=== PATIENT | female | born 1965 | race African-American/Black ===

== ENCOUNTER 2016-12-09 09:44 | Inpatient (IN) | payer MEDICAID ==
[~2016-12-09] VITALS: Ht 167.6 cm; Wt 104.0 kg
[~2016-12-09 09:44] MED LIST: AMIT25TA9 PO; AMLO10TA80 PO; ASPI-1159 PO; ATOR10TA69 PO; BRIM5DRO EACHEYE; BUSP15TA3 PO; CETI10TA6 PO; CYCL10TA7 PO; FAMO20TA8 PO; FLONAS NS; FLUT1DIS3 IH; FURO40TA5 PO; HYDR-523 PO; IMIT50 PO; KETOTIFEN BOTHEYE; LISI-604 PO; LORA0.5T2 PO; LORA10TA7 PO; LOSA100T14 PO; METF500T4 PO; METH4TAB17 PO; MONT10TA24 PO; POTA20TA75 PO; PRED5TAB48 PO; PROP50TA3 PO
[2016-12-09] MEDS ORDERED: METHYLPREDNISOLONE SOD SUCC 125 MG/2 ML VIAL IV STA (09:59)
[2016-12-09] MEDS ORDERED: MAGNESIUM 2 G PREMIX 50 ML IV ONE (10:00)
[2016-12-09] MEDS ORDERED: IPRATROPIUM/ALBUTEROL 0.5-3(2.5)MG/3ML NEB HHN ONE (10:00)
[2016-12-09 10:27] LABS: HEMATOCRIT. 38.6 % (36.0-48.0); HEMOGLOBIN. 13.7 g/dL (12.0-16.0); LYMPHOCYTES % 37.7 % (20.0-50.0); MEAN CORPUSCULAR HEMOGLOBIN 32.8 pg (28.0-32.0); MEAN CORPUSCULAR VOLUME 92.5 fL (81.0-99.0); MEAN PLATELET VOLUME 6.9 fl (7.4-10.4); MONOCYTES % 7.7 % (2.0-8.0); NEUTROPHILS % 49.6 % (40.0-76.0); PLATELET 252 x1000/uL (130-400); RED BLOOD CELL COUNT 4.17 mill/uL (4.2-5.4); RED CELL DISTRIBUTION WIDTH 13.2 % (11.6-14.6)
[2016-12-09 10:36] LABS: PARTIAL THROMBOPLASTIN TIME 28.1 sec (24.0-34.0); PROTHROMBIN TIME 10.4 sec
[2016-12-09 10:54] LABS: CARBON DIOXIDE 28 mEq/L (21-32); CHLORIDE 106 mEq/L (98-107); TROPONIN I < 0.02 ng/mL (0.00-0.04)
[2016-12-09] MEDS ORDERED: SODIUM CHLORIDE 0.9% 10ML VIAL ONE (11:18)
[2016-12-09] MEDS ORDERED: IOHEXOL-350 100 ML BOTTLE ONE (11:18)
[2016-12-09] MEDS ORDERED: ALBUTEROL (0.083%) 2.5MG/3ML NEB HHN SCH (12:00)
[2016-12-09 12:18] LABS: BG BASE EXCESS 0.3 mmol/L (-2.0-2.0); BG CARBOXYHEMOGLOBIN 0.4 % (0.5-1.5); BG DEOXYHEMOGLOBIN 4.1 % (0.0-5.0); BG HCO3 ACT 22.8 mmol/L (22.0-26.0); BG METHEMOGLOBIN 0.1 % (0.0-1.5); BG OXYGEN SATURATION 95.9 % (92.0-98.5); BG OXYHEMOGLOBIN 95.4 % (94.0-97.0); BG PCO2 30.9 mmHg (35.0-45.0); BG PH 7.485 (7.350-7.450); BG PO2 78.2 mmHg (75.0-100.0); BG SAMPLE SITE RIGHT RADIAL; BG TOTAL HEMOGLOBIN 14.4 g/dL (12.0-18.0); BG VENT MODE ROOM AIR
[2016-12-09] MEDS ORDERED: SUMATRIPTAN SUCCINATE 25MG TABLET PO ONE (12:30)
[2016-12-09 13:47] LABS: HCG SCREEN NEGATIVE
[2016-12-09 14:01] LABS: CLARITY URINE CLEAR (CLEAR); COLOR URINE YELLOW (YELLOW); GLUCOSE URINE 2+ (NEGATIVE); KETONES URINE NEGATIVE (NEGATIVE); LEUKOCYTE ESTERASE URINE 1+ (NEGATIVE); NITRITE URINE NEGATIVE (NEGATIVE); OCCULT BLOOD URINE 1+ (NEGATIVE); PROTEIN URINE NEGATIVE (NEGATIVE); SPECIFIC GRAVITY URINE 1.016 (1.005-1.030)
[2016-12-09] MEDS ORDERED: CLONIDINE 0.1MG TABLET PO PRN (14:15)
[2016-12-09] MEDS ORDERED: METHYLPREDNISOLONE SOD SUCC 125 MG/2 ML VIAL IV SCH (14:15)
[2016-12-09] MEDS ORDERED: DIPHENHYDRAMINE 50MG/ML VIAL IV PRN ×2 (14:15→23:00)
[2016-12-09] MEDS ORDERED: IPRATROPIUM/ALBUTEROL 0.5-3(2.5)MG/3ML NEB INH PRN (14:15)
[2016-12-09] MEDS ORDERED: POTASSIUM CHLORIDE 20MEQ TABLET SR PO ONE (14:15)
[2016-12-09] MEDS ORDERED: ONDANSETRON HCL 4MG/2ML VIAL IV PRN (14:15)
[2016-12-09] MEDS ORDERED: IPRATROPIUM/ALBUTEROL 0.5-3(2.5)MG/3ML NEB INH SCH (14:15)
[2016-12-09 14:25] LABS: *AMPHETAMINES SCREEN URINE NEGATIVE (NEGATIVE); *BARBITURATES SCREEN URINE NEGATIVE (NEGATIVE); *BENZODIAZEPINES SCREEN URINE NEGATIVE (NEGATIVE); *COCAINE SCREEN URINE NEGATIVE (NEGATIVE); CANNABINOID URINE SCREEN NEGATIVE (NEGATIVE); METHADONE URINE SCREEN NEGATIVE (NEGATIVE); PHENCYCLIDINE URINE SCREEN NEGATIVE (NEGATIVE)
[2016-12-09 14:30] LABS: OPIATES URINE SCREEN NEGATIVE (NEGATIVE)
[2016-12-09] MEDS ORDERED: LEVOFLOXACIN 500MG PREMIX 100 ML IV SCH (14:30)
[2016-12-09] MEDS ORDERED: TRAMADOL 50MG TABLET PO PRN (15:06)
[2016-12-09 16:00] VITALS: BP 128/62
[2016-12-09 16:18] VITALS: BP 126/82
[2016-12-09] MEDS ORDERED: HYDR-519 PO (16:26)
[2016-12-09] MEDS ORDERED: DEXTROSE 50% WATER 50ML SYRINGE IV PRN (16:45)
[2016-12-09] MEDS: BLOOD SUGAR DIAGNOSTIC STRIP TEST SCH ×2 (17:42→21:00)
[2016-12-09] MEDS: INSULIN LISPRO 100 UNITS/ML SUBCUT SCH ×2 (17:59→21:16)
[2016-12-09 18:00] VITALS: BP 116/79
[2016-12-09] MEDS: METHYLPREDNISOLONE SOD SUCC 40 MG/ML VIAL IV SCH (18:28)
[2016-12-09 20:00] VITALS: BP 118/76
[2016-12-09] MEDS: IPRATROPIUM/ALBUTEROL 0.5-3(2.5)MG/3ML NEB INH SCH (20:40)
[2016-12-09] MEDS: FLUTICASONE PROPIONATE NASAL SPRAY XX SCH (21:07)
[2016-12-09 22:00] VITALS: BP 138/77
[2016-12-09] MEDS ORDERED: ZOLPIDEM TARTRATE 5MG TABLET PO PRN (23:00)
[2016-12-10] VITALS (13 sets, daily range): BP systolic 119–142; BP diastolic 69–97
[2016-12-10] MEDS: IPRATROPIUM/ALBUTEROL 0.5-3(2.5)MG/3ML NEB INH SCH ×5 (00:42→16:57)
[2016-12-10] MEDS: METHYLPREDNISOLONE SOD SUCC 40 MG/ML VIAL IV SCH ×3 (02:08→18:07)
[2016-12-10] MEDS: BLOOD SUGAR DIAGNOSTIC STRIP TEST SCH ×4 (07:30→21:04)
[2016-12-10] MEDS: INSULIN LISPRO 100 UNITS/ML SUBCUT SCH ×4 (08:00→21:25)
[2016-12-10] MEDS: FLUTICASONE PROPIONATE NASAL SPRAY XX SCH ×2 (09:18→18:10)
[2016-12-10] MEDS ORDERED: HYDROCODONE/ACETAMINOPHEN 10/325MG TABLET PO PRN (15:00)
[2016-12-10] MEDS ORDERED: LEVOFLOXACIN 500MG PREMIX 100 ML IV SCH (16:00)
[2016-12-10] MEDS ORDERED: LORAZEPAM 0.5MG TABLET PO PRN (17:26)
[2016-12-10] MEDS: CYCLOBENZAPRINE 10MG TABLET PO SCH (18:08)
[2016-12-10] MEDS: POTASSIUM CHLORIDE 20MEQ TABLET SR PO SCH (18:08)
[2016-12-10] MEDS ORDERED: FLUTICASONE PROPIONATE 50MCG/SPRAY BOTTLE BOTHNSTRLS PRN (20:00)
[2016-12-10] MEDS ORDERED: ATORVASTATIN CALCIUM 10MG TABLET PO SCH (21:00)
[2016-12-10] MEDS ORDERED: PROPYLTHIOURACIL 50MG TABLET PO SCH (21:00)
[2016-12-10] MEDS ORDERED: MONTELUKAST SODIUM 10MG TABLET PO SCH (21:00)
[2016-12-10] MEDS ORDERED: AMITRIPTYLINE 25MG TABLET PO SCH (21:00)
[2016-12-10] MEDS: LISINOPRIL 20MG TABLET PO SCH (21:03)
[2016-12-11] VITALS (9 sets, daily range): BP systolic 117–140; BP diastolic 61–88
[2016-12-11] MEDS: IPRATROPIUM/ALBUTEROL 0.5-3(2.5)MG/3ML NEB INH SCH ×6 (00:19→15:33)
[2016-12-11] MEDS: METHYLPREDNISOLONE SOD SUCC 40 MG/ML VIAL IV SCH ×2 (02:09→09:28)
[2016-12-11] MEDS: BLOOD SUGAR DIAGNOSTIC STRIP TEST SCH ×2 (07:39→12:10)
[2016-12-11] MEDS: INSULIN LISPRO 100 UNITS/ML SUBCUT SCH ×2 (07:39→12:40)
[2016-12-11] MEDS ORDERED: METFORMIN HCL 500MG TABLET PO SCH (08:00)
[2016-12-11] MEDS ORDERED: FUROSEMIDE 40MG TABLET PO SCH (09:00)
[2016-12-11] MEDS ORDERED: CETIRIZINE 10MG TABLET PO SCH (09:00)
[2016-12-11] MEDS ORDERED: FAMOTIDINE 20MG TABLET PO SCH (09:00)
[2016-12-11] MEDS ORDERED: AMLODIPINE 10MG TABLET PO SCH (09:00)
[2016-12-11] MEDS ORDERED: ASPIRIN 81MG EC TABLET PO SCH (09:00)
[2016-12-11] MEDS ORDERED: LOSARTAN POTASSIUM 100 MG TABLET PO SCH (09:00)
[2016-12-11] MEDS: POTASSIUM CHLORIDE 20MEQ TABLET SR PO SCH (09:19)
[2016-12-11] MEDS: CYCLOBENZAPRINE 10MG TABLET PO SCH (09:20)
[2016-12-11] MEDS: LISINOPRIL 20MG TABLET PO SCH (09:21)
[2016-12-11] MEDS: FLUTICASONE PROPIONATE NASAL SPRAY XX SCH (09:22)
== END 2016-12-11 16:10 | disposition home or self-care (01) | DRG 140 ==
LOC: ER 09:45 → EDBEDREQ 11:50 → 5EST 13:13 → EDBEDREQ 13:15 → EDBEDREQSVC 13:15 → ENRESERV 13:48 → ER 14:41
PROVIDERS: ADMIT Internal Medicine; ATTEND Internal Medicine
DX: J44.1 Chronic obstructive pulmonary disease with (acute) exacerbation (principal); J45.901 Unspecified asthma with (acute) exacerbation; I10 Essential (primary) hypertension; F32.9 Major depressive disorder, single episode, unspecified; E05.90 Thyrotoxicosis, unspecified without thyrotoxic crisis or storm; E11.9 Type 2 diabetes mellitus without complications; E78.5 Hyperlipidemia, unspecified; F41.9 Anxiety disorder, unspecified; G47.33 Obstructive sleep apnea (adult) (pediatric); K21.9 Gastro-esophageal reflux disease without esophagitis; G43.909 Migraine, unspecified, not intractable, without status migrainosus; J30.9 Allergic rhinitis, unspecified; R00.0 Tachycardia, unspecified; Z79.52 Long term (current) use of systemic steroids; Z79.84 Long term (current) use of oral hypoglycemic drugs; Z79.899 Other long term (current) drug therapy; Z88.0 Allergy status to penicillin; Z88.2 Allergy status to sulfonamides; Z88.6 Allergy status to analgesic agent; Z88.5 Allergy status to narcotic agent; Z88.8 Allergy status to other drugs, medicaments and biological substances
CPT/HCPCS: 36415; 36600; 71010; 71275; 80053; 80305; 81001; 82375; 82805; 82962; 83605; 83880; 84484; 84703; 85025; 85379; 85610; 85730; 87040; 87086; 93005; 94640; 96365; 96366; 96367; 96375; 99291; A4216; C1893; J1200; J1815; J1956; J2920; J2930; J3475; J7030; J7611; J7620; Q9967

== ENCOUNTER 2016-12-29 23:07 | Emergency (ER) | payer MEDICAID, OTHER ==
[~2016-12-29] VITALS: Ht 177.8 cm; Wt 82.0 kg
[~2016-12-29 23:07] MED LIST changes: -BUSP15TA3 PO; +HYDR-519 PO; -HYDR-523 PO; -LORA10TA7 PO; -PRED5TAB48 PO
[2016-12-29] MEDS ORDERED: METHYLPREDNISOLONE SOD SUCC 125 MG/2 ML VIAL IV STA (23:29)
[2016-12-29] MEDS ORDERED: IPRATROPIUM BROMIDE (0.02%) 0.5MG/2.5ML NEB HHN STA (23:29)
[2016-12-29] MEDS ORDERED: ALBUTEROL (0.083%) 2.5MG/3ML NEB HHN STA (23:29)
[2016-12-29] MEDS ORDERED: MAGNESIUM 2 G PREMIX 50 ML IV ONE (23:30)
[2016-12-30 00:06] LABS: BASOPHILS % 0.7 % (0.0-2.0); EOSINOPHILS % 1.4 % (0.0-5.0); HEMATOCRIT. 37.6 % (36.0-48.0); HEMOGLOBIN. 12.8 g/dL (12.0-16.0); LYMPHOCYTES % 13.6 % (20.0-50.0); MEAN CORPUSCULAR HEMOGLOBIN 31.5 pg (28.0-32.0); MEAN CORPUSCULAR VOLUME 92.2 fL (81.0-99.0); NEUTROPHILS % 78.3 % (40.0-76.0); PLATELET 223 x1000/uL (130-400); RED BLOOD CELL COUNT 4.07 mill/uL (4.2-5.4); RED CELL DISTRIBUTION WIDTH 13.4 % (11.6-14.6)
[2016-12-30 00:08] LABS: CHLORIDE 105 mEq/L (98-107)
[2016-12-30 00:15] LABS: CARBON DIOXIDE 27 mEq/L (21-32)
[2016-12-30] MEDS ORDERED: ALBUTEROL (0.5%) 2.5MG/0.5ML NEB HHN ONE (02:11)
[2016-12-30 04:10] VITALS: BP 135/79
== END 2016-12-30 04:12 | disposition home or self-care (01) ==
LOC: ER 23:07
DX: J45.901 Unspecified asthma with (acute) exacerbation (principal); J44.9 Chronic obstructive pulmonary disease, unspecified; E05.90 Thyrotoxicosis, unspecified without thyrotoxic crisis or storm; I10 Essential (primary) hypertension; E78.00 Pure hypercholesterolemia, unspecified; E11.9 Type 2 diabetes mellitus without complications; Z79.82 Long term (current) use of aspirin; Z88.0 Allergy status to penicillin; Z88.2 Allergy status to sulfonamides; Z88.6 Allergy status to analgesic agent
CPT/HCPCS: 36415; 71010; 80048; 85025; 94640; 94644; 96365; 96375; 99285; J2930; J3475; J7611; 96374

== ENCOUNTER 2017-02-02 11:08 | Inpatient (IN) | payer MEDICAID ==
[~2017-02-02] VITALS: Ht 172.7 cm; Wt 104.4 kg
[~2017-02-02 11:08] MED LIST changes: +POTA20TA12 PO; -POTA20TA75 PO
[2017-02-02] MEDS ORDERED: IPRATROPIUM BROMIDE (0.02%) 0.5MG/2.5ML NEB HHN STA (11:17)
[2017-02-02] MEDS ORDERED: ALBUTEROL (0.083%) 2.5MG/3ML NEB HHN STA (11:17)
[2017-02-02] MEDS ORDERED: METHYLPREDNISOLONE SOD SUCC 125 MG/2 ML VIAL IV STA (11:17)
[2017-02-02] MEDS ORDERED: SODIUM CHLORIDE 0.9% 1,000 ML IV ONE (11:17)
[2017-02-02] MEDS ORDERED: MAGNESIUM 2 G PREMIX 50 ML IV ONE (11:30)
[2017-02-02 11:48] LABS: BASOPHILS % 0.7 % (0.0-2.0); EOSINOPHILS % 2.6 % (0.0-5.0); HEMOGLOBIN. 13.6 g/dL (12.0-16.0); LYMPHOCYTES % 33.9 % (20.0-50.0); MEAN CORPUSCULAR HEMOGLOBIN 31.5 pg (28.0-32.0); MEAN CORPUSCULAR VOLUME 92.6 fL (81.0-99.0); MONOCYTES % 8.4 % (2.0-8.0); NEUTROPHILS % 54.4 % (40.0-76.0); PLATELET 266 x1000/uL (130-400); RED BLOOD CELL COUNT 4.32 mill/uL (4.2-5.4); RED CELL DISTRIBUTION WIDTH 13.4 % (11.6-14.6)
[2017-02-02 11:51] LABS: PROTHROMBIN TIME 10.3 sec (9.4-11.6)
[2017-02-02 11:53] LABS: HCG SCREEN NEGATIVE
[2017-02-02] MEDS ORDERED: LEVOFLOXACIN 750MG PREMIX 150 ML IV ONE (12:00)
[2017-02-02 12:01] LABS: CARBON DIOXIDE 23 mEq/L (21-32); CHLORIDE 112 mEq/L (98-107); ETHANOL BLOOD < 10 mg/dL; TROPONIN I < 0.02 ng/mL (0.00-0.04)
[2017-02-02 12:50] LABS: BG FRACTION INSPIRED OXYGEN 100; BG SAMPLE SITE LEFT BRACHIAL; BG VENT MODE MASK - BIPAP
[2017-02-02 12:54] LABS: BG PH 7.406 (7.350-7.450)
[2017-02-02 12:55] LABS: BG PO2 326.3 mmHg (75.0-100.0)
[2017-02-02 12:56] LABS: BG BASE EXCESS -2.1 mmol/L (-2.0-2.0); BG HCO3 ACT 22.1 mmol/L (22.0-26.0)
[2017-02-02 12:57] LABS: BG OXYGEN SATURATION 99.5 % (92.0-98.5); BG TOTAL HEMOGLOBIN 13.5 g/dL (12.0-18.0)
[2017-02-02 12:58] LABS: BG CARBOXYHEMOGLOBIN 0.4 % (0.5-1.5); BG OXYHEMOGLOBIN 98.7 % (94.0-97.0)
[2017-02-02 12:59] LABS: BG DEOXYHEMOGLOBIN 0.5 % (0.0-5.0); BG METHEMOGLOBIN 0.4 % (0.0-1.5)
[2017-02-02 13:00] LABS: BG BILEVEL POS AIRWAY PRESSURE ST=15/5; BG PRESSURE SUPPORT 10; BG VENT RATE 16 set
[2017-02-02 14:00] VITALS: BP 173/89
[2017-02-02] MEDS ORDERED: DEXTROSE 50% WATER 50ML SYRINGE IV PRN (15:30)
[2017-02-02] MEDS ORDERED: POTASSIUM CHLORIDE 20MEQ TABLET SR PO NR (15:36)
[2017-02-02] MEDS ORDERED: METHYLPREDNISOLONE 4MG TABLET PO SCH (15:45)
[2017-02-02 16:00] VITALS: BP 121/100
[2017-02-02] MEDS ORDERED: IPRATROPIUM/ALBUTEROL 0.5-3(2.5)MG/3ML NEB HHN SCH ×3 (16:00)
[2017-02-02] MEDS ORDERED: LORAZEPAM 0.5MG TABLET PO PRN (16:00)
[2017-02-02] MEDS: IPRATROPIUM/ALBUTEROL 0.5-3(2.5)MG/3ML NEB HHN SCH ×2 (16:30→20:58)
[2017-02-02] MEDS: CYCLOBENZAPRINE 10MG TABLET PO SCH (17:17)
[2017-02-02] MEDS: METHYLPREDNISOLONE SOD SUCC 40 MG/ML VIAL IV SCH ×2 (17:17→23:31)
[2017-02-02] MEDS: BLOOD SUGAR DIAGNOSTIC STRIP TEST SCH ×2 (17:21→20:47)
[2017-02-02] MEDS: INSULIN LISPRO 100 UNITS/ML SUBCUT SCH ×2 (17:21→20:51)
[2017-02-02 18:00] VITALS: BP 129/76
[2017-02-02] MEDS ORDERED: FLUTICASONE PROPIONATE 50MCG/SPRAY BOTTLE BOTHNSTRLS PRN (18:00)
[2017-02-02 20:00] VITALS: BP 134/92
[2017-02-02] MEDS: LISINOPRIL 20MG TABLET PO SCH (20:43)
[2017-02-02] MEDS: HYDROCODONE/ACETAMINOPHEN 10/325MG TABLET PO PRN (20:45)
[2017-02-02] MEDS ORDERED: PROPYLTHIOURACIL 50MG TABLET PO SCH (21:00)
[2017-02-02] MEDS ORDERED: MONTELUKAST SODIUM 10MG TABLET PO SCH (21:00)
[2017-02-02] MEDS ORDERED: AMITRIPTYLINE 25MG TABLET PO SCH (21:00)
[2017-02-02] MEDS ORDERED: ATORVASTATIN CALCIUM 10MG TABLET PO SCH (21:00)
[2017-02-02 22:00] VITALS: BP 130/82
[2017-02-03] VITALS (11 sets, daily range): BP systolic 112–165; BP diastolic 69–99
[2017-02-03] MEDS: IPRATROPIUM/ALBUTEROL 0.5-3(2.5)MG/3ML NEB HHN SCH ×5 (00:21→16:28)
[2017-02-03] MEDS: METHYLPREDNISOLONE SOD SUCC 40 MG/ML VIAL IV SCH ×3 (06:02→17:37)
[2017-02-03] MEDS: HYDROCODONE/ACETAMINOPHEN 10/325MG TABLET PO PRN (06:22)
[2017-02-03 06:29] LABS: HEMATOCRIT. 37.7 % (36.0-48.0); HEMOGLOBIN. 12.6 g/dL (12.0-16.0); MEAN CORPUSCULAR HEMOGLOBIN 31.1 pg (28.0-32.0); MEAN CORPUSCULAR VOLUME 93.3 fL (81.0-99.0); MEAN PLATELET VOLUME 7.3 fl (7.4-10.4); PLATELET 245 x1000/uL (130-400); RED BLOOD CELL COUNT 4.04 mill/uL (4.2-5.4); RED CELL DISTRIBUTION WIDTH 13.8 % (11.6-14.6)
[2017-02-03 06:41] LABS: CARBON DIOXIDE 21 mEq/L (21-32); CHLORIDE 111 mEq/L (98-107)
[2017-02-03 07:21] LABS: BG BASE EXCESS -2.8 mmol/L (-2.0-2.0); BG CARBOXYHEMOGLOBIN 0.2 % (0.5-1.5); BG DEOXYHEMOGLOBIN 4.1 % (0.0-5.0); BG HCO3 ACT 21.3 mmol/L (22.0-26.0); BG METHEMOGLOBIN 0.2 % (0.0-1.5); BG OXYGEN SATURATION 95.9 % (92.0-98.5); BG OXYHEMOGLOBIN 95.5 % (94.0-97.0); BG PH 7.402 (7.350-7.450); BG PO2 79.6 mmHg (75.0-100.0); BG SAMPLE SITE RIGHT RADIAL; BG TOTAL HEMOGLOBIN 13.7 g/dL (12.0-18.0); BG VENT MODE ROOM AIR
[2017-02-03] MEDS: BLOOD SUGAR DIAGNOSTIC STRIP TEST SCH ×3 (07:30→17:29)
[2017-02-03] MEDS: INSULIN LISPRO 100 UNITS/ML SUBCUT SCH ×3 (08:00→17:31)
[2017-02-03] MEDS ORDERED: METFORMIN HCL 500MG TABLET PO SCH (08:00)
[2017-02-03] MEDS ORDERED: FAMOTIDINE 20MG TABLET PO SCH (09:00)
[2017-02-03] MEDS ORDERED: ASPIRIN 81MG EC TABLET PO SCH (09:00)
[2017-02-03] MEDS ORDERED: AMLODIPINE 10MG TABLET PO SCH (09:00)
[2017-02-03] MEDS ORDERED: CETIRIZINE 10MG TABLET PO SCH (09:00)
[2017-02-03] MEDS ORDERED: LOSARTAN POTASSIUM 100 MG TABLET PO SCH (09:00)
[2017-02-03] MEDS ORDERED: FUROSEMIDE 40MG TABLET PO SCH (09:00)
[2017-02-03] MEDS: CYCLOBENZAPRINE 10MG TABLET PO SCH ×2 (09:00→17:28)
[2017-02-03] MEDS: LISINOPRIL 20MG TABLET PO SCH (09:18)
[2017-02-03] MEDS: POTASSIUM CHLORIDE 20MEQ TABLET SR PO SCH ×2 (09:20→17:28)
[2017-02-04 21:19] LABS: PLATELET ESTIMATE NORMAL
== END 2017-02-03 18:45 | disposition home or self-care (01) | DRG 133 ==
LOC: ER 11:13 → 5EST 11:54 → EDBEDREQ 11:57 → ENRESERV 12:23 → 5EST 13:44 → UNDOADMIN 13:44
PROVIDERS: ADMIT Internal Medicine; ATTEND Internal Medicine
PROC: 5A09357 Assistance with Respiratory Ventilation, Less than 24 Consecutive Hours, Continuous Positive Airway Pressure (ICD-10-PCS; principal; 2017-02-02)
DX: J96.00 Acute respiratory failure, unspecified whether with hypoxia or hypercapnia (principal); R65.10 Systemic inflammatory response syndrome (SIRS) of non-infectious origin without acute organ dysfunction; J44.1 Chronic obstructive pulmonary disease with (acute) exacerbation; J45.901 Unspecified asthma with (acute) exacerbation; K21.9 Gastro-esophageal reflux disease without esophagitis; E11.9 Type 2 diabetes mellitus without complications; I10 Essential (primary) hypertension; F32.9 Major depressive disorder, single episode, unspecified; R00.0 Tachycardia, unspecified; E78.5 Hyperlipidemia, unspecified; E78.00 Pure hypercholesterolemia, unspecified; E87.6 Hypokalemia; E05.90 Thyrotoxicosis, unspecified without thyrotoxic crisis or storm; F41.0 Panic disorder [episodic paroxysmal anxiety]; Z88.0 Allergy status to penicillin; Z88.2 Allergy status to sulfonamides; Z88.6 Allergy status to analgesic agent; Z88.5 Allergy status to narcotic agent; Z79.1 Long term (current) use of non-steroidal anti-inflammatories (NSAID); Z79.84 Long term (current) use of oral hypoglycemic drugs; Z79.899 Other long term (current) drug therapy
CPT/HCPCS: 36415; 36600; 71010; 80048; 80053; 82375; 82805; 82962; 83605; 83690; 83880; 84484; 84703; 85025; 85610; 87040; 93005; 94640; 94644; 94660; 96365; 96366; 96375; 99291; A6261; G0482; J1815; J1956; J2920; J2930; J3475; J7030; J7611; J7620

== ENCOUNTER 2017-02-11 01:06 | Emergency (ER) | payer MEDICAID, OTHER ==
[~2017-02-11] VITALS: Ht 170.2 cm; Wt 80.0 kg
[2017-02-11] MEDS ORDERED: METHYLPREDNISOLONE SOD SUCC 125 MG/2 ML VIAL IV STA (01:22)
[2017-02-11] MEDS ORDERED: ALBUTEROL (0.083%) 2.5MG/3ML NEB HHN STA (01:22)
[2017-02-11] MEDS ORDERED: IPRATROPIUM BROMIDE (0.02%) 0.5MG/2.5ML NEB HHN STA (01:22)
[2017-02-11] MEDS ORDERED: SODIUM CHLORIDE 0.9% 1,000 ML IV ONE ×2 (01:22→05:14)
[2017-02-11] MEDS ORDERED: LEVOFLOXACIN 750MG PREMIX 150 ML IV ONE (01:30)
[2017-02-11] MEDS ORDERED: ASPIRIN 81MG TABLET PO ONE (01:30)
[2017-02-11] MEDS ORDERED: NITROGLYCERIN OINT 1GM/INCH UDPKT TD ONE (01:30)
[2017-02-11] MEDS ORDERED: MAGNESIUM 2 G PREMIX 50 ML IV ONE (01:30)
[2017-02-11 01:58] LABS: BG BASE EXCESS 0.5 mmol/L (-2.0-2.0); BG CARBOXYHEMOGLOBIN 0.4 % (0.5-1.5); BG DEOXYHEMOGLOBIN 4.2 % (0.0-5.0); BG FRACTION INSPIRED OXYGEN 28; BG HCO3 ACT 25.9 mmol/L (22.0-26.0); BG METHEMOGLOBIN 0.4 % (0.0-1.5); BG OXYGEN SATURATION 95.8 % (92.0-98.5); BG PCO2 44.3 mmHg (35.0-45.0); BG PH 7.384 (7.350-7.450); BG PO2 83.6 mmHg (75.0-100.0); BG SAMPLE SITE LEFT RADIAL; BG TOTAL HEMOGLOBIN 13.6 g/dL (12.0-18.0); BG VENT MODE NASAL CANNULA
[2017-02-11 02:17] LABS: BASOPHILS % 0.2 % (0.0-2.0); EOSINOPHILS % 0.2 % (0.0-5.0); HCG SCREEN NEGATIVE; HEMATOCRIT. 38.9 % (36.0-48.0); HEMOGLOBIN. 13.2 g/dL (12.0-16.0); LYMPHOCYTES % 13.5 % (20.0-50.0); MEAN CORPUSCULAR HEMOGLOBIN 31.5 pg (28.0-32.0); MEAN CORPUSCULAR VOLUME 93.1 fL (81.0-99.0); MEAN PLATELET VOLUME 6.9 fl (7.4-10.4); MONOCYTES % 3.7 % (2.0-8.0); NEUTROPHILS % 82.4 % (40.0-76.0); PLATELET 218 x1000/uL (130-400); RED BLOOD CELL COUNT 4.18 mill/uL (4.2-5.4); RED CELL DISTRIBUTION WIDTH 13.6 % (11.6-14.6)
[2017-02-11 02:21] LABS: D-DIMER 1.49 mg/L FEU (<0.50); PARTIAL THROMBOPLASTIN TIME 26.6 sec (23.4-31.0); PROTHROMBIN TIME 10.1 sec (9.4-11.6)
[2017-02-11 02:27] LABS: CARBON DIOXIDE 27 mEq/L (21-32); CHLORIDE 105 mEq/L (98-107); ETHANOL BLOOD < 10 mg/dL; TROPONIN I < 0.02 ng/mL (0.00-0.04)
[2017-02-11 07:28] VITALS: BP 151/90
[2017-02-11] MEDS ORDERED: IOHEXOL-350 100 ML BOTTLE ONE (11:20)
[2017-02-11] MEDS ORDERED: SODIUM CHLORIDE 0.9% 10ML VIAL ONE (11:20)
== END 2017-02-11 07:46 | disposition home or self-care (01) ==
LOC: ER 01:06
DX: J44.1 Chronic obstructive pulmonary disease with (acute) exacerbation (principal); F17.200 Nicotine dependence, unspecified, uncomplicated; I10 Essential (primary) hypertension; E11.9 Type 2 diabetes mellitus without complications; Z88.0 Allergy status to penicillin; Z88.6 Allergy status to analgesic agent; Z88.4 Allergy status to anesthetic agent; Z88.2 Allergy status to sulfonamides; Z79.82 Long term (current) use of aspirin
CPT/HCPCS: 36415; 36600; 71010; 71275; 80053; 82375; 82805; 83605; 83690; 83880; 84484; 84703; 85025; 85379; 85610; 85730; 87040; 93005; 94644; 96361; 96365; 96368; 96375; 99285; A4216; G0482; J1956; J2930; J3475; J7611; Q9967; Z7610; J7030

== ENCOUNTER 2017-03-08 09:45 | Inpatient (IN) | payer MEDICAID ==
[~2017-03-08] VITALS: Ht 172.7 cm; Wt 81.6 kg
[2017-03-08] MEDS ORDERED: METHYLPREDNISOLONE SOD SUCC 125 MG/2 ML VIAL IV STA (10:07)
[2017-03-08] MEDS ORDERED: ALBUTEROL (0.083%) 2.5MG/3ML NEB HHN STA (10:07)
[2017-03-08] MEDS ORDERED: IPRATROPIUM BROMIDE (0.02%) 0.5MG/2.5ML NEB HHN STA (10:07)
[2017-03-08] MEDS ORDERED: MAGNESIUM 2 G PREMIX 50 ML IV ONE (10:15)
[2017-03-08 10:42] LABS: BASOPHILS % 1.1 % (0.0-2.0); HEMATOCRIT. 41.3 % (36.0-48.0); HEMOGLOBIN. 14.1 g/dL (12.0-16.0); LYMPHOCYTES % 33.7 % (20.0-50.0); MEAN CORPUSCULAR HEMOGLOBIN 31.5 pg (28.0-32.0); MEAN CORPUSCULAR VOLUME 92.2 fL (81.0-99.0); MONOCYTES % 9.1 % (2.0-8.0); NEUTROPHILS % 52.1 % (40.0-76.0); PLATELET 271 x1000/uL (130-400); RED BLOOD CELL COUNT 4.48 mill/uL (4.2-5.4); RED CELL DISTRIBUTION WIDTH 13.7 % (11.6-14.6)
[2017-03-08 10:50] LABS: PROTHROMBIN TIME 10.3 sec (9.4-11.6)
[2017-03-08 11:01] LABS: CARBON DIOXIDE 27 mEq/L (21-32); CHLORIDE 107 mEq/L (98-107); TROPONIN I < 0.02 ng/mL (0.00-0.04)
[2017-03-08 11:06] LABS: HCG SCREEN NEGATIVE
[2017-03-08] MEDS ORDERED: SODIUM CHLORIDE 0.9% 1000ML BAG (SEPSIS BOLUS) IV ONE (11:30)
[2017-03-08] MEDS ORDERED: SODIUM CHLORIDE 0.9% 2,730 ML IV SCH (11:45)
[2017-03-08 16:00] VITALS: BP 140/95
[2017-03-08 16:03] VITALS: BP 140/95
[2017-03-08] MEDS ORDERED: TIMO15DR12 EACHEYE (16:24)
[2017-03-08] MEDS ORDERED: IPRATROPIUM/ALBUTEROL 0.5-3(2.5)MG/3ML NEB HHN PRN (16:30)
[2017-03-08] MEDS ORDERED: ONDANSETRON HCL 4MG/2ML VIAL IV PRN (17:00)
[2017-03-08] MEDS ORDERED: CEFTRIAXONE 1 G PREMIX 50 ML IV SCH (17:00)
[2017-03-08] MEDS ORDERED: HYDROCODONE/ACETAMINOPHEN 10/325MG TABLET PO PRN (17:00)
[2017-03-08] MEDS ORDERED: CLONIDINE 0.1MG TABLET PO PRN (17:00)
[2017-03-08] MEDS ORDERED: HYDROCODONE/ACETAMINOPHEN 5/325MG TABLET PO PRN (17:00)
[2017-03-08] MEDS ORDERED: LORAZEPAM 1MG TABLET PO PRN (17:00)
[2017-03-08] MEDS ORDERED: IPRATROPIUM/ALBUTEROL 0.5-3(2.5)MG/3ML NEB INH PRN (17:00)
[2017-03-08] MEDS ORDERED: LORAZEPAM 0.5MG TABLET PO SCH (17:00)
[2017-03-08] MEDS: FAMOTIDINE 20MG TABLET PO SCH (17:43)
[2017-03-08] MEDS: PREDNISONE 20MG TABLET PO SCH (17:43)
[2017-03-08] MEDS: METHYLPREDNISOLONE SOD SUCC 40 MG/ML VIAL IV SCH (17:44)
[2017-03-08] MEDS: POTASSIUM CHLORIDE 20MEQ TABLET SR PO SCH (17:44)
[2017-03-08] MEDS ORDERED: LEVOFLOXACIN 500MG PREMIX 100 ML IV SCH (18:00)
[2017-03-08] MEDS ORDERED: DEXTROSE 50% WATER 50ML SYRINGE IV PRN (18:15)
[2017-03-08] MEDS: INSULIN LISPRO 100 UNITS/ML SUBCUT SCH ×2 (18:24→21:15)
[2017-03-08] MEDS: BLOOD SUGAR DIAGNOSTIC STRIP TEST SCH ×2 (18:24→21:09)
[2017-03-08] MEDS ORDERED: FLUTICASONE PROPIONATE 50MCG/SPRAY BOTTLE BOTHNSTRLS PRN (19:00)
[2017-03-08 20:00] VITALS: BP 132/82
[2017-03-08] MEDS ORDERED: IPRATROPIUM/ALBUTEROL 0.5-3(2.5)MG/3ML NEB HHN SCH (20:00)
[2017-03-08] MEDS: BUDESONIDE 0.5MG/2ML NEB HHN SCH (20:50)
[2017-03-08] MEDS: IPRATROPIUM/ALBUTEROL 0.5-3(2.5)MG/3ML NEB INH SCH (20:53)
[2017-03-08] MEDS: CYCLOBENZAPRINE 10MG TABLET PO SCH (20:58)
[2017-03-08] MEDS: GUAIFENESIN 600MG ER TABLET PO SCH (20:58)
[2017-03-08] MEDS ORDERED: AMITRIPTYLINE 25MG TABLET PO SCH (21:00)
[2017-03-08] MEDS ORDERED: MONTELUKAST SODIUM 10MG TABLET PO SCH (21:00)
[2017-03-08] MEDS ORDERED: PROPYLTHIOURACIL 50MG TABLET PO SCH (21:00)
[2017-03-08] MEDS ORDERED: ATORVASTATIN CALCIUM 10MG TABLET PO SCH (21:00)
[2017-03-08] MEDS: LISINOPRIL 20MG TABLET PO SCH (21:00)
[2017-03-08 23:23] LABS: CREATINE KINASE 260 IU/L (26-192); TROPONIN I < 0.02 ng/mL (0.00-0.04)
[2017-03-09] VITALS: BP 122/79
[2017-03-09 04:00] VITALS: BP 139/87
[2017-03-09] MEDS: BLOOD SUGAR DIAGNOSTIC STRIP TEST SCH ×2 (06:11→11:41)
[2017-03-09 06:24] LABS: BASOPHILS % 0.2 % (0.0-2.0); HEMATOCRIT. 39.6 % (36.0-48.0); HEMOGLOBIN. 13.3 g/dL (12.0-16.0); LYMPHOCYTES % 7.9 % (20.0-50.0); MEAN CORPUSCULAR HEMOGLOBIN 31.3 pg (28.0-32.0); MEAN CORPUSCULAR VOLUME 93.5 fL (81.0-99.0); MEAN PLATELET VOLUME 7.3 fl (7.4-10.4); NEUTROPHILS % 89.9 % (40.0-76.0); PLATELET 238 x1000/uL (130-400); RED BLOOD CELL COUNT 4.23 mill/uL (4.2-5.4); RED CELL DISTRIBUTION WIDTH 13.9 % (11.6-14.6)
[2017-03-09 07:05] LABS: CARBON DIOXIDE 26 mEq/L (21-32); CHLORIDE 108 mEq/L (98-107)
[2017-03-09 07:16] LABS: CREATINE KINASE 265 IU/L (26-192); TROPONIN I < 0.02 ng/mL (0.00-0.04)
[2017-03-09] MEDS: INSULIN LISPRO 100 UNITS/ML SUBCUT SCH ×2 (07:39→11:41)
[2017-03-09 08:00] VITALS: BP 130/84
[2017-03-09] MEDS: IPRATROPIUM/ALBUTEROL 0.5-3(2.5)MG/3ML NEB INH SCH ×2 (08:10→12:10)
[2017-03-09] MEDS: BUDESONIDE 0.5MG/2ML NEB HHN SCH (08:10)
[2017-03-09] MEDS ORDERED: METFORMIN HCL 500MG TABLET PO SCH (08:10)
[2017-03-09] MEDS: FAMOTIDINE 20MG TABLET PO SCH (08:55)
[2017-03-09] MEDS: POTASSIUM CHLORIDE 20MEQ TABLET SR PO SCH (08:55)
[2017-03-09] MEDS: METHYLPREDNISOLONE SOD SUCC 40 MG/ML VIAL IV SCH (08:55)
[2017-03-09] MEDS: PREDNISONE 20MG TABLET PO SCH (08:55)
[2017-03-09] MEDS: LISINOPRIL 20MG TABLET PO SCH (08:56)
[2017-03-09] MEDS: CYCLOBENZAPRINE 10MG TABLET PO SCH (08:56)
[2017-03-09] MEDS: GUAIFENESIN 600MG ER TABLET PO SCH (08:56)
[2017-03-09] MEDS ORDERED: AMLODIPINE 10MG TABLET PO SCH (09:00)
[2017-03-09] MEDS ORDERED: FUROSEMIDE 40MG TABLET PO SCH (09:00)
[2017-03-09] MEDS ORDERED: ASPIRIN 81MG EC TABLET PO SCH (09:00)
[2017-03-09] MEDS ORDERED: LOSARTAN POTASSIUM 100 MG TABLET PO SCH (09:00)
[2017-03-09] MEDS ORDERED: ENOXAPARIN 40MG/0.4ML SYR SUBCUT SCH (09:00)
[2017-03-09 12:03] LABS: CLARITY URINE CLEAR (CLEAR); COLOR URINE YELLOW (YELLOW); GLUCOSE URINE 2+ (NEGATIVE); KETONES URINE NEGATIVE (NEGATIVE); LEUKOCYTE ESTERASE URINE NEGATIVE (NEGATIVE); NITRITE URINE NEGATIVE (NEGATIVE); OCCULT BLOOD URINE 1+ (NEGATIVE); PH URINE 6.5 (4.5-8.0); PROTEIN URINE NEGATIVE (NEGATIVE); UROBILINOGEN URINE 0.2 E.U./dL (0.2-1.0)
[2017-03-09 12:15] LABS: BG BASE EXCESS -2.1 mmol/L (-2.0-2.0); BG FRACTION INSPIRED OXYGEN 21; BG HCO3 ACT 22.2 mmol/L (22.0-26.0); BG PCO2 36.6 mmHg (35.0-45.0); BG PO2 82.5 mmHg (75.0-100.0); BG SAMPLE SITE RIGHT RADIAL; BG TOTAL HEMOGLOBIN 14.3 g/dL (12.0-18.0); BG VENT MODE ROOM AIR
[2017-03-09 12:17] VITALS: BP 130/84
== END 2017-03-09 12:40 | disposition home or self-care (01) | DRG 133 ==
LOC: ER 11:00 → 7WST 11:38 → EDBEDREQTM 11:40 → EDBEDREQ 11:40 → EDBEDREQSVC 11:40 → ENRESERV 13:24
PROVIDERS: ADMIT Internal Medicine; ATTEND Internal Medicine
PROC: 5A09357 Assistance with Respiratory Ventilation, Less than 24 Consecutive Hours, Continuous Positive Airway Pressure (ICD-10-PCS; principal; 2017-03-08)
DX: J96.20 Acute and chronic respiratory failure, unspecified whether with hypoxia or hypercapnia (principal); R65.10 Systemic inflammatory response syndrome (SIRS) of non-infectious origin without acute organ dysfunction; J44.1 Chronic obstructive pulmonary disease with (acute) exacerbation; J45.901 Unspecified asthma with (acute) exacerbation; K21.9 Gastro-esophageal reflux disease without esophagitis; I10 Essential (primary) hypertension; E78.5 Hyperlipidemia, unspecified; E87.6 Hypokalemia; E11.9 Type 2 diabetes mellitus without complications; F41.9 Anxiety disorder, unspecified; E05.90 Thyrotoxicosis, unspecified without thyrotoxic crisis or storm; B34.9 Viral infection, unspecified; Z86.73 Personal history of transient ischemic attack (TIA), and cerebral infarction without residual deficits; Z88.0 Allergy status to penicillin; Z88.2 Allergy status to sulfonamides; Z79.82 Long term (current) use of aspirin; Z88.5 Allergy status to narcotic agent; Z88.6 Allergy status to analgesic agent; Z79.84 Long term (current) use of oral hypoglycemic drugs; Z79.899 Other long term (current) drug therapy; Z82.49 Family history of ischemic heart disease and other diseases of the circulatory system
CPT/HCPCS: 36415; 36600; 71010; 80053; 81001; 82375; 82550; 82805; 82962; 83605; 83690; 83880; 84443; 84484; 84703; 85025; 85610; 87040; 87086; 87804; 93005; 93970; 94640; 94660; 96365; 96375; 99291; J1650; J1815; J1956; J2920; J2930; J3475; J7030; J7040; J7512; J7611; J7620; J7626

== ENCOUNTER 2017-04-30 20:34 | Emergency (ER) | payer MEDICAID ==
[~2017-04-30] VITALS: Ht 175.3 cm; Wt 118.0 kg
[~2017-04-30 20:34] MED LIST changes: -BRIM5DRO EACHEYE; -CETI10TA6 PO; -HYDR-519 PO; -KETOTIFEN BOTHEYE; +TIMO15DR12 EACHEYE
[2017-04-30] MEDS ORDERED: IPRATROPIUM/ALBUTEROL 0.5-3(2.5)MG/3ML NEB HHN ONE ×2 (20:45→21:15)
[2017-04-30] MEDS ORDERED: METHYLPREDNISOLONE SOD SUCC 125 MG/2 ML VIAL IV ONE (20:45)
[2017-04-30 20:57] LABS: BASOPHILS % 0.9 % (0.0-2.0); EOSINOPHILS % 2.1 % (0.0-5.0); HEMATOCRIT. 39.1 % (36.0-48.0); HEMOGLOBIN. 13.3 g/dL (12.0-16.0); LYMPHOCYTES % 25.5 % (20.0-50.0); MEAN CORPUSCULAR HEMOGLOBIN 31.7 pg (28.0-32.0); MEAN PLATELET VOLUME 6.9 fl (7.4-10.4); MONOCYTES % 5.1 % (2.0-8.0); NEUTROPHILS % 66.4 % (40.0-76.0); PLATELET 235 x1000/uL (130-400); RED BLOOD CELL COUNT 4.21 mill/uL (4.2-5.4); RED CELL DISTRIBUTION WIDTH 13.5 % (11.6-14.6)
[2017-04-30 21:03] LABS: PROTHROMBIN TIME 10.5 sec (9.4-11.6)
[2017-04-30 21:15] LABS: CARBON DIOXIDE 27 mEq/L (21-32); CHLORIDE 107 mEq/L (98-107); TROPONIN I < 0.02 ng/mL (0.00-0.04)
[2017-04-30 22:40] VITALS: BP 131/90
== END 2017-04-30 22:40 | disposition home or self-care (01) ==
LOC: ER 20:46
DX: J44.1 Chronic obstructive pulmonary disease with (acute) exacerbation (principal); I10 Essential (primary) hypertension; E78.00 Pure hypercholesterolemia, unspecified; Z88.6 Allergy status to analgesic agent; Z88.0 Allergy status to penicillin; Z88.2 Allergy status to sulfonamides
CPT/HCPCS: 36415; 71010; 80053; 83880; 84484; 85025; 85610; 93005; 94640; 96374; 99285; J2930; Z7610; J7620

== ENCOUNTER 2017-05-13 11:15 | Emergency (ER) | payer MEDICAID ==
[~2017-05-13] VITALS: Ht 175.3 cm; Wt 91.0 kg
[2017-05-13] MEDS ORDERED: IPRATROPIUM BROMIDE (0.02%) 0.5MG/2.5ML NEB HHN STA (11:31)
[2017-05-13] MEDS ORDERED: ALBUTEROL (0.083%) 2.5MG/3ML NEB HHN STA (11:31)
[2017-05-13] MEDS ORDERED: METHYLPREDNISOLONE SOD SUCC 125 MG/2 ML VIAL IV STA (11:31)
[2017-05-13 11:49] LABS: BASOPHILS % 0.8 % (0.0-2.0); EOSINOPHILS % 3.1 % (0.0-5.0); HEMATOCRIT. 42.1 % (36.0-48.0); HEMOGLOBIN. 14.1 g/dL (12.0-16.0); LYMPHOCYTES % 35.3 % (20.0-50.0); MEAN CORPUSCULAR HEMOGLOBIN 31.7 pg (28.0-32.0); MEAN CORPUSCULAR VOLUME 94.7 fL (81.0-99.0); MEAN PLATELET VOLUME 6.7 fl (7.4-10.4); MONOCYTES % 7.9 % (2.0-8.0); NEUTROPHILS % 52.9 % (40.0-76.0); PLATELET 265 x1000/uL (130-400); RED BLOOD CELL COUNT 4.45 mill/uL (4.2-5.4); RED CELL DISTRIBUTION WIDTH 13.7 % (11.6-14.6)
[2017-05-13 11:59] LABS: PROTHROMBIN TIME 10.2 sec (9.4-11.6)
[2017-05-13 12:05] LABS: CARBON DIOXIDE 27 mEq/L (21-32); CHLORIDE 107 mEq/L (98-107); TROPONIN I < 0.02 ng/mL (0.00-0.04)
[2017-05-13 14:35] VITALS: BP 119/67
== END 2017-05-13 14:52 | disposition home or self-care (01) ==
LOC: ER 11:31
DX: J45.901 Unspecified asthma with (acute) exacerbation (principal); J44.9 Chronic obstructive pulmonary disease, unspecified; I10 Essential (primary) hypertension; E78.00 Pure hypercholesterolemia, unspecified; E11.9 Type 2 diabetes mellitus without complications; Z88.0 Allergy status to penicillin; Z79.82 Long term (current) use of aspirin; Z88.6 Allergy status to analgesic agent; Z88.2 Allergy status to sulfonamides
CPT/HCPCS: 36415; 71010; 80053; 83880; 84484; 85025; 85610; 93005; 94644; 96374; 99285; J2930; J7611; Z7610; 94640

== ENCOUNTER 2017-08-09 20:09 | Emergency (ER) | payer MEDICAID ==
[~2017-08-09] VITALS: Ht 172.7 cm; Wt 102.0 kg
[2017-08-09] MEDS ORDERED: PREDNISONE 20MG TABLET PO STA (21:30)
[2017-08-09] MEDS ORDERED: IPRATROPIUM BROMIDE (0.02%) 0.5MG/2.5ML NEB HHN STA (21:30)
[2017-08-09] MEDS ORDERED: ALBUTEROL (0.083%) 2.5MG/3ML NEB HHN SCH (21:30)
[2017-08-09 21:56] LABS: BASOPHILS % 0.9 % (0.0-2.0); EOSINOPHILS % 4.2 % (0.0-5.0); HEMATOCRIT. 39.2 % (36.0-48.0); HEMOGLOBIN. 13.3 g/dL (12.0-16.0); LYMPHOCYTES % 32.9 % (20.0-50.0); MEAN CORPUSCULAR HEMOGLOBIN 31.4 pg (28.0-32.0); MEAN CORPUSCULAR VOLUME 92.5 fL (81.0-99.0); MEAN PLATELET VOLUME 6.7 fl (7.4-10.4); MONOCYTES % 8.9 % (2.0-8.0); NEUTROPHILS % 53.1 % (40.0-76.0); PLATELET 287 x1000/uL (130-400); RED BLOOD CELL COUNT 4.24 mill/uL (4.2-5.4); RED CELL DISTRIBUTION WIDTH 13.3 % (11.6-14.6)
[2017-08-09 22:05] LABS: PROTHROMBIN TIME 10.7 sec (9.4-11.6)
[2017-08-09 22:07] LABS: CHLORIDE 108 mEq/L (98-107)
[2017-08-09 22:12] LABS: TROPONIN I < 0.02 ng/mL (0.00-0.04)
[2017-08-09 23:52] VITALS: BP 157/81
== END 2017-08-09 23:53 | disposition home or self-care (01) ==
LOC: ER 20:20
DX: J45.901 Unspecified asthma with (acute) exacerbation (principal); E87.6 Hypokalemia; E11.9 Type 2 diabetes mellitus without complications; I10 Essential (primary) hypertension; Z79.82 Long term (current) use of aspirin; Z88.0 Allergy status to penicillin; Z88.2 Allergy status to sulfonamides; Z88.6 Allergy status to analgesic agent
CPT/HCPCS: 36415; 71045; 80053; 83880; 84484; 85025; 85610; 93005; 94640; 99285; J7512; J7611; Z7610

== ENCOUNTER 2017-09-01 09:55 | Emergency (ER) | payer MEDICAID ==
[~2017-09-01] VITALS: Ht 172.7 cm; Wt 104.0 kg
[2017-09-01] MEDS ORDERED: MORPHINE SULFATE 10 MG/ML CPJ IM ONE (10:30)
[2017-09-01] MEDS ORDERED: ONDANSETRON 4MG ODT PO ONE (10:30)
[2017-09-01] MEDS ORDERED: DIAZEPAM 5 MG TABLET PO ONE (10:30)
[2017-09-01 10:55] VITALS: BP 138/101
== END 2017-09-01 11:10 | disposition home or self-care (01) ==
LOC: ER 10:44
DX: M54.40 Lumbago with sciatica, unspecified side (principal); J44.1 Chronic obstructive pulmonary disease with (acute) exacerbation; I10 Essential (primary) hypertension; G89.29 Other chronic pain; E78.00 Pure hypercholesterolemia, unspecified; E11.9 Type 2 diabetes mellitus without complications; Z79.82 Long term (current) use of aspirin; Z88.0 Allergy status to penicillin; Z88.2 Allergy status to sulfonamides; Z88.6 Allergy status to analgesic agent
CPT/HCPCS: 96372; 99283; J2270; Q0162

== ENCOUNTER 2017-09-05 12:01 | Emergency (ER) | payer MEDICAID ==
[~2017-09-05] VITALS: Ht 175.3 cm; Wt 120.0 kg
[2017-09-05] MEDS ORDERED: METHYLPREDNISOLONE SOD SUCC 125 MG/2 ML VIAL IV STA (13:09)
[2017-09-05] MEDS ORDERED: IPRATROPIUM BROMIDE (0.02%) 0.5MG/2.5ML NEB HHN STA (13:09)
[2017-09-05] MEDS ORDERED: ALBUTEROL (0.083%) 2.5MG/3ML NEB HHN STA (13:09)
[2017-09-05 13:33] LABS: CHLORIDE 107 mEq/L (98-107)
[2017-09-05 13:41] LABS: PROTHROMBIN TIME 10.7 sec (9.4-11.6)
[2017-09-05 13:45] LABS: BASOPHILS % 1.1 % (0.0-2.0); HEMATOCRIT. 39.5 % (36.0-48.0); HEMOGLOBIN. 13.6 g/dL (12.0-16.0); LYMPHOCYTES % 41.1 % (20.0-50.0); MEAN CORPUSCULAR HEMOGLOBIN 31.6 pg (28.0-32.0); MEAN CORPUSCULAR VOLUME 91.9 fL (81.0-99.0); MEAN PLATELET VOLUME 6.9 fl (7.4-10.4); MONOCYTES % 9.2 % (2.0-8.0); NEUTROPHILS % 42.6 % (40.0-76.0); PLATELET 285 x1000/uL (130-400); RED CELL DISTRIBUTION WIDTH 13.2 % (11.6-14.6)
[2017-09-05 16:18] VITALS: BP 125/77
== END 2017-09-05 16:20 | disposition home or self-care (01) ==
LOC: ER 12:01
DX: J45.901 Unspecified asthma with (acute) exacerbation (principal); E11.9 Type 2 diabetes mellitus without complications; E78.00 Pure hypercholesterolemia, unspecified; I10 Essential (primary) hypertension; J44.9 Chronic obstructive pulmonary disease, unspecified; Z88.0 Allergy status to penicillin; Z88.2 Allergy status to sulfonamides; Z88.6 Allergy status to analgesic agent; Z79.82 Long term (current) use of aspirin
CPT/HCPCS: 36415; 71045; 80053; 83880; 84484; 85025; 85610; 93005; 96374; 99285; J2930; J7611; Z7610

== ENCOUNTER 2017-09-19 08:47 | Emergency (ER) | payer MEDICAID ==
[~2017-09-19] VITALS: Ht 172.7 cm; Wt 104.0 kg
[2017-09-19] MEDS ORDERED: HYDROCODONE/ACETAMINOPHEN 5/325MG TABLET PO ONE (09:30)
[2017-09-19] MEDS ORDERED: ONDANSETRON 4MG ODT PO ONE (09:30)
[2017-09-19 09:52] VITALS: BP 140/90
== END 2017-09-19 10:01 | disposition home or self-care (01) ==
LOC: ER 09:41
DX: M54.5 Low back pain (principal); G89.29 Other chronic pain; I10 Essential (primary) hypertension; E11.9 Type 2 diabetes mellitus without complications; J44.9 Chronic obstructive pulmonary disease, unspecified; E78.00 Pure hypercholesterolemia, unspecified; Z88.0 Allergy status to penicillin; Z88.2 Allergy status to sulfonamides; Z88.6 Allergy status to analgesic agent; Z79.82 Long term (current) use of aspirin
CPT/HCPCS: 81025; 99283; Q0162

== ENCOUNTER 2017-10-08 15:27 | Emergency (ER) | payer MEDICAID ==
[~2017-10-08] VITALS: Ht 172.7 cm; Wt 104.0 kg
[~2017-10-08 15:27] MED LIST changes: +CETI10CA8 PO; +HYDR-4009 PO
[2017-10-08 16:59] LABS: BASOPHILS % 0.5 % (0.0-2.0); EOSINOPHILS % 4.1 % (0.0-5.0); HEMATOCRIT. 41.3 % (36.0-48.0); HEMOGLOBIN. 13.8 g/dL (12.0-16.0); LYMPHOCYTES % 28.7 % (20.0-50.0); MEAN CORPUSCULAR HEMOGLOBIN 31.1 pg (28.0-32.0); MEAN CORPUSCULAR VOLUME 93.1 fL (81.0-99.0); MEAN PLATELET VOLUME 6.9 fl (7.4-10.4); MONOCYTES % 6.8 % (2.0-8.0); NEUTROPHILS % 59.9 % (40.0-76.0); PLATELET 301 x1000/uL (130-400); RED BLOOD CELL COUNT 4.44 mill/uL (4.2-5.4); RED CELL DISTRIBUTION WIDTH 13.9 % (11.6-14.6)
[2017-10-08 17:00] LABS: CHLORIDE 107 mEq/L (98-107)
[2017-10-08 17:01] LABS: PROTHROMBIN TIME 10.4 sec (9.4-11.6)
[2017-10-08 17:55] VITALS: BP 149/98
== END 2017-10-08 18:19 | disposition home or self-care (01) ==
LOC: ER 16:38
DX: E11.649 Type 2 diabetes mellitus with hypoglycemia without coma (principal); I10 Essential (primary) hypertension; E78.00 Pure hypercholesterolemia, unspecified; J44.9 Chronic obstructive pulmonary disease, unspecified; E05.90 Thyrotoxicosis, unspecified without thyrotoxic crisis or storm; Z79.84 Long term (current) use of oral hypoglycemic drugs; Z88.0 Allergy status to penicillin; Z88.2 Allergy status to sulfonamides; Z88.6 Allergy status to analgesic agent; Z79.82 Long term (current) use of aspirin
CPT/HCPCS: 36415; 80053; 82962; 83690; 85025; 85610; 99284

== ENCOUNTER 2017-11-15 14:36 | Emergency (ER) | payer MEDICAID, OTHER ==
[~2017-11-15] VITALS: Ht 172.7 cm; Wt 102.9 kg
[~2017-11-15 14:36] MED LIST changes: -METF500T4 PO; +METF500T6 PO
[2017-11-15 15:20] VITALS: BP 161/102
[2017-11-15] MEDS ORDERED: ACETAMINOPHEN 325MG TABLET PO ONE (15:45)
== END 2017-11-15 16:24 | disposition home or self-care (01) ==
LOC: ER 14:36
DX: M65.4 Radial styloid tenosynovitis [de Quervain] (principal); J44.9 Chronic obstructive pulmonary disease, unspecified; E11.9 Type 2 diabetes mellitus without complications; I10 Essential (primary) hypertension; E78.00 Pure hypercholesterolemia, unspecified; E05.90 Thyrotoxicosis, unspecified without thyrotoxic crisis or storm; M41.9 Scoliosis, unspecified; Z88.6 Allergy status to analgesic agent; Z88.5 Allergy status to narcotic agent; Z88.0 Allergy status to penicillin; Z88.2 Allergy status to sulfonamides
CPT/HCPCS: 29125; 73130; 99284

== ENCOUNTER 2017-12-03 16:42 | Emergency (ER) | payer OTHER ==
[~2017-12-03] VITALS: Ht 172.7 cm; Wt 115.0 kg
[2017-12-03 16:54] VITALS: BP 166/107
[2017-12-03] MEDS ORDERED: ACETAMINOPHEN 325MG TABLET PO ONE (17:45)
[2017-12-03] MEDS ORDERED: TETANUS, DIPHTHERIA, PERTUSSIS VAC/PF 0.5ML (>7YR OLD) IM ONE (18:30)
== END 2017-12-05 02:54 | disposition home or self-care (01) ==
LOC: ER 16:42
DX: L03.90 Cellulitis, unspecified (principal); J44.9 Chronic obstructive pulmonary disease, unspecified; E11.9 Type 2 diabetes mellitus without complications; I10 Essential (primary) hypertension; E05.90 Thyrotoxicosis, unspecified without thyrotoxic crisis or storm; E78.00 Pure hypercholesterolemia, unspecified; Z88.0 Allergy status to penicillin; Z88.6 Allergy status to analgesic agent; Z88.2 Allergy status to sulfonamides; Z88.5 Allergy status to narcotic agent
CPT/HCPCS: 73610; 90471; 90715; 99284

== ENCOUNTER 2017-12-09 16:47 | Emergency (ER) | payer OTHER ==
[~2017-12-09] VITALS: Ht 167.6 cm; Wt 98.0 kg
[2017-12-09] MEDS ORDERED: SODIUM CHLORIDE 0.9% 1,000 ML IV ONE (18:28)
[2017-12-09 19:11] LABS: BASOPHILS % 0.9 % (0.0-2.0); HEMATOCRIT. 42.7 % (36.0-48.0); HEMOGLOBIN. 14.4 g/dL (12.0-16.0); LYMPHOCYTES % 35.2 % (20.0-50.0); MEAN CORPUSCULAR VOLUME 91.6 fL (81.0-99.0); MEAN PLATELET VOLUME 6.8 fl (7.4-10.4); MONOCYTES % 7.9 % (2.0-8.0); PLATELET 254 x1000/uL (130-400); RED BLOOD CELL COUNT 4.66 mill/uL (4.2-5.4); RED CELL DISTRIBUTION WIDTH 13.7 % (11.6-14.6)
[2017-12-09 19:18] LABS: CHLORIDE 107 mEq/L (98-107); PROTHROMBIN TIME 10.7 sec (9.4-11.6)
[2017-12-09 19:22] LABS: ETHANOL BLOOD < 10 mg/dL
[2017-12-10 00:30] VITALS: BP 156/91
== END 2017-12-10 01:21 | disposition home or self-care (01) ==
LOC: ER 16:47
DX: R53.1 Weakness (principal); I10 Essential (primary) hypertension; J44.9 Chronic obstructive pulmonary disease, unspecified; E78.00 Pure hypercholesterolemia, unspecified; Z88.0 Allergy status to penicillin; Z88.2 Allergy status to sulfonamides; Z88.6 Allergy status to analgesic agent; Z88.5 Allergy status to narcotic agent
CPT/HCPCS: 36415; 70450; 71045; 74176; 80053; 83605; 83690; 83880; 84484; 85025; 85610; 87040; 93005; 99285; G0482; J7030; Z7610

== ENCOUNTER 2018-02-13 11:52 | Emergency (ER) | payer MEDICAID ==
[~2018-02-13] VITALS: Ht 167.6 cm; Wt 76.0 kg
[~2018-02-13 11:52] MED LIST changes: +CEPH-569 PO; -CYCL10TA7 PO; +DIAZ10TA4 PO; -FLUT1DIS3 IH; -LISI-604 PO; -LORA0.5T2 PO; -LOSA100T14 PO; -METH4TAB17 PO; +MONT10TA21 PO; +THEO400T MT; -TIMO15DR12 EACHEYE; +TIZA4TAB4 PO
[2018-02-13] MEDS ORDERED: LORAZEPAM 1MG TABLET PO ONE (13:45)
[2018-02-13 14:15] LABS: CLARITY URINE CLOUDY (CLEAR); COLOR URINE YELLOW (YELLOW); KETONES URINE NEGATIVE (NEGATIVE); LEUKOCYTE ESTERASE URINE 2+ (NEGATIVE); NITRITE URINE NEGATIVE (NEGATIVE); OCCULT BLOOD URINE 1+ (NEGATIVE); PROTEIN URINE TRACE (NEGATIVE); SPECIFIC GRAVITY URINE 1.016 (1.005-1.030); UROBILINOGEN URINE 0.2 E.U./dL (0.2-1.0)
[2018-02-13 14:19] LABS: BASOPHILS % 0.3 % (0.0-2.0); CHLORIDE 105 mEq/L (98-107); EOSINOPHILS % 3.1 % (0.0-5.0); HEMOGLOBIN. 13.9 g/dL (12.0-16.0); LYMPHOCYTES % 30.5 % (20.0-50.0); MEAN CORPUSCULAR HEMOGLOBIN 31.9 pg (28.0-32.0); MEAN PLATELET VOLUME 6.9 fl (7.4-10.4); MONOCYTES % 7.5 % (2.0-8.0); NEUTROPHILS % 58.6 % (40.0-76.0); PLATELET 260 x1000/uL (130-400); RED BLOOD CELL COUNT 4.36 mill/uL (4.2-5.4); RED CELL DISTRIBUTION WIDTH 14.4 % (11.6-14.6)
[2018-02-13 14:23] LABS: ETHANOL BLOOD < 10 mg/dL
[2018-02-13] MEDS ORDERED: POTASSIUM CHLORIDE 20MEQ TABLET SR PO SCH (14:30)
[2018-02-13 14:42] LABS: *BARBITURATES SCREEN URINE NEGATIVE (NEGATIVE); *BENZODIAZEPINES SCREEN URINE PRESUMTIVE POSITIVE (NEGATIVE); *COCAINE SCREEN URINE NEGATIVE (NEGATIVE); METHADONE URINE SCREEN NEGATIVE (NEGATIVE); OPIATES URINE SCREEN NEGATIVE (NEGATIVE); PHENCYCLIDINE URINE SCREEN NEGATIVE (NEGATIVE)
[2018-02-13 14:43] LABS: *AMPHETAMINES SCREEN URINE NEGATIVE (NEGATIVE); CANNABINOID URINE SCREEN NEGATIVE (NEGATIVE)
[2018-02-13 15:28] VITALS: BP 118/67
== END 2018-02-13 15:30 | disposition home or self-care (01) ==
LOC: ER 12:21
DX: F41.0 Panic disorder [episodic paroxysmal anxiety] (principal); I11.0 Hypertensive heart disease with heart failure; I50.9 Heart failure, unspecified; Z86.73 Personal history of transient ischemic attack (TIA), and cerebral infarction without residual deficits; J44.9 Chronic obstructive pulmonary disease, unspecified; Z79.899 Other long term (current) drug therapy; Z88.0 Allergy status to penicillin; Z88.2 Allergy status to sulfonamides; Z88.6 Allergy status to analgesic agent; Z88.5 Allergy status to narcotic agent
CPT/HCPCS: 36415; 71045; 80053; 80305; 81003; 85025; 87077; 87086; 87186; 93005; 99285; G0482

== ENCOUNTER 2018-03-04 10:10 | Emergency (ER) | payer MEDICAID ==
[~2018-03-04] VITALS: Ht 172.7 cm; Wt 108.0 kg
[~2018-03-04 10:10] MED LIST changes: +METF-414 PO; -METF500T6 PO
[2018-03-04 13:30] VITALS: BP 166/98
== END 2018-03-04 14:18 | disposition left against medical advice (07) ==
LOC: ER 10:55
DX: S80.862A Insect bite (nonvenomous), left lower leg, initial encounter (principal); S80.861A Insect bite (nonvenomous), right lower leg, initial encounter; F41.9 Anxiety disorder, unspecified; J44.9 Chronic obstructive pulmonary disease, unspecified; E11.9 Type 2 diabetes mellitus without complications; I11.0 Hypertensive heart disease with heart failure; I50.9 Heart failure, unspecified; E03.9 Hypothyroidism, unspecified; Z86.73 Personal history of transient ischemic attack (TIA), and cerebral infarction without residual deficits; W57.XXXA Bitten or stung by nonvenomous insect and other nonvenomous arthropods, initial encounter; Y93.89 Activity, other specified; Y92.89 Other specified places as the place of occurrence of the external cause; Y99.8 Other external cause status
CPT/HCPCS: 99283

== ENCOUNTER 2018-04-08 12:04 | Emergency (ER) | payer MEDICAID, OTHER ==
[~2018-04-08] VITALS: Ht 172.7 cm; Wt 107.5 kg
[~2018-04-08 12:04] MED LIST changes: -CEPH-569 PO
[2018-04-08 12:12] VITALS: BP 107/77
== END 2018-04-08 17:30 | disposition left against medical advice (07) ==
LOC: ER 12:04
DX: M79.604 Pain in right leg (principal); Z53.21 Procedure and treatment not carried out due to patient leaving prior to being seen by health care provider

== ENCOUNTER 2018-04-27 06:01 | Inpatient (IN) | payer MEDICAID, OTHER ==
[~2018-04-27] VITALS: Ht 170.2 cm; Wt 110.7 kg
[2018-04-27] MEDS ORDERED: IPRATROPIUM BROMIDE (0.02%) 0.5MG/2.5ML NEB HHN STA ×2 (06:10→08:27)
[2018-04-27] MEDS ORDERED: MAGNESIUM 2 G PREMIX 50 ML IV STA (06:10)
[2018-04-27] MEDS ORDERED: METHYLPREDNISOLONE SOD SUCC 125 MG/2 ML VIAL IV STA (06:10)
[2018-04-27] MEDS ORDERED: ALBUTEROL (0.083%) 2.5MG/3ML NEB HHN STA ×2 (06:10→08:27)
[2018-04-27] MEDS ORDERED: FUROSEMIDE 20MG/2ML VIAL IVP ONE (06:15)
[2018-04-27] MEDS ORDERED: ALBUTEROL (0.083%) 2.5MG/3ML NEB ONE (06:17)
[2018-04-27] MEDS ORDERED: IPRATROPIUM BROMIDE (0.02%) 0.5MG/2.5ML NEB ONE (06:17)
[2018-04-27 06:31] LABS: BASOPHILS % 1.2 % (0.0-2.0); EOSINOPHILS % 4.6 % (0.0-5.0); HEMATOCRIT. 42.5 % (36.0-48.0); HEMOGLOBIN. 14.8 g/dL (12.0-16.0); LYMPHOCYTES % 37.4 % (20.0-50.0); MEAN CORPUSCULAR HEMOGLOBIN 32.7 pg (28.0-32.0); MEAN CORPUSCULAR VOLUME 93.8 fL (81.0-99.0); MEAN PLATELET VOLUME 7.5 fl (7.4-10.4); MONOCYTES % 9.8 % (2.0-8.0); PLATELET 246 x1000/uL (130-400); RED BLOOD CELL COUNT 4.53 mill/uL (4.2-5.4); RED CELL DISTRIBUTION WIDTH 13.4 % (11.6-14.6)
[2018-04-27 06:39] LABS: PARTIAL THROMBOPLASTIN TIME 27.5 sec (23.4-31.0); PROTHROMBIN TIME 10.1 sec (9.1-11.1)
[2018-04-27 06:46] LABS: CHLORIDE 108 mEq/L (98-107)
[2018-04-27 06:50] LABS: HCG SCREEN NEGATIVE
[2018-04-27] MEDS ORDERED: POTASSIUM CHLORIDE 20MEQ TABLET SR PO ONE (07:30)
[2018-04-27 07:31] LABS: BG BASE EXCESS -0.9 mmol/L (-2.0-2.0); BG BILEVEL POS AIRWAY PRESSURE 15/5; BG CARBOXYHEMOGLOBIN 0.2 % (0.5-1.5); BG DEOXYHEMOGLOBIN 0.6 % (0.0-5.0); BG FRACTION INSPIRED OXYGEN 50; BG HCO3 ACT 23.7 mmol/L (22.0-26.0); BG METHEMOGLOBIN 0.3 % (0.0-1.5); BG OXYGEN SATURATION 99.4 % (92.0-98.5); BG OXYHEMOGLOBIN 98.9 % (94.0-97.0); BG PCO2 39.3 mmHg (35.0-45.0); BG PH 7.399 (7.350-7.450); BG PO2 289.7 mmHg (75.0-100.0); BG SAMPLE SITE RIGHT RADIAL; BG TOTAL HEMOGLOBIN 15.2 g/dL (12.0-18.0); BG VENT MODE MASK - BIPAP; BG VENT RATE 24 set
[2018-04-27 08:15] LABS: CLARITY URINE CLEAR (CLEAR); COLOR URINE YELLOW (YELLOW); KETONES URINE NEGATIVE (NEGATIVE); LEUKOCYTE ESTERASE URINE NEGATIVE (NEGATIVE); NITRITE URINE NEGATIVE (NEGATIVE); OCCULT BLOOD URINE TRACE (NEGATIVE); PH URINE 5.5 (4.5-8.0); PROTEIN URINE NEGATIVE (NEGATIVE); SPECIFIC GRAVITY URINE 1.007 (1.005-1.030); UROBILINOGEN URINE 0.2 E.U./dL (0.2-1.0)
[2018-04-27] MEDS ORDERED: LEVETIRACETAM 500MG PREMIX 100 ML IV ONE (08:30)
[2018-04-27] MEDS ORDERED: AMLO5TAB88 MT (10:45)
[2018-04-27] MEDS ORDERED: ALBU18HF2 IH (11:12)
[2018-04-27 12:00] VITALS: BP 118/69
[2018-04-27 14:00] VITALS: BP 121/69
[2018-04-27] MEDS ORDERED: CETIRIZINE 10MG TABLET PO PRN (14:30)
[2018-04-27] MEDS ORDERED: TIZANIDINE HCL 4 MG PO SCH (14:30)
[2018-04-27] MEDS ORDERED: MEDICATION NOT ON FORMULARY EA (Furosemide 1 TAB) PO SCH (14:30)
[2018-04-27] MEDS ORDERED: MEDICATION NOT ON FORMULARY EA (Hydrocodone Bit/Acetaminophen (Hydrocodon-Acetaminophn 1 PO PRN (14:30)
[2018-04-27] MEDS ORDERED: [UNRECOGNIZED DRUG - REMARK] PO SCH (14:30)
[2018-04-27] MEDS ORDERED: SUMATRIPTAN SUCCINATE 25MG TABLET PO PRN ×2 (14:45)
[2018-04-27] MEDS: SODIUM CHLORIDE 0.9% 1,000 ML IV SCH (15:47)
[2018-04-27] MEDS: METHYLPREDNISOLONE SOD SUCC 40 MG/ML VIAL IV SCH ×2 (15:47→21:52)
[2018-04-27] MEDS: FUROSEMIDE 40MG TABLET PO SCH (15:48)
[2018-04-27] MEDS: HYDROCODONE/ACETAMINOPHEN 10/325MG TABLET PO PRN ×2 (15:53→21:54)
[2018-04-27 16:00] VITALS: BP 128/76
[2018-04-27] MEDS: IPRATROPIUM/ALBUTEROL 0.5-3(2.5)MG/3ML NEB HHN SCH ×3 (16:38→23:38)
[2018-04-27] MEDS: POTASSIUM CHLORIDE 20MEQ TABLET SR PO SCH (17:25)
[2018-04-27] MEDS: ENOXAPARIN 30MG/0.3ML SYR SUBCUT SCH (17:25)
[2018-04-27 18:00] VITALS: BP 134/77
[2018-04-27 20:00] VITALS: BP 134/70
[2018-04-27] MEDS ORDERED: DIAZEPAM 10 MG PO SCH (21:00)
[2018-04-27] MEDS: TIZANIDINE HCL 4MG TABLET PO SCH (21:52)
[2018-04-27] MEDS: DIAZEPAM 5 MG TABLET PO SCH (21:52)
[2018-04-27] MEDS: MONTELUKAST SODIUM 10MG TABLET PO SCH (21:53)
[2018-04-27 22:00] VITALS: BP 124/79
[2018-04-28] VITALS (15 sets, daily range): BP systolic 99–143; BP diastolic 55–83
[2018-04-28] MEDS: SODIUM CHLORIDE 0.9% 1,000 ML IV SCH (03:04)
[2018-04-28] MEDS: IPRATROPIUM/ALBUTEROL 0.5-3(2.5)MG/3ML NEB HHN SCH ×4 (03:56→20:28)
[2018-04-28] MEDS: TIZANIDINE HCL 4MG TABLET PO SCH ×3 (06:21→21:09)
[2018-04-28] MEDS: ENOXAPARIN 30MG/0.3ML SYR SUBCUT SCH ×2 (06:21→17:23)
[2018-04-28] MEDS: METHYLPREDNISOLONE SOD SUCC 40 MG/ML VIAL IV SCH ×3 (06:21→21:09)
[2018-04-28 06:58] LABS: HEMATOCRIT. 37.4 % (36.0-48.0); HEMOGLOBIN. 12.9 g/dL (12.0-16.0); MEAN CORPUSCULAR HEMOGLOBIN 32.7 pg (28.0-32.0); MEAN CORPUSCULAR VOLUME 94.5 fL (81.0-99.0); MEAN PLATELET VOLUME 7.2 fl (7.4-10.4); PLATELET 237 x1000/uL (130-400); RED BLOOD CELL COUNT 3.96 mill/uL (4.2-5.4); RED CELL DISTRIBUTION WIDTH 13.6 % (11.6-14.6)
[2018-04-28 07:36] LABS: CHLORIDE 107 mEq/L (98-107)
[2018-04-28] MEDS ORDERED: SUMATRIPTAN SUCCINATE 50 MG PO SCH (09:00)
[2018-04-28] MEDS ORDERED: PROPYLTHIOURACIL 50 MG PO SCH (09:00)
[2018-04-28] MEDS ORDERED: MEDICATION NOT ON FORMULARY EA (Aspirin (Aspirin Low Dose) 1 TAB) PO SCH (09:00)
[2018-04-28] MEDS ORDERED: AMITRIPTYLINE HCL 25 MG PO SCH (09:00)
[2018-04-28] MEDS ORDERED: MEDICATION NOT ON FORMULARY EA (Amlodipine Besylate 1 TAB) MT SCH (09:00)
[2018-04-28] MEDS ORDERED: MEDICATION NOT ON FORMULARY EA (Famotidine 20 MG) PO SCH (09:00)
[2018-04-28] MEDS: FUROSEMIDE 40MG TABLET PO SCH (09:36)
[2018-04-28] MEDS: ASPIRIN 81MG TABLET PO SCH (09:37)
[2018-04-28] MEDS: AMITRIPTYLINE 25MG TABLET PO SCH (09:37)
[2018-04-28] MEDS: PROPYLTHIOURACIL 50MG TABLET PO SCH (09:37)
[2018-04-28] MEDS: AMLODIPINE 5MG TABLET PO SCH (09:37)
[2018-04-28] MEDS: POTASSIUM CHLORIDE 20MEQ TABLET SR PO SCH ×2 (09:38→17:23)
[2018-04-28] MEDS: FAMOTIDINE 20MG TABLET PO SCH (09:45)
[2018-04-28] MEDS ORDERED: LORAZEPAM 2MG/ML CPJ IV PRN (10:30)
[2018-04-28] MEDS: LEVETIRACETAM 500 MG in SODIUM CHLORIDE 0.9% 100 ML IV SCH ×2 (10:57→21:09)
[2018-04-28] MEDS: DEXT 5%/0.9% NACL 1,000 ML IV SCH (14:27)
[2018-04-28 15:30] LABS: PLATELET ESTIMATE NORMAL
[2018-04-28] MEDS: HYDROCODONE/ACETAMINOPHEN 10/325MG TABLET PO PRN (17:24)
[2018-04-28 18:33] LABS: *AMPHETAMINES SCREEN URINE NEGATIVE (NEGATIVE); *BARBITURATES SCREEN URINE NEGATIVE (NEGATIVE); *BENZODIAZEPINES SCREEN URINE PRESUMTIVE POSITIVE (NEGATIVE); *COCAINE SCREEN URINE NEGATIVE (NEGATIVE); METHADONE URINE SCREEN NEGATIVE (NEGATIVE); OPIATES URINE SCREEN PRESUMTIVE POSITIVE (NEGATIVE)
[2018-04-28 18:34] LABS: CANNABINOID URINE SCREEN NEGATIVE (NEGATIVE); PHENCYCLIDINE URINE SCREEN NEGATIVE (NEGATIVE)
[2018-04-28] MEDS: MONTELUKAST SODIUM 10MG TABLET PO SCH (21:09)
[2018-04-28] MEDS: DIAZEPAM 5 MG TABLET PO SCH (21:09)
[2018-04-29] VITALS (14 sets, daily range): BP systolic 114–145; BP diastolic 60–90
[2018-04-29] MEDS: IPRATROPIUM/ALBUTEROL 0.5-3(2.5)MG/3ML NEB HHN SCH ×6 (00:39→19:59)
[2018-04-29] MEDS: DEXT 5%/0.9% NACL 1,000 ML IV SCH ×2 (04:23→16:54)
[2018-04-29] MEDS: TIZANIDINE HCL 4MG TABLET PO SCH ×3 (05:53→21:08)
[2018-04-29] MEDS: METHYLPREDNISOLONE SOD SUCC 40 MG/ML VIAL IV SCH ×3 (05:53→21:08)
[2018-04-29] MEDS: ENOXAPARIN 30MG/0.3ML SYR SUBCUT SCH ×2 (05:55→16:53)
[2018-04-29] MEDS: LEVETIRACETAM 500 MG in SODIUM CHLORIDE 0.9% 100 ML IV SCH ×2 (09:02→21:06)
[2018-04-29] MEDS: AMLODIPINE 5MG TABLET PO SCH (09:03)
[2018-04-29] MEDS: PROPYLTHIOURACIL 50MG TABLET PO SCH (09:03)
[2018-04-29] MEDS: FUROSEMIDE 40MG TABLET PO SCH (09:03)
[2018-04-29] MEDS: AMITRIPTYLINE 25MG TABLET PO SCH (09:03)
[2018-04-29] MEDS: POTASSIUM CHLORIDE 20MEQ TABLET SR PO SCH ×2 (09:03→16:53)
[2018-04-29] MEDS: FAMOTIDINE 20MG TABLET PO SCH (09:03)
[2018-04-29] MEDS: ASPIRIN 81MG TABLET PO SCH (09:03)
[2018-04-29] MEDS: CEFTRIAXONE 1 G PREMIX 50 ML IV SCH (16:53)
[2018-04-29] MEDS: DIAZEPAM 5 MG TABLET PO SCH (21:08)
[2018-04-29] MEDS: MONTELUKAST SODIUM 10MG TABLET PO SCH (21:08)
[2018-04-30] VITALS: BP 148/80
[2018-04-30] MEDS: IPRATROPIUM/ALBUTEROL 0.5-3(2.5)MG/3ML NEB HHN SCH ×6 (00:04→20:46)
[2018-04-30] MEDS: HYDROCODONE/ACETAMINOPHEN 10/325MG TABLET PO PRN (03:13)
[2018-04-30 04:00] VITALS: BP 150/85
[2018-04-30] MEDS: DEXT 5%/0.9% NACL 1,000 ML IV SCH ×2 (05:45→17:21)
[2018-04-30] MEDS: ENOXAPARIN 30MG/0.3ML SYR SUBCUT SCH ×2 (06:07→17:20)
[2018-04-30] MEDS: TIZANIDINE HCL 4MG TABLET PO SCH ×3 (06:08→20:40)
[2018-04-30] MEDS: METHYLPREDNISOLONE SOD SUCC 40 MG/ML VIAL IV SCH ×3 (06:08→20:39)
[2018-04-30 08:00] VITALS: BP 155/88
[2018-04-30] MEDS: LEVETIRACETAM 500 MG in SODIUM CHLORIDE 0.9% 100 ML IV SCH ×2 (09:06→20:39)
[2018-04-30] MEDS: AMLODIPINE 5MG TABLET PO SCH (09:06)
[2018-04-30] MEDS: FAMOTIDINE 20MG TABLET PO SCH (09:06)
[2018-04-30] MEDS: AMITRIPTYLINE 25MG TABLET PO SCH (09:06)
[2018-04-30] MEDS: FUROSEMIDE 40MG TABLET PO SCH (09:06)
[2018-04-30] MEDS: ASPIRIN 81MG TABLET PO SCH (09:06)
[2018-04-30] MEDS: POTASSIUM CHLORIDE 20MEQ TABLET SR PO SCH ×2 (09:06→17:20)
[2018-04-30] MEDS: PROPYLTHIOURACIL 50MG TABLET PO SCH (09:06)
[2018-04-30 12:00] VITALS: BP 139/87
[2018-04-30 16:00] VITALS: BP 140/81
[2018-04-30] MEDS: CEFTRIAXONE 1 G PREMIX 50 ML IV SCH (17:20)
[2018-04-30 20:00] VITALS: BP 142/82
[2018-04-30] MEDS: MONTELUKAST SODIUM 10MG TABLET PO SCH (20:40)
[2018-04-30] MEDS: DIAZEPAM 5 MG TABLET PO SCH (20:40)
[2018-05-01] VITALS (7 sets, daily range): BP systolic 129–173; BP diastolic 80–127
[2018-05-01] MEDS: IPRATROPIUM/ALBUTEROL 0.5-3(2.5)MG/3ML NEB HHN SCH ×7 (00:46→23:57)
[2018-05-01] MEDS: ENOXAPARIN 30MG/0.3ML SYR SUBCUT SCH ×2 (06:31→17:21)
[2018-05-01] MEDS: METHYLPREDNISOLONE SOD SUCC 40 MG/ML VIAL IV SCH ×3 (06:32→21:07)
[2018-05-01] MEDS: TIZANIDINE HCL 4MG TABLET PO SCH ×3 (06:32→21:07)
[2018-05-01] MEDS ORDERED: BLOOD SUGAR DIAGNOSTIC STRIP TEST SCH (08:11)
[2018-05-01 08:59] LABS: BG BASE EXCESS 0.6 mmol/L (-2.0-2.0); BG CARBOXYHEMOGLOBIN 0.7 % (0.5-1.5); BG DEOXYHEMOGLOBIN 1.4 % (0.0-5.0); BG HCO3 ACT 24.7 mmol/L (22.0-26.0); BG METHEMOGLOBIN 0.3 % (0.0-1.5); BG OXYGEN SATURATION 98.6 % (92.0-98.5); BG OXYHEMOGLOBIN 97.6 % (94.0-97.0); BG PCO2 38.2 mmHg (35.0-45.0); BG PH 7.429 (7.350-7.450); BG PO2 133.1 mmHg (75.0-100.0); BG SAMPLE SITE RIGHT RADIAL; BG TOTAL HEMOGLOBIN 15.2 g/dL (12.0-18.0); BG VENT MODE NASAL CANNULA
[2018-05-01] MEDS: FAMOTIDINE 20MG TABLET PO SCH (09:32)
[2018-05-01] MEDS: POTASSIUM CHLORIDE 20MEQ TABLET SR PO SCH ×2 (09:32→17:21)
[2018-05-01] MEDS: ASPIRIN 81MG TABLET PO SCH (09:32)
[2018-05-01] MEDS: FUROSEMIDE 40MG TABLET PO SCH (09:32)
[2018-05-01] MEDS: AMITRIPTYLINE 25MG TABLET PO SCH (09:32)
[2018-05-01] MEDS: DEXT 5%/0.9% NACL 1,000 ML IV SCH (09:32)
[2018-05-01] MEDS: LEVETIRACETAM 500 MG in SODIUM CHLORIDE 0.9% 100 ML IV SCH (09:32)
[2018-05-01] MEDS: PROPYLTHIOURACIL 50MG TABLET PO SCH (09:32)
[2018-05-01] MEDS: AMLODIPINE 5MG TABLET PO SCH (09:33)
[2018-05-01] MEDS ORDERED: LIDOCAINE HCL/PF 1% 2ML VIAL ONE (11:21)
[2018-05-01] MEDS: HYDROCODONE/ACETAMINOPHEN 10/325MG TABLET PO PRN (14:21)
[2018-05-01] MEDS ORDERED: ONDANSETRON HCL 4MG/2ML INJ IV PRN (15:30)
[2018-05-01] MEDS: CEFTRIAXONE 1 G PREMIX 50 ML IV SCH (17:21)
[2018-05-01] MEDS: LEVETIRACETAM 500MG TABLET PO SCH (21:00)
[2018-05-01] MEDS: DIAZEPAM 5 MG TABLET PO SCH (21:07)
[2018-05-01] MEDS: MONTELUKAST SODIUM 10MG TABLET PO SCH (21:07)
[2018-05-01] MEDS: LAMOTRIGINE 25MG TABLET PO SCH (21:09)
[2018-05-02] VITALS: BP 126/77
[2018-05-02 04:00] VITALS: BP 107/58
[2018-05-02] MEDS: IPRATROPIUM/ALBUTEROL 0.5-3(2.5)MG/3ML NEB HHN SCH ×4 (04:04→16:51)
[2018-05-02] MEDS: TIZANIDINE HCL 4MG TABLET PO SCH ×2 (05:52→13:18)
[2018-05-02] MEDS: ENOXAPARIN 30MG/0.3ML SYR SUBCUT SCH (05:52)
[2018-05-02] MEDS: METHYLPREDNISOLONE SOD SUCC 40 MG/ML VIAL IV SCH ×2 (05:53→13:18)
[2018-05-02 07:44] LABS: HEMATOCRIT. 41.5 % (36.0-48.0); MEAN CORPUSCULAR HEMOGLOBIN 32.3 pg (28.0-32.0); MEAN CORPUSCULAR VOLUME 95.6 fL (81.0-99.0); MEAN PLATELET VOLUME 7.3 fl (7.4-10.4); PLATELET 266 x1000/uL (130-400); RED BLOOD CELL COUNT 4.34 mill/uL (4.2-5.4); RED CELL DISTRIBUTION WIDTH 13.5 % (11.6-14.6)
[2018-05-02 08:00] VITALS: BP 139/90
[2018-05-02] MEDS: POTASSIUM CHLORIDE 20MEQ TABLET SR PO SCH (09:15)
[2018-05-02] MEDS: AMITRIPTYLINE 25MG TABLET PO SCH (09:15)
[2018-05-02] MEDS: PROPYLTHIOURACIL 50MG TABLET PO SCH (09:16)
[2018-05-02] MEDS: LEVETIRACETAM 500MG TABLET PO SCH (09:16)
[2018-05-02] MEDS: FUROSEMIDE 40MG TABLET PO SCH (09:16)
[2018-05-02] MEDS: FAMOTIDINE 20MG TABLET PO SCH (09:16)
[2018-05-02] MEDS: LAMOTRIGINE 25MG TABLET PO SCH (09:16)
[2018-05-02] MEDS: AMLODIPINE 5MG TABLET PO SCH (09:16)
[2018-05-02] MEDS: ASPIRIN 81MG TABLET PO SCH (09:16)
[2018-05-02 09:26] LABS: CHLORIDE 104 mEq/L (98-107)
[2018-05-02 11:56] VITALS: BP 144/90
[2018-05-02 15:00] LABS: PLATELET ESTIMATE NORMAL
[2018-05-02 17:13] VITALS: BP 131/86
== END 2018-05-02 18:00 | disposition home or self-care (01) | DRG 133 ==
LOC: ER 06:01 → 5EST 07:02 → EDBEDREQTM 07:05 → EDBEDREQ 07:05 → ENRESERV 08:15
PROVIDERS: ADMIT Internal Medicine; ATTEND Internal Medicine
PROC: 5A09357 Assistance with Respiratory Ventilation, Less than 24 Consecutive Hours, Continuous Positive Airway Pressure (ICD-10-PCS; principal; 2018-04-27)
DX: J96.01 Acute respiratory failure with hypoxia (principal); G40.919 Epilepsy, unspecified, intractable, without status epilepticus; I11.0 Hypertensive heart disease with heart failure; H70.91 Unspecified mastoiditis, right ear; I50.9 Heart failure, unspecified; E66.01 Morbid (severe) obesity due to excess calories; J44.1 Chronic obstructive pulmonary disease with (acute) exacerbation; E11.9 Type 2 diabetes mellitus without complications; D72.829 Elevated white blood cell count, unspecified; E05.90 Thyrotoxicosis, unspecified without thyrotoxic crisis or storm; E78.5 Hyperlipidemia, unspecified; Z68.37 Body mass index [BMI] 37.0-37.9, adult; J98.11 Atelectasis; T38.0X5A Adverse effect of glucocorticoids and synthetic analogues, initial encounter; Z88.0 Allergy status to penicillin; Y92.89 Other specified places as the place of occurrence of the external cause; Z88.1 Allergy status to other antibiotic agents; Z88.5 Allergy status to narcotic agent; Z88.2 Allergy status to sulfonamides; Z88.8 Allergy status to other drugs, medicaments and biological substances
CPT/HCPCS: 36415; 36600; 70551; 71045; 73502; 73560; 73610; 80048; 80305; 82310; 82375; 82805; 82962; 83605; 83735; 83880; 84145; 84484; 84703; 85384; 93005; 93970; 94640; 94644; 94660; 96365; 96366; 96375; 99291; J0696; J1650; J1940; J1953; J2060; J2920; J2930; J3475; J3490; J7030; J7042; J7050; J7611; J7620

== ENCOUNTER 2018-05-22 04:19 | Emergency (ER) | payer MEDICAID, OTHER ==
[~2018-05-22] VITALS: Ht 167.6 cm; Wt 81.8 kg
[~2018-05-22 04:19] MED LIST changes: +ALBU18HF2 IH; -AMLO10TA80 PO; +AMLO5TAB88 MT; -ATOR10TA69 PO; -METF-414 PO; -THEO400T MT
[2018-05-22] MEDS ORDERED: LEVETIRACETAM 500MG PREMIX 100 ML IV ONE (05:00)
[2018-05-22 05:41] LABS: BASOPHILS % 0.9 % (0.0-2.0); EOSINOPHILS % 3.6 % (0.0-5.0); HEMATOCRIT. 39.8 % (36.0-48.0); HEMOGLOBIN. 13.6 g/dL (12.0-16.0); MEAN CORPUSCULAR VOLUME 96.7 fL (81.0-99.0); MEAN PLATELET VOLUME 6.6 fl (7.4-10.4); MONOCYTES % 6.7 % (2.0-8.0); NEUTROPHILS % 59.8 % (40.0-76.0); PLATELET 284 x1000/uL (130-400); RED BLOOD CELL COUNT 4.12 mill/uL (4.2-5.4); RED CELL DISTRIBUTION WIDTH 13.8 % (11.6-14.6)
[2018-05-22 05:48] LABS: CHLORIDE 108 mEq/L (98-107)
[2018-05-22 06:11] VITALS: BP 136/91
== END 2018-05-22 06:20 | disposition home or self-care (01) ==
LOC: ER 04:19
DX: R56.9 Unspecified convulsions (principal); R51 Headache; J44.9 Chronic obstructive pulmonary disease, unspecified; E11.9 Type 2 diabetes mellitus without complications; I10 Essential (primary) hypertension; Z79.82 Long term (current) use of aspirin; Z79.899 Other long term (current) drug therapy; Z88.0 Allergy status to penicillin; Z88.2 Allergy status to sulfonamides; Z88.6 Allergy status to analgesic agent; Z88.5 Allergy status to narcotic agent
CPT/HCPCS: 36415; 80053; 85025; 96365; 99283; J1953

== ENCOUNTER 2018-06-19 08:51 | Emergency (ER) | payer MEDICAID ==
[~2018-06-19] VITALS: Ht 167.6 cm; Wt 91.0 kg
[2018-06-19] MEDS ORDERED: SODIUM CHLORIDE 0.9% 1,000 ML IV ONE (09:30)
[2018-06-19] MEDS ORDERED: LEVETIRACETAM 1000MG/100ML 100 ML IV ONE (09:30)
[2018-06-19 09:51] LABS: EOSINOPHILS % 5.2 % (0.0-5.0); HEMATOCRIT. 41.3 % (36.0-48.0); HEMOGLOBIN. 13.9 g/dL (12.0-16.0); LYMPHOCYTES % 29.7 % (20.0-50.0); MEAN CORPUSCULAR HEMOGLOBIN 31.8 pg (28.0-32.0); MEAN CORPUSCULAR VOLUME 94.4 fL (81.0-99.0); MEAN PLATELET VOLUME 6.9 fl (7.4-10.4); MONOCYTES % 7.6 % (2.0-8.0); NEUTROPHILS % 56.5 % (40.0-76.0); PLATELET 261 x1000/uL (130-400); RED BLOOD CELL COUNT 4.37 mill/uL (4.2-5.4); RED CELL DISTRIBUTION WIDTH 13.5 % (11.6-14.6)
[2018-06-19 09:56] LABS: CHLORIDE 107 mEq/L (98-107)
[2018-06-19 10:00] LABS: ETHANOL BLOOD < 10 mg/dL
[2018-06-19 11:07] LABS: CLARITY URINE CLEAR (CLEAR); COLOR URINE YELLOW (YELLOW); KETONES URINE NEGATIVE (NEGATIVE); LEUKOCYTE ESTERASE URINE NEGATIVE (NEGATIVE); NITRITE URINE NEGATIVE (NEGATIVE); OCCULT BLOOD URINE 1+ (NEGATIVE); PH URINE 7.5 (4.5-8.0); PROTEIN URINE NEGATIVE (NEGATIVE); SPECIFIC GRAVITY URINE 1.006 (1.005-1.030); UROBILINOGEN URINE 0.2 E.U./dL (0.2-1.0)
[2018-06-19 12:00] LABS: *AMPHETAMINES SCREEN URINE NEGATIVE (NEGATIVE); *BARBITURATES SCREEN URINE NEGATIVE (NEGATIVE); *BENZODIAZEPINES SCREEN URINE PRESUMTIVE POSITIVE (NEGATIVE); *COCAINE SCREEN URINE NEGATIVE (NEGATIVE); METHADONE URINE SCREEN NEGATIVE (NEGATIVE); OPIATES URINE SCREEN NEGATIVE (NEGATIVE)
[2018-06-19] MEDS ORDERED: METOCLOPRAMIDE HCL 10MG/2ML VIAL IV ONE (12:00)
[2018-06-19] MEDS ORDERED: DIPHENHYDRAMINE 50MG/ML VIAL IV ONE (12:00)
[2018-06-19 12:01] LABS: CANNABINOID URINE SCREEN NEGATIVE (NEGATIVE); PHENCYCLIDINE URINE SCREEN NEGATIVE (NEGATIVE)
[2018-06-19] MEDS ORDERED: LAMOTRIGINE 25MG TABLET PO STA (13:13)
[2018-06-19] MEDS ORDERED: KETOROLAC 15MG/ML VIAL IV ONE (13:15)
[2018-06-19 13:32] VITALS: BP 131/86
== END 2018-06-19 13:59 | disposition home or self-care (01) ==
LOC: ER 08:51
DX: R56.9 Unspecified convulsions (principal); R51 Headache; E87.6 Hypokalemia; I10 Essential (primary) hypertension; Z79.82 Long term (current) use of aspirin; Z79.899 Other long term (current) drug therapy; Z88.0 Allergy status to penicillin; Z88.2 Allergy status to sulfonamides; Z88.5 Allergy status to narcotic agent; Z88.6 Allergy status to analgesic agent
CPT/HCPCS: 36415; 70450; 71045; 80053; 80305; 81003; 85025; 87804; 96365; 96366; 96375; 99284; G0482; J1200; J1885; J1953; J2765; J7030

== ENCOUNTER 2018-06-30 01:00 | Inpatient (IN) | payer OTHER, MEDICAID ==
[2018-06-30] VITALS (16 sets, daily range): BP systolic 98–163; BP diastolic 49–100
[~2018-06-30] VITALS: Ht 174 cm; Wt 124.7 kg
[2018-06-30] MEDS ORDERED: SODIUM CHLORIDE 0.9% 1,000 ML IV ONE (01:17)
[2018-06-30] MEDS ORDERED: LEVETIRACETAM 500MG PREMIX 100 ML IV ONE ×2 (01:30→02:00)
[2018-06-30] MEDS ORDERED: LORAZEPAM 2MG/ML CPJ IV ONE ×3 (01:30→02:15)
[2018-06-30 02:16] LABS: BASOPHILS % 0.8 % (0.0-2.0); EOSINOPHILS % 5.7 % (0.0-5.0); HEMATOCRIT. 39.4 % (36.0-48.0); HEMOGLOBIN. 13.5 g/dL (12.0-16.0); MEAN CORPUSCULAR HEMOGLOBIN 32.1 pg (28.0-32.0); MEAN CORPUSCULAR VOLUME 94.2 fL (81.0-99.0); MEAN PLATELET VOLUME 7.4 fl (7.4-10.4); NEUTROPHILS % 42.5 % (40.0-76.0); PLATELET 250 x1000/uL (130-400); RED BLOOD CELL COUNT 4.19 mill/uL (4.2-5.4); RED CELL DISTRIBUTION WIDTH 13.4 % (11.6-14.6)
[2018-06-30 02:19] LABS: CHLORIDE 106 mEq/L (98-107)
[2018-06-30 02:24] LABS: ETHANOL BLOOD < 10 mg/dL
[2018-06-30 02:28] LABS: CARBAMAZEPINE < 0.5 ug/mL (4-12)
[2018-06-30 02:32] LABS: PHENOBARBITAL 2.7 ug/mL (15.0-40.0)
[2018-06-30 03:57] LABS: *AMPHETAMINES SCREEN URINE NEGATIVE (NEGATIVE); *BARBITURATES SCREEN URINE NEGATIVE (NEGATIVE); *BENZODIAZEPINES SCREEN URINE PRESUMTIVE POSITIVE (NEGATIVE); *COCAINE SCREEN URINE NEGATIVE (NEGATIVE)
[2018-06-30 03:58] LABS: CANNABINOID URINE SCREEN NEGATIVE (NEGATIVE); METHADONE URINE SCREEN NEGATIVE (NEGATIVE); OPIATES URINE SCREEN NEGATIVE (NEGATIVE); PHENCYCLIDINE URINE SCREEN NEGATIVE (NEGATIVE)
[2018-06-30] MEDS ORDERED: KCL 10MEQ/50ML PREMIX 50 ML IV ONE (04:15)
[2018-06-30] MEDS ORDERED: HYDRALAZINE 20MG/ML VIAL IV PRN (06:00)
[2018-06-30] MEDS ORDERED: DIPHENHYDRAMINE 50MG/ML VIAL IV PRN (06:00)
[2018-06-30] MEDS ORDERED: ONDANSETRON HCL 4MG/2ML INJ IV PRN (06:00)
[2018-06-30] MEDS ORDERED: CLONIDINE 0.1MG TABLET PO PRN (06:00)
[2018-06-30] MEDS ORDERED: DEXTROSE 50% WATER 50ML SYRINGE IV PRN (06:00)
[2018-06-30] MEDS ORDERED: TRAMADOL 50MG TABLET PO PRN (06:00)
[2018-06-30] MEDS ORDERED: NA PHOS,M-B/NA PHOS,DI-BA ENEMA 118ML PR PRN (06:00)
[2018-06-30] MEDS ORDERED: DOCUSATE SODIUM 100MG CAPSULE PO PRN (06:00)
[2018-06-30] MEDS ORDERED: MAGNESIUM/ALUMINUM HYDROXIDE/SIMETHICONE 30ML UDC PO PRN (06:00)
[2018-06-30] MEDS ORDERED: LORAZEPAM 2MG/ML CPJ IV PRN ×2 (06:00→15:45)
[2018-06-30] MEDS ORDERED: GUAIFENESIN 200MG/10ML SUGAR FREE UDC PO PRN (06:00)
[2018-06-30] MEDS: SODIUM CHLORIDE 0.9% INJ 3ML FLUSH IVF SCH ×3 (06:03→22:37)
[2018-06-30 06:49] LABS: CREATINE KINASE 257 IU/L (26-192)
[2018-06-30 06:50] LABS: CREATINE KINASE MB FRACTION < 1.0 ng/mL (0.5-3.6)
[2018-06-30] MEDS ORDERED: BLOOD SUGAR DIAGNOSTIC STRIP TEST SCH (08:55)
[2018-06-30] MEDS: ENOXAPARIN 30MG/0.3ML SYR SUBCUT SCH ×2 (09:54→21:59)
[2018-06-30] MEDS: ASPIRIN 81MG EC TABLET PO SCH (09:54)
[2018-06-30] MEDS ORDERED: LORAZEPAM 2MG/ML CPJ ONE (14:00)
[2018-06-30] MEDS ORDERED: LORAZEPAM 2MG/ML CPJ IM PRN (15:30)
[2018-06-30] MEDS ORDERED: NON FORMULARY PATIENT HOME MED XX SCH ×2 (15:30→19:45)
[2018-06-30 15:39] LABS: CREATINE KINASE 249 IU/L (26-192)
[2018-06-30 15:40] LABS: CREATINE KINASE MB FRACTION < 1.0 ng/mL (0.5-3.6)
[2018-06-30] MEDS: INSULIN LISPRO 100 UNITS/ML SUBCUT SCH ×2 (17:10→21:00)
[2018-06-30] MEDS: BLOOD SUGAR DIAGNOSTIC STRIP TEST SCH ×2 (17:10→21:00)
[2018-06-30] MEDS: LEVETIRACETAM 1,000 MG in SODIUM CHLORIDE 0.9% 100 ML IV SCH (17:20)
[2018-06-30] MEDS: PHENYTOIN SODIUM 250MG/5ML VIAL IV SCH ×2 (17:21→22:37)
[2018-06-30] MEDS ORDERED: PROP50TA3 MT (19:31)
[2018-06-30] MEDS ORDERED: ASPI-1159 MT (19:31)
[2018-06-30] MEDS ORDERED: FURO-151 MT (19:31)
[2018-06-30] MEDS ORDERED: AMIT25TA9 MT (19:31)
[2018-06-30] MEDS ORDERED: DIAZ10TA4 MT (19:31)
[2018-06-30] MEDS ORDERED: CETI10TA6 MT (19:31)
[2018-06-30] MEDS ORDERED: AMLO5TAB4 MT (19:31)
[2018-06-30] MEDS: MONTELUKAST SODIUM 10MG TABLET PO SCH (21:54)
[2018-06-30] MEDS: POTASSIUM CHLORIDE 20MEQ TABLET SR PO SCH (21:54)
[2018-06-30] MEDS: AMITRIPTYLINE 25MG TABLET PO SCH (21:54)
[2018-06-30] MEDS: DIAZEPAM 5 MG TABLET PO SCH (21:55)
[2018-06-30] MEDS: IPRATROPIUM/ALBUTEROL 0.5-3(2.5)MG/3ML NEB INH PRN (23:05)
[2018-07-01] VITALS (25 sets, daily range): BP systolic 123–167; BP diastolic 22–102
[2018-07-01] MEDS: IPRATROPIUM/ALBUTEROL 0.5-3(2.5)MG/3ML NEB INH PRN (05:39)
[2018-07-01 07:00] LABS: CHLORIDE 107 mEq/L (98-107)
[2018-07-01 07:07] LABS: BASOPHILS % 0.8 % (0.0-2.0); EOSINOPHILS % 7.1 % (0.0-5.0); HEMATOCRIT. 39.7 % (36.0-48.0); HEMOGLOBIN. 13.2 g/dL (12.0-16.0); LYMPHOCYTES % 41.4 % (20.0-50.0); MEAN CORPUSCULAR HEMOGLOBIN 31.4 pg (28.0-32.0); MEAN CORPUSCULAR VOLUME 94.8 fL (81.0-99.0); MEAN PLATELET VOLUME 7.3 fl (7.4-10.4); MONOCYTES % 8.9 % (2.0-8.0); NEUTROPHILS % 41.8 % (40.0-76.0); PLATELET 241 x1000/uL (130-400); RED BLOOD CELL COUNT 4.19 mill/uL (4.2-5.4); RED CELL DISTRIBUTION WIDTH 13.4 % (11.6-14.6)
[2018-07-01 07:08] LABS: HDL CHOLESTEROL 40 mg/dL (40-59)
[2018-07-01 07:09] LABS: T4 FREE 0.87 ng/dL (0.76-1.46)
[2018-07-01 07:10] LABS: LDL CHOLESTEROL 81 mg/dL (5-100)
[2018-07-01] MEDS: INSULIN LISPRO 100 UNITS/ML SUBCUT SCH ×4 (08:20→21:00)
[2018-07-01] MEDS: ASPIRIN 81MG EC TABLET PO SCH (08:27)
[2018-07-01] MEDS: FUROSEMIDE 40MG TABLET PO SCH (08:28)
[2018-07-01] MEDS: CETIRIZINE 10MG TABLET PO SCH (08:28)
[2018-07-01] MEDS: POTASSIUM CHLORIDE 20MEQ TABLET SR PO SCH ×2 (08:28→17:29)
[2018-07-01] MEDS: AMLODIPINE 5MG TABLET PO SCH (08:29)
[2018-07-01] MEDS: PHENYTOIN SODIUM 250MG/5ML VIAL IV SCH ×2 (08:29→14:55)
[2018-07-01] MEDS: SODIUM CHLORIDE 0.9% INJ 3ML FLUSH IVF SCH ×3 (08:30→22:00)
[2018-07-01] MEDS: ENOXAPARIN 30MG/0.3ML SYR SUBCUT SCH ×2 (08:31→22:04)
[2018-07-01] MEDS: BLOOD SUGAR DIAGNOSTIC STRIP TEST SCH ×4 (08:32→21:00)
[2018-07-01] MEDS: LEVETIRACETAM 1,000 MG in SODIUM CHLORIDE 0.9% 100 ML IV SCH (08:33)
[2018-07-01] MEDS ORDERED: PROPYLTHIOURACIL 50MG TABLET PO SCH (09:00)
[2018-07-01] MEDS ORDERED: POTASSIUM CHLORIDE 20MEQ TABLET SR PO NR (10:30)
[2018-07-01] MEDS: BUDESONIDE 0.5MG/2ML NEB HHN SCH ×2 (11:49→21:01)
[2018-07-01] MEDS: FLUTICASONE PROPIONATE 50MCG/SPRAY BOTTLE BOTHNSTRLS PRN ×2 (14:18→18:51)
[2018-07-01] MEDS: IPRATROPIUM/ALBUTEROL 0.5-3(2.5)MG/3ML NEB HHN SCH ×2 (14:29→21:01)
[2018-07-01] MEDS ORDERED: PHENYTOIN SODIUM EXTENDED 100MG CAPSULE PO SCH (21:00)
[2018-07-01] MEDS: DIAZEPAM 5 MG TABLET PO SCH (22:02)
[2018-07-01] MEDS: LEVETIRACETAM 500MG TABLET PO SCH (22:02)
[2018-07-01] MEDS: MONTELUKAST SODIUM 10MG TABLET PO SCH (22:03)
[2018-07-01] MEDS: AMITRIPTYLINE 25MG TABLET PO SCH (22:03)
[2018-07-02] MEDS: IPRATROPIUM/ALBUTEROL 0.5-3(2.5)MG/3ML NEB HHN SCH ×3 (01:53→11:42)
[2018-07-02 04:00] VITALS: BP 122/81
[2018-07-02] MEDS: INSULIN LISPRO 100 UNITS/ML SUBCUT SCH ×2 (06:08→12:40)
[2018-07-02] MEDS: BLOOD SUGAR DIAGNOSTIC STRIP TEST SCH ×2 (06:08→12:10)
[2018-07-02] MEDS: SODIUM CHLORIDE 0.9% INJ 3ML FLUSH IVF SCH (06:08)
[2018-07-02 06:49] LABS: BASOPHILS % 0.9 % (0.0-2.0); EOSINOPHILS % 7.4 % (0.0-5.0); HEMATOCRIT. 40.4 % (36.0-48.0); HEMOGLOBIN. 13.6 g/dL (12.0-16.0); LYMPHOCYTES % 42.4 % (20.0-50.0); MEAN CORPUSCULAR HEMOGLOBIN 31.7 pg (28.0-32.0); MEAN CORPUSCULAR VOLUME 94.4 fL (81.0-99.0); MEAN PLATELET VOLUME 7.1 fl (7.4-10.4); MONOCYTES % 9.4 % (2.0-8.0); NEUTROPHILS % 39.9 % (40.0-76.0); PLATELET 245 x1000/uL (130-400); RED BLOOD CELL COUNT 4.28 mill/uL (4.2-5.4); RED CELL DISTRIBUTION WIDTH 13.3 % (11.6-14.6)
[2018-07-02 07:21] LABS: CHLORIDE 107 mEq/L (98-107)
[2018-07-02 07:29] LABS: LDL CHOLESTEROL 82 mg/dL (5-100)
[2018-07-02 07:30] LABS: HDL CHOLESTEROL 41 mg/dL (40-59)
[2018-07-02 07:31] LABS: CREATINE KINASE 272 IU/L (26-192)
[2018-07-02 07:34] LABS: CREATINE KINASE MB FRACTION < 1.0 ng/mL (0.5-3.6)
[2018-07-02] MEDS: BUDESONIDE 0.5MG/2ML NEB HHN SCH (07:45)
[2018-07-02 08:00] VITALS: BP 128/86
[2018-07-02] MEDS ORDERED: POTASSIUM CHLORIDE 20MEQ TABLET SR PO NR ×3 (09:00→18:00)
[2018-07-02] MEDS: ENOXAPARIN 30MG/0.3ML SYR SUBCUT SCH (10:27)
[2018-07-02] MEDS: LEVETIRACETAM 500MG TABLET PO SCH (10:29)
[2018-07-02] MEDS: ASPIRIN 81MG EC TABLET PO SCH (10:29)
[2018-07-02] MEDS: POTASSIUM CHLORIDE 20MEQ TABLET SR PO SCH (10:29)
[2018-07-02] MEDS: AMLODIPINE 5MG TABLET PO SCH (10:30)
[2018-07-02] MEDS: CETIRIZINE 10MG TABLET PO SCH (10:31)
[2018-07-02] MEDS: FUROSEMIDE 40MG TABLET PO SCH (10:31)
[2018-07-02 12:00] VITALS: BP 141/95
[2018-07-02 15:30] VITALS: BP 138/91
== END 2018-07-02 16:00 | disposition home or self-care (01) | DRG 53 ==
LOC: ER 01:00 → 6WST 04:33 → EDBEDREQ 04:35 → ENRESERV 07:12 → 6WST 09:01 → CVICU 17:04 → 8WST 07-01 23:20
PROVIDERS: ADMIT Internal Medicine; ATTEND Internal Medicine
DX: G40.409 Other generalized epilepsy and epileptic syndromes, not intractable, without status epilepticus (principal); J96.20 Acute and chronic respiratory failure, unspecified whether with hypoxia or hypercapnia; E66.01 Morbid (severe) obesity due to excess calories; I50.9 Heart failure, unspecified; I11.0 Hypertensive heart disease with heart failure; E11.9 Type 2 diabetes mellitus without complications; D64.9 Anemia, unspecified; J44.9 Chronic obstructive pulmonary disease, unspecified; E78.5 Hyperlipidemia, unspecified; E87.6 Hypokalemia; J30.9 Allergic rhinitis, unspecified; I10 Essential (primary) hypertension; I69.354 Hemiplegia and hemiparesis following cerebral infarction affecting left non-dominant side; Z68.36 Body mass index [BMI] 36.0-36.9, adult; Z88.0 Allergy status to penicillin; Z88.2 Allergy status to sulfonamides; Z88.6 Allergy status to analgesic agent; Z79.82 Long term (current) use of aspirin; Z79.899 Other long term (current) drug therapy
CPT/HCPCS: 36415; 71045; 80048; 80061; 80156; 80165; 80184; 80185; 80305; 82550; 82553; 82962; 83735; 83880; 84439; 84443; 84484; 85379; 93005; 93970; 96365; 96375; 99285; G0482; J1165; J1200; J1650; J1953; J2060; J3480; J7030; J7050; J7620; J7626

== ENCOUNTER 2018-07-09 08:48 | Emergency (ER) | payer MEDICAID, OTHER ==
[~2018-07-09] VITALS: Ht 167.6 cm; Wt 121.0 kg
[~2018-07-09 08:48] MED LIST changes: +AMIT25TA9 MT; -AMIT25TA9 PO; +AMLO5TAB4 MT; -AMLO5TAB88 MT; +ASPI-1159 MT; -ASPI-1159 PO; -CETI10CA8 PO; +CETI10TA6 MT; +DIAZ10TA4 MT; -DIAZ10TA4 PO; -FAMO20TA8 PO; +FURO-151 MT; -FURO40TA5 PO; -MONT10TA24 PO; +PROP50TA3 MT
[2018-07-09] MEDS ORDERED: LORAZEPAM 2MG/ML CPJ IM STA (09:21)
[2018-07-09] MEDS ORDERED: LEVETIRACETAM 1000MG/100ML 100 ML IV ONE (09:30)
[2018-07-09 09:55] LABS: BASOPHILS % 0.5 % (0.0-2.0); CHLORIDE 106 mEq/L (98-107); EOSINOPHILS % 0.3 % (0.0-5.0); HEMATOCRIT. 41.4 % (36.0-48.0); HEMOGLOBIN. 13.9 g/dL (12.0-16.0); LYMPHOCYTES % 20.3 % (20.0-50.0); MEAN CORPUSCULAR HEMOGLOBIN 31.7 pg (28.0-32.0); MEAN CORPUSCULAR VOLUME 94.2 fL (81.0-99.0); MEAN PLATELET VOLUME 8.1 fl (7.4-10.4); MONOCYTES % 6.5 % (2.0-8.0); NEUTROPHILS % 72.4 % (40.0-76.0); PLATELET 239 x1000/uL (130-400); RED CELL DISTRIBUTION WIDTH 13.4 % (11.6-14.6)
[2018-07-09 10:02] LABS: ETHANOL BLOOD < 10 mg/dL
[2018-07-09] MEDS ORDERED: PHENYTOIN SODIUM EXTENDED 100MG CAPSULE PO ONE (11:15)
[2018-07-09 11:19] VITALS: BP 136/89
[2018-07-09 12:04] LABS: CLARITY URINE CLEAR (CLEAR); COLOR URINE YELLOW (YELLOW); KETONES URINE NEGATIVE (NEGATIVE); LEUKOCYTE ESTERASE URINE 1+ (NEGATIVE); NITRITE URINE NEGATIVE (NEGATIVE); OCCULT BLOOD URINE 1+ (NEGATIVE); PH URINE 6.5 (4.5-8.0); PROTEIN URINE NEGATIVE (NEGATIVE); SPECIFIC GRAVITY URINE 1.008 (1.005-1.030); UROBILINOGEN URINE 0.2 E.U./dL (0.2-1.0)
[2018-07-09 12:22] LABS: *BENZODIAZEPINES SCREEN URINE PRESUMTIVE POSITIVE (NEGATIVE); *COCAINE SCREEN URINE NEGATIVE (NEGATIVE); METHADONE URINE SCREEN NEGATIVE (NEGATIVE); OPIATES URINE SCREEN NEGATIVE (NEGATIVE)
[2018-07-09 12:23] LABS: CANNABINOID URINE SCREEN NEGATIVE (NEGATIVE); PHENCYCLIDINE URINE SCREEN NEGATIVE (NEGATIVE)
[2018-07-09 12:24] LABS: *AMPHETAMINES SCREEN URINE NEGATIVE (NEGATIVE); *BARBITURATES SCREEN URINE NEGATIVE (NEGATIVE)
== END 2018-07-09 11:25 | disposition home or self-care (01) ==
LOC: ER 08:48
DX: G40.909 Epilepsy, unspecified, not intractable, without status epilepticus (principal); Z88.0 Allergy status to penicillin; Z88.2 Allergy status to sulfonamides; Z88.5 Allergy status to narcotic agent
CPT/HCPCS: 36415; 80053; 80305; 81003; 82962; 85025; 87186; 93005; 96365; 96372; 99284; J1953; J2060

== ENCOUNTER 2018-07-13 03:15 | Inpatient (IN) | payer MEDICAID ==
[2018-07-13] VITALS (12 sets, daily range): BP systolic 101–149; BP diastolic 62–99
[~2018-07-13] VITALS: Ht 172.7 cm; Wt 114.8 kg
[2018-07-13] MEDS ORDERED: SODIUM CHLORIDE 0.9% 1,000 ML IV ONE (03:42)
[2018-07-13] MEDS ORDERED: LORAZEPAM 2MG/ML CPJ IV ONE ×2 (03:45→04:15)
[2018-07-13] MEDS ORDERED: LEVETIRACETAM 500MG PREMIX 100 ML IV ONE (03:45)
[2018-07-13 04:11] LABS: BASOPHILS % 1.3 % (0.0-2.0); EOSINOPHILS % 4.1 % (0.0-5.0); HEMATOCRIT. 42.4 % (36.0-48.0); HEMOGLOBIN. 14.1 g/dL (12.0-16.0); MEAN CORPUSCULAR HEMOGLOBIN 31.6 pg (28.0-32.0); MEAN CORPUSCULAR VOLUME 94.9 fL (81.0-99.0); MEAN PLATELET VOLUME 7.3 fl (7.4-10.4); MONOCYTES % 8.7 % (2.0-8.0); NEUTROPHILS % 48.9 % (40.0-76.0); PLATELET 308 x1000/uL (130-400); RED BLOOD CELL COUNT 4.47 mill/uL (4.2-5.4); RED CELL DISTRIBUTION WIDTH 13.6 % (11.6-14.6)
[2018-07-13 04:14] LABS: CHLORIDE 106 mEq/L (98-107)
[2018-07-13 04:18] LABS: ETHANOL BLOOD < 10 mg/dL
[2018-07-13] MEDS ORDERED: LORAZEPAM 2MG/ML CPJ ONE (04:21)
[2018-07-13 05:45] LABS: CLARITY URINE CLEAR (CLEAR); COLOR URINE YELLOW (YELLOW); KETONES URINE NEGATIVE (NEGATIVE); LEUKOCYTE ESTERASE URINE NEGATIVE (NEGATIVE); NITRITE URINE NEGATIVE (NEGATIVE); OCCULT BLOOD URINE TRACE (NEGATIVE); PROTEIN URINE NEGATIVE (NEGATIVE); SPECIFIC GRAVITY URINE 1.012 (1.005-1.030); UROBILINOGEN URINE 0.2 E.U./dL (0.2-1.0)
[2018-07-13 06:08] LABS: *AMPHETAMINES SCREEN URINE NEGATIVE (NEGATIVE); *BARBITURATES SCREEN URINE NEGATIVE (NEGATIVE); *BENZODIAZEPINES SCREEN URINE PRESUMTIVE POSITIVE (NEGATIVE); *COCAINE SCREEN URINE NEGATIVE (NEGATIVE)
[2018-07-13 06:09] LABS: CANNABINOID URINE SCREEN NEGATIVE (NEGATIVE); METHADONE URINE SCREEN NEGATIVE (NEGATIVE); OPIATES URINE SCREEN NEGATIVE (NEGATIVE); PHENCYCLIDINE URINE SCREEN NEGATIVE (NEGATIVE)
[2018-07-13] MEDS ORDERED: ONDANSETRON HCL 4MG/2ML INJ IV PRN (13:15)
[2018-07-13] MEDS ORDERED: LORAZEPAM 2MG/ML CPJ IM PRN (13:15)
[2018-07-13] MEDS ORDERED: ACETAMINOPHEN 325MG TABLET PO PRN (13:15)
[2018-07-13] MEDS ORDERED: ENOXAPARIN 40MG/0.4ML SYR SUBCUT SCH (13:15)
[2018-07-13] MEDS ORDERED: DEXTROSE 50% WATER 50ML SYRINGE IV PRN (15:15)
[2018-07-13] MEDS: LORAZEPAM 2MG/ML CPJ IV PRN ×2 (16:08→21:01)
[2018-07-13 16:13] LABS: BG BASE EXCESS 2.3 mmol/L (-2.0-2.0); BG CARBOXYHEMOGLOBIN 0.2 % (0.5-1.5); BG DEOXYHEMOGLOBIN 3.9 % (0.0-5.0); BG FRACTION INSPIRED OXYGEN 28; BG HCO3 ACT 26.8 mmol/L (22.0-26.0); BG METHEMOGLOBIN 0.4 % (0.0-1.5); BG OXYGEN SATURATION 96.1 % (92.0-98.5); BG OXYHEMOGLOBIN 95.5 % (94.0-97.0); BG PH 7.433 (7.350-7.450); BG SAMPLE SITE RIGHT RADIAL; BG TOTAL HEMOGLOBIN 14.1 g/dL (12.0-18.0); BG VENT MODE NASAL CANNULA
[2018-07-13] MEDS: INSULIN LISPRO 100 UNITS/ML SUBCUT SCH ×2 (16:23→21:00)
[2018-07-13] MEDS: BLOOD SUGAR DIAGNOSTIC STRIP TEST SCH ×2 (16:23→21:00)
[2018-07-13] MEDS ORDERED: PHENYTOIN SODIUM 500 MG in SODIUM CHLORIDE 0.9% 50 ML IV SCH (17:00)
[2018-07-13 20:11] LABS: PHOSPHORUS 2.4 mg/dL (2.5-4.9)
[2018-07-13 20:56] LABS: FOLIC ACID (FOLATE) SERUM 19.3 ng/mL (>5.38)
[2018-07-13] MEDS: LEVETIRACETAM 500MG TABLET PO SCH (21:00)
[2018-07-13] MEDS: PHENYTOIN SODIUM EXTENDED 100MG CAPSULE PO SCH (21:00)
[2018-07-13] MEDS: ENOXAPARIN 30MG/0.3ML SYR SUBCUT SCH (21:00)
[2018-07-14] VITALS (27 sets, daily range): BP systolic 127–156; BP diastolic 76–124
[2018-07-14] MEDS: IPRATROPIUM/ALBUTEROL 0.5-3(2.5)MG/3ML NEB INH PRN ×4 (04:17→20:34)
[2018-07-14] MEDS: INSULIN LISPRO 100 UNITS/ML SUBCUT SCH ×4 (05:27→21:00)
[2018-07-14] MEDS: BLOOD SUGAR DIAGNOSTIC STRIP TEST SCH ×4 (05:27→21:08)
[2018-07-14 05:42] LABS: BASOPHILS % 1.1 % (0.0-2.0); EOSINOPHILS % 4.7 % (0.0-5.0); HEMATOCRIT. 41.2 % (36.0-48.0); HEMOGLOBIN. 13.5 g/dL (12.0-16.0); LYMPHOCYTES % 37.6 % (20.0-50.0); MEAN CORPUSCULAR HEMOGLOBIN 31.5 pg (28.0-32.0); MEAN CORPUSCULAR VOLUME 95.9 fL (81.0-99.0); MEAN PLATELET VOLUME 7.9 fl (7.4-10.4); MONOCYTES % 8.5 % (2.0-8.0); NEUTROPHILS % 48.1 % (40.0-76.0); PLATELET 240 x1000/uL (130-400); RED BLOOD CELL COUNT 4.29 mill/uL (4.2-5.4)
[2018-07-14 05:47] LABS: CHLORIDE 108 mEq/L (98-107)
[2018-07-14 05:56] LABS: LDL CHOLESTEROL 91 mg/dL (5-100)
[2018-07-14 05:58] LABS: HDL CHOLESTEROL 42 mg/dL (40-59)
[2018-07-14] MEDS: LEVETIRACETAM 500MG TABLET PO SCH ×2 (08:29→21:07)
[2018-07-14] MEDS: ENOXAPARIN 30MG/0.3ML SYR SUBCUT SCH ×2 (08:29→21:09)
[2018-07-14] MEDS: LORAZEPAM 2MG/ML CPJ IV PRN (08:48)
[2018-07-14] MEDS: LAMOTRIGINE 25MG TABLET PO SCH ×2 (12:18→17:27)
[2018-07-14] MEDS: PHENYTOIN SODIUM EXTENDED 100MG CAPSULE PO SCH (21:07)
[2018-07-15] VITALS (15 sets, daily range): BP systolic 136–158; BP diastolic 77–96
[2018-07-15] MEDS: IPRATROPIUM/ALBUTEROL 0.5-3(2.5)MG/3ML NEB INH PRN ×4 (00:01→14:11)
[2018-07-15] MEDS ORDERED: ZOLPIDEM TARTRATE 5MG TABLET PO PRN (00:15)
[2018-07-15 05:42] LABS: EOSINOPHILS % 4.1 % (0.0-5.0); HEMATOCRIT. 41.1 % (36.0-48.0); HEMOGLOBIN. 13.5 g/dL (12.0-16.0); LYMPHOCYTES % 36.5 % (20.0-50.0); MEAN CORPUSCULAR HEMOGLOBIN 31.7 pg (28.0-32.0); MEAN CORPUSCULAR VOLUME 96.2 fL (81.0-99.0); MEAN PLATELET VOLUME 7.8 fl (7.4-10.4); MONOCYTES % 9.1 % (2.0-8.0); NEUTROPHILS % 49.3 % (40.0-76.0); PLATELET 231 x1000/uL (130-400); RED BLOOD CELL COUNT 4.27 mill/uL (4.2-5.4); RED CELL DISTRIBUTION WIDTH 13.3 % (11.6-14.6)
[2018-07-15 05:59] LABS: CHLORIDE 104 mEq/L (98-107)
[2018-07-15] MEDS: INSULIN LISPRO 100 UNITS/ML SUBCUT SCH ×2 (06:00→12:00)
[2018-07-15] MEDS: BLOOD SUGAR DIAGNOSTIC STRIP TEST SCH ×2 (06:01→11:42)
[2018-07-15] MEDS: LEVETIRACETAM 500MG TABLET PO SCH (09:17)
[2018-07-15] MEDS: LAMOTRIGINE 25MG TABLET PO SCH (09:17)
[2018-07-15] MEDS: ENOXAPARIN 30MG/0.3ML SYR SUBCUT SCH (09:18)
[2018-07-15] MEDS ORDERED: POTASSIUM CHLORIDE 20MEQ TABLET SR PO SCH (10:15)
[2018-07-15] MEDS ORDERED: PHENYTOIN SODIUM 700 MG in SODIUM CHLORIDE 0.9% 100 ML IV NR (12:30)
== END 2018-07-15 14:40 | disposition home or self-care (01) | DRG 53 ==
LOC: ER 03:15 → 3WST 06:12 → EDBEDREQSVC 06:17 → EDBEDREQ 06:17 → EDBEDREQTM 06:17 → ENRESERV 09:52 → MICUSO 18:33
PROVIDERS: ADMIT Internal Medicine; ATTEND Internal Medicine
DX: G40.901 Epilepsy, unspecified, not intractable, with status epilepticus (principal); E83.39 Other disorders of phosphorus metabolism; E83.51 Hypocalcemia; E03.9 Hypothyroidism, unspecified; E11.9 Type 2 diabetes mellitus without complications; R26.9 Unspecified abnormalities of gait and mobility; E78.00 Pure hypercholesterolemia, unspecified; G43.909 Migraine, unspecified, not intractable, without status migrainosus; I10 Essential (primary) hypertension; J44.9 Chronic obstructive pulmonary disease, unspecified; Z79.84 Long term (current) use of oral hypoglycemic drugs; Z79.899 Other long term (current) drug therapy; Z79.82 Long term (current) use of aspirin; Z91.14 Patient's other noncompliance with medication regimen; Z88.1 Allergy status to other antibiotic agents; Z88.2 Allergy status to sulfonamides; Z88.5 Allergy status to narcotic agent; Z88.8 Allergy status to other drugs, medicaments and biological substances
CPT/HCPCS: 36415; 36600; 70551; 80048; 80061; 80185; 80305; 82375; 82607; 82746; 82805; 82962; 83735; 84100; 84443; 84484; 93005; 93970; 94640; 96374; 99285; J1165; J1650; J1953; J2060; J7030; J7050; J7620

== ENCOUNTER 2018-07-29 04:59 | Emergency (ER) | payer MEDICAID ==
[~2018-07-29] VITALS: Ht 172.7 cm; Wt 104.0 kg
[2018-07-29] MEDS ORDERED: LEVETIRACETAM 500MG PREMIX 100 ML IV ONE (05:30)
[2018-07-29 05:57] LABS: BASOPHILS % 1.4 % (0.0-2.0); EOSINOPHILS % 5.6 % (0.0-5.0); HEMATOCRIT. 40.2 % (36.0-48.0); HEMOGLOBIN. 13.5 g/dL (12.0-16.0); MEAN PLATELET VOLUME 6.8 fl (7.4-10.4); MONOCYTES % 10.1 % (2.0-8.0); NEUTROPHILS % 45.9 % (40.0-76.0); PLATELET 246 x1000/uL (130-400); RED BLOOD CELL COUNT 4.23 mill/uL (4.2-5.4); RED CELL DISTRIBUTION WIDTH 13.9 % (11.6-14.6)
[2018-07-29 06:05] LABS: CHLORIDE 109 mEq/L (98-107)
[2018-07-29] MEDS ORDERED: SODIUM CHLORIDE 0.9% 1,000 ML IV ONE (06:07)
[2018-07-29 06:09] LABS: ETHANOL BLOOD < 10 mg/dL
[2018-07-29 06:39] LABS: HCG SCREEN NEGATIVE
[2018-07-29 06:56] LABS: PHENOBARBITAL < 2.1 ug/mL (15.0-40.0)
[2018-07-29 06:57] LABS: CARBAMAZEPINE < 0.5 ug/mL (4-12)
[2018-07-29] MEDS ORDERED: PHENYTOIN SODIUM EXTENDED 100MG CAPSULE PO ONE (07:45)
[2018-07-29 10:00] VITALS: BP 124/86
== END 2018-07-29 10:20 | disposition home or self-care (01) ==
LOC: ER 04:59
DX: R56.9 Unspecified convulsions (principal); E86.0 Dehydration; J44.9 Chronic obstructive pulmonary disease, unspecified; E11.9 Type 2 diabetes mellitus without complications; E78.00 Pure hypercholesterolemia, unspecified; I10 Essential (primary) hypertension; Z79.899 Other long term (current) drug therapy; Z79.82 Long term (current) use of aspirin; Z88.0 Allergy status to penicillin; Z88.2 Allergy status to sulfonamides; Z88.5 Allergy status to narcotic agent; Z88.6 Allergy status to analgesic agent
CPT/HCPCS: 36415; 80053; 80156; 80165; 80184; 80185; 84443; 84703; 85025; 93005; 96361; 96374; 99284; J1953; J7030

== ENCOUNTER 2018-07-31 09:01 | Inpatient (IN) | payer MEDICAID ==
[~2018-07-31] VITALS: Ht 162.6 cm; Wt 97.5 kg
[2018-07-31] MEDS ORDERED: ALBUTEROL (0.083%) 2.5MG/3ML NEB HHN STA (09:42)
[2018-07-31] MEDS ORDERED: LEVETIRACETAM 500MG PREMIX 100 ML IV ONE (09:45)
[2018-07-31 10:08] LABS: BASOPHILS % 1.2 % (0.0-2.0); EOSINOPHILS % 3.5 % (0.0-5.0); HEMATOCRIT. 37.6 % (36.0-48.0); HEMOGLOBIN. 12.7 g/dL (12.0-16.0); LYMPHOCYTES % 31.1 % (20.0-50.0); MEAN CORPUSCULAR HEMOGLOBIN 31.8 pg (28.0-32.0); MEAN CORPUSCULAR VOLUME 94.2 fL (81.0-99.0); MEAN PLATELET VOLUME 6.9 fl (7.4-10.4); MONOCYTES % 7.2 % (2.0-8.0); PLATELET 260 x1000/uL (130-400); RED BLOOD CELL COUNT 3.99 mill/uL (4.2-5.4); RED CELL DISTRIBUTION WIDTH 13.8 % (11.6-14.6)
[2018-07-31 10:14] LABS: CHLORIDE 111 mEq/L (98-107)
[2018-07-31] MEDS ORDERED: MORPHINE SULFATE 4 MG/ML CPJ (NOT FOR IM USE) IV STA (10:49)
[2018-07-31] MEDS ORDERED: ONDANSETRON HCL 4MG/2ML INJ IV STA (10:49)
[2018-07-31] MEDS ORDERED: NITROGLYCERIN 0.4MG TABLET SL SL PRN (11:00)
[2018-07-31] MEDS ORDERED: ASPIRIN 81MG TABLET PO ONE (11:00)
[2018-07-31 11:03] LABS: D-DIMER 0.85 mg/L FEU (<0.50); INR 1.1; PARTIAL THROMBOPLASTIN TIME 28.7 sec (23.4-31.0); PROTHROMBIN TIME 10.8 sec (9.1-11.1)
[2018-07-31] MEDS ORDERED: POTASSIUM CHLORIDE 20MEQ TABLET SR PO ONE (11:15)
[2018-07-31] MEDS ORDERED: PHENYTOIN SODIUM 1,000 MG in SODIUM CHLORIDE 0.9% 100 ML IV ONE (11:15)
[2018-07-31] MEDS ORDERED: IPRATROPIUM/ALBUTEROL 0.5-3(2.5)MG/3ML NEB HHN PRN (11:45)
[2018-07-31] MEDS ORDERED: ONDANSETRON HCL 4MG/2ML INJ IV PRN (11:45)
[2018-07-31] MEDS ORDERED: ACETAMINOPHEN 325MG TABLET PO PRN (11:45)
[2018-07-31] MEDS ORDERED: POTASSIUM CHLORIDE 20MEQ/PACKET PO NR (12:30)
[2018-07-31] MEDS ORDERED: CLONIDINE 0.1MG TABLET PO PRN (16:45)
[2018-07-31 17:00] VITALS: BP 124/82
[2018-07-31 18:00] LABS: *AMPHETAMINES SCREEN URINE NEGATIVE (NEGATIVE); *BARBITURATES SCREEN URINE NEGATIVE (NEGATIVE)
[2018-07-31 18:01] LABS: *BENZODIAZEPINES SCREEN URINE PRESUMTIVE POSITIVE (NEGATIVE); *COCAINE SCREEN URINE NEGATIVE (NEGATIVE); CANNABINOID URINE SCREEN NEGATIVE (NEGATIVE); METHADONE URINE SCREEN NEGATIVE (NEGATIVE); OPIATES URINE SCREEN PRESUMTIVE POSITIVE (NEGATIVE); PHENCYCLIDINE URINE SCREEN NEGATIVE (NEGATIVE)
[2018-07-31] MEDS: PHENYTOIN SODIUM EXTENDED 100MG CAPSULE PO SCH (18:14)
[2018-07-31] MEDS: LAMOTRIGINE 25MG TABLET PO SCH (18:14)
[2018-07-31] MEDS: MONTELUKAST SODIUM 10MG TABLET PO SCH (18:14)
[2018-07-31] MEDS: LORAZEPAM 2MG/ML CPJ IV PRN (18:34)
[2018-07-31 20:00] VITALS: BP 121/65
[2018-07-31] MEDS: IPRATROPIUM/ALBUTEROL 0.5-3(2.5)MG/3ML NEB HHN SCH ×2 (20:00→23:49)
[2018-07-31] MEDS ORDERED: BUDESONIDE 0.5MG/2ML NEB HHN SCH (20:00)
[2018-07-31] MEDS: LEVETIRACETAM 500MG/5ML CUP PO SCH (20:54)
[2018-08-01] VITALS: BP 119/75
[2018-08-01] MEDS: IPRATROPIUM/ALBUTEROL 0.5-3(2.5)MG/3ML NEB HHN SCH ×3 (03:28→14:54)
[2018-08-01 04:00] VITALS: BP 128/78
[2018-08-01 08:00] VITALS: BP 141/91
[2018-08-01 08:16] LABS: BASOPHILS % 1.2 % (0.0-2.0); EOSINOPHILS % 6.9 % (0.0-5.0); HEMATOCRIT. 40.2 % (36.0-48.0); HEMOGLOBIN. 13.4 g/dL (12.0-16.0); LYMPHOCYTES % 41.6 % (20.0-50.0); MEAN CORPUSCULAR HEMOGLOBIN 31.9 pg (28.0-32.0); MEAN CORPUSCULAR VOLUME 95.6 fL (81.0-99.0); MEAN PLATELET VOLUME 6.9 fl (7.4-10.4); MONOCYTES % 8.7 % (2.0-8.0); NEUTROPHILS % 41.6 % (40.0-76.0); PLATELET 264 x1000/uL (130-400); RED CELL DISTRIBUTION WIDTH 13.7 % (11.6-14.6)
[2018-08-01] MEDS: LORAZEPAM 2MG/ML CPJ IV PRN (08:23)
[2018-08-01 08:33] LABS: CHLORIDE 109 mEq/L (98-107)
[2018-08-01] MEDS ORDERED: ASPIRIN 81MG TABLET PO SCH (09:00)
[2018-08-01] MEDS: PHENYTOIN SODIUM EXTENDED 100MG CAPSULE PO SCH ×2 (09:20→16:39)
[2018-08-01] MEDS: LAMOTRIGINE 25MG TABLET PO SCH ×2 (09:20→16:39)
[2018-08-01] MEDS: LEVETIRACETAM 500MG/5ML CUP PO SCH (09:21)
[2018-08-01 12:00] VITALS: BP 141/85
[2018-08-01] MEDS ORDERED: PHEN100C4 PO (14:10)
[2018-08-01] MEDS ORDERED: LAM25 PO (14:10)
[2018-08-01] MEDS ORDERED: KEPPSOL PO (14:10)
[2018-08-01] MEDS ORDERED: POTASSIUM CHLORIDE 20MEQ TABLET SR PO SCH (14:15)
[2018-08-01 16:00] VITALS: BP 130/93
[2018-08-01] MEDS: MONTELUKAST SODIUM 10MG TABLET PO SCH (16:39)
[2018-08-01 17:35] VITALS: BP 130/93
== END 2018-08-01 18:10 | disposition home or self-care (01) | DRG 53 ==
LOC: ER 09:15 → 8WST 11:37 → ENRESERV 16:02
PROVIDERS: ADMIT Internal Medicine; ATTEND Internal Medicine
PROC: 4A00X4Z Measurement of Central Nervous Electrical Activity, External Approach (ICD-10-PCS; principal; 2018-08-01)
DX: G40.909 Epilepsy, unspecified, not intractable, without status epilepticus (principal); E87.8 Other disorders of electrolyte and fluid balance, not elsewhere classified; E03.9 Hypothyroidism, unspecified; E11.9 Type 2 diabetes mellitus without complications; E66.9 Obesity, unspecified; E78.00 Pure hypercholesterolemia, unspecified; E78.5 Hyperlipidemia, unspecified; I10 Essential (primary) hypertension; G43.909 Migraine, unspecified, not intractable, without status migrainosus; E87.6 Hypokalemia; J44.9 Chronic obstructive pulmonary disease, unspecified; Z79.899 Other long term (current) drug therapy; Z91.19 Patient's noncompliance with other medical treatment and regimen; Z88.6 Allergy status to analgesic agent; Z88.0 Allergy status to penicillin; Z88.2 Allergy status to sulfonamides; Z91.09 Other allergy status, other than to drugs and biological substances; Z79.82 Long term (current) use of aspirin; Z68.36 Body mass index [BMI] 36.0-36.9, adult; Z71.3 Dietary counseling and surveillance; Z88.8 Allergy status to other drugs, medicaments and biological substances
CPT/HCPCS: 36415; 70551; 71045; 78582; 80048; 80185; 80305; 80320; 84484; 85379; 93005; 93970; 94640; 96365; 96366; 96375; 99285; A9558; C1893; J1165; J1953; J2060; J2270; J2405; J7040; J7050; J7611; J7620; J7626; G0480

== ENCOUNTER 2018-08-12 12:05 | Inpatient (IN) | payer MEDICAID ==
[~2018-08-12] VITALS: Ht 172.7 cm; Wt 102.5 kg
[~2018-08-12 12:05] MED LIST changes: +KEPPSOL PO; +LAM25 PO; +PHEN100C4 PO
[2018-08-12] MEDS ORDERED: ALBUTEROL (0.083%) 2.5MG/3ML NEB HHN STA (12:41)
[2018-08-12] MEDS ORDERED: IPRATROPIUM BROMIDE (0.02%) 0.5MG/2.5ML NEB HHN STA (12:41)
[2018-08-12] MEDS ORDERED: METHYLPREDNISOLONE SOD SUCC 125 MG/2 ML VIAL IV STA (12:46)
[2018-08-12] MEDS ORDERED: MAGNESIUM 2 G PREMIX 50 ML IV STA (12:46)
[2018-08-12] MEDS ORDERED: AZITHROMYCIN 500 MG in DEXT 5% WATER 250 ML IV ONE (13:00)
[2018-08-12 13:59] LABS: BG BASE EXCESS 0.7 mmol/L (-2.0-2.0); BG BILEVEL POS AIRWAY PRESSURE ST=15/5; BG CARBOXYHEMOGLOBIN 0.5 % (0.5-1.5); BG DEOXYHEMOGLOBIN 32.2 % (0.0-5.0); BG FRACTION INSPIRED OXYGEN 30; BG HCO3 ACT 23.8 mmol/L (22.0-26.0); BG METHEMOGLOBIN 0.3 % (0.0-1.5); BG OXYGEN SATURATION 67.5 % (92.0-98.5); BG PCO2 33.7 mmHg (35.0-45.0); BG PH 7.467 (7.350-7.450); BG PO2 32.5 mmHg (75.0-100.0); BG PRESSURE SUPPORT 10; BG SAMPLE SITE OTHER; BG TOTAL HEMOGLOBIN 14.4 g/dL (12.0-18.0); BG VENT MODE MASK - BIPAP; BG VENT RATE 12 set
[2018-08-12] MEDS ORDERED: KETOROLAC 30MG/ML VIAL IV ONE (15:00)
[2018-08-12 15:21] LABS: CLARITY URINE CLEAR (CLEAR); COLOR URINE YELLOW (YELLOW); KETONES URINE TRACE (NEGATIVE); LEUKOCYTE ESTERASE URINE 2+ (NEGATIVE); NITRITE URINE NEGATIVE (NEGATIVE); OCCULT BLOOD URINE TRACE (NEGATIVE); PH URINE 7.5 (4.5-8.0); PROTEIN URINE NEGATIVE (NEGATIVE); SPECIFIC GRAVITY URINE 1.009 (1.005-1.030); UROBILINOGEN URINE 0.2 E.U./dL (0.2-1.0)
[2018-08-12 15:53] LABS: BASOPHILS % 0.8 % (0.0-2.0); EOSINOPHILS % 0.6 % (0.0-5.0); HEMATOCRIT. 42.2 % (36.0-48.0); HEMOGLOBIN. 14.4 g/dL (12.0-16.0); LYMPHOCYTES % 19.1 % (20.0-50.0); MEAN CORPUSCULAR HEMOGLOBIN 32.3 pg (28.0-32.0); MEAN CORPUSCULAR VOLUME 94.3 fL (81.0-99.0); MONOCYTES % 5.4 % (2.0-8.0); NEUTROPHILS % 74.1 % (40.0-76.0); PLATELET 256 x1000/uL (130-400); RED BLOOD CELL COUNT 4.47 mill/uL (4.2-5.4)
[2018-08-12 15:55] LABS: CHLORIDE 108 mEq/L (98-107)
[2018-08-12 16:04] LABS: PROTHROMBIN TIME 10.4 sec (9.1-11.1)
[2018-08-12] MEDS ORDERED: METHYLPREDNISOLONE SOD SUCC 40 MG/ML VIAL IV SCH (16:30)
[2018-08-12] MEDS ORDERED: IPRATROPIUM/ALBUTEROL 0.5-3(2.5)MG/3ML NEB HHN PRN (16:30)
[2018-08-12] MEDS: IPRATROPIUM/ALBUTEROL 0.5-3(2.5)MG/3ML NEB HHN SCH (21:02)
[2018-08-12] MEDS ORDERED: ACETAMINOPHEN 325MG TABLET PO PRN (22:45)
[2018-08-12] MEDS ORDERED: ONDANSETRON HCL 4MG/2ML INJ IV PRN (22:45)
[2018-08-12] MEDS ORDERED: DOCUSATE SODIUM 100MG CAPSULE PO PRN (22:45)
[2018-08-12] MEDS ORDERED: CLONIDINE 0.1MG TABLET PO PRN (22:45)
[2018-08-12] MEDS ORDERED: LORAZEPAM 0.5MG TABLET PO PRN (22:45)
[2018-08-13] VITALS (12 sets, daily range): BP systolic 124–161; BP diastolic 61–124
[2018-08-13] MEDS ORDERED: ONDANSETRON HCL 4MG/2ML INJ IV PRN (00:45)
[2018-08-13] MEDS ORDERED: ACETAMINOPHEN 325MG TABLET PO PRN (00:45)
[2018-08-13] MEDS ORDERED: CLONIDINE 0.1MG TABLET PO PRN (00:45)
[2018-08-13] MEDS ORDERED: LORAZEPAM 0.5MG TABLET PO PRN (00:45)
[2018-08-13] MEDS ORDERED: DOCUSATE SODIUM 100MG CAPSULE PO PRN (00:45)
[2018-08-13] MEDS ORDERED: METHYLPREDNISOLONE SOD SUCC 40 MG/ML VIAL IV SCH (04:00)
[2018-08-13] MEDS: IPRATROPIUM/ALBUTEROL 0.5-3(2.5)MG/3ML NEB HHN SCH ×4 (04:39→21:07)
[2018-08-13] MEDS ORDERED: IPRATROPIUM/ALBUTEROL 0.5-3(2.5)MG/3ML NEB ONE (04:45)
[2018-08-13] MEDS ORDERED: DEXTROSE 50% WATER 50ML SYRINGE IV PRN ×2 (05:00)
[2018-08-13] MEDS: BLOOD SUGAR DIAGNOSTIC STRIP TEST SCH ×4 (06:42→21:04)
[2018-08-13 07:16] LABS: *AMPHETAMINES SCREEN URINE NEGATIVE (NEGATIVE); *BARBITURATES SCREEN URINE NEGATIVE (NEGATIVE); *BENZODIAZEPINES SCREEN URINE PRESUMTIVE POSITIVE (NEGATIVE); *COCAINE SCREEN URINE NEGATIVE (NEGATIVE); METHADONE URINE SCREEN NEGATIVE (NEGATIVE); OPIATES URINE SCREEN NEGATIVE (NEGATIVE)
[2018-08-13 07:17] LABS: CANNABINOID URINE SCREEN NEGATIVE (NEGATIVE); PHENCYCLIDINE URINE SCREEN NEGATIVE (NEGATIVE)
[2018-08-13] MEDS: INSULIN LISPRO 100 UNITS/ML SUBCUT SCH ×4 (07:20→21:00)
[2018-08-13] MEDS ORDERED: TIZANIDINE HCL 4MG TABLET PO PRN (09:00)
[2018-08-13] MEDS: LEVETIRACETAM 500MG/5ML CUP PO SCH ×2 (10:14→21:00)
[2018-08-13] MEDS: PHENYTOIN SODIUM EXTENDED 100MG CAPSULE PO SCH ×2 (10:14→21:00)
[2018-08-13] MEDS: ASPIRIN 81MG TABLET PO SCH (10:14)
[2018-08-13] MEDS: LAMOTRIGINE 25MG TABLET PO SCH ×2 (10:14→17:43)
[2018-08-13] MEDS: FUROSEMIDE 40MG TABLET PO SCH (10:14)
[2018-08-13] MEDS: AMLODIPINE 5MG TABLET PO SCH (10:15)
[2018-08-13] MEDS: CETIRIZINE 10MG TABLET PO SCH (11:28)
[2018-08-13] MEDS: PROPYLTHIOURACIL 50MG TABLET PO SCH (11:28)
[2018-08-13] MEDS ORDERED: HYDROCODONE/ACETAMINOPHEN 5/325MG TABLET PO PRN (17:30)
[2018-08-13] MEDS ORDERED: DIAZEPAM 5 MG TABLET PO SCH (21:00)
[2018-08-13] MEDS ORDERED: MONTELUKAST SODIUM 10MG TABLET PO SCH (21:00)
[2018-08-13] MEDS ORDERED: AMITRIPTYLINE 25MG TABLET PO SCH (21:00)
[2018-08-13] MEDS: BUDESONIDE 0.5MG/2ML NEB HHN SCH (21:07)
[2018-08-14] VITALS: BP 128/93
[2018-08-14] MEDS: IPRATROPIUM/ALBUTEROL 0.5-3(2.5)MG/3ML NEB HHN SCH ×2 (01:30→08:15)
[2018-08-14 02:00] VITALS: BP 122/76
[2018-08-14 04:00] VITALS: BP 121/75
[2018-08-14] MEDS: BLOOD SUGAR DIAGNOSTIC STRIP TEST SCH (06:02)
[2018-08-14 06:03] VITALS: BP 127/90
[2018-08-14] MEDS: INSULIN LISPRO 100 UNITS/ML SUBCUT SCH (07:20)
[2018-08-14] MEDS: CETIRIZINE 10MG TABLET PO SCH (07:41)
[2018-08-14] MEDS: FUROSEMIDE 40MG TABLET PO SCH (07:42)
[2018-08-14] MEDS: LAMOTRIGINE 25MG TABLET PO SCH (07:42)
[2018-08-14] MEDS: PROPYLTHIOURACIL 50MG TABLET PO SCH (07:42)
[2018-08-14] MEDS: ASPIRIN 81MG TABLET PO SCH (07:42)
[2018-08-14] MEDS: PHENYTOIN SODIUM EXTENDED 100MG CAPSULE PO SCH (07:43)
[2018-08-14] MEDS: LEVETIRACETAM 500MG/5ML CUP PO SCH (07:43)
[2018-08-14] MEDS: AMLODIPINE 5MG TABLET PO SCH (07:43)
[2018-08-14] MEDS: BUDESONIDE 0.5MG/2ML NEB HHN SCH (08:15)
[2018-08-14 09:00] VITALS: BP 138/83
[2018-08-14] MEDS ORDERED: SUMATRIPTAN SUCCINATE 25MG TABLET PO PRN (09:00)
[2018-08-14] MEDS ORDERED: PREDNISONE 20MG TABLET PO SCH (09:00)
[2018-08-14 09:23] VITALS: BP 143/83
== END 2018-08-14 12:30 | disposition home or self-care (01) | DRG 133 ==
LOC: ER 12:05 → EDBEDREQ 15:07 → EDBEDREQSVC 15:07 → EDBEDREQ 15:20 → EDBEDREQTM 15:20 → CANRESERV 19:46 → ENRESERV 19:46 → ER 08-13 00:38 → EDBEDREQ 08-13 00:51 → 3WST 08-13 00:53
PROVIDERS: ADMIT Internal Medicine; ATTEND Internal Medicine
PROC: 5A09357 Assistance with Respiratory Ventilation, Less than 24 Consecutive Hours, Continuous Positive Airway Pressure (ICD-10-PCS; principal; 2018-08-12)
DX: J96.00 Acute respiratory failure, unspecified whether with hypoxia or hypercapnia (principal); E87.3 Alkalosis; R56.9 Unspecified convulsions; I69.354 Hemiplegia and hemiparesis following cerebral infarction affecting left non-dominant side; M41.9 Scoliosis, unspecified; E11.65 Type 2 diabetes mellitus with hyperglycemia; J44.1 Chronic obstructive pulmonary disease with (acute) exacerbation; E03.9 Hypothyroidism, unspecified; E78.00 Pure hypercholesterolemia, unspecified; I11.9 Hypertensive heart disease without heart failure; E78.5 Hyperlipidemia, unspecified; G43.909 Migraine, unspecified, not intractable, without status migrainosus; M48.02 Spinal stenosis, cervical region; M54.30 Sciatica, unspecified side; N39.0 Urinary tract infection, site not specified; F41.9 Anxiety disorder, unspecified; Z88.0 Allergy status to penicillin; Z88.5 Allergy status to narcotic agent; Z88.2 Allergy status to sulfonamides; Z88.1 Allergy status to other antibiotic agents
CPT/HCPCS: 36415; 36600; 71045; 80305; 82375; 82805; 82962; 87804; 93005; 94640; 94660; 96365; 96367; 96375; 97162; 97165; 99285; J0456; J1815; J1885; J2920; J2930; J3475; J7060; J7512; J7611; J7620; J7626

== ENCOUNTER 2018-09-03 10:11 | Emergency (ER) | payer MEDICAID ==
[~2018-09-03] VITALS: Ht 167.6 cm; Wt 91.0 kg
[2018-09-03] MEDS ORDERED: LEVETIRACETAM 1000MG/100ML 100 ML IV ONE (10:45)
[2018-09-03 11:08] LABS: BASOPHILS % 1.1 % (0.0-2.0); CHLORIDE 107 mEq/L (98-107); EOSINOPHILS % 5.8 % (0.0-5.0); HEMATOCRIT. 42.1 % (36.0-48.0); HEMOGLOBIN. 14.2 g/dL (12.0-16.0); LYMPHOCYTES % 32.7 % (20.0-50.0); MEAN CORPUSCULAR HEMOGLOBIN 32.1 pg (28.0-32.0); MEAN CORPUSCULAR VOLUME 95.2 fL (81.0-99.0); MEAN PLATELET VOLUME 7.1 fl (7.4-10.4); NEUTROPHILS % 52.4 % (40.0-76.0); PLATELET 254 x1000/uL (130-400); RED BLOOD CELL COUNT 4.43 mill/uL (4.2-5.4); RED CELL DISTRIBUTION WIDTH 13.8 % (11.6-14.6)
[2018-09-03 11:32] LABS: ETHANOL BLOOD < 10 mg/dL
[2018-09-03 12:01] LABS: CLARITY URINE CLEAR (CLEAR); COLOR URINE YELLOW (YELLOW); KETONES URINE NEGATIVE (NEGATIVE); LEUKOCYTE ESTERASE URINE 2+ (NEGATIVE); NITRITE URINE NEGATIVE (NEGATIVE); OCCULT BLOOD URINE TRACE (NEGATIVE); PH URINE 8.5 (4.5-8.0); PROTEIN URINE NEGATIVE (NEGATIVE); SPECIFIC GRAVITY URINE 1.011 (1.005-1.030); UROBILINOGEN URINE 0.2 E.U./dL (0.2-1.0)
[2018-09-03 12:38] LABS: *AMPHETAMINES SCREEN URINE NEGATIVE (NEGATIVE); *BARBITURATES SCREEN URINE NEGATIVE (NEGATIVE); *BENZODIAZEPINES SCREEN URINE PRESUMTIVE POSITIVE (NEGATIVE); *COCAINE SCREEN URINE NEGATIVE (NEGATIVE); METHADONE URINE SCREEN NEGATIVE (NEGATIVE)
[2018-09-03 12:39] LABS: CANNABINOID URINE SCREEN NEGATIVE (NEGATIVE); OPIATES URINE SCREEN NEGATIVE (NEGATIVE); PHENCYCLIDINE URINE SCREEN NEGATIVE (NEGATIVE)
[2018-09-03] MEDS ORDERED: PHENYTOIN SODIUM EXTENDED 100MG CAPSULE PO ONE (13:00)
[2018-09-03 13:18] VITALS: BP 128/83
== END 2018-09-03 13:19 | disposition home or self-care (01) ==
LOC: ER 10:11
DX: G40.909 Epilepsy, unspecified, not intractable, without status epilepticus (principal); I10 Essential (primary) hypertension; E11.9 Type 2 diabetes mellitus without complications; Z88.0 Allergy status to penicillin; Z88.2 Allergy status to sulfonamides; Z88.8 Allergy status to other drugs, medicaments and biological substances; Z88.5 Allergy status to narcotic agent
CPT/HCPCS: 36415; 80053; 80185; 80305; 80320; 81003; 85025; 87077; 87086; 87186; 96365; 99283; J1953; G0480

== ENCOUNTER 2018-09-09 06:34 | Emergency (ER) | payer MEDICAID ==
[~2018-09-09] VITALS: Ht 172.7 cm; Wt 83.0 kg
[2018-09-09] MEDS ORDERED: LEVETIRACETAM 500MG PREMIX 100 ML IV ONE (06:45)
[2018-09-09 07:06] LABS: EOSINOPHILS % 5.8 % (0.0-5.0); HEMATOCRIT. 40.1 % (36.0-48.0); HEMOGLOBIN. 13.5 g/dL (12.0-16.0); LYMPHOCYTES % 35.8 % (20.0-50.0); MEAN CORPUSCULAR HEMOGLOBIN 31.9 pg (28.0-32.0); MEAN CORPUSCULAR VOLUME 94.3 fL (81.0-99.0); MEAN PLATELET VOLUME 7.2 fl (7.4-10.4); NEUTROPHILS % 46.4 % (40.0-76.0); PLATELET 254 x1000/uL (130-400); RED BLOOD CELL COUNT 4.25 mill/uL (4.2-5.4); RED CELL DISTRIBUTION WIDTH 13.9 % (11.6-14.6)
[2018-09-09 07:14] LABS: CHLORIDE 110 mEq/L (98-107)
[2018-09-09 07:21] LABS: ETHANOL BLOOD < 10 mg/dL
[2018-09-09] MEDS ORDERED: PHENYTOIN SODIUM 1,000 MG in SODIUM CHLORIDE 0.9% 100 ML IV ONE (08:15)
[2018-09-09 11:27] LABS: CLARITY URINE CLEAR (CLEAR); COLOR URINE YELLOW (YELLOW); KETONES URINE NEGATIVE (NEGATIVE); LEUKOCYTE ESTERASE URINE 1+ (NEGATIVE); NITRITE URINE POSITIVE (NEGATIVE); OCCULT BLOOD URINE 1+ (NEGATIVE); PH URINE 5.5 (4.5-8.0); PROTEIN URINE NEGATIVE (NEGATIVE); SPECIFIC GRAVITY URINE 1.017 (1.005-1.030); UROBILINOGEN URINE 0.2 E.U./dL (0.2-1.0)
[2018-09-09] MEDS ORDERED: PHENYTOIN SODIUM EXTENDED 100MG CAPSULE PO ONE (11:30)
[2018-09-09 11:35] LABS: *AMPHETAMINES SCREEN URINE NEGATIVE (NEGATIVE); *BARBITURATES SCREEN URINE NEGATIVE (NEGATIVE); *COCAINE SCREEN URINE NEGATIVE (NEGATIVE)
[2018-09-09 11:36] LABS: *BENZODIAZEPINES SCREEN URINE PRESUMTIVE POSITIVE (NEGATIVE); CANNABINOID URINE SCREEN NEGATIVE (NEGATIVE); METHADONE URINE SCREEN NEGATIVE (NEGATIVE); OPIATES URINE SCREEN NEGATIVE (NEGATIVE); PHENCYCLIDINE URINE SCREEN NEGATIVE (NEGATIVE)
[2018-09-09 11:40] VITALS: BP 138/75
== END 2018-09-09 11:40 | disposition home or self-care (01) ==
LOC: ER 06:42
DX: G43.909 Migraine, unspecified, not intractable, without status migrainosus (principal); J44.9 Chronic obstructive pulmonary disease, unspecified; E11.9 Type 2 diabetes mellitus without complications; I10 Essential (primary) hypertension; Z88.0 Allergy status to penicillin; Z88.2 Allergy status to sulfonamides; Z88.5 Allergy status to narcotic agent; Z88.6 Allergy status to analgesic agent; Z79.899 Other long term (current) drug therapy
CPT/HCPCS: 36415; 80053; 80185; 80305; 80320; 81003; 82140; 82962; 83690; 85025; 96365; 96366; 99283; J1165; J1953; J7050; Z7610; G0480

== ENCOUNTER 2018-11-08 08:10 | Emergency (ER) | payer MEDICAID, OTHER ==
[~2018-11-08] VITALS: Ht 170.2 cm; Wt 125.0 kg
[~2018-11-08 08:10] MED LIST changes: -ASPI-1159 MT; +ASPI-1393 MT
[2018-11-08] MEDS ORDERED: LEVETIRACETAM 1000MG/100ML 100 ML IV ONE (08:30)
[2018-11-08 09:13] LABS: BASOPHILS % 0.3 % (0.0-2.0); EOSINOPHILS % 1.2 % (0.0-5.0); HEMATOCRIT. 42.7 % (36.0-48.0); HEMOGLOBIN. 14.4 g/dL (12.0-16.0); LYMPHOCYTES % 16.5 % (20.0-50.0); MEAN CORPUSCULAR HEMOGLOBIN 31.9 pg (28.0-32.0); MEAN CORPUSCULAR VOLUME 94.2 fL (81.0-99.0); MONOCYTES % 6.7 % (2.0-8.0); NEUTROPHILS % 75.3 % (40.0-76.0); PLATELET 269 x1000/uL (130-400); RED BLOOD CELL COUNT 4.53 mill/uL (4.2-5.4); RED CELL DISTRIBUTION WIDTH 13.4 % (11.6-14.6)
[2018-11-08 09:17] LABS: CHLORIDE 106 mEq/L (98-107)
[2018-11-08 09:20] LABS: ETHANOL BLOOD < 10 mg/dL
[2018-11-08 09:22] LABS: CLARITY URINE CLEAR (CLEAR); COLOR URINE YELLOW (YELLOW); KETONES URINE NEGATIVE (NEGATIVE); LEUKOCYTE ESTERASE URINE 2+ (NEGATIVE); NITRITE URINE NEGATIVE (NEGATIVE); OCCULT BLOOD URINE 1+ (NEGATIVE); PH URINE 6.5 (4.5-8.0); PROTEIN URINE NEGATIVE (NEGATIVE); SPECIFIC GRAVITY URINE 1.007 (1.005-1.030); UROBILINOGEN URINE 0.2 E.U./dL (0.2-1.0)
[2018-11-08 09:41] LABS: *BARBITURATES SCREEN URINE NEGATIVE (NEGATIVE)
[2018-11-08 09:43] LABS: *AMPHETAMINES SCREEN URINE NEGATIVE (NEGATIVE); *BENZODIAZEPINES SCREEN URINE PRESUMTIVE POSITIVE (NEGATIVE); *COCAINE SCREEN URINE NEGATIVE (NEGATIVE); CANNABINOID URINE SCREEN NEGATIVE (NEGATIVE); METHADONE URINE SCREEN NEGATIVE (NEGATIVE); OPIATES URINE SCREEN NEGATIVE (NEGATIVE); PHENCYCLIDINE URINE SCREEN NEGATIVE (NEGATIVE)
[2018-11-08] MEDS ORDERED: OXYCODONE HCL/ACETAMINOPHEN 5/325MG TABLET PO ONE (09:45)
[2018-11-08 10:16] VITALS: BP 142/94
== END 2018-11-08 10:19 | disposition home or self-care (01) ==
LOC: ER 08:10
DX: G40.909 Epilepsy, unspecified, not intractable, without status epilepticus (principal); N39.0 Urinary tract infection, site not specified; R52 Pain, unspecified; I10 Essential (primary) hypertension; E11.9 Type 2 diabetes mellitus without complications; Z79.899 Other long term (current) drug therapy; Z79.82 Long term (current) use of aspirin; Z79.51 Long term (current) use of inhaled steroids
CPT/HCPCS: 36415; 80053; 80185; 80305; 80320; 81003; 82962; 85025; 87077; 87086; 87186; 96365; 99283; J1953; Z7610; G0480

== ENCOUNTER 2018-12-13 15:46 | Emergency (ER) | payer OTHER ==
[~2018-12-13] VITALS: Ht 170.2 cm; Wt 90.0 kg
[~2018-12-13 15:46] MED LIST changes: +AMLO5TAB4 PO; +DIAZ10TA4 PO; +LAMO25TA9 PO; +LEVE1000 PO; +METO1TAB26 PO; +PANT40TA4 MT
[2018-12-13] MEDS ORDERED: LEVETIRACETAM 500MG PREMIX 100 ML IV ONE (16:00)
[2018-12-13 16:23] LABS: BASOPHILS % 1.1 % (0.0-2.0); HEMATOCRIT. 44.1 % (36.0-48.0); HEMOGLOBIN. 15.1 g/dL (12.0-16.0); MEAN CORPUSCULAR HEMOGLOBIN 32.5 pg (28.0-32.0); MEAN CORPUSCULAR VOLUME 95.2 fL (81.0-99.0); MEAN PLATELET VOLUME 6.8 fl (7.4-10.4); MONOCYTES % 8.8 % (2.0-8.0); NEUTROPHILS % 48.1 % (40.0-76.0); PLATELET 246 x1000/uL (130-400); RED BLOOD CELL COUNT 4.63 mill/uL (4.2-5.4); RED CELL DISTRIBUTION WIDTH 13.6 % (11.6-14.6)
[2018-12-13 16:30] LABS: CHLORIDE 109 mEq/L (98-107)
[2018-12-13 16:34] LABS: ETHANOL BLOOD < 10 mg/dL
[2018-12-13 16:37] LABS: CLARITY URINE CLEAR (CLEAR); COLOR URINE YELLOW (YELLOW); KETONES URINE NEGATIVE (NEGATIVE); LEUKOCYTE ESTERASE URINE NEGATIVE (NEGATIVE); NITRITE URINE NEGATIVE (NEGATIVE); OCCULT BLOOD URINE TRACE (NEGATIVE); PH URINE 8.5 (4.5-8.0); PROTEIN URINE NEGATIVE (NEGATIVE); SPECIFIC GRAVITY URINE 1.011 (1.005-1.030); UROBILINOGEN URINE 0.2 E.U./dL (0.2-1.0)
[2018-12-13 16:47] LABS: *AMPHETAMINES SCREEN URINE NEGATIVE (NEGATIVE); *BARBITURATES SCREEN URINE NEGATIVE (NEGATIVE); *BENZODIAZEPINES SCREEN URINE PRESUMTIVE POSITIVE (NEGATIVE); *COCAINE SCREEN URINE NEGATIVE (NEGATIVE)
[2018-12-13 16:48] LABS: CANNABINOID URINE SCREEN NEGATIVE (NEGATIVE); METHADONE URINE SCREEN NEGATIVE (NEGATIVE); OPIATES URINE SCREEN NEGATIVE (NEGATIVE); PHENCYCLIDINE URINE SCREEN NEGATIVE (NEGATIVE)
[2018-12-13] MEDS ORDERED: PHENYTOIN SODIUM EXTENDED 100MG CAPSULE PO ONE (18:00)
[2018-12-13 18:15] VITALS: BP 128/85
[2018-12-28] MEDS ORDERED: ATOR10TA PO (15:05)
[2018-12-28] MEDS ORDERED: LAM25 PO (15:05)
== END 2018-12-13 18:55 | disposition home or self-care (01) ==
LOC: ER 15:46
DX: G40.909 Epilepsy, unspecified, not intractable, without status epilepticus (principal); E11.9 Type 2 diabetes mellitus without complications; I10 Essential (primary) hypertension
CPT/HCPCS: 36415; 70450; 80053; 80185; 80305; 80320; 81003; 82962; 85025; 93005; 96365; 96366; 99284; J1953; G0480

== ENCOUNTER 2019-01-23 17:19 | Inpatient (IN) | payer MEDICAID, OTHER ==
[~2019-01-23] VITALS: Ht 172.7 cm; Wt 105.2 kg
[~2019-01-23 17:19] MED LIST changes: -AMLO5TAB4 PO; +ATOR10TA PO; -DIAZ10TA4 PO; -KEPPSOL PO; -LAMO25TA9 PO; -POTA20TA12 PO; -PROP50TA3 MT; -TIZA4TAB4 PO; +TIZA4TAB5 PO
[2019-01-23] MEDS ORDERED: ALBUTEROL (0.083%) 2.5MG/3ML NEB HHN STA (17:20)
[2019-01-23] MEDS ORDERED: METHYLPREDNISOLONE SOD SUCC 125 MG/2 ML VIAL IV STA (17:20)
[2019-01-23] MEDS ORDERED: IPRATROPIUM BROMIDE (0.02%) 0.5MG/2.5ML NEB HHN STA (17:20)
[2019-01-23] MEDS ORDERED: ASPIRIN 81MG TABLET PO ONE (17:30)
[2019-01-23] MEDS ORDERED: MAGNESIUM 2 G PREMIX 50 ML IV ONE (17:30)
[2019-01-23 17:43] LABS: BASOPHILS % 1.1 % (0.0-2.0); EOSINOPHILS % 3.8 % (0.0-5.0); HEMATOCRIT. 39.6 % (36.0-48.0); HEMOGLOBIN. 13.6 g/dL (12.0-16.0); LYMPHOCYTES % 46.5 % (20.0-50.0); MEAN CORPUSCULAR HEMOGLOBIN 32.6 pg (28.0-32.0); MEAN CORPUSCULAR VOLUME 94.8 fL (81.0-99.0); MEAN PLATELET VOLUME 7.1 fl (7.4-10.4); MONOCYTES % 8.6 % (2.0-8.0); PLATELET 264 x1000/uL (130-400); RED BLOOD CELL COUNT 4.18 mill/uL (4.2-5.4); RED CELL DISTRIBUTION WIDTH 13.7 % (11.6-14.6)
[2019-01-23 17:44] LABS: CHLORIDE 109 mEq/L (98-107)
[2019-01-23 18:52] LABS: BG CARBOXYHEMOGLOBIN 0.3 % (0.5-1.5); BG DEOXYHEMOGLOBIN 0.9 % (0.0-5.0); BG FRACTION INSPIRED OXYGEN 40; BG HCO3 ACT 20.2 mmol/L (22.0-26.0); BG METHEMOGLOBIN 0.3 % (0.0-1.5); BG OXYGEN SATURATION 99.1 % (92.0-98.5); BG OXYHEMOGLOBIN 98.5 % (94.0-97.0); BG PCO2 25.3 mmHg (35.0-45.0); BG PH 7.521 (7.350-7.450); BG PO2 205.6 mmHg (75.0-100.0); BG SAMPLE SITE RIGHT RADIAL; BG TOTAL HEMOGLOBIN 13.5 g/dL (12.0-18.0); BG VENT MODE MASK - BIPAP; BG VENT RATE 16 set
[2019-01-24 01:34] VITALS: BP 135/79
[2019-01-24 04:00] VITALS: BP 127/81
[2019-01-24] MEDS ORDERED: DEXTROSE 50% WATER 50ML SYRINGE IV PRN (05:00)
[2019-01-24] MEDS ORDERED: CEFTRIAXONE 1 G PREMIX 50 ML IV SCH ×2 (05:00→06:00)
[2019-01-24 05:19] VITALS: BP 135/79
[2019-01-24] MEDS: HYDROCODONE/ACETAMINOPHEN 10/325MG TABLET PO PRN (06:01)
[2019-01-24] MEDS: BLOOD SUGAR DIAGNOSTIC STRIP TEST SCH ×4 (06:22→20:43)
[2019-01-24] MEDS: INSULIN LISPRO 100 UNITS/ML SUBCUT SCH ×4 (06:51→20:43)
[2019-01-24] MEDS: ASPIRIN 325MG EC TABLET PO SCH (09:00)
[2019-01-24] MEDS ORDERED: TIZANIDINE HCL 2MG TABLET PO PRN (11:45)
[2019-01-24] MEDS ORDERED: AMLODIPINE 5MG TABLET PO SCH (11:45)
[2019-01-24 12:00] VITALS: BP 150/85
[2019-01-24] MEDS: FUROSEMIDE 40MG TABLET PO SCH (12:53)
[2019-01-24] MEDS: PHENYTOIN SODIUM EXTENDED 100MG CAPSULE PO SCH ×2 (12:54→16:54)
[2019-01-24] MEDS: CETIRIZINE 10MG TABLET PO SCH (12:54)
[2019-01-24] MEDS: PANTOPRAZOLE 40MG DR TABLET PO SCH (12:54)
[2019-01-24] MEDS ORDERED: REGADENOSON 0.4 MG/5 ML IV ONE (14:00)
[2019-01-24 16:00] VITALS: BP 131/80
[2019-01-24] MEDS ORDERED: POTASSIUM CHLORIDE 20MEQ TABLET SR PO NR (17:00)
[2019-01-24 20:00] VITALS: BP 124/81
[2019-01-24] MEDS: MONTELUKAST SODIUM 10MG TABLET PO SCH (20:36)
[2019-01-24] MEDS: DIAZEPAM 5 MG TABLET PO SCH (20:37)
[2019-01-24] MEDS: LAMOTRIGINE 25MG TABLET PO SCH (20:37)
[2019-01-24] MEDS: ATORVASTATIN CALCIUM 10MG TABLET PO SCH (20:37)
[2019-01-24] MEDS: LEVETIRACETAM 500MG TABLET PO SCH (20:38)
[2019-01-24] MEDS: AMLODIPINE 5MG TABLET PO SCH (20:38)
[2019-01-24] MEDS: AMITRIPTYLINE 25MG TABLET PO SCH (20:39)
[2019-01-24] MEDS ORDERED: METOPROLOL TARTRATE 25MG TABLET PO SCH (21:00)
[2019-01-25] VITALS: BP 120/73
[2019-01-25 04:00] VITALS: BP 112/65
[2019-01-25] MEDS: INSULIN LISPRO 100 UNITS/ML SUBCUT SCH ×4 (06:03→21:00)
[2019-01-25] MEDS: BLOOD SUGAR DIAGNOSTIC STRIP TEST SCH ×4 (06:03→21:00)
[2019-01-25] MEDS: PANTOPRAZOLE 40MG DR TABLET PO SCH (06:11)
[2019-01-25 06:32] LABS: BASOPHILS % 1.1 % (0.0-2.0); EOSINOPHILS % 5.2 % (0.0-5.0); HEMATOCRIT. 39.8 % (36.0-48.0); HEMOGLOBIN. 13.8 g/dL (12.0-16.0); LYMPHOCYTES % 44.3 % (20.0-50.0); MEAN CORPUSCULAR HEMOGLOBIN 33.1 pg (28.0-32.0); MEAN CORPUSCULAR VOLUME 95.5 fL (81.0-99.0); MEAN PLATELET VOLUME 7.2 fl (7.4-10.4); NEUTROPHILS % 42.4 % (40.0-76.0); PLATELET 248 x1000/uL (130-400); RED BLOOD CELL COUNT 4.17 mill/uL (4.2-5.4); RED CELL DISTRIBUTION WIDTH 13.7 % (11.6-14.6)
[2019-01-25 06:49] LABS: CHLORIDE 109 mEq/L (98-107)
[2019-01-25 08:00] VITALS: BP 125/86
[2019-01-25] MEDS ORDERED: REGADENOSON 0.4 MG/5 ML IV ONE (08:32)
[2019-01-25] MEDS: ASPIRIN 325MG EC TABLET PO SCH ×2 (09:00→10:39)
[2019-01-25] MEDS: PHENYTOIN SODIUM EXTENDED 100MG CAPSULE PO SCH ×2 (10:39→16:59)
[2019-01-25] MEDS: FUROSEMIDE 40MG TABLET PO SCH (10:39)
[2019-01-25] MEDS: LEVETIRACETAM 500MG TABLET PO SCH ×2 (10:39→22:15)
[2019-01-25] MEDS: AMLODIPINE 5MG TABLET PO SCH ×2 (10:40→22:17)
[2019-01-25] MEDS: CETIRIZINE 10MG TABLET PO SCH (10:40)
[2019-01-25] MEDS ORDERED: POTASSIUM CHLORIDE 20MEQ TABLET SR PO SCH (11:00)
[2019-01-25 12:03] VITALS: BP 147/93
[2019-01-25] MEDS ORDERED: CLOPIDOGREL 75MG TABLET PO ONE (13:30)
[2019-01-25 16:00] VITALS: BP 120/79
[2019-01-25] MEDS: HYDROCODONE/ACETAMINOPHEN 10/325MG TABLET PO PRN ×2 (16:58→23:46)
[2019-01-25 20:00] VITALS: BP 126/88
[2019-01-25] MEDS: ENOXAPARIN 30MG/0.3ML SYR SUBCUT SCH (22:14)
[2019-01-25] MEDS: DIAZEPAM 5 MG TABLET PO SCH (22:16)
[2019-01-25] MEDS: MONTELUKAST SODIUM 10MG TABLET PO SCH (22:16)
[2019-01-25] MEDS: LAMOTRIGINE 25MG TABLET PO SCH (22:16)
[2019-01-25] MEDS: AMITRIPTYLINE 25MG TABLET PO SCH (22:17)
[2019-01-25] MEDS: ATORVASTATIN CALCIUM 10MG TABLET PO SCH (22:17)
[2019-01-26] VITALS (7 sets, daily range): BP systolic 124–160; BP diastolic 76–104
[2019-01-26] MEDS: INSULIN LISPRO 100 UNITS/ML SUBCUT SCH ×3 (06:25→17:40)
[2019-01-26] MEDS: BLOOD SUGAR DIAGNOSTIC STRIP TEST SCH ×3 (06:25→17:08)
[2019-01-26 07:18] LABS: BASOPHILS % 1.1 % (0.0-2.0); EOSINOPHILS % 6.4 % (0.0-5.0); HEMOGLOBIN. 13.5 g/dL (12.0-16.0); LYMPHOCYTES % 43.9 % (20.0-50.0); MEAN CORPUSCULAR HEMOGLOBIN 32.3 pg (28.0-32.0); MEAN CORPUSCULAR VOLUME 95.5 fL (81.0-99.0); MEAN PLATELET VOLUME 7.3 fl (7.4-10.4); MONOCYTES % 7.7 % (2.0-8.0); NEUTROPHILS % 40.9 % (40.0-76.0); PLATELET 250 x1000/uL (130-400); RED BLOOD CELL COUNT 4.19 mill/uL (4.2-5.4); RED CELL DISTRIBUTION WIDTH 13.2 % (11.6-14.6)
[2019-01-26 07:30] LABS: CHLORIDE 107 mEq/L (98-107)
[2019-01-26] MEDS: PHENYTOIN SODIUM EXTENDED 100MG CAPSULE PO SCH ×2 (08:25→17:08)
[2019-01-26] MEDS: ENOXAPARIN 30MG/0.3ML SYR SUBCUT SCH (08:25)
[2019-01-26] MEDS: FUROSEMIDE 40MG TABLET PO SCH (08:26)
[2019-01-26] MEDS: LEVETIRACETAM 500MG TABLET PO SCH (08:26)
[2019-01-26] MEDS: CETIRIZINE 10MG TABLET PO SCH (08:27)
[2019-01-26] MEDS: AMLODIPINE 5MG TABLET PO SCH (08:44)
[2019-01-26] MEDS ORDERED: FAMOTIDINE 20MG TABLET PO SCH (09:00)
[2019-01-26] MEDS ORDERED: CLOPIDOGREL 75MG TABLET PO SCH (09:00)
[2019-01-26] MEDS ORDERED: POTASSIUM CHLORIDE 20MEQ TABLET SR PO NR (10:15)
[2019-01-26] MEDS: HYDROCODONE/ACETAMINOPHEN 10/325MG TABLET PO PRN (11:37)
[2019-01-26] MEDS ORDERED: CLOP75TA15 PO (17:11)
[2019-01-26] MEDS ORDERED: AMLO5TAB88 PO (17:11)
== END 2019-01-26 18:25 | disposition home or self-care (01) | DRG 140 ==
LOC: ER 17:19 → EDBEDREQ 19:27 → EDBEDREQTM 19:27 → ENRESERV 23:33 → 8WST 01-24 01:29
PROVIDERS: ADMIT Internal Medicine; ATTEND Internal Medicine
PROC: 5A09357 Assistance with Respiratory Ventilation, Less than 24 Consecutive Hours, Continuous Positive Airway Pressure (ICD-10-PCS; principal; 2019-01-23)
DX: J44.1 Chronic obstructive pulmonary disease with (acute) exacerbation (principal); J96.00 Acute respiratory failure, unspecified whether with hypoxia or hypercapnia; E87.4 Mixed disorder of acid-base balance; E72.20 Disorder of urea cycle metabolism, unspecified; D72.1 Eosinophilia; I11.0 Hypertensive heart disease with heart failure; E05.90 Thyrotoxicosis, unspecified without thyrotoxic crisis or storm; E11.9 Type 2 diabetes mellitus without complications; E66.09 Other obesity due to excess calories; G40.909 Epilepsy, unspecified, not intractable, without status epilepticus; E03.9 Hypothyroidism, unspecified; I50.9 Heart failure, unspecified; E78.5 Hyperlipidemia, unspecified; R31.9 Hematuria, unspecified; E78.00 Pure hypercholesterolemia, unspecified; R07.89 Other chest pain; E87.6 Hypokalemia; Z77.120 Contact with and (suspected) exposure to mold (toxic); Z91.19 Patient's noncompliance with other medical treatment and regimen; Z79.4 Long term (current) use of insulin; Z68.35 Body mass index [BMI] 35.0-35.9, adult; I69.354 Hemiplegia and hemiparesis following cerebral infarction affecting left non-dominant side; Z79.899 Other long term (current) drug therapy; Z79.82 Long term (current) use of aspirin; Z88.0 Allergy status to penicillin; Z88.5 Allergy status to narcotic agent; Z88.1 Allergy status to other antibiotic agents; Z88.2 Allergy status to sulfonamides; Z88.8 Allergy status to other drugs, medicaments and biological substances
CPT/HCPCS: 36415; 36600; 71045; 78452; 80048; 82375; 82805; 82962; 83605; 83880; 84484; 93005; 93017; 93306; 94640; 94660; 96374; 99285; A9500; J0696; J1650; J2785; J2930; J3475; J7611

== ENCOUNTER 2019-03-03 07:10 | Emergency (ER) | payer MEDICAID ==
[~2019-03-03] VITALS: Ht 172.7 cm; Wt 101.0 kg
[~2019-03-03 07:10] MED LIST changes: -AMLO5TAB4 MT; +AMLO5TAB88 PO; -ASPI-1393 MT; +CLOP75TA15 PO; -PROP50TA3 PO
[2019-03-03 08:23] VITALS: BP 135/87
== END 2019-03-03 08:24 | disposition home or self-care (01) ==
LOC: ER 07:16
DX: S60.861A Insect bite (nonvenomous) of right wrist, initial encounter (principal); S70.361A Insect bite (nonvenomous), right thigh, initial encounter; W57.XXXA Bitten or stung by nonvenomous insect and other nonvenomous arthropods, initial encounter; Y93.89 Activity, other specified; Y92.89 Other specified places as the place of occurrence of the external cause; Y99.8 Other external cause status; J44.9 Chronic obstructive pulmonary disease, unspecified; I11.0 Hypertensive heart disease with heart failure; I50.9 Heart failure, unspecified; E11.9 Type 2 diabetes mellitus without complications; E78.00 Pure hypercholesterolemia, unspecified; Z98.890 Other specified postprocedural states; Z79.899 Other long term (current) drug therapy; Z88.0 Allergy status to penicillin; Z88.2 Allergy status to sulfonamides; Z88.6 Allergy status to analgesic agent; Z88.5 Allergy status to narcotic agent
CPT/HCPCS: 99283

== ENCOUNTER 2019-03-05 16:49 | Inpatient (IN) | payer MEDICAID ==
[~2019-03-05] VITALS: Ht 172.7 cm; Wt 105.8 kg
[2019-03-05] MEDS ORDERED: METHYLPREDNISOLONE SOD SUCC 125 MG/2 ML VIAL IV STA (16:56)
[2019-03-05] MEDS ORDERED: MAGNESIUM 2 G PREMIX 50 ML IV ONE (17:00)
[2019-03-05] MEDS ORDERED: IPRATROPIUM/ALBUTEROL 0.5-3(2.5)MG/3ML NEB HHN ONE (17:00)
[2019-03-05] MEDS ORDERED: LEVOFLOXACIN 750MG PREMIX 150 ML IV ONE (17:00)
[2019-03-05] MEDS ORDERED: LORAZEPAM 2MG/ML CPJ IV ONE (17:00)
[2019-03-05 17:28] LABS: BASOPHILS % 0.8 % (0.0-2.0); EOSINOPHILS % 5.1 % (0.0-5.0); HEMATOCRIT. 41.7 % (36.0-48.0); HEMOGLOBIN. 14.3 g/dL (12.0-16.0); LYMPHOCYTES % 40.4 % (20.0-50.0); MEAN CORPUSCULAR HEMOGLOBIN 33.5 pg (28.0-32.0); MEAN CORPUSCULAR VOLUME 97.5 fL (81.0-99.0); MEAN PLATELET VOLUME 7.4 fl (7.4-10.4); NEUTROPHILS % 46.7 % (40.0-76.0); PLATELET 204 x1000/uL (130-400); RED BLOOD CELL COUNT 4.28 mill/uL (4.2-5.4); RED CELL DISTRIBUTION WIDTH 13.5 % (11.6-14.6)
[2019-03-05 17:32] LABS: BG BASE EXCESS 1.3 mmol/L (-2.0-2.0); BG BILEVEL POS AIRWAY PRESSURE 15/5; BG CARBOXYHEMOGLOBIN 0.3 % (0.5-1.5); BG DEOXYHEMOGLOBIN 0.5 % (0.0-5.0); BG HCO3 ACT 23.3 mmol/L (22.0-26.0); BG METHEMOGLOBIN 0.1 % (0.0-1.5); BG OXYGEN SATURATION 99.5 % (92.0-98.5); BG OXYHEMOGLOBIN 99.1 % (94.0-97.0); BG PH 7.509 (7.350-7.450); BG PO2 588.4 mmHg (75.0-100.0); BG SAMPLE SITE RIGHT RADIAL; BG TOTAL HEMOGLOBIN 14.1 g/dL (12.0-18.0); BG VENT MODE MASK - BIPAP; BG VENT RATE 14 set
[2019-03-05 17:34] LABS: CHLORIDE 110 mEq/L (98-107)
[2019-03-05 17:36] LABS: HCG SCREEN NEGATIVE
[2019-03-05 17:40] LABS: ETHANOL BLOOD < 10 mg/dL
[2019-03-05 17:43] LABS: CREATINE KINASE 201 IU/L (26-192); CREATINE KINASE MB FRACTION < 1.0 ng/mL (0.5-3.6)
[2019-03-05 17:46] LABS: PHENOBARBITAL < 2.1 ug/mL (15.0-40.0)
[2019-03-05 17:49] LABS: CARBAMAZEPINE < 0.5 ug/mL (4-12)
[2019-03-05] MEDS ORDERED: GUAIFENESIN 200MG/10ML SUGAR FREE UDC PO PRN (19:45)
[2019-03-05] MEDS ORDERED: ONDANSETRON HCL 4MG/2ML INJ IV PRN (19:45)
[2019-03-05] MEDS ORDERED: DIPHENHYDRAMINE 50MG/ML VIAL IV PRN (19:45)
[2019-03-05] MEDS ORDERED: DOCUSATE SODIUM 100MG CAPSULE PO PRN (19:45)
[2019-03-05] MEDS ORDERED: NA PHOS,M-B/NA PHOS,DI-BA ENEMA 118ML PR PRN (19:45)
[2019-03-05] MEDS ORDERED: LORAZEPAM 2MG/ML CPJ IV PRN (19:45)
[2019-03-05] MEDS ORDERED: MAGNESIUM/ALUMINUM HYDROXIDE/SIMETHICONE 30ML UDC PO PRN (19:45)
[2019-03-05 21:36] LABS: CLARITY URINE CLOUDY (CLEAR); COLOR URINE YELLOW (YELLOW); KETONES URINE TRACE (NEGATIVE); LEUKOCYTE ESTERASE URINE NEGATIVE (NEGATIVE); NITRITE URINE NEGATIVE (NEGATIVE); OCCULT BLOOD URINE TRACE (NEGATIVE); PH URINE 6.5 (4.5-8.0); PROTEIN URINE NEGATIVE (NEGATIVE); SPECIFIC GRAVITY URINE 1.028 (1.005-1.030); UROBILINOGEN URINE 0.2 E.U./dL (0.2-1.0)
[2019-03-05 21:52] LABS: *BENZODIAZEPINES SCREEN URINE PRESUMTIVE POSITIVE (NEGATIVE); *COCAINE SCREEN URINE NEGATIVE (NEGATIVE)
[2019-03-05 21:54] LABS: *AMPHETAMINES SCREEN URINE NEGATIVE (NEGATIVE); *BARBITURATES SCREEN URINE NEGATIVE (NEGATIVE); CANNABINOID URINE SCREEN NEGATIVE (NEGATIVE); METHADONE URINE SCREEN NEGATIVE (NEGATIVE); OPIATES URINE SCREEN PRESUMTIVE POSITIVE (NEGATIVE); PHENCYCLIDINE URINE SCREEN NEGATIVE (NEGATIVE)
[2019-03-05 22:12] VITALS: BP 138/78
[2019-03-05] MEDS: IPRATROPIUM/ALBUTEROL 0.5-3(2.5)MG/3ML NEB NEB PRN (23:40)
[2019-03-05 23:48] LABS: CHLORIDE 109 mEq/L (98-107)
[2019-03-06] VITALS: BP 131/84
[2019-03-06] MEDS ORDERED: DEXTROSE 50% WATER 50ML SYRINGE IV PRN (00:15)
[2019-03-06] MEDS: METHYLPREDNISOLONE SOD SUCC 125 MG/2 ML VIAL IV SCH ×3 (00:26→12:38)
[2019-03-06] MEDS ORDERED: DIAZEPAM MT SCH (00:30)
[2019-03-06] MEDS: MORPHINE SULFATE 2 MG/ML CPJ (NOT FOR IM USE) IV PRN ×2 (00:34→09:22)
[2019-03-06] MEDS ORDERED: DIAZEPAM 5 MG TABLET PO PRN (01:45)
[2019-03-06 04:00] VITALS: BP 146/74
[2019-03-06] MEDS ORDERED: INFLUENZA VIRUS VACCINE(AFLURIA) 0.5ML SYR IM ONE (06:00)
[2019-03-06] MEDS: PANTOPRAZOLE 40MG DR TABLET PO SCH ×2 (06:20→21:34)
[2019-03-06] MEDS: BLOOD SUGAR DIAGNOSTIC STRIP TEST SCH ×4 (06:20→21:33)
[2019-03-06] MEDS: INSULIN LISPRO 100 UNITS/ML SUBCUT SCH ×4 (07:50→21:00)
[2019-03-06 08:00] VITALS: BP 134/95
[2019-03-06 08:20] LABS: CHLORIDE 110 mEq/L (98-107)
[2019-03-06 08:26] LABS: LDL CHOLESTEROL 101 mg/dL (5-100)
[2019-03-06 08:27] LABS: BASOPHILS % 0.2 % (0.0-2.0); HDL CHOLESTEROL 61 mg/dL (40-59); HEMATOCRIT. 40.2 % (36.0-48.0); HEMOGLOBIN. 13.7 g/dL (12.0-16.0); LYMPHOCYTES % 8.8 % (20.0-50.0); MEAN CORPUSCULAR HEMOGLOBIN 33.2 pg (28.0-32.0); MEAN CORPUSCULAR VOLUME 97.3 fL (81.0-99.0); MEAN PLATELET VOLUME 7.2 fl (7.4-10.4); MONOCYTES % 1.3 % (2.0-8.0); NEUTROPHILS % 89.7 % (40.0-76.0); PLATELET 217 x1000/uL (130-400); RED BLOOD CELL COUNT 4.13 mill/uL (4.2-5.4); RED CELL DISTRIBUTION WIDTH 13.7 % (11.6-14.6)
[2019-03-06 08:28] LABS: T4 FREE 0.73 ng/dL (0.76-1.46)
[2019-03-06] MEDS: ASPIRIN 81MG EC TABLET PO SCH (09:00)
[2019-03-06] MEDS ORDERED: MEDICATION NOT ON FORMULARY EA (Levetiracetam (Keppra) 1,000 MG) PO SCH (09:00)
[2019-03-06] MEDS: CLOPIDOGREL 75MG TABLET PO SCH (09:20)
[2019-03-06] MEDS: FUROSEMIDE 40MG TABLET PO SCH (09:20)
[2019-03-06] MEDS: CLONIDINE 0.1MG TABLET PO PRN (09:21)
[2019-03-06] MEDS: LEVETIRACETAM 500MG TABLET PO SCH ×2 (09:21→17:25)
[2019-03-06] MEDS: PHENYTOIN SODIUM EXTENDED 100MG CAPSULE PO SCH ×2 (09:33→17:25)
[2019-03-06] MEDS: ENOXAPARIN 30MG/0.3ML SYR SUBCUT SCH ×2 (11:20→21:32)
[2019-03-06 12:00] VITALS: BP 134/95
[2019-03-06 15:14] LABS: CREATINE KINASE 168 IU/L (26-192)
[2019-03-06 15:15] LABS: CREATINE KINASE MB FRACTION < 1.0 ng/mL (0.5-3.6)
[2019-03-06 15:20] LABS: T4 FREE 0.76 ng/dL (0.76-1.46)
[2019-03-06 16:00] VITALS: BP 135/84
[2019-03-06] MEDS: LORATADINE 10MG TABLET PO SCH (16:41)
[2019-03-06] MEDS: ACETAMINOPHEN 325MG TABLET PO PRN (17:30)
[2019-03-06] MEDS: IPRATROPIUM/ALBUTEROL 0.5-3(2.5)MG/3ML NEB NEB PRN (18:57)
[2019-03-06 20:00] VITALS: BP 142/88
[2019-03-06] MEDS ORDERED: LEVOFLOXACIN 500MG PREMIX 100 ML IV SCH (20:00)
[2019-03-06] MEDS: FLUTICASONE PROPIONATE 50MCG/SPRAY BOTTLE BOTHNSTRLS SCH (21:32)
[2019-03-06] MEDS: METHYLPREDNISOLONE SOD SUCC 40 MG/ML VIAL IV SCH (21:32)
[2019-03-06] MEDS: ATORVASTATIN CALCIUM 10MG TABLET PO SCH (21:33)
[2019-03-06] MEDS: MONTELUKAST SODIUM 10MG TABLET PO SCH (21:33)
[2019-03-06] MEDS: AMITRIPTYLINE 25MG TABLET PO SCH (21:34)
[2019-03-06] MEDS: GUAIFENESIN 600MG ER TABLET PO SCH (21:34)
[2019-03-06] MEDS ORDERED: LEVOFLOXACIN 500MG PREMIX 100 ML IV NR (23:00)
[2019-03-07] VITALS: BP 132/79
[2019-03-07 00:52] LABS: CREATINE KINASE 145 IU/L (26-192)
[2019-03-07 00:53] LABS: CREATINE KINASE MB FRACTION < 1.0 ng/mL (0.5-3.6)
[2019-03-07] MEDS: ACETAMINOPHEN 325MG TABLET PO PRN (00:57)
[2019-03-07 04:00] VITALS: BP 131/90
[2019-03-07] MEDS: METHYLPREDNISOLONE SOD SUCC 40 MG/ML VIAL IV SCH ×3 (04:01→21:49)
[2019-03-07] MEDS: BLOOD SUGAR DIAGNOSTIC STRIP TEST SCH ×5 (06:50→21:49)
[2019-03-07 07:39] LABS: CREATINE KINASE 129 IU/L (26-192)
[2019-03-07 07:41] LABS: CREATINE KINASE MB FRACTION < 1.0 ng/mL (0.5-3.6)
[2019-03-07] MEDS: INSULIN LISPRO 100 UNITS/ML SUBCUT SCH ×4 (07:50→21:00)
[2019-03-07 07:58] VITALS: BP 139/95
[2019-03-07] MEDS: GUAIFENESIN 600MG ER TABLET PO SCH ×2 (09:00→21:48)
[2019-03-07] MEDS: LEVETIRACETAM 500MG TABLET PO SCH ×2 (09:00→17:16)
[2019-03-07] MEDS: ASPIRIN 81MG EC TABLET PO SCH (09:00)
[2019-03-07] MEDS: FUROSEMIDE 40MG TABLET PO SCH (10:26)
[2019-03-07] MEDS: CLOPIDOGREL 75MG TABLET PO SCH (10:26)
[2019-03-07] MEDS: ENOXAPARIN 30MG/0.3ML SYR SUBCUT SCH ×2 (10:26→21:46)
[2019-03-07] MEDS: LORATADINE 10MG TABLET PO SCH (10:27)
[2019-03-07] MEDS: PHENYTOIN SODIUM EXTENDED 100MG CAPSULE PO SCH ×2 (10:27→17:16)
[2019-03-07 11:43] VITALS: BP 152/93
[2019-03-07] MEDS: FLUTICASONE PROPIONATE 50MCG/SPRAY BOTTLE BOTHNSTRLS SCH ×2 (12:19→21:46)
[2019-03-07] MEDS: CLONIDINE 0.1MG TABLET PO PRN (12:29)
[2019-03-07 15:36] VITALS: BP 123/76
[2019-03-07] MEDS: MORPHINE SULFATE 2 MG/ML CPJ (NOT FOR IM USE) IV PRN (17:11)
[2019-03-07 20:00] VITALS: BP 132/84
[2019-03-07] MEDS ORDERED: LEVOFLOXACIN 500MG PREMIX 100 ML IV SCH (20:00)
[2019-03-07] MEDS: ATORVASTATIN CALCIUM 10MG TABLET PO SCH (21:48)
[2019-03-07] MEDS: AMITRIPTYLINE 25MG TABLET PO SCH (21:48)
[2019-03-07] MEDS: MONTELUKAST SODIUM 10MG TABLET PO SCH (21:48)
[2019-03-08] VITALS: BP 158/78
[2019-03-08 00:10] VITALS: BP 137/87
[2019-03-08 04:00] VITALS: BP 117/78
[2019-03-08] MEDS: METHYLPREDNISOLONE SOD SUCC 40 MG/ML VIAL IV SCH (04:39)
[2019-03-08] MEDS: IPRATROPIUM/ALBUTEROL 0.5-3(2.5)MG/3ML NEB NEB PRN (04:54)
[2019-03-08] MEDS: PANTOPRAZOLE 40MG DR TABLET PO SCH (07:03)
[2019-03-08] MEDS: BLOOD SUGAR DIAGNOSTIC STRIP TEST SCH (07:18)
[2019-03-08 08:16] VITALS: BP 134/86
[2019-03-08 09:22] VITALS: BP 129/75
== END 2019-03-08 09:42 | disposition home or self-care (01) | DRG 137 ==
LOC: ER 16:49 → EDBEDREQ 18:28 → EDBEDREQSVC 18:28 → EDBEDREQTM 18:28 → 6WST 21:12 → EDBEDREQSVC 21:13 → EDBEDREQTM 21:13 → ENRESERV 21:28
PROVIDERS: ADMIT Internal Medicine; ATTEND Internal Medicine
PROC: 5A09357 Assistance with Respiratory Ventilation, Less than 24 Consecutive Hours, Continuous Positive Airway Pressure (ICD-10-PCS; principal; 2019-03-05)
DX: J69.0 Pneumonitis due to inhalation of food and vomit (principal); J96.00 Acute respiratory failure, unspecified whether with hypoxia or hypercapnia; I11.0 Hypertensive heart disease with heart failure; R65.10 Systemic inflammatory response syndrome (SIRS) of non-infectious origin without acute organ dysfunction; I50.9 Heart failure, unspecified; I69.354 Hemiplegia and hemiparesis following cerebral infarction affecting left non-dominant side; J45.901 Unspecified asthma with (acute) exacerbation; J44.1 Chronic obstructive pulmonary disease with (acute) exacerbation; M48.02 Spinal stenosis, cervical region; E11.9 Type 2 diabetes mellitus without complications; D64.9 Anemia, unspecified; K21.9 Gastro-esophageal reflux disease without esophagitis; E03.9 Hypothyroidism, unspecified; F41.9 Anxiety disorder, unspecified; G40.909 Epilepsy, unspecified, not intractable, without status epilepticus; E78.00 Pure hypercholesterolemia, unspecified; Z87.891 Personal history of nicotine dependence; Z79.51 Long term (current) use of inhaled steroids; Z79.899 Other long term (current) drug therapy; Z88.0 Allergy status to penicillin; Z88.2 Allergy status to sulfonamides; Z88.5 Allergy status to narcotic agent; Z88.8 Allergy status to other drugs, medicaments and biological substances
CPT/HCPCS: 36415; 36600; 71045; 80048; 80061; 80156; 80165; 80184; 80185; 80305; 80320; 81003; 82375; 82550; 82553; 82805; 82962; 83036; 83605; 83735; 83880; 84439; 84443; 84484; 84703; 85379; 90686; 93005; 93306; 94640; 94660; 99291; J1200; J1650; J1956; J2060; J2270; J2920; J2930; J3475; J7620; G0480

== ENCOUNTER 2019-03-22 15:06 | Inpatient (IN) | payer MEDICAID ==
[~2019-03-22] VITALS: Ht 165.1 cm; Wt 103.0 kg
[~2019-03-22 15:06] MED LIST changes: -METO1TAB26 PO
[2019-03-22] MEDS ORDERED: ALBUTEROL (0.083%) 2.5MG/3ML NEB HHN STA (15:18)
[2019-03-22] MEDS ORDERED: IPRATROPIUM BROMIDE (0.02%) 0.5MG/2.5ML NEB HHN STA (15:18)
[2019-03-22] MEDS ORDERED: METHYLPREDNISOLONE SOD SUCC 125 MG/2 ML VIAL IV STA (15:18)
[2019-03-22] MEDS ORDERED: MAGNESIUM 2 G PREMIX 50 ML IV ONE (15:30)
[2019-03-22 15:47] LABS: BASOPHILS % 0.5 % (0.0-2.0); EOSINOPHILS % 4.9 % (0.0-5.0); HEMATOCRIT. 43.8 % (36.0-48.0); HEMOGLOBIN. 14.9 g/dL (12.0-16.0); LYMPHOCYTES % 37.7 % (20.0-50.0); MEAN CORPUSCULAR HEMOGLOBIN 32.9 pg (28.0-32.0); MEAN CORPUSCULAR VOLUME 96.7 fL (81.0-99.0); MEAN PLATELET VOLUME 6.8 fl (7.4-10.4); NEUTROPHILS % 49.9 % (40.0-76.0); PLATELET 304 x1000/uL (130-400); RED BLOOD CELL COUNT 4.53 mill/uL (4.2-5.4); RED CELL DISTRIBUTION WIDTH 13.3 % (11.6-14.6)
[2019-03-22 15:53] LABS: CHLORIDE 107 mEq/L (98-107)
[2019-03-22 15:54] LABS: INR 0.9; PARTIAL THROMBOPLASTIN TIME 27.3 sec (23.4-31.0); PROTHROMBIN TIME 9.7 sec (9.6-11.0)
[2019-03-22 17:10] LABS: BG BASE EXCESS 0.6 mmol/L (-2.0-2.0); BG BILEVEL POS AIRWAY PRESSURE 15/5; BG CARBOXYHEMOGLOBIN 0.2 % (0.5-1.5); BG DEOXYHEMOGLOBIN 0.7 % (0.0-5.0); BG FRACTION INSPIRED OXYGEN 50; BG HCO3 ACT 24.4 mmol/L (22.0-26.0); BG METHEMOGLOBIN 0.1 % (0.0-1.5); BG OXYGEN SATURATION 99.3 % (92.0-98.5); BG PCO2 36.7 mmHg (35.0-45.0); BG PH 7.441 (7.350-7.450); BG PO2 239.4 mmHg (75.0-100.0); BG SAMPLE SITE RIGHT RADIAL; BG VENT MODE MASK - BIPAP; BG VENT RATE 18 set
[2019-03-22] MEDS ORDERED: NA PHOS,M-B/NA PHOS,DI-BA ENEMA 118ML PR PRN (17:15)
[2019-03-22] MEDS ORDERED: MORPHINE SULFATE 2 MG/ML CPJ (NOT FOR IM USE) IV PRN (17:15)
[2019-03-22] MEDS ORDERED: GUAIFENESIN 200MG/10ML SUGAR FREE UDC PO PRN (17:15)
[2019-03-22] MEDS ORDERED: CLONIDINE 0.1MG TABLET PO PRN (17:15)
[2019-03-22] MEDS ORDERED: LORAZEPAM 2MG/ML CPJ IV PRN (17:15)
[2019-03-22] MEDS ORDERED: MAGNESIUM/ALUMINUM HYDROXIDE/SIMETHICONE 30ML UDC PO PRN (17:15)
[2019-03-22] MEDS ORDERED: DOCUSATE SODIUM 100MG CAPSULE PO PRN (17:15)
[2019-03-22] MEDS ORDERED: ACETAMINOPHEN 325MG TABLET PO PRN (17:15)
[2019-03-22] MEDS ORDERED: HYDRALAZINE 20MG/ML VIAL IV PRN (17:15)
[2019-03-22] MEDS ORDERED: DIPHENHYDRAMINE 50MG/ML VIAL IV PRN (17:15)
[2019-03-22] MEDS ORDERED: DEXTROSE 50% WATER 50ML SYRINGE IV PRN ×2 (17:15→17:30)
[2019-03-22] MEDS ORDERED: ONDANSETRON HCL 4MG/2ML INJ IV PRN (17:15)
[2019-03-22 20:00] VITALS: BP 131/80
[2019-03-22] MEDS: SODIUM CHLORIDE 0.9% INJ 3ML FLUSH IVF SCH (21:31)
[2019-03-22] MEDS: BLOOD SUGAR DIAGNOSTIC STRIP TEST SCH (21:32)
[2019-03-22] MEDS: ENOXAPARIN 30MG/0.3ML SYR SUBCUT SCH (21:32)
[2019-03-22 22:00] VITALS: BP 130/90
[2019-03-22] MEDS: IPRATROPIUM/ALBUTEROL 0.5-3(2.5)MG/3ML NEB HHN PRN (23:40)
[2019-03-23] VITALS (12 sets, daily range): BP systolic 101–150; BP diastolic 53–88
[2019-03-23 00:33] LABS: CREATINE KINASE 227 IU/L (26-192)
[2019-03-23 00:35] LABS: CREATINE KINASE MB FRACTION < 1.0 ng/mL (0.5-3.6)
[2019-03-23] MEDS: METHYLPREDNISOLONE SOD SUCC 125 MG/2 ML VIAL IV SCH ×4 (00:43→17:19)
[2019-03-23] MEDS: IPRATROPIUM/ALBUTEROL 0.5-3(2.5)MG/3ML NEB HHN PRN ×2 (03:55→22:32)
[2019-03-23] MEDS: BLOOD SUGAR DIAGNOSTIC STRIP TEST SCH ×4 (05:29→21:38)
[2019-03-23] MEDS: SODIUM CHLORIDE 0.9% INJ 3ML FLUSH IVF SCH ×3 (05:29→21:33)
[2019-03-23 06:46] LABS: BASOPHILS % 0.4 % (0.0-2.0); HEMATOCRIT. 37.5 % (36.0-48.0); HEMOGLOBIN. 12.8 g/dL (12.0-16.0); LYMPHOCYTES % 11.8 % (20.0-50.0); MEAN CORPUSCULAR VOLUME 96.7 fL (81.0-99.0); MEAN PLATELET VOLUME 6.8 fl (7.4-10.4); MONOCYTES % 3.5 % (2.0-8.0); NEUTROPHILS % 84.3 % (40.0-76.0); PLATELET 283 x1000/uL (130-400); RED BLOOD CELL COUNT 3.88 mill/uL (4.2-5.4); RED CELL DISTRIBUTION WIDTH 13.2 % (11.6-14.6)
[2019-03-23 06:54] LABS: CHLORIDE 108 mEq/L (98-107)
[2019-03-23 07:05] LABS: CREATINE KINASE 221 IU/L (26-192)
[2019-03-23 07:09] LABS: CREATINE KINASE MB FRACTION < 1.0 ng/mL (0.5-3.6)
[2019-03-23] MEDS: ENOXAPARIN 30MG/0.3ML SYR SUBCUT SCH ×2 (08:41→21:31)
[2019-03-23] MEDS: HYDROCODONE/ACETAMINOPHEN 10/325MG TABLET PO PRN ×2 (09:18→22:04)
[2019-03-23] MEDS ORDERED: MEDICATION NOT ON FORMULARY EA (Levetiracetam (Keppra) 1,000 MG) PO SCH (10:30)
[2019-03-23] MEDS: FUROSEMIDE 40MG TABLET PO SCH (12:31)
[2019-03-23] MEDS: CLOPIDOGREL 75MG TABLET PO SCH (12:31)
[2019-03-23] MEDS: LEVETIRACETAM 500MG TABLET PO SCH ×2 (12:32→22:51)
[2019-03-23] MEDS: PANTOPRAZOLE 40MG DR TABLET PO SCH (12:32)
[2019-03-23] MEDS: AMLODIPINE 5MG TABLET PO SCH ×2 (12:33→21:33)
[2019-03-23] MEDS: PHENYTOIN SODIUM EXTENDED 100MG CAPSULE PO SCH ×2 (12:44→22:51)
[2019-03-23] MEDS: CETIRIZINE 10MG TABLET PO SCH (14:41)
[2019-03-23] MEDS ORDERED: LAMOTRIGINE 25MG TABLET PO SCH (21:00)
[2019-03-23] MEDS ORDERED: AMITRIPTYLINE 25MG TABLET PO SCH (21:00)
[2019-03-23] MEDS ORDERED: ATORVASTATIN CALCIUM 10MG TABLET PO SCH (21:00)
[2019-03-23] MEDS ORDERED: MONTELUKAST SODIUM 10MG TABLET PO SCH (21:00)
[2019-03-24] VITALS (7 sets, daily range): BP systolic 112–147; BP diastolic 71–93
[2019-03-24] MEDS: METHYLPREDNISOLONE SOD SUCC 125 MG/2 ML VIAL IV SCH ×3 (00:04→11:47)
[2019-03-24] MEDS: IPRATROPIUM/ALBUTEROL 0.5-3(2.5)MG/3ML NEB HHN PRN (05:17)
[2019-03-24] MEDS: SODIUM CHLORIDE 0.9% INJ 3ML FLUSH IVF SCH ×2 (06:23→13:40)
[2019-03-24] MEDS: PANTOPRAZOLE 40MG DR TABLET PO SCH (06:24)
[2019-03-24 06:31] LABS: BASOPHILS % 0.2 % (0.0-2.0); HEMATOCRIT. 37.9 % (36.0-48.0); HEMOGLOBIN. 12.8 g/dL (12.0-16.0); LYMPHOCYTES % 10.1 % (20.0-50.0); MEAN CORPUSCULAR HEMOGLOBIN 32.8 pg (28.0-32.0); MONOCYTES % 4.6 % (2.0-8.0); NEUTROPHILS % 85.1 % (40.0-76.0); PLATELET 278 x1000/uL (130-400); RED BLOOD CELL COUNT 3.91 mill/uL (4.2-5.4); RED CELL DISTRIBUTION WIDTH 13.4 % (11.6-14.6)
[2019-03-24] MEDS: BLOOD SUGAR DIAGNOSTIC STRIP TEST SCH ×2 (06:31→11:47)
[2019-03-24 06:33] LABS: CHLORIDE 107 mEq/L (98-107)
[2019-03-24] MEDS: CLOPIDOGREL 75MG TABLET PO SCH (09:49)
[2019-03-24] MEDS: CETIRIZINE 10MG TABLET PO SCH (09:50)
[2019-03-24] MEDS: AMLODIPINE 5MG TABLET PO SCH (09:50)
[2019-03-24] MEDS: PHENYTOIN SODIUM EXTENDED 100MG CAPSULE PO SCH (09:50)
[2019-03-24] MEDS: LEVETIRACETAM 500MG TABLET PO SCH (09:50)
[2019-03-24] MEDS: ENOXAPARIN 30MG/0.3ML SYR SUBCUT SCH (09:51)
[2019-03-24] MEDS: FUROSEMIDE 40MG TABLET PO SCH (09:51)
== END 2019-03-24 14:45 | disposition left against medical advice (07) | DRG 133 ==
LOC: ER 15:06 → 3WST 16:29 → ENRESERV 16:51 → 3WST 20:14
PROVIDERS: ADMIT Internal Medicine; ATTEND Internal Medicine
PROC: 5A09357 Assistance with Respiratory Ventilation, Less than 24 Consecutive Hours, Continuous Positive Airway Pressure (ICD-10-PCS; principal; 2019-03-22)
DX: J96.00 Acute respiratory failure, unspecified whether with hypoxia or hypercapnia (principal); J44.1 Chronic obstructive pulmonary disease with (acute) exacerbation; J45.901 Unspecified asthma with (acute) exacerbation; G40.909 Epilepsy, unspecified, not intractable, without status epilepticus; I10 Essential (primary) hypertension; E11.9 Type 2 diabetes mellitus without complications; Z53.29 Procedure and treatment not carried out because of patient's decision for other reasons; Z86.73 Personal history of transient ischemic attack (TIA), and cerebral infarction without residual deficits; Z88.0 Allergy status to penicillin; Z88.5 Allergy status to narcotic agent; Z88.8 Allergy status to other drugs, medicaments and biological substances; Z88.2 Allergy status to sulfonamides; Z79.02 Long term (current) use of antithrombotics/antiplatelets; Z79.899 Other long term (current) drug therapy
CPT/HCPCS: 36415; 36600; 71045; 80048; 82375; 82550; 82553; 82805; 82962; 83880; 84484; 93005; 94640; 94660; 96365; 99291; C1893; J1200; J1650; J2405; J2930; J3475; J7611; J7620

== ENCOUNTER 2019-04-09 18:06 | Emergency (ER) | payer MEDICAID ==
[~2019-04-09] VITALS: Ht 172.7 cm; Wt 106.0 kg
[2019-04-09 18:09] VITALS: BP 187/92
== END 2019-04-09 22:34 | disposition left against medical advice (07) ==
LOC: ER 18:06
DX: R56.9 Unspecified convulsions (principal); Z53.21 Procedure and treatment not carried out due to patient leaving prior to being seen by health care provider

== ENCOUNTER 2019-04-10 05:51 | Emergency (ER) | payer MEDICAID ==
[~2019-04-10] VITALS: Ht 177.8 cm; Wt 100.0 kg
[2019-04-10] MEDS ORDERED: LEVETIRACETAM 500MG PREMIX 100 ML IV ONE (06:30)
[2019-04-10 08:06] LABS: BASOPHILS % 1.3 % (0.0-2.0); EOSINOPHILS % 5.5 % (0.0-5.0); HEMATOCRIT. 41.3 % (36.0-48.0); LYMPHOCYTES % 31.9 % (20.0-50.0); MEAN CORPUSCULAR HEMOGLOBIN 32.7 pg (28.0-32.0); MEAN CORPUSCULAR VOLUME 96.3 fL (81.0-99.0); MONOCYTES % 8.3 % (2.0-8.0); PLATELET 213 x1000/uL (130-400); RED BLOOD CELL COUNT 4.29 mill/uL (4.2-5.4); RED CELL DISTRIBUTION WIDTH 13.5 % (11.6-14.6)
[2019-04-10 08:12] LABS: CHLORIDE 107 mEq/L (98-107)
[2019-04-10 08:16] LABS: ETHANOL BLOOD < 10 mg/dL
[2019-04-10 08:27] LABS: CLARITY URINE CLEAR (CLEAR); COLOR URINE YELLOW (YELLOW); KETONES URINE NEGATIVE (NEGATIVE); LEUKOCYTE ESTERASE URINE 1+ (NEGATIVE); NITRITE URINE NEGATIVE (NEGATIVE); OCCULT BLOOD URINE TRACE (NEGATIVE); PH URINE 7.5 (4.5-8.0); PROTEIN URINE NEGATIVE (NEGATIVE); SPECIFIC GRAVITY URINE 1.007 (1.005-1.030); UROBILINOGEN URINE 0.2 E.U./dL (0.2-1.0)
[2019-04-10 08:47] LABS: *BARBITURATES SCREEN URINE NEGATIVE (NEGATIVE)
[2019-04-10 08:48] LABS: *AMPHETAMINES SCREEN URINE NEGATIVE (NEGATIVE); *BENZODIAZEPINES SCREEN URINE PRESUMTIVE POSITIVE (NEGATIVE); *COCAINE SCREEN URINE NEGATIVE (NEGATIVE); CANNABINOID URINE SCREEN NEGATIVE (NEGATIVE); METHADONE URINE SCREEN NEGATIVE (NEGATIVE); OPIATES URINE SCREEN NEGATIVE (NEGATIVE); PHENCYCLIDINE URINE SCREEN NEGATIVE (NEGATIVE)
[2019-04-10 09:25] VITALS: BP 125/63
== END 2019-04-10 09:35 | disposition home or self-care (01) ==
LOC: ER 06:24
DX: G40.909 Epilepsy, unspecified, not intractable, without status epilepticus (principal); R03.0 Elevated blood-pressure reading, without diagnosis of hypertension; I69.320 Aphasia following cerebral infarction; Z79.01 Long term (current) use of anticoagulants; Z79.899 Other long term (current) drug therapy; Z88.0 Allergy status to penicillin; Z88.2 Allergy status to sulfonamides; Z88.8 Allergy status to other drugs, medicaments and biological substances; Z88.5 Allergy status to narcotic agent
CPT/HCPCS: 36415; 70450; 71045; 80053; 80305; 80320; 81003; 81025; 82962; 85025; 96365; 99284; J1953; G0480

== ENCOUNTER 2019-06-03 15:23 | Emergency (ER) | payer OTHER ==
[~2019-06-03] VITALS: Ht 167.6 cm; Wt 90.0 kg
[2019-06-03] MEDS ORDERED: LORAZEPAM 2MG/ML CPJ IV ONE (15:45)
[2019-06-03 16:36] VITALS: BP 150/64
== END 2019-06-03 17:15 | disposition left against medical advice (07) ==
LOC: ER 15:23
DX: G40.909 Epilepsy, unspecified, not intractable, without status epilepticus (principal); I10 Essential (primary) hypertension; E11.9 Type 2 diabetes mellitus without complications; I69.354 Hemiplegia and hemiparesis following cerebral infarction affecting left non-dominant side
CPT/HCPCS: 96374; 99283; J2060

== ENCOUNTER 2019-07-03 08:36 | Emergency (ER) | payer OTHER ==
[~2019-07-03] VITALS: Ht 172.7 cm; Wt 105.0 kg
[2019-07-03] MEDS ORDERED: ALBUTEROL (0.083%) 2.5MG/3ML NEB HHN STA (08:59)
[2019-07-03] MEDS ORDERED: IPRATROPIUM BROMIDE (0.02%) 0.5MG/2.5ML NEB HHN STA (08:59)
[2019-07-03] MEDS: METHYLPREDNISOLONE SOD SUCC 125 MG/2 ML VIAL IV STA ×2 (08:59→10:04)
[2019-07-03] MEDS ORDERED: LEVETIRACETAM 500MG PREMIX 100 ML IV ONE (09:00)
[2019-07-03 09:35] LABS: EOSINOPHILS % 5.2 % (0.0-5.0); HEMATOCRIT. 41.7 % (36.0-48.0); HEMOGLOBIN. 13.9 g/dL (12.0-16.0); LYMPHOCYTES % 36.2 % (20.0-50.0); MEAN CORPUSCULAR HEMOGLOBIN 32.3 pg (28.0-32.0); MEAN CORPUSCULAR VOLUME 96.9 fL (81.0-99.0); MEAN PLATELET VOLUME 6.9 fl (7.4-10.4); MONOCYTES % 8.6 % (2.0-8.0); PLATELET 226 x1000/uL (130-400); RED CELL DISTRIBUTION WIDTH 13.2 % (11.6-14.6)
[2019-07-03 09:40] LABS: CHLORIDE 107 mEq/L (98-107)
[2019-07-03 09:44] LABS: ETHANOL BLOOD < 10 mg/dL
[2019-07-03 09:48] LABS: PROTHROMBIN TIME 10.3 sec (9.6-11.0)
[2019-07-03 11:26] LABS: CLARITY URINE CLEAR (CLEAR); COLOR URINE YELLOW (YELLOW); KETONES URINE NEGATIVE (NEGATIVE); LEUKOCYTE ESTERASE URINE TRACE (NEGATIVE); NITRITE URINE NEGATIVE (NEGATIVE); OCCULT BLOOD URINE TRACE (NEGATIVE); PH URINE 7.5 (4.5-8.0); PROTEIN URINE NEGATIVE (NEGATIVE); SPECIFIC GRAVITY URINE 1.009 (1.005-1.030); UROBILINOGEN URINE 0.2 E.U./dL (0.2-1.0)
[2019-07-03 11:50] LABS: *AMPHETAMINES SCREEN URINE NEGATIVE (NEGATIVE); *BARBITURATES SCREEN URINE NEGATIVE (NEGATIVE); *BENZODIAZEPINES SCREEN URINE PRESUMTIVE POSITIVE (NEGATIVE); *COCAINE SCREEN URINE NEGATIVE (NEGATIVE)
[2019-07-03 11:51] LABS: CANNABINOID URINE SCREEN NEGATIVE (NEGATIVE); METHADONE URINE SCREEN NEGATIVE (NEGATIVE); OPIATES URINE SCREEN NEGATIVE (NEGATIVE); PHENCYCLIDINE URINE SCREEN NEGATIVE (NEGATIVE)
[2019-07-03 12:09] VITALS: BP 147/79
== END 2019-07-03 12:11 | disposition home or self-care (01) ==
LOC: ER 08:36
DX: G40.909 Epilepsy, unspecified, not intractable, without status epilepticus (principal); J44.1 Chronic obstructive pulmonary disease with (acute) exacerbation
CPT/HCPCS: 36415; 70450; 71045; 80053; 80185; 80305; 80320; 81003; 83880; 84484; 85025; 85610; 87804; 93005; 94644; 96365; 96375; 99285; J1953; J2930; J7611; Z7610; G0480

== ENCOUNTER 2019-07-16 18:17 | Inpatient (IN) | payer MEDICAID, OTHER ==
[~2019-07-16] VITALS: Ht 172.7 cm; Wt 110.2 kg
[2019-07-16] MEDS ORDERED: ALBUTEROL (0.083%) 2.5MG/3ML NEB HHN STA (18:20)
[2019-07-16] MEDS ORDERED: METHYLPREDNISOLONE SOD SUCC 125 MG/2 ML VIAL IV STA (18:20)
[2019-07-16 19:02] LABS: BASOPHILS % 1.2 % (0.0-2.0); HEMATOCRIT. 47.2 % (36.0-48.0); HEMOGLOBIN. 15.5 g/dL (12.0-16.0); LYMPHOCYTES % 42.6 % (20.0-50.0); MEAN CORPUSCULAR HEMOGLOBIN 31.8 pg (28.0-32.0); MEAN CORPUSCULAR VOLUME 96.7 fL (81.0-99.0); MONOCYTES % 7.5 % (2.0-8.0); NEUTROPHILS % 44.7 % (40.0-76.0); RED BLOOD CELL COUNT 4.88 mill/uL (4.2-5.4); RED CELL DISTRIBUTION WIDTH 13.3 % (11.6-14.6)
[2019-07-16 19:09] LABS: CHLORIDE 108 mEq/L (98-107)
[2019-07-16 19:14] LABS: MEAN PLATELET VOLUME 8.7 fl (7.4-10.4); PLATELET 197 x1000/uL (130-400)
[2019-07-16] MEDS ORDERED: ACETAMINOPHEN 325MG TABLET PO PRN (23:15)
[2019-07-16] MEDS ORDERED: GUAIFENESIN 200MG/10ML SUGAR FREE UDC PO PRN (23:15)
[2019-07-16] MEDS ORDERED: DIPHENHYDRAMINE 50MG/ML VIAL IV PRN (23:15)
[2019-07-16] MEDS ORDERED: MAGNESIUM/ALUMINUM HYDROXIDE/SIMETHICONE 30ML UDC PO PRN (23:15)
[2019-07-16] MEDS ORDERED: IPRATROPIUM/ALBUTEROL 0.5-3(2.5)MG/3ML NEB HHN PRN (23:15)
[2019-07-16] MEDS ORDERED: CLONIDINE 0.1MG TABLET PO PRN (23:15)
[2019-07-16] MEDS ORDERED: DEXTROSE 50% WATER 50ML SYRINGE IV PRN (23:15)
[2019-07-16] MEDS ORDERED: ONDANSETRON HCL 4MG/2ML INJ IV PRN (23:15)
[2019-07-16] MEDS ORDERED: HYDROCODONE/ACETAMINOPHEN 5/325MG TABLET PO PRN (23:30)
[2019-07-17] MEDS ORDERED: PHENYTOIN SODIUM EXTENDED 100MG CAPSULE PO SCH (00:30)
[2019-07-17] MEDS ORDERED: LEVETIRACETAM 500MG/5ML CUP PO SCH (00:30)
[2019-07-17] MEDS: LORAZEPAM 0.5MG TABLET PO PRN ×2 (02:59→20:40)
[2019-07-17] MEDS ORDERED: METHYLPREDNISOLONE SOD SUCC 125 MG/2 ML VIAL IV SCH (06:00)
[2019-07-17] MEDS: AMLODIPINE 5MG TABLET PO SCH ×2 (09:18→20:14)
[2019-07-17] MEDS: SODIUM CHLORIDE 0.9% INJ 3ML FLUSH IVF SCH ×3 (09:19→21:45)
[2019-07-17] MEDS: OMEPRAZOLE 20MG CAPSULE EXTENDED RELEASE PO SCH ×2 (09:19→20:13)
[2019-07-17] MEDS: BLOOD SUGAR DIAGNOSTIC STRIP TEST SCH ×4 (09:20→20:14)
[2019-07-17] MEDS: PHENYTOIN SODIUM EXTENDED 100MG CAPSULE PO SCH ×2 (09:20→17:31)
[2019-07-17] MEDS: INSULIN LISPRO 100 UNITS/ML SUBCUT SCH ×3 (09:21→20:14)
[2019-07-17] MEDS: CLOPIDOGREL 75MG TABLET PO SCH (09:32)
[2019-07-17] MEDS: LEVETIRACETAM 500MG/5ML CUP PO SCH ×2 (10:06→20:13)
[2019-07-17] MEDS: FLUTICASONE PROPIONATE 50MCG/SPRAY BOTTLE BOTHNSTRLS SCH ×2 (10:15→20:13)
[2019-07-17] MEDS ORDERED: AMLO10TA4 PO (13:21)
[2019-07-17 13:46] VITALS: BP 155/90
[2019-07-17] MEDS ORDERED: HYDROCODONE/ACETAMINOPHEN 10/325MG TABLET PO PRN (14:00)
[2019-07-17] MEDS: IPRATROPIUM/ALBUTEROL 0.5-3(2.5)MG/3ML NEB HHN SCH ×2 (15:37→20:03)
[2019-07-17 16:00] VITALS: BP 124/81
[2019-07-17] MEDS ORDERED: MONTELUKAST SODIUM 10MG TABLET PO SCH (17:00)
[2019-07-17 20:00] VITALS: BP 131/88
[2019-07-17] MEDS ORDERED: LAMOTRIGINE 25MG TABLET PO SCH (21:00)
[2019-07-17] MEDS ORDERED: AMITRIPTYLINE 25MG TABLET PO SCH (21:00)
[2019-07-17] MEDS ORDERED: ATORVASTATIN CALCIUM 10MG TABLET PO SCH (21:00)
[2019-07-18] VITALS: BP 132/76
[2019-07-18] MEDS: IPRATROPIUM/ALBUTEROL 0.5-3(2.5)MG/3ML NEB HHN SCH ×5 (01:09→13:35)
[2019-07-18 04:00] VITALS: BP 130/85
[2019-07-18] MEDS: OMEPRAZOLE 20MG CAPSULE EXTENDED RELEASE PO SCH (05:48)
[2019-07-18] MEDS: SODIUM CHLORIDE 0.9% INJ 3ML FLUSH IVF SCH ×2 (05:48→14:05)
[2019-07-18] MEDS: BLOOD SUGAR DIAGNOSTIC STRIP TEST SCH ×2 (06:11→11:38)
[2019-07-18] MEDS: INSULIN LISPRO 100 UNITS/ML SUBCUT SCH ×2 (06:19→11:39)
[2019-07-18 08:00] VITALS: BP 127/81
[2019-07-18] MEDS: PHENYTOIN SODIUM EXTENDED 100MG CAPSULE PO SCH (08:54)
[2019-07-18] MEDS: AMLODIPINE 5MG TABLET PO SCH (08:54)
[2019-07-18] MEDS: LEVETIRACETAM 500MG/5ML CUP PO SCH (08:54)
[2019-07-18] MEDS: CLOPIDOGREL 75MG TABLET PO SCH (08:54)
[2019-07-18] MEDS: FLUTICASONE PROPIONATE 50MCG/SPRAY BOTTLE BOTHNSTRLS SCH (08:56)
[2019-07-18 12:00] VITALS: BP 138/89
[2019-07-18 15:59] VITALS: BP 147/95
[2019-07-18 16:02] VITALS: BP 147/95
[2019-07-18] MEDS ORDERED: FAMOTIDINE 20MG TABLET PO SCH (21:00)
[2019-08-08] MEDS ORDERED: MED4 MT (12:15)
[2019-08-08] MEDS ORDERED: BENZ-16 MT (12:15)
== END 2019-07-18 16:50 | disposition home or self-care (01) | DRG 140 ==
LOC: ER 18:17 → EDBEDREQ 20:57 → EDBEDREQTM 20:57 → 5WST 21:10 → EDBEDREQ 21:17 → EDBEDREQTM 21:17 → ENRESERV 07-17 12:04
PROVIDERS: ADMIT Internal Medicine; ATTEND Internal Medicine
DX: J44.1 Chronic obstructive pulmonary disease with (acute) exacerbation (principal); J96.90 Respiratory failure, unspecified, unspecified whether with hypoxia or hypercapnia; I69.354 Hemiplegia and hemiparesis following cerebral infarction affecting left non-dominant side; E11.9 Type 2 diabetes mellitus without complications; F41.1 Generalized anxiety disorder; G40.909 Epilepsy, unspecified, not intractable, without status epilepticus; I10 Essential (primary) hypertension; E78.00 Pure hypercholesterolemia, unspecified; Z82.49 Family history of ischemic heart disease and other diseases of the circulatory system; Z83.3 Family history of diabetes mellitus; Z88.0 Allergy status to penicillin; Z88.5 Allergy status to narcotic agent; Z88.2 Allergy status to sulfonamides; Z88.8 Allergy status to other drugs, medicaments and biological substances; Z79.899 Other long term (current) drug therapy
CPT/HCPCS: 36415; 71045; 80053; 82962; 83880; 84484; 85025; 93005; 93970; 94640; 99285; J2930

== ENCOUNTER 2019-08-03 21:53 | Emergency (ER) | payer OTHER ==
[~2019-08-03] VITALS: Ht 172.7 cm; Wt 118.0 kg
[~2019-08-03 21:53] MED LIST changes: +AMLO10TA4 PO
[2019-08-03 22:09] VITALS: BP 178/112
== END 2019-08-04 00:54 | disposition left against medical advice (07) ==
LOC: ER 21:53
DX: R56.9 Unspecified convulsions (principal); Z53.21 Procedure and treatment not carried out due to patient leaving prior to being seen by health care provider

== ENCOUNTER 2019-08-18 02:31 | Emergency (ER) | payer OTHER ==
[~2019-08-18] VITALS: Ht 182.9 cm; Wt 107.0 kg
[~2019-08-18 02:31] MED LIST changes: -AMLO10TA4 PO; +BENZ-16 MT; +MED4 MT
[2019-08-18 02:43] VITALS: BP 160/105
== END 2019-08-18 07:37 | disposition left against medical advice (07) ==
LOC: ER 02:31
DX: R10.9 Unspecified abdominal pain (principal); Z53.21 Procedure and treatment not carried out due to patient leaving prior to being seen by health care provider

== ENCOUNTER 2019-09-02 14:49 | Emergency (ER) | payer OTHER ==
[~2019-09-02] VITALS: Ht 172.7 cm; Wt 110.0 kg
[2019-09-02] MEDS ORDERED: ALBUTEROL (0.083%) 2.5MG/3ML NEB HHN STA (15:23)
[2019-09-02] MEDS ORDERED: IPRATROPIUM BROMIDE (0.02%) 0.5MG/2.5ML NEB HHN STA (15:23)
[2019-09-02 16:26] LABS: BASOPHILS % 1.2 % (0.0-2.0); HEMATOCRIT. 41.7 % (36.0-48.0); HEMOGLOBIN. 14.1 g/dL (12.0-16.0); LYMPHOCYTES % 35.1 % (20.0-50.0); MEAN CORPUSCULAR HEMOGLOBIN 32.1 pg (28.0-32.0); MEAN PLATELET VOLUME 7.2 fl (7.4-10.4); MONOCYTES % 8.7 % (2.0-8.0); PLATELET 263 x1000/uL (130-400); RED BLOOD CELL COUNT 4.39 mill/uL (4.2-5.4); RED CELL DISTRIBUTION WIDTH 13.2 % (11.6-14.6)
[2019-09-02 16:34] LABS: CHLORIDE 107 mEq/L (98-107)
[2019-09-02] MEDS ORDERED: PREDNISONE 20MG TABLET PO ONE (18:15)
[2019-09-02 19:44] VITALS: BP 145/80
== END 2019-09-02 20:18 | disposition home or self-care (01) ==
LOC: ER 14:49
DX: J44.1 Chronic obstructive pulmonary disease with (acute) exacerbation (principal); I10 Essential (primary) hypertension; E11.9 Type 2 diabetes mellitus without complications; E05.90 Thyrotoxicosis, unspecified without thyrotoxic crisis or storm; Z88.0 Allergy status to penicillin; Z88.2 Allergy status to sulfonamides; Z88.6 Allergy status to analgesic agent; Z88.8 Allergy status to other drugs, medicaments and biological substances; Z79.899 Other long term (current) drug therapy
CPT/HCPCS: 36415; 71045; 80053; 83880; 84484; 85025; 93005; 94644; 99285; J7512; Z7610

== ENCOUNTER 2019-11-09 08:37 | Emergency (ER) | payer MEDICAID, OTHER ==
[~2019-11-09] VITALS: Ht 170.2 cm; Wt 75.0 kg
[2019-11-09] MEDS ORDERED: SODIUM CHLORIDE 0.9% 1,000 ML IV ONE (09:13)
[2019-11-09] MEDS ORDERED: KETOROLAC 30MG/ML VIAL IV STA (09:13)
[2019-11-09] MEDS ORDERED: ONDANSETRON HCL 4MG/2ML INJ IV STA (09:13)
[2019-11-09 10:13] LABS: EOSINOPHILS % 1.6 % (0.0-5.0); HEMATOCRIT. 38.1 % (36.0-48.0); HEMOGLOBIN. 13.3 g/dL (12.0-16.0); LYMPHOCYTES % 39.4 % (20.0-50.0); MEAN CORPUSCULAR VOLUME 94.5 fL (81.0-99.0); MEAN PLATELET VOLUME 6.8 fl (7.4-10.4); MONOCYTES % 9.5 % (2.0-8.0); NEUTROPHILS % 48.5 % (40.0-76.0); PLATELET 264 x1000/uL (130-400); RED BLOOD CELL COUNT 4.04 mill/uL (4.2-5.4); RED CELL DISTRIBUTION WIDTH 13.4 % (11.6-14.6)
[2019-11-09 10:16] LABS: CHLORIDE 109 mEq/L (98-107)
[2019-11-09 10:18] LABS: CLARITY URINE CLEAR (CLEAR); COLOR URINE YELLOW (YELLOW); KETONES URINE NEGATIVE (NEGATIVE); LEUKOCYTE ESTERASE URINE 1+ (NEGATIVE); NITRITE URINE NEGATIVE (NEGATIVE); OCCULT BLOOD URINE TRACE (NEGATIVE); PROTEIN URINE NEGATIVE (NEGATIVE); SPECIFIC GRAVITY URINE 1.015 (1.005-1.030); UROBILINOGEN URINE 0.2 E.U./dL (0.2-1.0)
[2019-11-09 10:19] LABS: INR 1.1; PROTHROMBIN TIME 11.4 sec (9.6-11.0)
[2019-11-09 10:20] LABS: ETHANOL BLOOD < 10 mg/dL
[2019-11-09 10:41] LABS: *AMPHETAMINES SCREEN URINE NEGATIVE (NEGATIVE); *BARBITURATES SCREEN URINE NEGATIVE (NEGATIVE); *BENZODIAZEPINES SCREEN URINE PRESUMTIVE POSITIVE (NEGATIVE); *COCAINE SCREEN URINE NEGATIVE (NEGATIVE); METHADONE URINE SCREEN NEGATIVE (NEGATIVE); OPIATES URINE SCREEN PRESUMTIVE POSITIVE (NEGATIVE)
[2019-11-09 10:42] LABS: CANNABINOID URINE SCREEN NEGATIVE (NEGATIVE); PHENCYCLIDINE URINE SCREEN NEGATIVE (NEGATIVE)
[2019-11-09 13:26] VITALS: BP 136/78
[2019-11-09] MEDS ORDERED: IOHEXOL-300 100 ML BOTTLE ONE (14:28)
== END 2019-11-09 13:30 | disposition home or self-care (01) ==
LOC: ER 08:37
DX: N39.0 Urinary tract infection, site not specified (principal); I10 Essential (primary) hypertension; E11.9 Type 2 diabetes mellitus without complications; E05.90 Thyrotoxicosis, unspecified without thyrotoxic crisis or storm; J44.9 Chronic obstructive pulmonary disease, unspecified; J45.909 Unspecified asthma, uncomplicated; Z79.899 Other long term (current) drug therapy
CPT/HCPCS: 36415; 74177; 80053; 80305; 80320; 81003; 83690; 85025; 85610; 96374; 96375; 99285; J1885; J2405; J7030; Q9967; G0480

== ENCOUNTER 2019-11-19 10:43 | Emergency (ER) | payer OTHER ==
[~2019-11-19] VITALS: Ht 172.7 cm; Wt 111.0 kg
[2019-11-19] MEDS ORDERED: ACETAMINOPHEN 325MG TABLET PO ONE (11:45)
[2019-11-19 15:09] LABS: CLARITY URINE CLEAR (CLEAR); COLOR URINE YELLOW (YELLOW); KETONES URINE NEGATIVE (NEGATIVE); LEUKOCYTE ESTERASE URINE NEGATIVE (NEGATIVE); NITRITE URINE NEGATIVE (NEGATIVE); OCCULT BLOOD URINE 3+ (NEGATIVE); PH URINE 6.5 (4.5-8.0); PROTEIN URINE NEGATIVE (NEGATIVE); SPECIFIC GRAVITY URINE 1.013 (1.005-1.030); UROBILINOGEN URINE 0.2 E.U./dL (0.2-1.0)
[2019-11-19 15:26] VITALS: BP 141/86
== END 2019-11-19 16:33 | disposition home or self-care (01) ==
LOC: ER 10:43
DX: R10.9 Unspecified abdominal pain (principal); N39.0 Urinary tract infection, site not specified; I10 Essential (primary) hypertension; E11.9 Type 2 diabetes mellitus without complications; J44.9 Chronic obstructive pulmonary disease, unspecified; Z88.0 Allergy status to penicillin; Z88.2 Allergy status to sulfonamides; Z88.6 Allergy status to analgesic agent; Z91.09 Other allergy status, other than to drugs and biological substances; Z79.899 Other long term (current) drug therapy
CPT/HCPCS: 71045; 74018; 81003; 99284; Z7610

== ENCOUNTER 2019-11-20 21:24 | Emergency (ER) | payer OTHER ==
[~2019-11-20] VITALS: Ht 167.6 cm; Wt 93.0 kg
[2019-11-20] MEDS ORDERED: ALBUTEROL (0.083%) 2.5MG/3ML NEB HHN STA (22:14)
[2019-11-20] MEDS ORDERED: PREDNISONE 20MG TABLET PO STA (22:14)
[2019-11-21 00:04] LABS: EOSINOPHILS % 2.9 % (0.0-5.0); HEMATOCRIT. 39.5 % (36.0-48.0); HEMOGLOBIN. 13.6 g/dL (12.0-16.0); LYMPHOCYTES % 38.4 % (20.0-50.0); MEAN CORPUSCULAR HEMOGLOBIN 32.7 pg (28.0-32.0); MEAN CORPUSCULAR VOLUME 95.4 fL (81.0-99.0); MONOCYTES % 8.7 % (2.0-8.0); PLATELET 274 x1000/uL (130-400); RED BLOOD CELL COUNT 4.14 mill/uL (4.2-5.4); RED CELL DISTRIBUTION WIDTH 13.6 % (11.6-14.6)
[2019-11-21 00:07] LABS: CHLORIDE 106 mEq/L (98-107)
[2019-11-21 00:11] LABS: ETHANOL BLOOD < 10 mg/dL
[2019-11-21 00:18] LABS: CLARITY URINE CLEAR (CLEAR); COLOR URINE YELLOW (YELLOW); KETONES URINE TRACE (NEGATIVE); LEUKOCYTE ESTERASE URINE 1+ (NEGATIVE); NITRITE URINE NEGATIVE (NEGATIVE); OCCULT BLOOD URINE 2+ (NEGATIVE); PROTEIN URINE NEGATIVE (NEGATIVE); SPECIFIC GRAVITY URINE 1.021 (1.005-1.030); UROBILINOGEN URINE 0.2 E.U./dL (0.2-1.0)
[2019-11-21 00:29] LABS: *AMPHETAMINES SCREEN URINE NEGATIVE (NEGATIVE); *BARBITURATES SCREEN URINE NEGATIVE (NEGATIVE); *BENZODIAZEPINES SCREEN URINE PRESUMTIVE POSITIVE (NEGATIVE); *COCAINE SCREEN URINE NEGATIVE (NEGATIVE); METHADONE URINE SCREEN NEGATIVE (NEGATIVE)
[2019-11-21 00:30] LABS: CANNABINOID URINE SCREEN NEGATIVE (NEGATIVE); OPIATES URINE SCREEN NEGATIVE (NEGATIVE); PHENCYCLIDINE URINE SCREEN NEGATIVE (NEGATIVE)
[2019-11-21] MEDS ORDERED: POTASSIUM CHLORIDE 20MEQ TABLET SR PO ONE (00:30)
[2019-11-21 01:00] VITALS: BP 138/86
== END 2019-11-21 01:12 | disposition home or self-care (01) ==
LOC: ER 21:24
DX: R06.02 Shortness of breath (principal); J44.1 Chronic obstructive pulmonary disease with (acute) exacerbation; E87.6 Hypokalemia; I10 Essential (primary) hypertension; Z79.899 Other long term (current) drug therapy; Z88.0 Allergy status to penicillin; Z88.2 Allergy status to sulfonamides; Z88.6 Allergy status to analgesic agent; Z88.8 Allergy status to other drugs, medicaments and biological substances; Z88.5 Allergy status to narcotic agent
CPT/HCPCS: 36415; 71045; 80053; 80305; 80320; 81003; 82962; 84484; 85025; 94640; 99285; J7512; Z7610; G0480

== ENCOUNTER 2019-12-02 15:19 | Emergency (ER) | payer MEDICAID, OTHER ==
[~2019-12-02] VITALS: Ht 172.7 cm; Wt 110.0 kg
[2019-12-02] MEDS ORDERED: HYDROCODONE/ACETAMINOPHEN 5/325MG TABLET PO ONE (18:45)
[2019-12-02 19:50] VITALS: BP 142/85
== END 2019-12-02 19:51 | disposition home or self-care (01) ==
LOC: ER 15:27
DX: M25.562 Pain in left knee (principal); W10.8XXA Fall (on) (from) other stairs and steps, initial encounter; Y93.01 Activity, walking, marching and hiking; Y92.89 Other specified places as the place of occurrence of the external cause; I10 Essential (primary) hypertension; G40.909 Epilepsy, unspecified, not intractable, without status epilepticus; J45.909 Unspecified asthma, uncomplicated; J44.9 Chronic obstructive pulmonary disease, unspecified; Z88.6 Allergy status to analgesic agent; Z88.5 Allergy status to narcotic agent; Z88.2 Allergy status to sulfonamides; Z88.8 Allergy status to other drugs, medicaments and biological substances; Z88.0 Allergy status to penicillin; Z91.048 Other nonmedicinal substance allergy status; Z79.899 Other long term (current) drug therapy
CPT/HCPCS: 73564; 99283

== ENCOUNTER 2019-12-11 11:44 | Emergency (ER) | payer MEDICAID, OTHER ==
[~2019-12-11] VITALS: Ht 172.7 cm; Wt 100.0 kg
[2019-12-11] MEDS ORDERED: LEVETIRACETAM 1000MG/100ML 100 ML IV ONE (12:00)
[2019-12-11] MEDS ORDERED: LEVETIRACETAM 500MG/5ML CUP PO ONE (12:30)
[2019-12-11 12:40] LABS: CHLORIDE 111 mEq/L (98-107)
[2019-12-11 12:42] LABS: EOSINOPHILS % 1.4 % (0.0-5.0); HEMATOCRIT. 39.6 % (36.0-48.0); HEMOGLOBIN. 13.6 g/dL (12.0-16.0); LYMPHOCYTES % 32.4 % (20.0-50.0); MEAN CORPUSCULAR HEMOGLOBIN 32.5 pg (28.0-32.0); MEAN CORPUSCULAR VOLUME 94.5 fL (81.0-99.0); MEAN PLATELET VOLUME 7.3 fl (7.4-10.4); MONOCYTES % 10.4 % (2.0-8.0); NEUTROPHILS % 54.8 % (40.0-76.0); PLATELET 213 x1000/uL (130-400); RED BLOOD CELL COUNT 4.19 mill/uL (4.2-5.4); RED CELL DISTRIBUTION WIDTH 13.5 % (11.6-14.6)
[2019-12-11 12:44] LABS: ETHANOL BLOOD < 10 mg/dL
[2019-12-11 13:37] VITALS: BP 154/81
== END 2019-12-11 15:12 | disposition home or self-care (01) ==
LOC: ER 11:44
DX: G40.909 Epilepsy, unspecified, not intractable, without status epilepticus (principal); R03.0 Elevated blood-pressure reading, without diagnosis of hypertension; Z88.0 Allergy status to penicillin; Z88.2 Allergy status to sulfonamides; Z88.5 Allergy status to narcotic agent; Z88.6 Allergy status to analgesic agent; Z79.899 Other long term (current) drug therapy
CPT/HCPCS: 36415; 80053; 80185; 80320; 85025; 99283; G0480

== ENCOUNTER 2019-12-31 10:27 | Emergency (ER) | payer MEDICAID ==
[~2019-12-31] VITALS: Ht 180.3 cm; Wt 118.0 kg
[2019-12-31] MEDS ORDERED: ALBUTEROL (0.083%) 2.5MG/3ML NEB HHN STA (10:56)
[2019-12-31] MEDS ORDERED: IPRATROPIUM BROMIDE (0.02%) 0.5MG/2.5ML NEB HHN STA (10:56)
[2019-12-31] MEDS ORDERED: METHYLPREDNISOLONE SOD SUCC 125 MG/2 ML VIAL IV STA (10:56)
[2019-12-31 11:14] LABS: BASOPHILS % 0.5 % (0.0-2.0); EOSINOPHILS % 1.3 % (0.0-5.0); HEMATOCRIT. 40.4 % (36.0-48.0); HEMOGLOBIN. 13.7 g/dL (12.0-16.0); LYMPHOCYTES % 41.9 % (20.0-50.0); MEAN CORPUSCULAR HEMOGLOBIN 32.1 pg (28.0-32.0); MEAN CORPUSCULAR VOLUME 94.6 fL (81.0-99.0); MONOCYTES % 8.2 % (2.0-8.0); NEUTROPHILS % 48.1 % (40.0-76.0); PLATELET 268 x1000/uL (130-400); RED BLOOD CELL COUNT 4.27 mill/uL (4.2-5.4); RED CELL DISTRIBUTION WIDTH 13.8 % (11.6-14.6)
[2019-12-31 11:42] LABS: CHLORIDE 109 mEq/L (98-107)
[2019-12-31 16:59] VITALS: BP 138/78
== END 2019-12-31 17:02 | disposition home or self-care (01) ==
LOC: ER 10:39
DX: J44.1 Chronic obstructive pulmonary disease with (acute) exacerbation (principal); J45.901 Unspecified asthma with (acute) exacerbation; E11.9 Type 2 diabetes mellitus without complications; I10 Essential (primary) hypertension; Z88.0 Allergy status to penicillin; Z88.2 Allergy status to sulfonamides; Z88.6 Allergy status to analgesic agent; Z79.899 Other long term (current) drug therapy
CPT/HCPCS: 36415; 71045; 80053; 83880; 84484; 85025; 93005; 94644; 96374; 99285; J2930; Z7610

== ENCOUNTER 2020-01-18 12:44 | Emergency (ER) | payer MEDICAID ==
[~2020-01-18] VITALS: Ht 172.7 cm; Wt 91.0 kg
[2020-01-18 14:24] LABS: BASOPHILS % 1.1 % (0.0-2.0); HEMATOCRIT. 40.2 % (36.0-48.0); HEMOGLOBIN. 13.5 g/dL (12.0-16.0); LYMPHOCYTES % 42.1 % (20.0-50.0); MEAN CORPUSCULAR HEMOGLOBIN 31.6 pg (28.0-32.0); MEAN CORPUSCULAR VOLUME 94.3 fL (81.0-99.0); MEAN PLATELET VOLUME 7.6 fl (7.4-10.4); MONOCYTES % 8.4 % (2.0-8.0); NEUTROPHILS % 46.4 % (40.0-76.0); PLATELET 244 x1000/uL (130-400); RED BLOOD CELL COUNT 4.26 mill/uL (4.2-5.4); RED CELL DISTRIBUTION WIDTH 14.2 % (11.6-14.6)
[2020-01-18] MEDS: ALBUTEROL (0.083%) 2.5MG/3ML NEB HHN SCH ×2 (14:26→15:59)
[2020-01-18 14:28] LABS: CHLORIDE 109 mEq/L (98-107)
[2020-01-18 14:59] LABS: CLARITY URINE CLOUDY (CLEAR); COLOR URINE YELLOW (YELLOW); KETONES URINE NEGATIVE (NEGATIVE); LEUKOCYTE ESTERASE URINE TRACE (NEGATIVE); NITRITE URINE NEGATIVE (NEGATIVE); OCCULT BLOOD URINE 3+ (NEGATIVE); PROTEIN URINE NEGATIVE (NEGATIVE); SPECIFIC GRAVITY URINE 1.011 (1.005-1.030); UROBILINOGEN URINE 0.2 E.U./dL (0.2-1.0)
[2020-01-18] MEDS ORDERED: POTASSIUM CHLORIDE 20MEQ TABLET SR PO NR (15:15)
[2020-01-18 20:00] VITALS: BP 140/95
== END 2020-01-19 20:26 | disposition home or self-care (01) ==
LOC: ER 12:44
DX: J45.901 Unspecified asthma with (acute) exacerbation (principal); E87.6 Hypokalemia; E11.9 Type 2 diabetes mellitus without complications; I10 Essential (primary) hypertension; Z88.0 Allergy status to penicillin; Z88.2 Allergy status to sulfonamides; Z88.6 Allergy status to analgesic agent; Z79.899 Other long term (current) drug therapy
CPT/HCPCS: 36415; 71045; 80053; 81003; 82962; 83880; 84484; 85025; 93005; 94640; 99285; Z7610

== ENCOUNTER 2020-02-01 05:41 | Inpatient (IN) | payer MEDICAID ==
[~2020-02-01] VITALS: Ht 172.7 cm; Wt 105.2 kg
[2020-02-01 08:23] LABS: BASOPHILS % 0.5 % (0.0-2.0); EOSINOPHILS % 1.6 % (0.0-5.0); HEMATOCRIT. 38.9 % (36.0-48.0); LYMPHOCYTES % 38.3 % (20.0-50.0); MEAN CORPUSCULAR HEMOGLOBIN 31.7 pg (28.0-32.0); MEAN CORPUSCULAR VOLUME 94.9 fL (81.0-99.0); MEAN PLATELET VOLUME 7.6 fl (7.4-10.4); MONOCYTES % 11.6 % (2.0-8.0); PLATELET 255 x1000/uL (130-400); RED CELL DISTRIBUTION WIDTH 14.3 % (11.6-14.6)
[2020-02-01 08:28] LABS: CHLORIDE 107 mEq/L (98-107)
[2020-02-01 08:34] LABS: D-DIMER 0.61 mg/L FEU (<0.50); PARTIAL THROMBOPLASTIN TIME 28.5 sec (23.4-31.0)
[2020-02-01 08:42] LABS: BETA HYDROXYBUTYRATE 0.1 mMol/L (0.0-0.3)
[2020-02-01] MEDS ORDERED: SODIUM CHLORIDE 0.9% 1,000 ML IV ONE (09:06)
[2020-02-01] MEDS ORDERED: LEVOFLOXACIN 500MG PREMIX 100 ML IV ONE (09:15)
[2020-02-01 09:35] LABS: CLARITY URINE CLEAR (CLEAR); COLOR URINE YELLOW (YELLOW); KETONES URINE NEGATIVE (NEGATIVE); LEUKOCYTE ESTERASE URINE NEGATIVE (NEGATIVE); NITRITE URINE NEGATIVE (NEGATIVE); OCCULT BLOOD URINE TRACE (NEGATIVE); PH URINE 6.5 (4.5-8.0); PROTEIN URINE NEGATIVE (NEGATIVE); SPECIFIC GRAVITY URINE 1.021 (1.005-1.030); UROBILINOGEN URINE 0.2 E.U./dL (0.2-1.0)
[2020-02-01 10:00] VITALS: BP 127/80
[2020-02-01] MEDS ORDERED: SODIUM CHLORIDE 0.45% 1,000 ML IV SCH (10:39)
[2020-02-01] MEDS ORDERED: MORPHINE SULFATE 2 MG/ML CPJ (NOT FOR IM USE) IV PRN (10:45)
[2020-02-01] MEDS ORDERED: HYDROCODONE/ACETAMINOPHEN 5/325MG TABLET PO PRN (10:45)
[2020-02-01] MEDS ORDERED: GUAIFENESIN 200MG/10ML SUGAR FREE UDC PO PRN (10:45)
[2020-02-01] MEDS ORDERED: LORAZEPAM 2MG/ML CPJ IV PRN (10:45)
[2020-02-01] MEDS ORDERED: MAGNESIUM/ALUMINUM HYDROXIDE/SIMETHICONE 30ML UDC PO PRN (10:45)
[2020-02-01] MEDS ORDERED: ACETAMINOPHEN 325MG TABLET PO PRN (10:45)
[2020-02-01] MEDS ORDERED: CLONIDINE 0.1MG TABLET PO PRN (10:45)
[2020-02-01] MEDS ORDERED: DOCUSATE SODIUM 100MG CAPSULE PO PRN (10:45)
[2020-02-01] MEDS ORDERED: DIPHENHYDRAMINE 50MG/ML VIAL IV PRN (10:45)
[2020-02-01] MEDS ORDERED: ONDANSETRON HCL 4MG/2ML INJ IV PRN (10:45)
[2020-02-01] MEDS ORDERED: IPRATROPIUM/ALBUTEROL 0.5-3(2.5)MG/3ML NEB NEB PRN (10:45)
[2020-02-01] MEDS ORDERED: NA PHOS,M-B/NA PHOS,DI-BA ENEMA 118ML PR PRN (10:45)
[2020-02-01] MEDS ORDERED: IOHEXOL-350 100 ML BOTTLE ONE (10:51)
[2020-02-01] MEDS ORDERED: ENOXAPARIN 40MG/0.4ML SYR SUBCUT SCH (11:00)
[2020-02-01] MEDS ORDERED: AZITHROMYCIN 500 MG in DEXT 5% WATER 250 ML IV SCH ×2 (11:00→15:00)
[2020-02-01 12:05] VITALS: BP 142/100
[2020-02-01] MEDS ORDERED: POTA20TA82 PO (14:47)
[2020-02-01] MEDS ORDERED: LOSA50TA3 PO (14:52)
[2020-02-01 16:00] VITALS: BP 139/70
[2020-02-01] MEDS ORDERED: ALBUTEROL 6.7GM HFA INHALER ORI PRN (16:30)
[2020-02-01 17:56] LABS: CHLORIDE 106 mEq/L (98-107)
[2020-02-01] MEDS ORDERED: PHENYTOIN SODIUM EXTENDED 100MG CAPSULE PO SCH (18:00)
[2020-02-01] MEDS ORDERED: AMLODIPINE 5MG TABLET PO SCH (21:00)
[2020-02-01] MEDS ORDERED: LEVETIRACETAM 500MG TABLET PO SCH (21:00)
[2020-02-02] MEDS ORDERED: PANTOPRAZOLE 40MG DR TABLET PO SCH (07:40)
[2020-02-02] MEDS ORDERED: LOSARTAN POTASSIUM 50 MG TABLET PO SCH (09:00)
[2020-02-02] MEDS ORDERED: ASPIRIN 81MG EC TABLET PO SCH (09:00)
[2020-02-02] MEDS ORDERED: CLOPIDOGREL 75MG TABLET PO SCH (09:00)
== END 2020-02-01 22:05 | disposition left against medical advice (07) | DRG 139 ==
LOC: ER 05:41 → 7WST 10:06 → EDBEDREQTM 10:10 → EDBEDREQ 10:10 → ENRESERV 10:40
PROVIDERS: ADMIT Internal Medicine; ATTEND Internal Medicine
DX: J18.9 Pneumonia, unspecified organism (principal); Z53.29 Procedure and treatment not carried out because of patient's decision for other reasons; E11.9 Type 2 diabetes mellitus without complications; E86.0 Dehydration; E87.6 Hypokalemia; I10 Essential (primary) hypertension; E66.9 Obesity, unspecified; G43.909 Migraine, unspecified, not intractable, without status migrainosus; J44.9 Chronic obstructive pulmonary disease, unspecified; Z79.899 Other long term (current) drug therapy; Z86.73 Personal history of transient ischemic attack (TIA), and cerebral infarction without residual deficits; Z88.2 Allergy status to sulfonamides; Z79.84 Long term (current) use of oral hypoglycemic drugs; Z88.0 Allergy status to penicillin; Z88.5 Allergy status to narcotic agent; Z88.6 Allergy status to analgesic agent; Z88.8 Allergy status to other drugs, medicaments and biological substances; Z68.35 Body mass index [BMI] 35.0-35.9, adult
CPT/HCPCS: 36415; 71045; 71275; 80048; 80053; 81003; 82010; 82962; 83605; 83880; 84484; 85025; 85379; 87635; 93005; 94640; 99291; J0456; J1650; J1956; J7030; J7060; Q9967

== ENCOUNTER 2020-03-09 11:04 | Emergency (ER) | payer MEDICAID ==
[~2020-03-09] VITALS: Ht 172.7 cm; Wt 107.0 kg
[~2020-03-09 11:04] MED LIST changes: +LOSA50TA3 PO; +POTA20TA82 PO
[2020-03-09] MEDS ORDERED: ONDANSETRON HCL 4MG/2ML INJ IV STA (12:02)
[2020-03-09] MEDS ORDERED: SODIUM CHLORIDE 0.9% 1,000 ML IV ONE (12:15)
[2020-03-09] MEDS ORDERED: MORPHINE SULFATE 4 MG/ML CPJ (NOT FOR IM USE) IV ONE (12:45)
[2020-03-09 13:19] LABS: BASOPHILS % 1.1 % (0.0-2.0); EOSINOPHILS % 2.3 % (0.0-5.0); HEMATOCRIT. 42.4 % (36.0-48.0); HEMOGLOBIN. 14.3 g/dL (12.0-16.0); LYMPHOCYTES % 36.2 % (20.0-50.0); MEAN CORPUSCULAR HEMOGLOBIN 31.7 pg (28.0-32.0); MEAN CORPUSCULAR VOLUME 94.1 fL (81.0-99.0); MEAN PLATELET VOLUME 7.4 fl (7.4-10.4); MONOCYTES % 7.8 % (2.0-8.0); NEUTROPHILS % 52.6 % (40.0-76.0); PLATELET 240 x1000/uL (130-400); RED CELL DISTRIBUTION WIDTH 13.8 % (11.6-14.6)
[2020-03-09 13:22] LABS: CHLORIDE 107 mEq/L (98-107)
[2020-03-09 13:27] LABS: ETHANOL BLOOD < 10 mg/dL
[2020-03-09 13:35] LABS: CLARITY URINE CLOUDY (CLEAR); COLOR URINE YELLOW (YELLOW); KETONES URINE NEGATIVE (NEGATIVE); LEUKOCYTE ESTERASE URINE 1+ (NEGATIVE); NITRITE URINE NEGATIVE (NEGATIVE); OCCULT BLOOD URINE 2+ (NEGATIVE); PROTEIN URINE NEGATIVE (NEGATIVE); SPECIFIC GRAVITY URINE 1.025 (1.005-1.030); UROBILINOGEN URINE 0.2 E.U./dL (0.2-1.0)
[2020-03-09 13:58] LABS: *AMPHETAMINES SCREEN URINE NEGATIVE (NEGATIVE); *BARBITURATES SCREEN URINE NEGATIVE (NEGATIVE); *BENZODIAZEPINES SCREEN URINE PRESUMTIVE POSITIVE (NEGATIVE); *COCAINE SCREEN URINE NEGATIVE (NEGATIVE); CANNABINOID URINE SCREEN NEGATIVE (NEGATIVE); METHADONE URINE SCREEN NEGATIVE (NEGATIVE); OPIATES URINE SCREEN NEGATIVE (NEGATIVE); PHENCYCLIDINE URINE SCREEN NEGATIVE (NEGATIVE)
[2020-03-09 15:23] LABS: PROTHROMBIN TIME 10.9 sec (9.6-11.0)
[2020-03-09 18:36] VITALS: BP 145/87
== END 2020-03-09 18:37 | disposition home or self-care (01) ==
LOC: ER 11:04
DX: N20.0 Calculus of kidney (principal); D25.9 Leiomyoma of uterus, unspecified; N83.209 Unspecified ovarian cyst, unspecified side; N39.0 Urinary tract infection, site not specified; I10 Essential (primary) hypertension; G40.409 Other generalized epilepsy and epileptic syndromes, not intractable, without status epilepticus; J45.909 Unspecified asthma, uncomplicated; J44.9 Chronic obstructive pulmonary disease, unspecified; E03.9 Hypothyroidism, unspecified; Z88.0 Allergy status to penicillin; Z88.2 Allergy status to sulfonamides; Z88.5 Allergy status to narcotic agent; Z79.899 Other long term (current) drug therapy; Z88.6 Allergy status to analgesic agent; Z79.51 Long term (current) use of inhaled steroids
CPT/HCPCS: 36415; 71045; 74176; 76830; 76856; 80053; 80305; 80320; 81003; 83690; 83880; 84484; 85025; 85610; 93005; 96361; 96374; 96375; 99285; J2270; J2405; J7030; G0480

== ENCOUNTER 2020-06-24 09:40 | Emergency (ER) | payer MEDICAID ==
[~2020-06-24] VITALS: Ht 177.8 cm; Wt 87.0 kg
[~2020-06-24 09:40] MED LIST changes: -PANT40TA4 MT; +PANT40TA51 MT
[2020-06-24] MEDS ORDERED: SODIUM CHLORIDE 0.9% 1,000 ML IV ONE (10:15)
[2020-06-24 10:25] LABS: BASOPHILS % 1.1 % (0.0-2.0); EOSINOPHILS % 1.9 % (0.0-5.0); HEMATOCRIT. 40.9 % (36.0-48.0); HEMOGLOBIN. 13.7 g/dL (12.0-16.0); LYMPHOCYTES % 39.7 % (20.0-50.0); MEAN CORPUSCULAR HEMOGLOBIN 32.2 pg (28.0-32.0); MEAN CORPUSCULAR VOLUME 95.9 fL (81.0-99.0); MEAN PLATELET VOLUME 7.6 fl (7.4-10.4); MONOCYTES % 8.5 % (2.0-8.0); NEUTROPHILS % 48.8 % (40.0-76.0); PLATELET 241 x1000/uL (130-400); RED BLOOD CELL COUNT 4.27 mill/uL (4.2-5.4); RED CELL DISTRIBUTION WIDTH 14.3 % (11.6-14.6)
[2020-06-24 10:32] LABS: CHLORIDE 110 mEq/L (98-107); PROTHROMBIN TIME 10.4 sec (9.6-11.0)
[2020-06-24] MEDS ORDERED: METHYLPREDNISOLONE SOD SUCC 125 MG/2 ML VIAL IV STA (10:38)
[2020-06-24] MEDS ORDERED: IPRATROPIUM BROMIDE (0.02%) 0.5MG/2.5ML NEB HHN STA (10:38)
[2020-06-24] MEDS ORDERED: ALBUTEROL (0.083%) 2.5MG/3ML NEB HHN STA (10:38)
[2020-06-24 10:43] LABS: CREATINE KINASE 192 IU/L (26-192)
[2020-06-24 11:20] LABS: CLARITY URINE CLEAR (CLEAR); COLOR URINE YELLOW (YELLOW); KETONES URINE NEGATIVE (NEGATIVE); LEUKOCYTE ESTERASE URINE TRACE (NEGATIVE); NITRITE URINE NEGATIVE (NEGATIVE); OCCULT BLOOD URINE NEGATIVE (NEGATIVE); PH URINE 8.5 (4.5-8.0); PROTEIN URINE NEGATIVE (NEGATIVE); UROBILINOGEN URINE 0.2 E.U./dL (0.2-1.0)
[2020-06-24 14:30] VITALS: BP 132/81
== END 2020-06-24 15:03 | disposition left against medical advice (07) ==
LOC: ER 09:40 → EDBEDREQ 11:50 → ER 15:03 → CANBEDREQ 15:03
DX: J44.1 Chronic obstructive pulmonary disease with (acute) exacerbation (principal); E87.8 Other disorders of electrolyte and fluid balance, not elsewhere classified; I10 Essential (primary) hypertension
CPT/HCPCS: 36415; 70450; 71045; 80053; 80185; 81003; 82550; 83605; 83690; 83880; 84145; 84484; 85025; 85610; 87086; 93005; 94640; 96361; 96374; 99285; J2930; J7030; Z7610

== ENCOUNTER 2020-07-30 23:08 | Emergency (ER) | payer MEDICAID ==
[~2020-07-30] VITALS: Ht 170.2 cm; Wt 100.0 kg
[2020-07-30] MEDS ORDERED: IPRATROPIUM BROMIDE (0.02%) 0.5MG/2.5ML NEB HHN STA (23:38)
[2020-07-30] MEDS ORDERED: METHYLPREDNISOLONE SOD SUCC 125 MG/2 ML VIAL IV STA (23:38)
[2020-07-30] MEDS ORDERED: MAGNESIUM 2 G PREMIX 50 ML IV ONE (23:45)
[2020-07-30] MEDS: ALBUTEROL (0.083%) 2.5MG/3ML NEB HHN SCH (23:45)
[2020-07-31] MEDS: ALBUTEROL (0.083%) 2.5MG/3ML NEB HHN SCH ×2 (00:15→00:45)
[2020-07-31 00:16] LABS: HEMATOCRIT. 41.4 % (36.0-48.0); HEMOGLOBIN. 13.9 g/dL (12.0-16.0); MEAN CORPUSCULAR HEMOGLOBIN 32.3 pg (28.0-32.0); MEAN CORPUSCULAR VOLUME 96.5 fL (81.0-99.0); MEAN PLATELET VOLUME 8.6 fl (7.4-10.4); PLATELET 228 x1000/uL (130-400); RED BLOOD CELL COUNT 4.29 mill/uL (4.2-5.4); RED CELL DISTRIBUTION WIDTH 13.6 % (11.6-14.6)
[2020-07-31 00:17] LABS: CHLORIDE 106 mEq/L (98-107)
[2020-07-31 00:20] LABS: ETHANOL BLOOD < 10 mg/dL
[2020-07-31 00:49] LABS: PLATELET ESTIMATE NORMAL
[2020-07-31 02:23] LABS: *AMPHETAMINES SCREEN URINE NEGATIVE (NEGATIVE); *BARBITURATES SCREEN URINE NEGATIVE (NEGATIVE); *BENZODIAZEPINES SCREEN URINE PRESUMTIVE POSITIVE (NEGATIVE); *COCAINE SCREEN URINE NEGATIVE (NEGATIVE)
[2020-07-31 02:24] LABS: CANNABINOID URINE SCREEN NEGATIVE (NEGATIVE); METHADONE URINE SCREEN NEGATIVE (NEGATIVE); OPIATES URINE SCREEN NEGATIVE (NEGATIVE); PHENCYCLIDINE URINE SCREEN NEGATIVE (NEGATIVE)
[2020-07-31 05:37] VITALS: BP 130/72
[2020-07-31] MEDS ORDERED: DIPHENHYDRAMINE 50MG/ML VIAL IV PRN (07:15)
[2020-07-31] MEDS ORDERED: MAGNESIUM/ALUMINUM HYDROXIDE/SIMETHICONE 30ML UDC PO PRN (07:15)
[2020-07-31] MEDS ORDERED: ACETAMINOPHEN 325MG TABLET PO PRN (07:15)
[2020-07-31] MEDS ORDERED: ENOXAPARIN 40MG/0.4ML SYR SUBCUT SCH (07:15)
[2020-07-31] MEDS ORDERED: CLONIDINE 0.1MG TABLET PO PRN (07:15)
[2020-07-31] MEDS ORDERED: GUAIFENESIN 200MG/10ML SUGAR FREE UDC PO PRN (07:15)
[2020-07-31] MEDS ORDERED: IPRATROPIUM/ALBUTEROL 0.5-3(2.5)MG/3ML NEB NEB PRN (07:15)
[2020-07-31] MEDS ORDERED: ONDANSETRON HCL 4MG/2ML INJ IV PRN (07:15)
[2020-07-31] MEDS ORDERED: LORAZEPAM 2MG/ML CPJ IV PRN (07:15)
[2020-07-31] MEDS ORDERED: DOCUSATE SODIUM 100MG CAPSULE PO PRN (07:15)
[2020-07-31] MEDS ORDERED: MORPHINE SULFATE 2 MG/ML CPJ (NOT FOR IM USE) IV PRN (07:15)
[2020-07-31] MEDS ORDERED: NA PHOS,M-B/NA PHOS,DI-BA ENEMA 118ML PR PRN (07:15)
[2020-07-31] MEDS ORDERED: LEVOFLOXACIN 500MG PREMIX 100 ML IV SCH (08:00)
[2020-07-31] MEDS ORDERED: METHYLPREDNISOLONE SOD SUCC 125 MG/2 ML VIAL IV SCH (08:00)
[2020-07-31] MEDS ORDERED: ASPIRIN 81MG EC TABLET PO SCH (09:00)
[2020-07-31] MEDS ORDERED: ENOXAPARIN 30MG/0.3ML SYR SUBCUT SCH (09:00)
== END 2020-07-31 05:39 | disposition left against medical advice (07) ==
LOC: ER 23:30
DX: J44.1 Chronic obstructive pulmonary disease with (acute) exacerbation (principal); I11.0 Hypertensive heart disease with heart failure; I50.9 Heart failure, unspecified; E11.9 Type 2 diabetes mellitus without complications; Z88.0 Allergy status to penicillin; Z88.2 Allergy status to sulfonamides; Z88.6 Allergy status to analgesic agent; Z88.5 Allergy status to narcotic agent; Z79.899 Other long term (current) drug therapy; Z86.59 Personal history of other mental and behavioral disorders; Z86.73 Personal history of transient ischemic attack (TIA), and cerebral infarction without residual deficits
CPT/HCPCS: 36415; 71045; 80053; 80305; 80320; 83605; 83880; 84484; 85025; 93005; 94640; 96365; 96366; 96375; 99285; J2930; J3475; Z7610; G0480

== ENCOUNTER 2020-11-05 10:28 | Emergency (ER) | payer MEDICAID ==
[~2020-11-05] VITALS: Ht 167.6 cm; Wt 104.0 kg
[2020-11-05] MEDS ORDERED: PREDNISONE 20MG TABLET PO STA (10:58)
[2020-11-05 11:19] LABS: HEMOGLOBIN. 13.8 g/dL (12.0-16.0); LYMPHOCYTES % 48.7 % (20.0-50.0); MEAN CORPUSCULAR VOLUME 95.5 fL (81.0-99.0); MEAN PLATELET VOLUME 7.2 fl (7.4-10.4); MONOCYTES % 8.6 % (2.0-8.0); NEUTROPHILS % 38.7 % (40.0-76.0); PLATELET 207 x1000/uL (130-400); RED BLOOD CELL COUNT 4.19 mill/uL (4.2-5.4); RED CELL DISTRIBUTION WIDTH 13.1 % (11.6-14.6)
[2020-11-05 11:24] LABS: CHLORIDE 111 mEq/L (98-107)
[2020-11-05] MEDS ORDERED: ALBU6.7H9 INH (12:18)
[2020-11-05] MEDS ORDERED: P50 MT (12:19)
[2020-11-05 12:48] VITALS: BP 136/88
== END 2020-11-05 12:50 | disposition home or self-care (01) ==
LOC: ER 10:28
DX: J45.901 Unspecified asthma with (acute) exacerbation (principal); R03.0 Elevated blood-pressure reading, without diagnosis of hypertension; I10 Essential (primary) hypertension; Z86.73 Personal history of transient ischemic attack (TIA), and cerebral infarction without residual deficits; G40.909 Epilepsy, unspecified, not intractable, without status epilepticus; Z79.899 Other long term (current) drug therapy; Z88.0 Allergy status to penicillin; Z88.5 Allergy status to narcotic agent; Z88.6 Allergy status to analgesic agent; Z88.2 Allergy status to sulfonamides
CPT/HCPCS: 36415; 71045; 80053; 85025; 93005; 99285; J7512; Z7610

== ENCOUNTER 2020-11-12 20:17 | Emergency (ER) | payer MEDICAID, OTHER ==
[~2020-11-12] VITALS: Ht 172.7 cm; Wt 105.0 kg
[~2020-11-12 20:17] MED LIST changes: +ALBU6.7H9 INH; +P50 MT
[2020-11-12] MEDS ORDERED: ALBUTEROL (0.083%) 2.5MG/3ML NEB HHN STA (20:49)
[2020-11-12 21:27] LABS: BASOPHILS % 0.7 % (0.0-2.0); EOSINOPHILS % 2.9 % (0.0-5.0); HEMATOCRIT. 39.6 % (36.0-48.0); HEMOGLOBIN. 13.8 g/dL (12.0-16.0); LYMPHOCYTES % 36.6 % (20.0-50.0); MEAN CORPUSCULAR HEMOGLOBIN 32.9 pg (28.0-32.0); MEAN CORPUSCULAR VOLUME 94.3 fL (81.0-99.0); MEAN PLATELET VOLUME 7.3 fl (7.4-10.4); MONOCYTES % 8.5 % (2.0-8.0); NEUTROPHILS % 51.3 % (40.0-76.0); PLATELET 226 x1000/uL (130-400); RED CELL DISTRIBUTION WIDTH 13.3 % (11.6-14.6)
[2020-11-12 21:31] LABS: CHLORIDE 109 mEq/L (98-107)
[2020-11-12 23:39] VITALS: BP 144/83
== END 2020-11-12 23:47 | disposition home or self-care (01) ==
LOC: ER 20:17
DX: J44.9 Chronic obstructive pulmonary disease, unspecified (principal); J45.909 Unspecified asthma, uncomplicated; E11.9 Type 2 diabetes mellitus without complications; Z88.0 Allergy status to penicillin; Z88.6 Allergy status to analgesic agent; Z88.5 Allergy status to narcotic agent; Z88.2 Allergy status to sulfonamides; Z79.899 Other long term (current) drug therapy
CPT/HCPCS: 36415; 71045; 80053; 85025; 93005; 94640; 99285; Z7610

== ENCOUNTER 2021-02-04 07:51 | Emergency (ER) | payer OTHER, MEDICAID ==
[~2021-02-04] VITALS: Ht 172.7 cm; Wt 103.0 kg
[2021-02-04 08:31] LABS: EOSINOPHILS % 5.2 % (0.0-5.0); HEMATOCRIT. 38.5 % (36.0-48.0); HEMOGLOBIN. 13.2 g/dL (12.0-16.0); LYMPHOCYTES % 44.7 % (20.0-50.0); MEAN CORPUSCULAR VOLUME 96.6 fL (81.0-99.0); MEAN PLATELET VOLUME 6.8 fl (7.4-10.4); MONOCYTES % 7.4 % (2.0-8.0); NEUTROPHILS % 41.7 % (40.0-76.0); PLATELET 240 x1000/uL (130-400); RED BLOOD CELL COUNT 3.99 mill/uL (4.2-5.4); RED CELL DISTRIBUTION WIDTH 12.9 % (11.6-14.6)
[2021-02-04 08:37] LABS: CHLORIDE 109 mEq/L (98-107)
[2021-02-04] MEDS ORDERED: ALBUTEROL (0.083%) 2.5MG/3ML NEB HHN NR (08:45)
[2021-02-04] MEDS ORDERED: PREDNISONE 20MG TABLET PO NR (08:45)
[2021-02-04] MEDS ORDERED: IPRATROPIUM BROMIDE (0.02%) 0.5MG/2.5ML NEB HHN NR (08:45)
[2021-02-04 08:46] LABS: PROTHROMBIN TIME 10.4 sec (9.6-11.0)
[2021-02-04 09:27] LABS: CLARITY URINE CLEAR (CLEAR); COLOR URINE YELLOW (YELLOW); KETONES URINE NEGATIVE (NEGATIVE); LEUKOCYTE ESTERASE URINE TRACE (NEGATIVE); NITRITE URINE NEGATIVE (NEGATIVE); OCCULT BLOOD URINE 1+ (NEGATIVE); PH URINE 6.5 (4.5-8.0); PROTEIN URINE NEGATIVE (NEGATIVE); SPECIFIC GRAVITY URINE 1.011 (1.005-1.030); UROBILINOGEN URINE 0.2 E.U./dL (0.2-1.0)
[2021-02-04] MEDS ORDERED: POTASSIUM CHLORIDE 10MEQ TABLET SR PO SCH (09:30)
[2021-02-04] MEDS ORDERED: ACETAMINOPHEN 325MG TABLET PO ONE ×2 (10:00→11:30)
[2021-02-04] MEDS ORDERED: P50 MT (11:17)
[2021-02-04 11:21] VITALS: BP 153/83
== END 2021-02-04 11:30 | disposition home or self-care (01) ==
LOC: ER 08:04
DX: J44.1 Chronic obstructive pulmonary disease with (acute) exacerbation (principal); E11.9 Type 2 diabetes mellitus without complications; I10 Essential (primary) hypertension; G40.909 Epilepsy, unspecified, not intractable, without status epilepticus; E05.90 Thyrotoxicosis, unspecified without thyrotoxic crisis or storm; Z88.6 Allergy status to analgesic agent; Z88.2 Allergy status to sulfonamides; Z88.5 Allergy status to narcotic agent; Z88.0 Allergy status to penicillin
CPT/HCPCS: 36415; 71045; 80053; 81003; 83880; 84484; 85025; 85610; 93005; 99285; J7512

== ENCOUNTER 2021-02-27 13:26 | Emergency (ER) | payer MEDICAID, OTHER ==
[~2021-02-27] VITALS: Ht 175.3 cm; Wt 104.0 kg
[2021-02-27] MEDS ORDERED: HYDROCODONE/ACETAMINOPHEN 5/325MG TABLET PO ONE (14:00)
[2021-02-27] MEDS ORDERED: DEXAMETHASONE 4MG/ML 1ML VIAL IV ONE (14:00)
[2021-02-27] MEDS ORDERED: MED4 MT (15:24)
[2021-02-27] MEDS ORDERED: HYDR-4001 MT (15:24)
[2021-02-27 15:41] VITALS: BP 148/74
== END 2021-02-27 15:42 | disposition home or self-care (01) ==
LOC: ER 13:35
DX: M54.41 Lumbago with sciatica, right side (principal); I10 Essential (primary) hypertension; E05.90 Thyrotoxicosis, unspecified without thyrotoxic crisis or storm; J44.9 Chronic obstructive pulmonary disease, unspecified; J45.909 Unspecified asthma, uncomplicated; Z88.0 Allergy status to penicillin; Z88.2 Allergy status to sulfonamides; Z88.5 Allergy status to narcotic agent; Z88.8 Allergy status to other drugs, medicaments and biological substances
CPT/HCPCS: 96374; 99283; J1100

== ENCOUNTER 2021-03-04 13:35 | Emergency (ER) | payer OTHER ==
[~2021-03-04] VITALS: Ht 172.7 cm; Wt 104.5 kg
[~2021-03-04 13:35] MED LIST changes: +HYDR-4001 MT
[2021-03-04] MEDS ORDERED: HYDROCODONE/ACETAMINOPHEN 10/325MG TABLET PO STA (15:24)
[2021-03-04] MEDS ORDERED: METHYLPREDNISOLONE SOD SUCC 125 MG/2 ML VIAL IM STA (15:30)
[2021-03-04 17:39] VITALS: BP 127/75
== END 2021-03-04 17:41 | disposition home or self-care (01) ==
LOC: ER 13:35
DX: M54.5 Low back pain (principal); M54.2 Cervicalgia; G89.29 Other chronic pain; M25.569 Pain in unspecified knee; I10 Essential (primary) hypertension; E05.90 Thyrotoxicosis, unspecified without thyrotoxic crisis or storm; J44.9 Chronic obstructive pulmonary disease, unspecified; J45.909 Unspecified asthma, uncomplicated; Z88.0 Allergy status to penicillin; Z88.2 Allergy status to sulfonamides; Z88.5 Allergy status to narcotic agent; Z88.6 Allergy status to analgesic agent
CPT/HCPCS: 96372; 99283; J2930

== ENCOUNTER 2021-04-26 18:33 | Emergency (ER) | payer MEDICAID, OTHER ==
[~2021-04-26] VITALS: Ht 172.7 cm; Wt 111.0 kg
[2021-04-26 18:40] VITALS: BP 170/102
[2021-04-26] MEDS ORDERED: CLIN300C12 MT (23:05)
== END 2021-04-26 23:18 | disposition home or self-care (01) ==
LOC: ER 18:33
DX: S50.862D Insect bite (nonvenomous) of left forearm, subsequent encounter (principal); L03.114 Cellulitis of left upper limb; W57.XXXD Bitten or stung by nonvenomous insect and other nonvenomous arthropods, subsequent encounter; I10 Essential (primary) hypertension; E11.9 Type 2 diabetes mellitus without complications; G40.909 Epilepsy, unspecified, not intractable, without status epilepticus; Z79.899 Other long term (current) drug therapy
CPT/HCPCS: 99283

== ENCOUNTER 2021-04-30 22:35 | Emergency (ER) | payer MEDICAID ==
[~2021-04-30] VITALS: Ht 165.1 cm; Wt 73.0 kg
[~2021-04-30 22:35] MED LIST changes: +CLIN300C12 MT
[2021-04-30] MEDS ORDERED: KETOROLAC 30MG/ML VIAL IM ONE (23:45)
[2021-05-01] MEDS ORDERED: TOPUD MT (01:07)
[2021-05-01] MEDS ORDERED: LEVO750T46 MT (01:12)
[2021-05-01 01:21] VITALS: BP 179/101
== END 2021-05-01 01:31 | disposition home or self-care (01) ==
LOC: ER 22:35
DX: J18.9 Pneumonia, unspecified organism (principal); M62.838 Other muscle spasm; M54.89 Other dorsalgia; I10 Essential (primary) hypertension; E11.9 Type 2 diabetes mellitus without complications; G40.909 Epilepsy, unspecified, not intractable, without status epilepticus; J44.9 Chronic obstructive pulmonary disease, unspecified; E03.9 Hypothyroidism, unspecified
CPT/HCPCS: 71045; 81025; 96372; 99283; J1885

== ENCOUNTER 2021-05-01 12:53 | Emergency (ER) | payer MEDICAID, OTHER ==
[~2021-05-01] VITALS: Ht 175.3 cm; Wt 111.0 kg
[~2021-05-01 12:53] MED LIST changes: +LEVO750T46 MT; +TOPUD MT
[2021-05-01 14:24] LABS: EOSINOPHILS % 3.8 % (0.0-5.0); HEMATOCRIT. 45.4 % (36.0-48.0); HEMOGLOBIN. 15.1 g/dL (12.0-16.0); MEAN CORPUSCULAR HEMOGLOBIN 32.4 pg (28.0-32.0); MEAN PLATELET VOLUME 7.3 fl (7.4-10.4); NEUTROPHILS % 51.2 % (40.0-76.0); PLATELET 243 x1000/uL (130-400); RED BLOOD CELL COUNT 4.68 mill/uL (4.2-5.4); RED CELL DISTRIBUTION WIDTH 12.9 % (11.6-14.6)
[2021-05-01 14:29] LABS: CHLORIDE 109 mEq/L (98-107)
[2021-05-01] MEDS ORDERED: LEVOFLOXACIN 750MG PREMIX 150 ML IV ONE (16:15)
[2021-05-01] MEDS ORDERED: IPRATROPIUM/ALBUTEROL 0.5-3(2.5)MG/3ML NEB HHN ONE (16:15)
[2021-05-01 18:12] VITALS: BP 145/105
[2021-05-01] MEDS ORDERED: HYDRALAZINE 20MG/ML VIAL IV ONE (18:15)
== END 2021-05-01 18:43 | disposition short-term general hospital (02) ==
LOC: ER 13:15 → CANBEDREQ 18:35 → ER 18:43
DX: J18.9 Pneumonia, unspecified organism (principal); J44.9 Chronic obstructive pulmonary disease, unspecified
CPT/HCPCS: 36415; 71045; 71275; 80053; 83880; 84484; 85025; 93005; 94640; 96365; 96375; 99285; J0360; J1956; Z7610

== ENCOUNTER 2021-05-29 21:46 | Emergency (ER) | payer MEDICAID, OTHER ==
[~2021-05-29] VITALS: Ht 175.3 cm; Wt 95.3 kg
[2021-05-30 00:59] VITALS: BP 152/82
== END 2021-05-30 01:00 | disposition home or self-care (01) ==
LOC: ER 21:46
DX: R06.02 Shortness of breath (principal); J45.909 Unspecified asthma, uncomplicated; J44.9 Chronic obstructive pulmonary disease, unspecified; I10 Essential (primary) hypertension; G43.909 Migraine, unspecified, not intractable, without status migrainosus; Z79.899 Other long term (current) drug therapy; Z88.0 Allergy status to penicillin
CPT/HCPCS: 71045; 93005; 99283

== ENCOUNTER 2021-06-04 10:14 | Emergency (ER) | payer MEDICAID, OTHER ==
[~2021-06-04] VITALS: Ht 172.7 cm; Wt 112.0 kg
[2021-06-04] MEDS ORDERED: IPRATROPIUM BROMIDE (0.02%) 0.5MG/2.5ML NEB HHN STA (10:35)
[2021-06-04] MEDS ORDERED: ALBUTEROL (0.083%) 2.5MG/3ML NEB HHN STA (10:35)
[2021-06-04] MEDS ORDERED: PREDNISONE 20MG TABLET PO STA (11:39)
[2021-06-04] MEDS ORDERED: P50 MT (15:33)
[2021-06-04 16:08] VITALS: BP 129/93
== END 2021-06-04 16:12 | disposition home or self-care (01) ==
LOC: ER 10:14
DX: J44.1 Chronic obstructive pulmonary disease with (acute) exacerbation (principal); Z20.822 Contact with and (suspected) exposure to COVID-19
CPT/HCPCS: 71045; 94640; 99284; C9803; J7512; U0003; U0005; Z7610

== ENCOUNTER 2021-07-13 01:25 | Emergency (ER) | payer MEDICAID, OTHER ==
[~2021-07-13] VITALS: Ht 172.7 cm; Wt 106.0 kg
[2021-07-13] MEDS ORDERED: MAGNESIUM/ALUMINUM HYDROXIDE/SIMETHICONE 30ML UDC PO STA (02:04)
[2021-07-13] MEDS ORDERED: METOCLOPRAMIDE HCL 10MG TABLET PO ONE (02:15)
[2021-07-13] MEDS ORDERED: METO5TAB86 MT (03:29)
[2021-07-13 03:45] VITALS: BP 148/86
== END 2021-07-13 03:53 | disposition home or self-care (01) ==
LOC: ER 01:25
DX: K21.9 Gastro-esophageal reflux disease without esophagitis (principal); I10 Essential (primary) hypertension; E11.9 Type 2 diabetes mellitus without complications; I49.9 Cardiac arrhythmia, unspecified; J45.909 Unspecified asthma, uncomplicated; Z88.0 Allergy status to penicillin; Z88.6 Allergy status to analgesic agent; Z88.5 Allergy status to narcotic agent; Z79.899 Other long term (current) drug therapy; Z86.39 Personal history of other endocrine, nutritional and metabolic disease; Z86.59 Personal history of other mental and behavioral disorders
CPT/HCPCS: 93005; 99283; J8597

== ENCOUNTER 2021-07-15 12:09 | Emergency (ER) | payer OTHER ==
[~2021-07-15] VITALS: Ht 172.7 cm; Wt 103.0 kg
[~2021-07-15 12:09] MED LIST changes: +METO5TAB86 MT
[2021-07-15] MEDS ORDERED: METOCLOPRAMIDE HCL 10MG/2ML VIAL IV STA (14:13)
[2021-07-15] MEDS ORDERED: FAMOTIDINE 20MG/2ML VIAL IV STA (14:13)
[2021-07-15] MEDS ORDERED: VISCOUS LIDOCAINE 2% 15 ML UDC PO STA (14:13)
[2021-07-15] MEDS ORDERED: MAGNESIUM/ALUMINUM HYDROXIDE/SIMETHICONE 30ML UDC PO STA (14:13)
[2021-07-15 15:50] LABS: CLARITY URINE CLEAR (CLEAR); COLOR URINE YELLOW (YELLOW); KETONES URINE NEGATIVE (NEGATIVE); LEUKOCYTE ESTERASE URINE 1+ (NEGATIVE); NITRITE URINE NEGATIVE (NEGATIVE); OCCULT BLOOD URINE 1+ (NEGATIVE); PH URINE 7.5 (4.5-8.0); PROTEIN URINE NEGATIVE (NEGATIVE); SPECIFIC GRAVITY URINE 1.013 (1.005-1.030); UROBILINOGEN URINE 0.2 E.U./dL (0.2-1.0)
[2021-07-15 15:55] LABS: BASOPHILS % 1.2 % (0.0-2.0); HEMATOCRIT. 43.1 % (36.0-48.0); HEMOGLOBIN. 14.8 g/dL (12.0-16.0); LYMPHOCYTES % 48.2 % (20.0-50.0); MEAN CORPUSCULAR HEMOGLOBIN 32.3 pg (28.0-32.0); MEAN CORPUSCULAR VOLUME 94.3 fL (81.0-99.0); MEAN PLATELET VOLUME 7.8 fl (7.4-10.4); MONOCYTES % 6.1 % (2.0-8.0); NEUTROPHILS % 42.5 % (40.0-76.0); PLATELET 245 x1000/uL (130-400); RED BLOOD CELL COUNT 4.57 mill/uL (4.2-5.4); RED CELL DISTRIBUTION WIDTH 12.9 % (11.6-14.6)
[2021-07-15 16:01] LABS: CHLORIDE 106 mEq/L (98-107)
[2021-07-15 19:08] VITALS: BP 145/102
== END 2021-07-15 19:11 | disposition home or self-care (01) ==
LOC: ER 12:09
DX: K83.8 Other specified diseases of biliary tract (principal); K29.70 Gastritis, unspecified, without bleeding; I10 Essential (primary) hypertension; E11.9 Type 2 diabetes mellitus without complications
CPT/HCPCS: 36415; 71045; 76705; 80053; 81003; 83690; 83880; 84484; 85025; 96374; 96375; 99285; J2765; J3490

== ENCOUNTER 2021-08-02 06:49 | Emergency (ER) | payer MEDICAID, OTHER ==
[~2021-08-02] VITALS: Ht 170.2 cm; Wt 90.0 kg
[2021-08-02] MEDS ORDERED: IPRATROPIUM BROMIDE (0.02%) 0.5MG/2.5ML NEB HHN STA (06:55)
[2021-08-02] MEDS ORDERED: VISCOUS LIDOCAINE 2% 15 ML UDC PO STA (06:55)
[2021-08-02] MEDS ORDERED: DICYCLOMINE 10 MG/5 ML ORAL SYR PO STA (06:55)
[2021-08-02] MEDS ORDERED: MAGNESIUM/ALUMINUM HYDROXIDE/SIMETHICONE 30ML UDC PO STA (06:55)
[2021-08-02] MEDS ORDERED: ALBUTEROL (0.083%) 2.5MG/3ML NEB HHN STA (06:55)
[2021-08-02 07:57] LABS: BASOPHILS % 0.6 % (0.0-2.0); EOSINOPHILS % 3.8 % (0.0-5.0); HEMATOCRIT. 40.5 % (36.0-48.0); HEMOGLOBIN. 13.6 g/dL (12.0-16.0); LYMPHOCYTES % 37.3 % (20.0-50.0); MEAN CORPUSCULAR HEMOGLOBIN 32.1 pg (28.0-32.0); MEAN CORPUSCULAR VOLUME 95.6 fL (81.0-99.0); MEAN PLATELET VOLUME 7.1 fl (7.4-10.4); MONOCYTES % 7.6 % (2.0-8.0); NEUTROPHILS % 50.7 % (40.0-76.0); PLATELET 220 x1000/uL (130-400); RED BLOOD CELL COUNT 4.23 mill/uL (4.2-5.4); RED CELL DISTRIBUTION WIDTH 12.8 % (11.6-14.6)
[2021-08-02 08:03] LABS: CHLORIDE 109 mEq/L (98-107)
[2021-08-02] MEDS ORDERED: P50 PO (09:23)
[2021-08-02] MEDS ORDERED: ALBU6.7H9 INH (09:23)
[2021-08-02] MEDS ORDERED: PREDNISONE 20MG TABLET PO ONE (09:30)
[2021-08-02 10:51] VITALS: BP 138/67
== END 2021-08-02 10:57 | disposition home or self-care (01) ==
LOC: ER 06:49
DX: J45.901 Unspecified asthma with (acute) exacerbation (principal); I10 Essential (primary) hypertension; E11.9 Type 2 diabetes mellitus without complications; E78.5 Hyperlipidemia, unspecified; Z88.0 Allergy status to penicillin
CPT/HCPCS: 36415; 71045; 80053; 83880; 84484; 85025; 93005; 94640; 99285; J7512; Z7610

== ENCOUNTER 2021-08-04 09:38 | Emergency (ER) | payer OTHER ==
[~2021-08-04] VITALS: Ht 172.7 cm; Wt 83.0 kg
[~2021-08-04 09:38] MED LIST changes: +P50 PO
[2021-08-04] MEDS ORDERED: ALBUTEROL (0.083%) 2.5MG/3ML NEB HHN STA (09:55)
[2021-08-04] MEDS ORDERED: IPRATROPIUM BROMIDE (0.02%) 0.5MG/2.5ML NEB HHN STA (09:55)
[2021-08-04 10:27] LABS: BASOPHILS % 0.7 % (0.0-2.0); HEMATOCRIT. 39.1 % (36.0-48.0); HEMOGLOBIN. 13.8 g/dL (12.0-16.0); LYMPHOCYTES % 18.1 % (20.0-50.0); MEAN CORPUSCULAR HEMOGLOBIN 33.4 pg (28.0-32.0); MEAN PLATELET VOLUME 7.3 fl (7.4-10.4); MONOCYTES % 2.3 % (2.0-8.0); NEUTROPHILS % 78.9 % (40.0-76.0); PLATELET 215 x1000/uL (130-400); RED BLOOD CELL COUNT 4.12 mill/uL (4.2-5.4); RED CELL DISTRIBUTION WIDTH 12.8 % (11.6-14.6)
[2021-08-04 10:34] LABS: CHLORIDE 109 mEq/L (98-107)
[2021-08-04 13:06] VITALS: BP 127/84
== END 2021-08-04 13:11 | disposition home or self-care (01) ==
LOC: ER 09:38 → CANBEDREQ 22:56
DX: J45.901 Unspecified asthma with (acute) exacerbation (principal); E11.9 Type 2 diabetes mellitus without complications; J44.9 Chronic obstructive pulmonary disease, unspecified; Z79.899 Other long term (current) drug therapy; Z88.0 Allergy status to penicillin; Z88.2 Allergy status to sulfonamides; Z88.5 Allergy status to narcotic agent; Z88.6 Allergy status to analgesic agent; Z79.51 Long term (current) use of inhaled steroids
CPT/HCPCS: 36415; 71045; 80053; 85025; 93005; 94644; 99285; Z7610

== ENCOUNTER 2021-09-02 02:34 | Emergency (ER) | payer MEDICAID, OTHER ==
[~2021-09-02] VITALS: Ht 172.7 cm; Wt 91.0 kg
[2021-09-02] MEDS ORDERED: FAMOTIDINE 20MG/2ML VIAL IV ONE (03:15)
[2021-09-02 03:19] LABS: BASOPHILS % 0.9 % (0.0-2.0); EOSINOPHILS % 3.4 % (0.0-5.0); HEMATOCRIT. 39.2 % (36.0-48.0); HEMOGLOBIN. 13.5 g/dL (12.0-16.0); MEAN CORPUSCULAR HEMOGLOBIN 33.2 pg (28.0-32.0); MEAN CORPUSCULAR VOLUME 96.2 fL (81.0-99.0); MEAN PLATELET VOLUME 7.2 fl (7.4-10.4); MONOCYTES % 8.2 % (2.0-8.0); NEUTROPHILS % 45.5 % (40.0-76.0); PLATELET 223 x1000/uL (130-400); RED BLOOD CELL COUNT 4.07 mill/uL (4.2-5.4); RED CELL DISTRIBUTION WIDTH 13.5 % (11.6-14.6)
[2021-09-02 03:26] LABS: CHLORIDE 109 mEq/L (98-107)
[2021-09-02 06:05] VITALS: BP 156/98
== END 2021-09-02 06:05 | disposition home or self-care (01) ==
LOC: ER 02:34
DX: R07.89 Other chest pain (principal); I10 Essential (primary) hypertension; R94.31 Abnormal electrocardiogram [ECG] [EKG]
CPT/HCPCS: 36415; 71045; 80053; 84484; 85025; 93005; 96374; 99285; J3490

== ENCOUNTER 2021-09-28 02:05 | Emergency (ER) | payer OTHER ==
[~2021-09-28] VITALS: Ht 172.7 cm; Wt 106.0 kg
[2021-09-28 02:12] VITALS: BP 150/108
[2021-09-28] MEDS ORDERED: MAGNESIUM/ALUMINUM HYDROXIDE/SIMETHICONE 30ML UDC PO ONE (02:45)
[2021-09-28] MEDS ORDERED: DICYCLOMINE 10 MG/5 ML ORAL SYR PO ONE (02:45)
[2021-09-28] MEDS ORDERED: VISCOUS LIDOCAINE 2% 15 ML UDC PO ONE (02:45)
[2021-09-28] MEDS ORDERED: PREDNISONE 20MG TABLET PO ONE (02:45)
[2021-09-28] MEDS ORDERED: P20 MT ×2 (04:32→15:04)
[2021-09-28] MEDS ORDERED: ACET-2708 PO (15:18)
== END 2021-09-28 05:50 | disposition home or self-care (01) ==
LOC: ER 02:05
DX: J44.1 Chronic obstructive pulmonary disease with (acute) exacerbation (principal); I10 Essential (primary) hypertension; E78.00 Pure hypercholesterolemia, unspecified; E11.9 Type 2 diabetes mellitus without complications; Z88.0 Allergy status to penicillin; Z88.2 Allergy status to sulfonamides; Z88.5 Allergy status to narcotic agent; Z88.6 Allergy status to analgesic agent; Z79.899 Other long term (current) drug therapy; Z86.59 Personal history of other mental and behavioral disorders; Z86.39 Personal history of other endocrine, nutritional and metabolic disease
CPT/HCPCS: 99284; J7512

== ENCOUNTER 2021-09-28 09:57 | Emergency (ER) | payer OTHER ==
[~2021-09-28] VITALS: Ht 172.7 cm; Wt 106.0 kg
[~2021-09-28 09:57] MED LIST changes: +P20 MT
[2021-09-28 10:48] VITALS: BP 164/101
[2021-09-28] MEDS ORDERED: ACETAMINOPHEN 325MG TABLET PO STA (14:48)
[2021-09-28] MEDS ORDERED: P20 MT (15:04)
[2021-09-28] MEDS ORDERED: ACET-2708 PO (15:18)
== END 2021-09-28 15:29 | disposition home or self-care (01) ==
LOC: ER 11:46
DX: M54.9 Dorsalgia, unspecified (principal); I10 Essential (primary) hypertension; E11.9 Type 2 diabetes mellitus without complications; J45.909 Unspecified asthma, uncomplicated; Z88.0 Allergy status to penicillin; Z88.6 Allergy status to analgesic agent; Z88.5 Allergy status to narcotic agent; Z88.2 Allergy status to sulfonamides; Z86.39 Personal history of other endocrine, nutritional and metabolic disease
CPT/HCPCS: 71045; 99283

== ENCOUNTER 2021-09-29 22:07 | Emergency (ER) | payer OTHER ==
[~2021-09-29] VITALS: Ht 167.6 cm; Wt 105.0 kg
[~2021-09-29 22:07] MED LIST changes: +ACET-2708 PO
[2021-09-29 23:59] VITALS: BP 168/91
== END 2021-09-30 00:13 | disposition home or self-care (01) ==
LOC: ER 22:07
DX: M25.512 Pain in left shoulder (principal); I10 Essential (primary) hypertension; E11.9 Type 2 diabetes mellitus without complications; Z88.6 Allergy status to analgesic agent; Z88.0 Allergy status to penicillin; Z88.2 Allergy status to sulfonamides; Z88.5 Allergy status to narcotic agent; Z79.899 Other long term (current) drug therapy
CPT/HCPCS: 99283

== ENCOUNTER 2021-11-19 14:26 | Emergency (ER) | payer OTHER ==
[~2021-11-19] VITALS: Ht 172.7 cm; Wt 100.0 kg
[~2021-11-19 14:26] MED LIST changes: +CLIN-194 MT; -CLIN300C12 MT; +FAMO40TA70 MT; +NITR-87 MT; +POTA-205 PO; -POTA20TA82 PO; +PROT40 MT; +TIZA-204 PO; -TIZA4TAB5 PO
[2021-11-19 14:32] VITALS: BP 136/98
== END 2021-11-19 16:07 | disposition left against medical advice (07) ==
LOC: ER 14:40
DX: Z53.21 Procedure and treatment not carried out due to patient leaving prior to being seen by health care provider (principal)
CPT/HCPCS: 99283

== ENCOUNTER 2021-12-07 01:13 | Emergency (ER) | payer OTHER ==
[~2021-12-07] VITALS: Ht 165.1 cm; Wt 91.0 kg
[2021-12-07 01:16] VITALS: BP 195/105
[2021-12-07] MEDS ORDERED: ALPRAZOLAM 0.5 MG TABLET PO ONE (02:00)
== END 2021-12-07 04:39 | disposition home or self-care (01) ==
LOC: ER 01:13
DX: I11.0 Hypertensive heart disease with heart failure (principal); I50.9 Heart failure, unspecified; J44.1 Chronic obstructive pulmonary disease with (acute) exacerbation; E78.00 Pure hypercholesterolemia, unspecified; E11.9 Type 2 diabetes mellitus without complications; J45.909 Unspecified asthma, uncomplicated; Z88.0 Allergy status to penicillin; Z88.6 Allergy status to analgesic agent; Z88.2 Allergy status to sulfonamides; Z88.5 Allergy status to narcotic agent; Z79.899 Other long term (current) drug therapy; Z86.39 Personal history of other endocrine, nutritional and metabolic disease; Z86.59 Personal history of other mental and behavioral disorders
CPT/HCPCS: 93005; 99283

== ENCOUNTER 2021-12-29 05:52 | Emergency (ER) | payer MEDICAID, OTHER ==
[~2021-12-29] VITALS: Ht 170.2 cm; Wt 104.0 kg
[2021-12-29] MEDS ORDERED: ALBUTEROL (0.083%) 2.5MG/3ML NEB HHN ONE (06:15)
[2021-12-29] MEDS ORDERED: PREDNISONE 20MG TABLET PO ONE (06:15)
[2021-12-29] MEDS ORDERED: P50 MT (07:59)
[2021-12-29 09:38] VITALS: BP 126/76
== END 2021-12-29 09:39 | disposition home or self-care (01) ==
LOC: ER 05:52
DX: J44.1 Chronic obstructive pulmonary disease with (acute) exacerbation (principal); Z88.6 Allergy status to analgesic agent; Z88.0 Allergy status to penicillin; Z88.2 Allergy status to sulfonamides; Z79.899 Other long term (current) drug therapy; Z86.59 Personal history of other mental and behavioral disorders; Z86.39 Personal history of other endocrine, nutritional and metabolic disease
CPT/HCPCS: 71045; 93005; 94640; 99283; J7512; Z7610

== ENCOUNTER 2022-01-03 15:15 | Emergency (ER) | payer OTHER ==
[~2022-01-03] VITALS: Ht 172.7 cm; Wt 105.0 kg
[2022-01-03 15:19] VITALS: BP 163/100
[2022-01-03] MEDS ORDERED: SUMATRIPTAN SUCCINATE 25MG TABLET PO ONE (16:45)
== END 2022-01-03 17:19 | disposition home or self-care (01) ==
LOC: ER 15:15
DX: H54.61 Unqualified visual loss, right eye, normal vision left eye (principal); J44.9 Chronic obstructive pulmonary disease, unspecified
CPT/HCPCS: 93005; 99283

== ENCOUNTER 2022-01-12 00:28 | Emergency (ER) | payer MEDICAID, OTHER ==
[~2022-01-12] VITALS: Ht 177.8 cm; Wt 85.0 kg
[2022-01-12 00:36] VITALS: BP 164/88
[2022-01-12] MEDS ORDERED: AMLODIPINE 10MG TABLET PO ONE (01:15)
== END 2022-01-12 02:22 | disposition home or self-care (01) ==
LOC: ER 00:45
DX: I10 Essential (primary) hypertension (principal); F41.0 Panic disorder [episodic paroxysmal anxiety]; Z63.79 Other stressful life events affecting family and household
CPT/HCPCS: 99283

== ENCOUNTER 2022-01-18 10:45 | Emergency (ER) | payer OTHER ==
[~2022-01-18] VITALS: Ht 172.7 cm; Wt 105.0 kg
[2022-01-18] MEDS ORDERED: HYDROCODONE/ACETAMINOPHEN 5/325MG TABLET PO ONE (13:15)
[2022-01-18 14:25] VITALS: BP 156/108
[2022-01-18] MEDS ORDERED: HYDR-4001 MT (15:39)
== END 2022-01-18 16:40 | disposition home or self-care (01) ==
LOC: ER 10:45
DX: S83.92XA Sprain of unspecified site of left knee, initial encounter (principal); J44.1 Chronic obstructive pulmonary disease with (acute) exacerbation; E78.00 Pure hypercholesterolemia, unspecified; E11.9 Type 2 diabetes mellitus without complications; I10 Essential (primary) hypertension; Z88.0 Allergy status to penicillin; Z88.6 Allergy status to analgesic agent; Z88.2 Allergy status to sulfonamides; Z79.899 Other long term (current) drug therapy; Z86.39 Personal history of other endocrine, nutritional and metabolic disease; Z86.73 Personal history of transient ischemic attack (TIA), and cerebral infarction without residual deficits; X58.XXXA Exposure to other specified factors, initial encounter; Y93.89 Activity, other specified; Y92.89 Other specified places as the place of occurrence of the external cause; Y99.8 Other external cause status
CPT/HCPCS: 73562; 99283; L1830

== ENCOUNTER 2022-02-11 00:04 | Emergency (ER) | payer OTHER ==
[~2022-02-11] VITALS: Ht 172.7 cm; Wt 82.0 kg
[2022-02-11 00:17] VITALS: BP 176/96
[2022-02-11] MEDS ORDERED: METHYLPREDNISOLONE SOD SUCC 125 MG/2 ML VIAL IV STA (00:27)
[2022-02-11] MEDS ORDERED: IPRATROPIUM BROMIDE (0.02%) 0.5MG/2.5ML NEB HHN STA (00:27)
[2022-02-11] MEDS ORDERED: MAGNESIUM 2 G PREMIX 50 ML IV ONE (00:30)
[2022-02-11] MEDS: ALBUTEROL (0.083%) 2.5MG/3ML NEB HHN SCH ×3 (01:01→01:59)
[2022-02-11 01:09] LABS: BASOPHILS % 1.1 % (0.0-2.0); EOSINOPHILS % 4.9 % (0.0-5.0); HEMATOCRIT. 41.9 % (36.0-48.0); HEMOGLOBIN. 14.2 g/dL (12.0-16.0); LYMPHOCYTES % 43.9 % (20.0-50.0); MEAN CORPUSCULAR HEMOGLOBIN 32.6 pg (28.0-32.0); MEAN CORPUSCULAR VOLUME 96.2 fL (81.0-99.0); MEAN PLATELET VOLUME 7.5 fl (7.4-10.4); NEUTROPHILS % 41.1 % (40.0-76.0); PLATELET 203 x1000/uL (130-400); RED BLOOD CELL COUNT 4.36 mill/uL (4.2-5.4); RED CELL DISTRIBUTION WIDTH 12.7 % (11.6-14.6)
[2022-02-11 01:21] LABS: CHLORIDE 105 mEq/L (98-107)
[2022-02-11] MEDS ORDERED: METHYLPREDNISOLONE SOD SUCC 125 MG/2 ML VIAL IV NR (02:15)
[2022-02-11] MEDS ORDERED: MAGNESIUM 2 G PREMIX 50 ML IV NR (02:15)
[2022-02-11] MEDS ORDERED: P20 MT (02:39)
== END 2022-02-11 04:01 | disposition home or self-care (01) ==
LOC: ER 00:04
DX: J45.909 Unspecified asthma, uncomplicated (principal); E78.00 Pure hypercholesterolemia, unspecified; I10 Essential (primary) hypertension; Z88.6 Allergy status to analgesic agent; Z88.0 Allergy status to penicillin; Z88.5 Allergy status to narcotic agent; Z88.2 Allergy status to sulfonamides; Z79.899 Other long term (current) drug therapy; Z86.73 Personal history of transient ischemic attack (TIA), and cerebral infarction without residual deficits; Z86.59 Personal history of other mental and behavioral disorders; Z86.39 Personal history of other endocrine, nutritional and metabolic disease
CPT/HCPCS: 36415; 71045; 80053; 83880; 84484; 85025; 93005; 94640; 96365; 96375; 99285; J2930; J3475; Z7610

== ENCOUNTER 2022-02-16 23:33 | Emergency (ER) | payer OTHER ==
[~2022-02-16] VITALS: Ht 172.7 cm; Wt 100.0 kg
[~2022-02-16 23:33] MED LIST changes: +ALBU6.7H3 INH; -ALBU6.7H9 INH; -LEVO750T46 MT; +LEVO750T68 MT
[2022-02-16] MEDS ORDERED: PREDNISONE 20MG TABLET PO STA (23:50)
[2022-02-17] MEDS ORDERED: ASPIRIN 81MG TABLET PO ONE
[2022-02-17] MEDS ORDERED: MAGNESIUM 2 G PREMIX 50 ML IV ONE
[2022-02-17 00:58] LABS: EOSINOPHILS % 3.8 % (0.0-5.0); HEMATOCRIT. 40.8 % (36.0-48.0); LYMPHOCYTES % 44.6 % (20.0-50.0); MEAN CORPUSCULAR VOLUME 96.1 fL (81.0-99.0); MEAN PLATELET VOLUME 7.3 fl (7.4-10.4); MONOCYTES % 8.3 % (2.0-8.0); NEUTROPHILS % 42.3 % (40.0-76.0); PLATELET 210 x1000/uL (130-400); RED BLOOD CELL COUNT 4.25 mill/uL (4.2-5.4); RED CELL DISTRIBUTION WIDTH 13.1 % (11.6-14.6)
[2022-02-17 01:12] LABS: CHLORIDE 104 mEq/L (98-107)
[2022-02-17 02:30] VITALS: BP 154/98
[2022-02-17] MEDS ORDERED: POTASSIUM CHLORIDE 20MEQ TABLET SR PO ONE (03:30)
[2022-02-17] MEDS ORDERED: P20 MT (03:56)
== END 2022-02-17 04:06 | disposition home or self-care (01) ==
LOC: ER 23:33
DX: J45.901 Unspecified asthma with (acute) exacerbation (principal); E87.6 Hypokalemia; I10 Essential (primary) hypertension; G40.909 Epilepsy, unspecified, not intractable, without status epilepticus; Z86.73 Personal history of transient ischemic attack (TIA), and cerebral infarction without residual deficits; Z88.0 Allergy status to penicillin; Z79.899 Other long term (current) drug therapy
CPT/HCPCS: 36415; 71045; 80053; 83880; 84484; 85025; 93005; 96365; 99285; J3475; J7512; Z7610

== ENCOUNTER 2022-03-09 08:22 | Emergency (ER) | payer OTHER ==
[~2022-03-09] VITALS: Ht 170.2 cm; Wt 79.0 kg
[~2022-03-09 08:22] MED LIST changes: -ALBU6.7H3 INH; +ALBU6.7H9 INH; +LEVO750T46 MT; -LEVO750T68 MT
[2022-03-09] MEDS ORDERED: IPRATROPIUM/ALBUTEROL 0.5-3(2.5)MG/3ML NEB HHN ONE (09:15)
[2022-03-09 11:00] VITALS: BP 141/89
== END 2022-03-09 11:02 | disposition home or self-care (01) ==
LOC: ER 08:22
DX: J44.9 Chronic obstructive pulmonary disease, unspecified (principal); E78.00 Pure hypercholesterolemia, unspecified; E11.9 Type 2 diabetes mellitus without complications; I10 Essential (primary) hypertension; Z88.0 Allergy status to penicillin; Z88.6 Allergy status to analgesic agent; Z88.5 Allergy status to narcotic agent; Z88.2 Allergy status to sulfonamides; Z79.899 Other long term (current) drug therapy; Z86.73 Personal history of transient ischemic attack (TIA), and cerebral infarction without residual deficits; Z86.59 Personal history of other mental and behavioral disorders; Z86.39 Personal history of other endocrine, nutritional and metabolic disease
CPT/HCPCS: 71045; 93005; 94640; 99283; Z7610; 94664

== ENCOUNTER 2022-03-19 21:19 | Emergency (ER) | payer OTHER ==
[~2022-03-19] VITALS: Ht 172.7 cm; Wt 107.6 kg
[2022-03-19 22:10] LABS: CHLORIDE 104 mEq/L (98-107)
[2022-03-19 22:11] LABS: BASOPHILS % 0.5 % (0.0-2.0); EOSINOPHILS % 2.7 % (0.0-5.0); HEMATOCRIT. 42.7 % (36.0-48.0); HEMOGLOBIN. 14.5 g/dL (12.0-16.0); LYMPHOCYTES % 43.1 % (20.0-50.0); MEAN CORPUSCULAR HEMOGLOBIN 32.6 pg (28.0-32.0); MEAN CORPUSCULAR VOLUME 96.2 fL (81.0-99.0); MEAN PLATELET VOLUME 7.3 fl (7.4-10.4); NEUTROPHILS % 42.7 % (40.0-76.0); PLATELET 235 x1000/uL (130-400); RED BLOOD CELL COUNT 4.44 mill/uL (4.2-5.4); RED CELL DISTRIBUTION WIDTH 12.8 % (11.6-14.6)
[2022-03-19] MEDS ORDERED: IOHEXOL-350 100 ML BOTTLE ONE (22:18)
[2022-03-19 22:21] LABS: ETHANOL BLOOD < 10 mg/dL
[2022-03-20 00:01] LABS: CLARITY URINE CLEAR (CLEAR); COLOR URINE YELLOW (YELLOW); KETONES URINE NEGATIVE (NEGATIVE); LEUKOCYTE ESTERASE URINE NEGATIVE (NEGATIVE); NITRITE URINE NEGATIVE (NEGATIVE); OCCULT BLOOD URINE TRACE (NEGATIVE); PH URINE 7.5 (4.5-8.0); PROTEIN URINE NEGATIVE (NEGATIVE); SPECIFIC GRAVITY URINE 1.013 (1.005-1.030); UROBILINOGEN URINE 0.2 E.U./dL (0.2-1.0)
[2022-03-20 00:17] LABS: *AMPHETAMINES SCREEN URINE NEGATIVE (NEGATIVE); *BARBITURATES SCREEN URINE NEGATIVE (NEGATIVE); *BENZODIAZEPINES SCREEN URINE PRESUMTIVE POSITIVE (NEGATIVE); *COCAINE SCREEN URINE NEGATIVE (NEGATIVE); CANNABINOID URINE SCREEN NEGATIVE (NEGATIVE); METHADONE URINE SCREEN NEGATIVE (NEGATIVE); OPIATES URINE SCREEN NEGATIVE (NEGATIVE); PHENCYCLIDINE URINE SCREEN NEGATIVE (NEGATIVE)
[2022-03-20] MEDS ORDERED: ASPIRIN 325MG TABLET PO ONE (00:30)
[2022-03-20 01:00] VITALS: BP 143/99
== END 2022-03-20 02:21 | disposition left against medical advice (07) ==
LOC: ER 21:19 → EDBEDREQ 03-20 01:18 → EDBEDREQTM 03-20 01:18 → ER 03-20 02:21 → CANBEDREQ 03-20 10:42
DX: R29.810 Facial weakness (principal); Z86.73 Personal history of transient ischemic attack (TIA), and cerebral infarction without residual deficits; Z79.899 Other long term (current) drug therapy
CPT/HCPCS: 36415; 70450; 70496; 70498; 71045; 80053; 80305; 80320; 81003; 82962; 84484; 85025; 93005; 99285; Q9967; G0480

== ENCOUNTER 2022-03-28 11:38 | Emergency (ER) | payer OTHER ==
[~2022-03-28] VITALS: Ht 172.7 cm; Wt 104.0 kg
[~2022-03-28 11:38] MED LIST changes: +ALBU6.7H3 INH; -ALBU6.7H9 INH; -LEVO750T46 MT; +LEVO750T68 MT
[2022-03-28 12:07] VITALS: BP 161/104
[2022-03-28] MEDS ORDERED: FAMO-135 MT (12:38)
[2022-03-28] MEDS ORDERED: CLIN-194 MT (12:38)
== END 2022-03-28 12:59 | disposition home or self-care (01) ==
LOC: ER 11:56
DX: T63.301A Toxic effect of unspecified spider venom, accidental (unintentional), initial encounter (principal); I10 Essential (primary) hypertension; E11.9 Type 2 diabetes mellitus without complications; J44.1 Chronic obstructive pulmonary disease with (acute) exacerbation; Z88.0 Allergy status to penicillin; Z88.6 Allergy status to analgesic agent; Y92.89 Other specified places as the place of occurrence of the external cause; Z88.5 Allergy status to narcotic agent; Z88.2 Allergy status to sulfonamides; Z79.899 Other long term (current) drug therapy; Z86.59 Personal history of other mental and behavioral disorders
CPT/HCPCS: 99283

== ENCOUNTER 2022-05-01 07:35 | Emergency (ER) | payer OTHER ==
[~2022-05-01] VITALS: Ht 167.6 cm; Wt 72.0 kg
[~2022-05-01 07:35] MED LIST changes: +FAMO-135 MT
[2022-05-01 08:13] VITALS: BP 158/93
[2022-05-01] MEDS ORDERED: PREDNISONE 20MG TABLET PO ONE (08:15)
[2022-05-01] MEDS ORDERED: IPRATROPIUM/ALBUTEROL 0.5-3(2.5)MG/3ML NEB HHN ONE (08:15)
== END 2022-05-01 10:26 | disposition left against medical advice (07) ==
LOC: ER 08:17
DX: J44.1 Chronic obstructive pulmonary disease with (acute) exacerbation (principal); E11.9 Type 2 diabetes mellitus without complications; I10 Essential (primary) hypertension; G43.909 Migraine, unspecified, not intractable, without status migrainosus; Z79.899 Other long term (current) drug therapy
CPT/HCPCS: 93005; 94640; 99283; J7512; Z7610

== ENCOUNTER 2022-07-27 08:56 | Emergency (ER) | payer OTHER ==
[~2022-07-27] VITALS: Ht 177.8 cm; Wt 104.0 kg
[2022-07-27 08:58] VITALS: BP 171/111
[2022-07-27] MEDS ORDERED: LIDO700A15 TP (09:13)
== END 2022-07-27 09:29 | disposition home or self-care (01) ==
LOC: ER 08:56
DX: M62.838 Other muscle spasm (principal)
CPT/HCPCS: 99283

== ENCOUNTER 2022-08-23 22:53 | Emergency (ER) | payer OTHER ==
[~2022-08-23] VITALS: Ht 172.7 cm; Wt 96.0 kg
[~2022-08-23 22:53] MED LIST changes: +LIDO700A15 TP; +MONT-46 PO; -MONT10TA21 PO
[2022-08-24 01:12] LABS: BASOPHILS % 0.7 % (0.0-2.0); EOSINOPHILS % 3.9 % (0.0-5.0); HEMATOCRIT. 42.1 % (36.0-48.0); HEMOGLOBIN. 14.5 g/dL (12.0-16.0); LYMPHOCYTES % 35.3 % (20.0-50.0); MEAN CORPUSCULAR HEMOGLOBIN 32.8 pg (28.0-32.0); MEAN CORPUSCULAR VOLUME 95.7 fL (81.0-99.0); MEAN PLATELET VOLUME 7.6 fl (7.4-10.4); MONOCYTES % 9.4 % (2.0-8.0); NEUTROPHILS % 50.7 % (40.0-76.0); PLATELET 244 x1000/uL (130-400); RED CELL DISTRIBUTION WIDTH 12.7 % (11.6-14.6)
[2022-08-24] MEDS ORDERED: ALBUTEROL (0.083%) 2.5MG/3ML NEB HHN STA (01:12)
[2022-08-24] MEDS ORDERED: IPRATROPIUM BROMIDE (0.02%) 0.5MG/2.5ML NEB HHN STA (01:12)
[2022-08-24] MEDS ORDERED: METHYLPREDNISOLONE SOD SUCC 125 MG/2 ML VIAL IV STA (01:12)
[2022-08-24 01:15] LABS: CHLORIDE 108 mEq/L (98-107)
[2022-08-24 06:00] VITALS: BP 147/99
[2022-08-24] MEDS ORDERED: P20 MT (06:15)
== END 2022-08-24 06:35 | disposition home or self-care (01) ==
LOC: ER 22:53
DX: J45.909 Unspecified asthma, uncomplicated (principal); I10 Essential (primary) hypertension; E78.00 Pure hypercholesterolemia, unspecified; E11.9 Type 2 diabetes mellitus without complications; Z88.0 Allergy status to penicillin; Z88.2 Allergy status to sulfonamides; Z88.6 Allergy status to analgesic agent; Z79.899 Other long term (current) drug therapy; Z86.39 Personal history of other endocrine, nutritional and metabolic disease; Z86.59 Personal history of other mental and behavioral disorders
CPT/HCPCS: 36415; 71045; 80053; 83605; 83880; 84484; 85025; 85379; 93005; 94640; 96374; 99285; J2930; Z7610

== ENCOUNTER 2022-08-31 13:18 | Emergency (ER) | payer OTHER ==
[~2022-08-31] VITALS: Ht 170.2 cm; Wt 100.0 kg
[2022-08-31 13:22] VITALS: BP 160/90
[2022-08-31] MEDS ORDERED: SODIUM CHLORIDE 0.9% 1,000 ML IV ONE (14:15)
[2022-08-31] MEDS ORDERED: LEVETIRACETAM 500MG PREMIX 100 ML IV ONE (14:15)
[2022-08-31 15:22] LABS: BASOPHILS % 0.3 % (0.0-2.0); HEMATOCRIT. 41.6 % (36.0-48.0); HEMOGLOBIN. 14.2 g/dL (12.0-16.0); LYMPHOCYTES % 8.6 % (20.0-50.0); MEAN CORPUSCULAR VOLUME 96.8 fL (81.0-99.0); MONOCYTES % 2.2 % (2.0-8.0); NEUTROPHILS % 88.9 % (40.0-76.0); PLATELET 230 x1000/uL (130-400); RED CELL DISTRIBUTION WIDTH 12.6 % (11.6-14.6)
[2022-08-31 15:31] LABS: CHLORIDE 107 mEq/L (98-107)
== END 2022-08-31 18:11 | disposition home or self-care (01) ==
LOC: ER 13:18
DX: R56.9 Unspecified convulsions (principal); J44.9 Chronic obstructive pulmonary disease, unspecified; E11.9 Type 2 diabetes mellitus without complications; I10 Essential (primary) hypertension
CPT/HCPCS: 36415; 80053; 80185; 85025; 93005; 99284; J7030

== ENCOUNTER 2022-10-08 10:39 | Emergency (ER) | payer OTHER ==
[~2022-10-08] VITALS: Ht 170.2 cm; Wt 108.0 kg
[2022-10-08] MEDS ORDERED: ALBUTEROL (0.083%) 2.5MG/3ML NEB HHN STA (11:35)
[2022-10-08] MEDS ORDERED: METHYLPREDNISOLONE SOD SUCC 125 MG/2 ML VIAL IV STA (11:35)
[2022-10-08] MEDS ORDERED: IPRATROPIUM BROMIDE (0.02%) 0.5MG/2.5ML NEB HHN STA (11:35)
[2022-10-08] MEDS ORDERED: MAGNESIUM 2 G PREMIX 50 ML IV ONE (11:45)
[2022-10-08 11:59] LABS: BASOPHILS % 1.1 % (0.0-2.0); EOSINOPHILS % 3.5 % (0.0-5.0); HEMATOCRIT. 41.8 % (36.0-48.0); HEMOGLOBIN. 14.2 g/dL (12.0-16.0); MEAN CORPUSCULAR HEMOGLOBIN 32.7 pg (28.0-32.0); MEAN CORPUSCULAR VOLUME 96.3 fL (81.0-99.0); MEAN PLATELET VOLUME 7.3 fl (7.4-10.4); MONOCYTES % 9.2 % (2.0-8.0); NEUTROPHILS % 52.2 % (40.0-76.0); PLATELET 223 x1000/uL (130-400); RED BLOOD CELL COUNT 4.34 mill/uL (4.2-5.4); RED CELL DISTRIBUTION WIDTH 12.9 % (11.6-14.6)
[2022-10-08 12:08] LABS: CHLORIDE 107 mEq/L (98-107)
[2022-10-08 12:25] LABS: HCG SCREEN NEGATIVE
[2022-10-08] MEDS ORDERED: ALBU6.7H3 INH (13:24)
[2022-10-08] MEDS ORDERED: P50 MT (13:24)
[2022-10-08 14:05] VITALS: BP 146/88
== END 2022-10-08 14:05 | disposition home or self-care (01) ==
LOC: ER 10:46
DX: R06.02 Shortness of breath (principal); E78.00 Pure hypercholesterolemia, unspecified; J44.1 Chronic obstructive pulmonary disease with (acute) exacerbation; E11.9 Type 2 diabetes mellitus without complications; Z88.0 Allergy status to penicillin; Z88.6 Allergy status to analgesic agent; Z88.2 Allergy status to sulfonamides; Z86.39 Personal history of other endocrine, nutritional and metabolic disease; Z86.59 Personal history of other mental and behavioral disorders; Z79.899 Other long term (current) drug therapy
CPT/HCPCS: 36415; 71045; 80053; 83880; 84484; 84703; 85025; 93005; 94644; 96365; 96366; 96375; 99285; J2930; J3475; Z7610

== ENCOUNTER 2022-10-19 15:33 | Emergency (ER) | payer OTHER ==
[~2022-10-19] VITALS: Ht 167.6 cm; Wt 90.0 kg
[~2022-10-19 15:33] MED LIST changes: +LOSA-413 PO; -LOSA50TA3 PO
[2022-10-19] MEDS ORDERED: SODIUM CHLORIDE 0.9% 1,000 ML IV ONE (16:15)
[2022-10-19 17:19] LABS: BASOPHILS % 0.7 % (0.0-2.0); EOSINOPHILS % 1.6 % (0.0-5.0); HEMATOCRIT. 41.9 % (36.0-48.0); HEMOGLOBIN. 14.6 g/dL (12.0-16.0); LYMPHOCYTES % 21.8 % (20.0-50.0); MEAN CORPUSCULAR HEMOGLOBIN 33.6 pg (28.0-32.0); MEAN CORPUSCULAR VOLUME 96.3 fL (81.0-99.0); MEAN PLATELET VOLUME 8.1 fl (7.4-10.4); MONOCYTES % 5.6 % (2.0-8.0); NEUTROPHILS % 70.3 % (40.0-76.0); PLATELET 188 x1000/uL (130-400); RED BLOOD CELL COUNT 4.35 mill/uL (4.2-5.4); RED CELL DISTRIBUTION WIDTH 13.5 % (11.6-14.6)
[2022-10-19 17:23] LABS: CHLORIDE 107 mEq/L (98-107)
[2022-10-19 17:57] LABS: HCG SCREEN NEGATIVE
[2022-10-19] MEDS ORDERED: ASPIRIN 325MG EC TABLET PO ONE (18:00)
[2022-10-19] MEDS ORDERED: POTASSIUM CHLORIDE 20MEQ TABLET SR PO ONE (18:00)
[2022-10-19] MEDS ORDERED: ACETAMINOPHEN 325MG TABLET PO ONE (18:15)
[2022-10-19 19:30] VITALS: BP 143/87
== END 2022-10-19 20:00 | disposition left against medical advice (07) ==
LOC: ER 15:33
DX: R55 Syncope and collapse (principal); E78.00 Pure hypercholesterolemia, unspecified; I10 Essential (primary) hypertension; E11.9 Type 2 diabetes mellitus without complications; Z88.0 Allergy status to penicillin; Z88.6 Allergy status to analgesic agent; Z88.2 Allergy status to sulfonamides; Z79.899 Other long term (current) drug therapy; Z86.39 Personal history of other endocrine, nutritional and metabolic disease; Z86.59 Personal history of other mental and behavioral disorders
CPT/HCPCS: 36415; 71045; 80053; 80185; 83880; 84443; 84484; 84703; 85025; 93005; 96360; 99285; J7030; Z7610

== ENCOUNTER 2022-11-06 04:03 | Emergency (ER) | payer OTHER ==
[~2022-11-06] VITALS: Ht 177.8 cm; Wt 84.0 kg
[2022-11-06 04:06] VITALS: BP 169/102
[2022-11-06] MEDS ORDERED: ALBUTEROL (0.083%) 2.5MG/3ML NEB HHN STA (04:36)
[2022-11-06] MEDS ORDERED: METHYLPREDNISOLONE SOD SUCC 125 MG/2 ML VIAL IM STA (04:36)
[2022-11-06] MEDS ORDERED: IPRATROPIUM BROMIDE (0.02%) 0.5MG/2.5ML NEB HHN STA (04:36)
== END 2022-11-06 08:35 | disposition left against medical advice (07) ==
LOC: ER 04:03
DX: R06.02 Shortness of breath (principal); Z53.21 Procedure and treatment not carried out due to patient leaving prior to being seen by health care provider
CPT/HCPCS: 99281

== ENCOUNTER 2022-11-06 11:25 | Emergency (ER) | payer OTHER ==
[~2022-11-06] VITALS: Ht 172.7 cm; Wt 105.0 kg
[2022-11-06] MEDS ORDERED: DEXAMETHASONE 4MG TABLET PO ONE (12:30)
[2022-11-06] MEDS ORDERED: IPRATROPIUM/ALBUTEROL 0.5-3(2.5)MG/3ML NEB HHN ONE (12:30)
[2022-11-06 13:33] LABS: BASOPHILS % 0.7 % (0.0-2.0); EOSINOPHILS % 0.8 % (0.0-5.0); HEMATOCRIT. 43.4 % (36.0-48.0); HEMOGLOBIN. 14.9 g/dL (12.0-16.0); LYMPHOCYTES % 22.8 % (20.0-50.0); MEAN CORPUSCULAR HEMOGLOBIN 33.6 pg (28.0-32.0); MEAN PLATELET VOLUME 7.8 fl (7.4-10.4); MONOCYTES % 4.5 % (2.0-8.0); NEUTROPHILS % 71.2 % (40.0-76.0); PLATELET 205 x1000/uL (130-400); RED BLOOD CELL COUNT 4.43 mill/uL (4.2-5.4); RED CELL DISTRIBUTION WIDTH 14.1 % (11.6-14.6)
[2022-11-06 13:42] LABS: CHLORIDE 107 mEq/L (98-107)
[2022-11-06] MEDS ORDERED: IPRATROPIUM/ALBUTEROL 0.5-3(2.5)MG/3ML NEB HHN NR (14:00)
[2022-11-06 15:00] LABS: BG BASE EXCESS 2.9 mmol/L (-2.0-2.0); BG CARBOXYHEMOGLOBIN 0.7 % (0.5-1.5); BG DEOXYHEMOGLOBIN 4.1 % (0.0-5.0); BG FRACTION INSPIRED OXYGEN 21; BG HCO3 ACT 28.5 mmol/L (22.0-26.0); BG METHEMOGLOBIN 0.3 % (0.0-1.5); BG OXYGEN SATURATION 95.9 % (92.0-98.5); BG OXYHEMOGLOBIN 94.9 % (94.0-97.0); BG PCO2 47.1 mmHg (35.0-45.0); BG PH 7.399 (7.350-7.450); BG PO2 81.1 mmHg (75.0-100.0); BG SAMPLE SITE RIGHT RADIAL; BG TOTAL HEMOGLOBIN 15.1 g/dL (12.0-18.0); BG VENT MODE ROOM AIR
[2022-11-06 17:14] VITALS: BP 171/93
== END 2022-11-06 17:30 | disposition short-term general hospital (02) ==
LOC: ER 11:25 → CANBEDREQ 15:09 → ER 17:30
DX: J44.1 Chronic obstructive pulmonary disease with (acute) exacerbation (principal); E11.9 Type 2 diabetes mellitus without complications; K21.9 Gastro-esophageal reflux disease without esophagitis; E78.00 Pure hypercholesterolemia, unspecified; I10 Essential (primary) hypertension; G43.909 Migraine, unspecified, not intractable, without status migrainosus; Z20.822 Contact with and (suspected) exposure to COVID-19; Z88.0 Allergy status to penicillin; Z88.2 Allergy status to sulfonamides; Z88.6 Allergy status to analgesic agent; Z88.5 Allergy status to narcotic agent; Z88.8 Allergy status to other drugs, medicaments and biological substances; Z79.899 Other long term (current) drug therapy
CPT/HCPCS: 36415; 36600; 71045; 80053; 82375; 82805; 83880; 84484; 85025; 87426; 93005; 94640; 99285; C9803; J8540; Z7610

== ENCOUNTER 2023-01-06 02:53 | Emergency (ER) | payer MEDICAID, OTHER ==
[~2023-01-06] VITALS: Ht 172.7 cm; Wt 82.0 kg
[2023-01-06] MEDS ORDERED: ACETAMINOPHEN 325MG TABLET PO ONE (03:15)
[2023-01-06] MEDS ORDERED: ACETAMINOPHEN 325MG TABLET PO NR (05:15)
[2023-01-06] MEDS ORDERED: KETOROLAC 15MG/ML VIAL IM ONE (06:00)
[2023-01-06] MEDS ORDERED: ACET-2708 MT (07:29)
[2023-01-06 07:40] VITALS: BP 158/98; PULSE 76; RESP 18; TEMP 98
== END 2023-01-06 08:00 | disposition home or self-care (01) ==
LOC: ER 02:53
DX: M25.512 Pain in left shoulder (principal); J45.909 Unspecified asthma, uncomplicated; E11.9 Type 2 diabetes mellitus without complications; E78.00 Pure hypercholesterolemia, unspecified; I10 Essential (primary) hypertension; Z88.0 Allergy status to penicillin; Z88.2 Allergy status to sulfonamides; Z88.6 Allergy status to analgesic agent; Z88.5 Allergy status to narcotic agent; Z86.59 Personal history of other mental and behavioral disorders; Z79.899 Other long term (current) drug therapy; Z86.39 Personal history of other endocrine, nutritional and metabolic disease
CPT/HCPCS: 99283; 73030; J1885

== ENCOUNTER 2023-01-26 15:27 | Emergency (ER) | payer OTHER ==
[~2023-01-26] VITALS: Ht 172.7 cm; Wt 109.0 kg
[~2023-01-26 15:27] MED LIST changes: +ACET-2708 MT
[2023-01-26 15:49] VITALS: O2SAT 98
[2023-01-26] MEDS ORDERED: LIDOCAINE 5% PATCH TOP STA (16:23)
[2023-01-26] MEDS ORDERED: ACETAMINOPHEN 325MG TABLET PO ONE (16:30)
[2023-01-26] MEDS ORDERED: MORPHINE SULFATE 10 MG/ML CPJ IM ONE (16:30)
[2023-01-26] MEDS ORDERED: TOPUD PO (17:51)
[2023-01-26] MEDS ORDERED: LIDO1ADH23 TP (17:51)
[2023-01-26] MEDS ORDERED: MORP15TA67 MT (17:51)
[2023-01-26] MEDS ORDERED: MORPHINE SULFATE 10 MG/ML CPJ IM NR (18:45)
[2023-01-26] MEDS ORDERED: ACETAMINOPHEN 325MG TABLET PO NR (18:45)
[2023-01-26] MEDS: LIDOCAINE 5% PATCH TOP NR ×2 (19:19→19:21)
[2023-01-26 19:46] VITALS: BP 168/108; PULSE 84; RESP 20; TEMP 97.7
== END 2023-01-26 19:48 | disposition home or self-care (01) ==
LOC: ER 15:27
DX: S83.92XA Sprain of unspecified site of left knee, initial encounter (principal); X58.XXXA Exposure to other specified factors, initial encounter; Y93.89 Activity, other specified; Y92.89 Other specified places as the place of occurrence of the external cause; Y99.8 Other external cause status; J44.9 Chronic obstructive pulmonary disease, unspecified; E11.9 Type 2 diabetes mellitus without complications; K21.9 Gastro-esophageal reflux disease without esophagitis; E78.00 Pure hypercholesterolemia, unspecified; I10 Essential (primary) hypertension; G43.909 Migraine, unspecified, not intractable, without status migrainosus; Z79.899 Other long term (current) drug therapy
CPT/HCPCS: 73562; 96372; 99285; J2270; Z7610 ×2; L1830

== ENCOUNTER 2023-01-29 09:24 | Emergency (ER) | payer OTHER ==
[~2023-01-29] VITALS: Ht 167.6 cm; Wt 100.0 kg
[~2023-01-29 09:24] MED LIST changes: +LIDO1ADH23 TP; +MORP15TA67 MT; +TOPUD PO
[2023-01-29 09:26] VITALS: O2SAT 97
[2023-01-29 10:18] LABS: BASOPHILS % 0.8 % (0.0-2.0); EOSINOPHILS % 7.3 % (0.0-5.0); HEMATOCRIT. 42.4 % (36.0-48.0); HEMOGLOBIN. 14.5 g/dL (12.0-16.0); LYMPHOCYTES % 39.5 % (20.0-50.0); MEAN CORPUSCULAR HEMOGLOBIN 33.1 pg (28.0-32.0); MEAN CORPUSCULAR HGB CONC 34.2 g/dL (31.0-37.0); MEAN CORPUSCULAR VOLUME 96.8 fL (81.0-99.0); MONOCYTES % 8.8 % (2.0-8.0); NEUTROPHILS % 43.6 % (40.0-76.0); PLATELET 221 x1000/uL (130-400); RED BLOOD CELL COUNT 4.38 mill/uL (4.2-5.4); WHITE BLOOD COUNT 4.3 x1000/uL (4.5-11.0)
[2023-01-29 10:29] LABS: CHLORIDE 107 mEq/L (98-107); INDEX HEMOLYSI 1 (1-3); INDEX ICTERIC 1 (1-4); INDEX LIPEMIC 1 (1-3); POTASSIUM 3.2 mEq/L (3.5-5.1); SODIUM 138 mEq/L (136-145)
[2023-01-29 10:36] LABS: ALANINE AMINOTRANSFERASE 34 IU/L (13-61); ALBUMIN 3.6 g/dL (3.4-5.0); ASPARTATE AMINOTRANSFERASE 23 IU/L (15-37); BILIRUBIN TOTAL 0.3 mg/dL (0.1-1.0); CALCIUM 8.1 mg/dL (8.5-10.1); CARBON DIOXIDE 29 mEq/L (21-32); CREATININE 0.8 mg/dL (0.6-1.3); GLUCOSE 97 mg/dL (70-105); PHENYTOIN 16.4 ug/mL (10-20); PROTEIN TOTAL 6.7 g/dL (6.0-8.3); UREA NITROGEN BLOOD 11 mg/dL (7-21)
[2023-01-29 11:20] LABS: HCG SCREEN NEGATIVE
[2023-01-29] MEDS ORDERED: ACETAMINOPHEN 325MG TABLET PO ONE (11:45)
[2023-01-29] MEDS ORDERED: LAMOTRIGINE 25MG TABLET PO SCH (13:30)
[2023-01-29] MEDS ORDERED: POTASSIUM CHLORIDE 20MEQ TABLET SR PO NR (13:30)
[2023-01-29] MEDS ORDERED: LEVETIRACETAM 500MG TABLET PO ONE (13:30)
[2023-01-29] MEDS ORDERED: PHENYTOIN SODIUM EXTENDED 100MG CAPSULE PO ONE (13:30)
[2023-01-29 13:48] VITALS: BP 142/97; PULSE 69; RESP 15; TEMP 98.2
== END 2023-01-29 14:15 | disposition home or self-care (01) ==
LOC: ER 09:24
DX: R56.9 Unspecified convulsions (principal); J44.9 Chronic obstructive pulmonary disease, unspecified; E11.9 Type 2 diabetes mellitus without complications; K21.9 Gastro-esophageal reflux disease without esophagitis; E78.00 Pure hypercholesterolemia, unspecified; I10 Essential (primary) hypertension; G43.909 Migraine, unspecified, not intractable, without status migrainosus; Z79.899 Other long term (current) drug therapy; Z88.0 Allergy status to penicillin
CPT/HCPCS: 80053; 80185; 84703; 83735; 85025; 36415; 99285; Z7610 ×2

== ENCOUNTER 2023-02-12 06:31 | Emergency (ER) | payer OTHER ==
[~2023-02-12] VITALS: Ht 170.2 cm; Wt 104.0 kg
[2023-02-12] MEDS ORDERED: IPRATROPIUM BROMIDE (0.02%) 0.5MG/2.5ML NEB HHN STA (08:30)
[2023-02-12] MEDS ORDERED: ALBUTEROL (0.083%) 2.5MG/3ML NEB HHN STA (08:30)
[2023-02-12] MEDS ORDERED: PREDNISONE 20MG TABLET PO STA (08:30)
[2023-02-12] MEDS ORDERED: ALBUTEROL (0.083%) 2.5MG/3ML NEB ONE (10:07)
[2023-02-12] MEDS ORDERED: IPRATROPIUM BROMIDE (0.02%) 0.5MG/2.5ML NEB ONE (10:08)
[2023-02-12 10:10] VITALS: PULSE 70; RESP 24; O2SAT 98
[2023-02-12] MEDS ORDERED: IPRATROPIUM BROMIDE (0.02%) 0.5MG/2.5ML NEB HHN NR (10:30)
[2023-02-12] MEDS ORDERED: ALBUTEROL (0.083%) 2.5MG/3ML NEB HHN NR (10:30)
[2023-02-12] MEDS ORDERED: P20 MT (11:29)
[2023-02-12 11:55] VITALS: BP 148/81; PULSE 68; RESP 14; TEMP 98.4
== END 2023-02-12 11:55 | disposition home or self-care (01) ==
LOC: ER 06:39
DX: J44.1 Chronic obstructive pulmonary disease with (acute) exacerbation (principal); E11.9 Type 2 diabetes mellitus without complications; K21.9 Gastro-esophageal reflux disease without esophagitis; E78.00 Pure hypercholesterolemia, unspecified; I10 Essential (primary) hypertension; G43.909 Migraine, unspecified, not intractable, without status migrainosus; M54.30 Sciatica, unspecified side; F11.90 Opioid use, unspecified, uncomplicated; Z88.0 Allergy status to penicillin; Z88.2 Allergy status to sulfonamides; Z88.6 Allergy status to analgesic agent; Z88.5 Allergy status to narcotic agent; Z88.8 Allergy status to other drugs, medicaments and biological substances; Z79.899 Other long term (current) drug therapy
CPT/HCPCS: 94640; 99285; J7512; Z7610 ×4

== ENCOUNTER 2023-02-17 17:59 | Emergency (ER) | payer OTHER ==
[~2023-02-17] VITALS: Ht 172.7 cm; Wt 109.0 kg
[2023-02-17 18:14] VITALS: BP 158/103; O2SAT 98
[2023-02-17] MEDS ORDERED: CLIN-194 MT (19:49)
[2023-02-17 20:30] VITALS: PULSE 87; RESP 16; TEMP 98.5
== END 2023-02-17 20:32 | disposition home or self-care (01) ==
LOC: ER 17:59
DX: S80.862A Insect bite (nonvenomous), left lower leg, initial encounter (principal); J44.9 Chronic obstructive pulmonary disease, unspecified; E11.9 Type 2 diabetes mellitus without complications; K21.9 Gastro-esophageal reflux disease without esophagitis; E78.00 Pure hypercholesterolemia, unspecified; I10 Essential (primary) hypertension; G43.909 Migraine, unspecified, not intractable, without status migrainosus; Z79.899 Other long term (current) drug therapy; W57.XXXA Bitten or stung by nonvenomous insect and other nonvenomous arthropods, initial encounter; Y93.89 Activity, other specified; Y92.89 Other specified places as the place of occurrence of the external cause; Y99.8 Other external cause status
CPT/HCPCS: 99283

== ENCOUNTER 2023-03-01 09:17 | Emergency (ER) | payer OTHER ==
[~2023-03-01] VITALS: Ht 167.6 cm; Wt 82.0 kg
[2023-03-01] MEDS ORDERED: METHYLPREDNISOLONE SOD SUCC 125MG/2ML (ACT-O-VIAL) IV STA (09:28)
[2023-03-01] MEDS ORDERED: ALBUTEROL (0.083%) 2.5MG/3ML NEB HHN STA (09:28)
[2023-03-01] MEDS ORDERED: IPRATROPIUM BROMIDE (0.02%) 0.5MG/2.5ML NEB HHN STA (09:28)
[2023-03-01 10:00] VITALS: BP 171/84; TEMP 98.9
[2023-03-01 10:20] VITALS: PULSE 67; RESP 22; O2SAT 98
[2023-03-01] MEDS ORDERED: ALBU6.7H15 INH (10:55)
[2023-03-01] MEDS ORDERED: P50 PO (10:55)
== END 2023-03-01 12:00 | disposition home or self-care (01) ==
LOC: ER 09:17
DX: J45.901 Unspecified asthma with (acute) exacerbation (principal); I10 Essential (primary) hypertension; E78.00 Pure hypercholesterolemia, unspecified; E11.9 Type 2 diabetes mellitus without complications; J44.1 Chronic obstructive pulmonary disease with (acute) exacerbation; Z88.0 Allergy status to penicillin; Z88.2 Allergy status to sulfonamides; Z88.6 Allergy status to analgesic agent; Z79.899 Other long term (current) drug therapy; Z86.73 Personal history of transient ischemic attack (TIA), and cerebral infarction without residual deficits; Z86.59 Personal history of other mental and behavioral disorders; Z86.39 Personal history of other endocrine, nutritional and metabolic disease
CPT/HCPCS: 71045; 93005; 94644; 96374; 99285; J2930; Z7610 ×5

== ENCOUNTER 2023-03-10 01:13 | Emergency (ER) | payer OTHER ==
[~2023-03-10] VITALS: Ht 172.7 cm; Wt 118.0 kg
[~2023-03-10 01:13] MED LIST changes: +ALBU6.7H15 INH
[2023-03-10] MEDS ORDERED: ALBUTEROL (0.083%) 2.5MG/3ML NEB HHN STA (01:18)
[2023-03-10] MEDS ORDERED: METHYLPREDNISOLONE SOD SUCC 125MG/2ML (ACT-O-VIAL) IV STA (01:18)
[2023-03-10] MEDS ORDERED: IPRATROPIUM BROMIDE (0.02%) 0.5MG/2.5ML NEB HHN STA (01:18)
[2023-03-10 01:57] VITALS: PULSE 79; RESP 11; O2SAT 99
[2023-03-10 02:54] LABS: BASOPHILS % 0.7 % (0.0-2.0); EOSINOPHILS % 4.1 % (0.0-5.0); HEMATOCRIT. 41.7 % (36.0-48.0); HEMOGLOBIN. 14.1 g/dL (12.0-16.0); LYMPHOCYTES % 45.8 % (20.0-50.0); MEAN CORPUSCULAR HEMOGLOBIN 32.5 pg (28.0-32.0); MEAN CORPUSCULAR HGB CONC 33.7 g/dL (31.0-37.0); MEAN CORPUSCULAR VOLUME 96.4 fL (81.0-99.0); MONOCYTES % 6.8 % (2.0-8.0); NEUTROPHILS % 42.6 % (40.0-76.0); RED BLOOD CELL COUNT 4.33 mill/uL (4.2-5.4); RED CELL DISTRIBUTION WIDTH 13.2 % (11.6-14.6); WHITE BLOOD COUNT 7.3 x1000/uL (4.5-11.0)
[2023-03-10 03:01] LABS: CHLORIDE 106 mEq/L (98-107); INDEX HEMOLYSI 4 (1-3); INDEX ICTERIC 1 (1-4); INDEX LIPEMIC 1 (1-3); SODIUM 142 mEq/L (136-145)
[2023-03-10 03:20] LABS: ALANINE AMINOTRANSFERASE 40 IU/L (13-61); ALBUMIN 3.6 g/dL (3.4-5.0); ASPARTATE AMINOTRANSFERASE 31 IU/L (15-37); BILIRUBIN TOTAL 0.3 mg/dL (0.1-1.0); CALCIUM 8.6 mg/dL (8.5-10.1); CARBON DIOXIDE 31 mEq/L (21-32); CREATININE 0.7 mg/dL (0.6-1.3); ETHANOL BLOOD < 10 mg/dL (<10); GLUCOSE 122 mg/dL (70-105); NT PRO B-TYPE NATRIURETIC PEP 54 pg/mL (5-125); PROTEIN TOTAL 7.1 g/dL (6.0-8.3); TROPONIN I HIGH SENSITIVITY 15 ng/L (<54); UREA NITROGEN BLOOD 18 mg/dL (7-21)
[2023-03-10 03:26] LABS: DIFFERENTIAL COMMENT 1
[2023-03-10 03:59] LABS: POTASSIUM 3.7 mEq/L (3.5-5.1)
[2023-03-10 04:40] VITALS: TEMP 98.3
[2023-03-10] MEDS ORDERED: ALBU6.7H15 INH (05:09)
[2023-03-10] MEDS ORDERED: P20 MT (05:09)
[2023-03-10 05:18] VITALS: BP 142/90; PULSE 77; RESP 12
== END 2023-03-10 05:31 | disposition home or self-care (01) ==
LOC: ER 01:13
DX: J45.901 Unspecified asthma with (acute) exacerbation (principal); I10 Essential (primary) hypertension; E78.00 Pure hypercholesterolemia, unspecified; E11.9 Type 2 diabetes mellitus without complications; Z88.0 Allergy status to penicillin; Z88.6 Allergy status to analgesic agent; Z88.2 Allergy status to sulfonamides; Z88.5 Allergy status to narcotic agent; Z79.899 Other long term (current) drug therapy; Z86.73 Personal history of transient ischemic attack (TIA), and cerebral infarction without residual deficits; Z86.59 Personal history of other mental and behavioral disorders; Z86.39 Personal history of other endocrine, nutritional and metabolic disease
CPT/HCPCS: 80053; 80320; 83880; 83690; 85025; 84484; 36415; 71045; 94640; 93005; 96374; 99285; J2930; Z7610 ×6; G0480

== ENCOUNTER 2023-04-02 05:50 | Emergency (ER) | payer OTHER ==
[~2023-04-02] VITALS: Ht 172.7 cm; Wt 103.5 kg
[2023-04-02 06:18] VITALS: O2SAT 98
[2023-04-02 07:21] LABS: CLARITY URINE CLEAR (CLEAR); COLOR URINE YELLOW (YELLOW); GLUCOSE URINE NEGATIVE (NEGATIVE); KETONES URINE NEGATIVE (NEGATIVE); LEUKOCYTE ESTERASE URINE TRACE (NEGATIVE); NITRITE URINE NEGATIVE (NEGATIVE); OCCULT BLOOD URINE 2+ (NEGATIVE); PH URINE 7.5 (4.5-8.0); PROTEIN URINE NEGATIVE (NEGATIVE); SPECIFIC GRAVITY URINE 1.012 (1.005-1.030); UROBILINOGEN URINE 0.2 E.U./dL (0.2-1.0)
[2023-04-02 07:53] LABS: SQUAMOUS EPITHELIAL CELL URINE 1+ /lpf (RARE/1+)
[2023-04-02 07:54] LABS: BACTERIA URINE TRACE; RBC URINE 0-2 /hpf (0-2); WBC URINE 0-2 /hpf (0-2)
[2023-04-02] MEDS ORDERED: LIDO700A15 TP (08:40)
[2023-04-02 09:05] VITALS: BP 167/100; PULSE 66; RESP 18; TEMP 97.7
== END 2023-04-02 09:09 | disposition home or self-care (01) ==
LOC: ER 05:50
DX: M54.50 Low back pain, unspecified (principal); J44.9 Chronic obstructive pulmonary disease, unspecified; R56.9 Unspecified convulsions; Z79.899 Other long term (current) drug therapy
CPT/HCPCS: 81003; 99283

== ENCOUNTER 2023-04-03 23:36 | Emergency (ER) | payer OTHER ==
[~2023-04-03] VITALS: Ht 175.3 cm; Wt 105.0 kg
[2023-04-03 23:44] VITALS: BP 156/86
[2023-04-04] MEDS ORDERED: ALBUTEROL (0.083%) 2.5MG/3ML NEB HHN STA (00:56)
[2023-04-04] MEDS ORDERED: IPRATROPIUM BROMIDE (0.02%) 0.5MG/2.5ML NEB HHN STA (00:56)
[2023-04-04] MEDS ORDERED: PREDNISONE 20MG TABLET PO STA (00:56)
[2023-04-04] MEDS ORDERED: P20 MT (02:08)
[2023-04-04] MEDS ORDERED: PREDNISONE 20MG TABLET PO NR (02:30)
[2023-04-04] MEDS ORDERED: ALBUTEROL (0.083%) 2.5MG/3ML NEB HHN NR (02:30)
[2023-04-04] MEDS ORDERED: IPRATROPIUM BROMIDE (0.02%) 0.5MG/2.5ML NEB HHN NR (02:30)
[2023-04-04 02:33] VITALS: PULSE 74; RESP 20; O2SAT 97
[2023-04-04] MEDS ORDERED: PHEN1CAP86 MT (02:58)
[2023-04-04 03:16] VITALS: PULSE 74; RESP 20; TEMP 98.4
== END 2023-04-04 03:18 | disposition home or self-care (01) ==
LOC: ER 23:53
DX: J45.901 Unspecified asthma with (acute) exacerbation (principal); J06.9 Acute upper respiratory infection, unspecified; F11.90 Opioid use, unspecified, uncomplicated; Z88.0 Allergy status to penicillin; Z88.2 Allergy status to sulfonamides; Z88.6 Allergy status to analgesic agent; Z88.8 Allergy status to other drugs, medicaments and biological substances; Z88.5 Allergy status to narcotic agent; Z79.899 Other long term (current) drug therapy
CPT/HCPCS: 94640; 99284; 87804 ×2; 71045; 87426; Z7610 ×3; J7512; C9803

== ENCOUNTER 2023-04-23 20:39 | Emergency (ER) | payer OTHER ==
[~2023-04-23] VITALS: Ht 160 cm; Wt 77.0 kg
[~2023-04-23 20:39] MED LIST changes: +PHEN1CAP86 MT
[2023-04-23 21:34] VITALS: TEMP 98.2
[2023-04-23] MEDS ORDERED: IPRATROPIUM BROMIDE (0.02%) 0.5MG/2.5ML NEB HHN STA (21:45)
[2023-04-23] MEDS ORDERED: METHYLPREDNISOLONE SOD SUCC 125MG/2ML (ACT-O-VIAL) IV STA (21:45)
[2023-04-23] MEDS ORDERED: ALBUTEROL (0.083%) 2.5MG/3ML NEB HHN STA (21:45)
[2023-04-23] MEDS ORDERED: DEXAMETHASONE 4MG/ML 1ML VIAL IV ONE (22:00)
[2023-04-23 22:22] LABS: EOSINOPHILS % 4.4 % (0.0-5.0); HEMATOCRIT. 39.3 % (36.0-48.0); HEMOGLOBIN. 13.3 g/dL (12.0-16.0); LYMPHOCYTES % 47.1 % (20.0-50.0); MEAN CORPUSCULAR HEMOGLOBIN 33.2 pg (28.0-32.0); MEAN CORPUSCULAR HGB CONC 33.8 g/dL (31.0-37.0); MEAN CORPUSCULAR VOLUME 98.4 fL (81.0-99.0); MEAN PLATELET VOLUME 7.2 fl (7.4-10.4); MONOCYTES % 10.4 % (2.0-8.0); NEUTROPHILS % 37.1 % (40.0-76.0); PLATELET 196 x1000/uL (130-400); RED CELL DISTRIBUTION WIDTH 13.5 % (11.6-14.6); WHITE BLOOD COUNT 5.6 x1000/uL (4.5-11.0)
[2023-04-23 22:48] LABS: ALANINE AMINOTRANSFERASE 30 IU/L (10-49); ALBUMIN 3.9 g/dL (3.2-4.8); ASPARTATE AMINOTRANSFERASE 24 IU/L (<34); BILIRUBIN TOTAL 0.2 mg/dL (0.1-1.0); CALCIUM 8.9 mg/dL (8.7-10.4); CARBON DIOXIDE 32 mEq/L (21-32); CHLORIDE 108 mEq/L (98-107); CREATININE 0.7 mg/dL (0.6-1.0); GLUCOSE 88 mg/dL (70-105); POTASSIUM 3.5 mEq/L (3.5-5.1); PROTEIN TOTAL 5.8 g/dL (6.0-8.3); SODIUM 145 mEq/L (136-145); TROPONIN I HIGH SENSITIVITY 11 ng/L (3.0-34); UREA NITROGEN BLOOD 10 mg/dL (9-23)
[2023-04-24] MEDS ORDERED: ALBUTEROL (0.083%) 2.5MG/3ML NEB HHN NR (01:15)
[2023-04-24] MEDS ORDERED: DEXAMETHASONE 4MG/ML 1ML VIAL IV NR (01:15)
[2023-04-24] MEDS: IPRATROPIUM BROMIDE (0.02%) 0.5MG/2.5ML NEB HHN NR ×2 (01:16→01:17)
[2023-04-24 01:21] VITALS: PULSE 67; RESP 16; O2SAT 100
[2023-04-24] MEDS ORDERED: P20 MT (01:46)
[2023-04-24 02:11] VITALS: BP 155/77; PULSE 86; RESP 12
== END 2023-04-24 02:20 | disposition home or self-care (01) ==
LOC: ER 20:39
DX: R06.02 Shortness of breath (principal); R05.9 Cough, unspecified; J44.9 Chronic obstructive pulmonary disease, unspecified; Z79.899 Other long term (current) drug therapy
CPT/HCPCS: 80053; 85025; 84484; 36415; 71045; 94644; 96374; 99285; J2930; Z7610 ×6

== ENCOUNTER 2023-07-02 09:03 | Emergency (ER) | payer MEDICAID, OTHER ==
[~2023-07-02] VITALS: Ht 172.7 cm; Wt 108.0 kg
[2023-07-02 09:19] VITALS: O2SAT 97
[2023-07-02] MEDS ORDERED: ACETAMINOPHEN 325MG TABLET PO STA (14:10)
[2023-07-02 15:45] VITALS: BP 170/103; PULSE 73; RESP 17; TEMP 97.7
== END 2023-07-02 15:53 | disposition home or self-care (01) ==
LOC: ER 09:04
DX: S80.02XA Contusion of left knee, initial encounter (principal); J44.9 Chronic obstructive pulmonary disease, unspecified; E11.9 Type 2 diabetes mellitus without complications; I10 Essential (primary) hypertension; F11.90 Opioid use, unspecified, uncomplicated; Z88.0 Allergy status to penicillin; Z88.2 Allergy status to sulfonamides; Z88.6 Allergy status to analgesic agent; Z88.5 Allergy status to narcotic agent; Z88.8 Allergy status to other drugs, medicaments and biological substances; Z79.899 Other long term (current) drug therapy; X58.XXXA Exposure to other specified factors, initial encounter; Y93.89 Activity, other specified; Y92.89 Other specified places as the place of occurrence of the external cause; Y99.8 Other external cause status
CPT/HCPCS: 73562; 81025; 99283

== ENCOUNTER 2023-07-05 08:59 | Emergency (ER) | payer OTHER ==
[~2023-07-05] VITALS: Ht 172.7 cm; Wt 109.0 kg
[2023-07-05 09:03] VITALS: O2SAT 98
[2023-07-05] MEDS ORDERED: KETOROLAC 30MG/ML VIAL IV STA (09:03)
[2023-07-05] MEDS ORDERED: MORPHINE SULFATE 4 MG/ML CPJ (NOT FOR IM USE) IV ONE (09:15)
[2023-07-05 09:34] LABS: BASOPHILS % 0.5 % (0.0-2.0); EOSINOPHILS % 4.2 % (0.0-5.0); HEMATOCRIT. 44.6 % (36.0-48.0); HEMOGLOBIN. 15.1 g/dL (12.0-16.0); LYMPHOCYTES % 48.2 % (20.0-50.0); MEAN CORPUSCULAR HEMOGLOBIN 32.8 pg (28.0-32.0); MEAN CORPUSCULAR HGB CONC 33.8 g/dL (31.0-37.0); MEAN CORPUSCULAR VOLUME 97.2 fL (81.0-99.0); MEAN PLATELET VOLUME 7.1 fl (7.4-10.4); MONOCYTES % 8.1 % (2.0-8.0); PLATELET 242 x1000/uL (130-400); RED BLOOD CELL COUNT 4.59 mill/uL (4.2-5.4); RED CELL DISTRIBUTION WIDTH 12.9 % (11.6-14.6); WHITE BLOOD COUNT 4.1 x1000/uL (4.5-11.0)
[2023-07-05 09:42] LABS: PROTHROMBIN TIME 10.6 sec (9.6-11.0)
[2023-07-05 09:47] LABS: HCG SCREEN NEGATIVE
[2023-07-05 09:51] LABS: ALANINE AMINOTRANSFERASE 28 IU/L (10-49); ALBUMIN 4.5 g/dL (3.2-4.8); ASPARTATE AMINOTRANSFERASE 27 IU/L (<34); BILIRUBIN TOTAL 0.4 mg/dL (0.1-1.0); CARBON DIOXIDE 30 mEq/L (21-32); CHLORIDE 104 mEq/L (98-107); CREATININE 0.7 mg/dL (0.6-1.0); GLUCOSE 108 mg/dL (70-105); PROTEIN TOTAL 7.4 g/dL (6.0-8.3); SODIUM 141 mEq/L (136-145); UREA NITROGEN BLOOD 15 mg/dL (9-23)
[2023-07-05 10:03] LABS: POTASSIUM 2.8 mEq/L (3.5-5.1)
[2023-07-05 10:17] LABS: CLARITY URINE CLOUDY (CLEAR); COLOR URINE YELLOW (YELLOW); GLUCOSE URINE TRACE (NEGATIVE); KETONES URINE NEGATIVE (NEGATIVE); LEUKOCYTE ESTERASE URINE NEGATIVE (NEGATIVE); NITRITE URINE NEGATIVE (NEGATIVE); OCCULT BLOOD URINE TRACE (NEGATIVE); PROTEIN URINE NEGATIVE (NEGATIVE); UROBILINOGEN URINE 0.2 E.U./dL (0.2-1.0)
[2023-07-05 11:02] LABS: SQUAMOUS EPITHELIAL CELL URINE 1+ /lpf (RARE/1+)
[2023-07-05 11:03] LABS: AMORPHOUS SEDIMENT URINE 3+ /lpf; BACTERIA URINE 1+; WBC URINE NONE SEEN /hpf (0-2)
[2023-07-05 11:19] VITALS: BP 188/92; PULSE 78; RESP 17
[2023-07-05] MEDS ORDERED: TOPUD PO (11:36)
== END 2023-07-05 11:46 | disposition home or self-care (01) ==
LOC: ER 08:59 → CANBEDREQ 11:35 → ER 11:46
DX: R10.31 Right lower quadrant pain (principal); E87.6 Hypokalemia; I10 Essential (primary) hypertension; E11.9 Type 2 diabetes mellitus without complications; J45.909 Unspecified asthma, uncomplicated; Z88.0 Allergy status to penicillin; Z88.2 Allergy status to sulfonamides; Z88.6 Allergy status to analgesic agent; Z88.5 Allergy status to narcotic agent; Z79.899 Other long term (current) drug therapy; Z86.59 Personal history of other mental and behavioral disorders
CPT/HCPCS: 99283; 96374; 80053; 81003; 84703; 83690; 85025; 85610; 36415; J2270

== ENCOUNTER 2023-07-06 09:22 | Emergency (ER) | payer OTHER ==
[~2023-07-06] VITALS: Ht 172.7 cm; Wt 107.7 kg
[2023-07-06 09:26] VITALS: TEMP 98.3; O2SAT 97
[2023-07-06 10:51] LABS: BASOPHILS % 0.5 % (0.0-2.0); EOSINOPHILS % 1.6 % (0.0-5.0); HEMATOCRIT. 43.7 % (36.0-48.0); HEMOGLOBIN. 14.8 g/dL (12.0-16.0); LYMPHOCYTES % 22.3 % (20.0-50.0); MEAN CORPUSCULAR HEMOGLOBIN 32.7 pg (28.0-32.0); MEAN CORPUSCULAR HGB CONC 33.9 g/dL (31.0-37.0); MEAN CORPUSCULAR VOLUME 96.5 fL (81.0-99.0); MEAN PLATELET VOLUME 8.4 fl (7.4-10.4); MONOCYTES % 6.5 % (2.0-8.0); NEUTROPHILS % 69.1 % (40.0-76.0); PLATELET 166 x1000/uL (130-400); RED BLOOD CELL COUNT 4.53 mill/uL (4.2-5.4); RED CELL DISTRIBUTION WIDTH 12.8 % (11.6-14.6); WHITE BLOOD COUNT 7.1 x1000/uL (4.5-11.0)
[2023-07-06 11:03] LABS: PROTHROMBIN TIME 10.5 sec (9.6-11.0)
[2023-07-06 11:13] LABS: CLARITY URINE CLEAR (CLEAR); COLOR URINE YELLOW (YELLOW); PROTEIN URINE NEGATIVE (NEGATIVE); SPECIFIC GRAVITY URINE 1.013 (1.005-1.030)
[2023-07-06 11:14] LABS: GLUCOSE URINE NEGATIVE (NEGATIVE); KETONES URINE NEGATIVE (NEGATIVE); LEUKOCYTE ESTERASE URINE TRACE (NEGATIVE); NITRITE URINE NEGATIVE (NEGATIVE); OCCULT BLOOD URINE 2+ (NEGATIVE); UROBILINOGEN URINE 0.2 E.U./dL (0.2-1.0)
[2023-07-06 11:40] LABS: SQUAMOUS EPITHELIAL CELL URINE FEW /lpf (RARE/1+)
[2023-07-06 11:41] LABS: BACTERIA URINE NONE SEEN; RBC URINE 0-2 /hpf (0-2); WBC URINE 0-2 /hpf (0-2); YEAST URINE NONE SEEN
[2023-07-06 12:16] LABS: ALANINE AMINOTRANSFERASE 28 IU/L (10-49); ALBUMIN 4.5 g/dL (3.2-4.8); ASPARTATE AMINOTRANSFERASE 26 IU/L (<34); BILIRUBIN TOTAL 0.4 mg/dL (0.1-1.0); CALCIUM 9.2 mg/dL (8.7-10.4); CARBON DIOXIDE 28 mEq/L (21-32); CHLORIDE 104 mEq/L (98-107); CREATININE 0.7 mg/dL (0.6-1.0); GLUCOSE 120 mg/dL (70-105); POTASSIUM 3.1 mEq/L (3.5-5.1); PROTEIN TOTAL 6.7 g/dL (6.0-8.3); SODIUM 140 mEq/L (136-145); UREA NITROGEN BLOOD 13 mg/dL (9-23)
[2023-07-06 12:28] LABS: ETHANOL BLOOD < 10 mg/dL (<10)
[2023-07-06 12:41] VITALS: BP 161/108; PULSE 86; RESP 18
[2023-07-06] MEDS: KETOROLAC 60MG/2ML VIAL IM ONE (12:41)
[2023-07-06] MEDS: SODIUM CHLORIDE 0.9% 1,000 ML IV ONE (12:41)
[2023-07-06] MEDS: IOHEXOL-300 100 ML BOTTLE ONE (15:35)
== END 2023-07-06 16:31 | disposition home or self-care (01) ==
LOC: ER 09:22 → EDBEDREQ 12:11 → ER 16:31
DX: K52.9 Noninfective gastroenteritis and colitis, unspecified (principal); E11.9 Type 2 diabetes mellitus without complications; I10 Essential (primary) hypertension; Z86.73 Personal history of transient ischemic attack (TIA), and cerebral infarction without residual deficits; Z88.0 Allergy status to penicillin; Z88.6 Allergy status to analgesic agent; Z88.2 Allergy status to sulfonamides; Z88.5 Allergy status to narcotic agent; Z79.899 Other long term (current) drug therapy; Z86.59 Personal history of other mental and behavioral disorders
CPT/HCPCS: 80053; 81003; 80320; 83605; 83690; 85025; 85610; 86850; 86900; 86901; 36415; 74177; 93005; 96360; 96372; 99285; Q9967; J1885; J7030; Z7610 ×3; G0480

== ENCOUNTER 2023-07-21 11:02 | Inpatient (IN) | payer OTHER ==
[~2023-07-21] VITALS: Ht 172.7 cm; Wt 105.7 kg
[2023-07-21] MEDS ORDERED: ALBUTEROL (0.083%) 2.5MG/3ML NEB HHN STA (11:48)
[2023-07-21] MEDS ORDERED: IPRATROPIUM BROMIDE (0.02%) 0.5MG/2.5ML NEB HHN STA (11:48)
[2023-07-21] MEDS: METHYLPREDNISOLONE SOD SUCC 125MG/2ML (ACT-O-VIAL) IV STA (12:08)
[2023-07-21 12:17] LABS: HEMATOCRIT. 42.9 % (36.0-48.0); HEMOGLOBIN. 14.7 g/dL (12.0-16.0); MEAN CORPUSCULAR HGB CONC 34.2 g/dL (31.0-37.0); MEAN CORPUSCULAR VOLUME 96.3 fL (81.0-99.0); MEAN PLATELET VOLUME 7.1 fl (7.4-10.4); PLATELET 162 x1000/uL (130-400); RED BLOOD CELL COUNT 4.45 mill/uL (4.2-5.4); RED CELL DISTRIBUTION WIDTH 12.8 % (11.6-14.6); WHITE BLOOD COUNT 5.2 x1000/uL (4.5-11.0)
[2023-07-21 12:31] LABS: DIFFERENTIAL COMMENT 1
[2023-07-21 12:37] LABS: ALANINE AMINOTRANSFERASE 33 IU/L (10-49); ALBUMIN 4.3 g/dL (3.2-4.8); ASPARTATE AMINOTRANSFERASE 34 IU/L (<34); BILIRUBIN TOTAL 0.3 mg/dL (0.1-1.0); CALCIUM 8.8 mg/dL (8.7-10.4); CARBON DIOXIDE 28 mEq/L (21-32); CHLORIDE 103 mEq/L (98-107); CREATININE 0.8 mg/dL (0.6-1.0); GLUCOSE 109 mg/dL (70-105); SODIUM 139 mEq/L (136-145); TROPONIN I HIGH SENSITIVITY 13 ng/L (3.0-34); UREA NITROGEN BLOOD 11 mg/dL (9-23)
[2023-07-21 12:44] LABS: POTASSIUM 2.6 mEq/L (3.5-5.1)
[2023-07-21 12:58] LABS: PLATELET ESTIMATE NORMAL
[2023-07-21] MEDS: POTASSIUM CHLORIDE 20MEQ/PACKET PO ONE (13:12)
[2023-07-21 13:40] VITALS: PULSE 104; RESP 22
[2023-07-21] MEDS: IPRATROPIUM BROMIDE (0.02%) 0.5MG/2.5ML NEB HHN NR (13:40)
[2023-07-21] MEDS: ALBUTEROL (0.083%) 2.5MG/3ML NEB HHN NR (13:41)
[2023-07-21] MEDS: ACETAMINOPHEN 325MG TABLET PO ONE (14:20)
[2023-07-21 23:40] VITALS: BP 165/105; PULSE 100; RESP 17; TEMP 100.1
[2023-07-22] VITALS (9 sets, daily range): BP systolic 129–165; BP diastolic 84–105; PULSE 80–103; RESP 18–28; TEMP 98.6–100.1; O2SAT 94–98
[2023-07-22] MEDS: ALBUTEROL (0.083%) 2.5MG/3ML NEB HHN PRN (00:37)
[2023-07-22] MEDS ORDERED: LORAZEPAM 1MG TABLET PO PRN (01:45)
[2023-07-22] MEDS: LOSARTAN 50 MG TABLET PO SCH (02:36)
[2023-07-22] MEDS: HYDROCODONE/ACETAMINOPHEN 5/325MG TABLET PO PRN (02:37)
[2023-07-22] MEDS: IPRATROPIUM/ALBUTEROL 0.5-3(2.5)MG/3ML NEB HHN PRN (05:49)
[2023-07-22 07:37] LABS: HEMOGLOBIN. 14.1 g/dL (12.0-16.0); MEAN CORPUSCULAR HEMOGLOBIN 33.3 pg (28.0-32.0); MEAN CORPUSCULAR HGB CONC 35.3 g/dL (31.0-37.0); MEAN CORPUSCULAR VOLUME 94.6 fL (81.0-99.0); MEAN PLATELET VOLUME 7.5 fl (7.4-10.4); PLATELET 161 x1000/uL (130-400); RED BLOOD CELL COUNT 4.22 mill/uL (4.2-5.4); RED CELL DISTRIBUTION WIDTH 12.8 % (11.6-14.6)
[2023-07-22 08:05] LABS: DIFFERENTIAL COMMENT 1
[2023-07-22] MEDS: LEVETIRACETAM 500MG TABLET PO SCH (08:21)
[2023-07-22] MEDS: LAMOTRIGINE 25MG TABLET PO SCH (08:22)
[2023-07-22] MEDS: BENZONATATE 200MG CAPSULE PO SCH (08:22)
[2023-07-22] MEDS: FAMOTIDINE 20MG TABLET PO SCH (08:22)
[2023-07-22 08:31] LABS: ALANINE AMINOTRANSFERASE 33 IU/L (10-49); ALBUMIN 4.2 g/dL (3.2-4.8); ASPARTATE AMINOTRANSFERASE 33 IU/L (<34); BILIRUBIN TOTAL 0.2 mg/dL (0.1-1.0); CALCIUM 8.7 mg/dL (8.7-10.4); CARBON DIOXIDE 30 mEq/L (21-32); CHLORIDE 103 mEq/L (98-107); CREATININE 0.8 mg/dL (0.6-1.0); GLUCOSE 106 mg/dL (70-105); PROTEIN TOTAL 6.6 g/dL (6.0-8.3); SODIUM 140 mEq/L (136-145); UREA NITROGEN BLOOD 14 mg/dL (9-23)
[2023-07-22 08:48] LABS: POTASSIUM 2.6 mEq/L (3.5-5.1)
[2023-07-22] MEDS ORDERED: BENZONATATE 100MG CAPSULE PO SCH (09:00)
[2023-07-22] MEDS ORDERED: NALOXONE HCL 0.4MG/ML VIAL IV PRN (10:00)
[2023-07-22] MEDS ORDERED: MELO-106 PO (10:07)
[2023-07-22] MEDS ORDERED: CHOL-36 PO (10:07)
[2023-07-22] MEDS ORDERED: ACET-283 PO (10:07)
[2023-07-22] MEDS ORDERED: LAMO25TA9 PO (10:07)
[2023-07-22] MEDS ORDERED: ATOR20TA65 PO (10:07)
[2023-07-22] MEDS ORDERED: LEVE500T19 PO (10:07)
[2023-07-22] MEDS ORDERED: HYDR-4009 PO (10:07)
[2023-07-22] MEDS ORDERED: FAMO20TA8 PO (10:07)
[2023-07-22] MEDS ORDERED: CETI10TA6 PO (10:09)
[2023-07-22 11:17] LABS: PLATELET ESTIMATE NORMAL
[2023-07-22] MEDS ORDERED: P20 MT (12:15)
[2023-07-22] MEDS ORDERED: AZIT250T12 MT (12:15)
[2023-07-22] MEDS: POTASSIUM CHLORIDE 20MEQ TABLET SR PO NR ×2 (13:44→16:11)
[2023-07-22] MEDS ORDERED: ATORVASTATIN CALCIUM 40MG TABLET PO SCH (21:00)
== END 2023-07-22 17:45 | disposition home or self-care (01) | DRG 425 ==
LOC: ER 11:02 → EDBEDREQ 19:10 → EDBEDREQTM 19:10 → 3WST 23:44
PROVIDERS: ADMIT Internal Medicine; ATTEND Internal Medicine
DX: E87.6 Hypokalemia (principal); E05.90 Thyrotoxicosis, unspecified without thyrotoxic crisis or storm; I10 Essential (primary) hypertension; E11.9 Type 2 diabetes mellitus without complications; E66.9 Obesity, unspecified; J44.9 Chronic obstructive pulmonary disease, unspecified; G40.909 Epilepsy, unspecified, not intractable, without status epilepticus; K21.9 Gastro-esophageal reflux disease without esophagitis; Z88.0 Allergy status to penicillin; Z88.2 Allergy status to sulfonamides; Z88.6 Allergy status to analgesic agent; Z88.8 Allergy status to other drugs, medicaments and biological substances; Z79.899 Other long term (current) drug therapy; Z68.35 Body mass index [BMI] 35.0-35.9, adult
CPT/HCPCS: 36415; 71045; 80053; 82962; 83735; 83880; 84484; 85025; 93005; 94640; 99285; J2930

== ENCOUNTER 2023-07-28 09:08 | Emergency (ER) | payer OTHER ==
[~2023-07-28] VITALS: Ht 172.7 cm; Wt 109.0 kg
[~2023-07-28 09:08] MED LIST changes: -ACET-2708 MT; -ACET-2708 PO; +ACET-283 PO; -ALBU18HF2 IH; -ALBU6.7H3 INH; -ATOR10TA PO; +ATOR20TA65 PO; +AZIT250T12 MT; -BENZ-16 MT; -CETI10TA6 MT; +CETI10TA6 PO; +CHOL-36 PO; -CLIN-194 MT; -DIAZ10TA4 MT; -FAMO-135 MT; +FAMO20TA8 PO; -FAMO40TA70 MT; -FLONAS NS; -HYDR-4001 MT; -LAM25 PO; +LAMO25TA9 PO; -LEVE1000 PO; +LEVE500T19 PO; -LEVO750T68 MT; -MED4 MT; +MELO-106 PO; -METO5TAB86 MT; -MORP15TA67 MT; -NITR-87 MT; -P50 MT; -P50 PO; -PANT40TA51 MT; -TOPUD MT; -TOPUD PO
[2023-07-28 09:10] VITALS: TEMP 97.6; O2SAT 100
[2023-07-28] MEDS: METHYLPREDNISOLONE SOD SUCC 125MG/2ML (ACT-O-VIAL) IV STA (09:49)
[2023-07-28] MEDS: IPRATROPIUM BROMIDE (0.02%) 0.5MG/2.5ML NEB HHN STA (09:59)
[2023-07-28] MEDS: ALBUTEROL (0.083%) 2.5MG/3ML NEB HHN STA (10:00)
[2023-07-28] MEDS: LEVOFLOXACIN 750MG PREMIX 150 ML IV ONE (10:00)
[2023-07-28] MEDS: MAGNESIUM 2 G PREMIX 50 ML IV ONE (10:00)
[2023-07-28 10:38] LABS: BASOPHILS % 0.4 % (0.0-2.0); EOSINOPHILS % 1.8 % (0.0-5.0); HEMATOCRIT. 42.8 % (36.0-48.0); HEMOGLOBIN. 14.3 g/dL (12.0-16.0); LYMPHOCYTES % 58.4 % (20.0-50.0); MEAN CORPUSCULAR HEMOGLOBIN 32.4 pg (28.0-32.0); MEAN CORPUSCULAR HGB CONC 33.5 g/dL (31.0-37.0); MEAN CORPUSCULAR VOLUME 96.6 fL (81.0-99.0); MEAN PLATELET VOLUME 7.4 fl (7.4-10.4); MONOCYTES % 7.5 % (2.0-8.0); NEUTROPHILS % 31.9 % (40.0-76.0); PLATELET 196 x1000/uL (130-400); RED BLOOD CELL COUNT 4.43 mill/uL (4.2-5.4); RED CELL DISTRIBUTION WIDTH 12.5 % (11.6-14.6)
[2023-07-28 10:46] LABS: ALANINE AMINOTRANSFERASE 46 IU/L (10-49); ALBUMIN 4.2 g/dL (3.2-4.8); ASPARTATE AMINOTRANSFERASE 40 IU/L (<34); BILIRUBIN TOTAL 0.4 mg/dL (0.1-1.0); CALCIUM 8.6 mg/dL (8.7-10.4); CARBON DIOXIDE 27 mEq/L (21-32); CHLORIDE 106 mEq/L (98-107); CREATININE 0.8 mg/dL (0.6-1.0); GLUCOSE 85 mg/dL (70-105); POTASSIUM 3.7 mEq/L (3.5-5.1); SODIUM 140 mEq/L (136-145); UREA NITROGEN BLOOD 13 mg/dL (9-23)
[2023-07-28 11:13] LABS: INR 0.9; PROTHROMBIN TIME 10.4 sec (9.6-11.0)
[2023-07-28 11:26] VITALS: RESP 16
[2023-07-28 14:25] VITALS: BP 147/89; PULSE 92; RESP 16
== END 2023-07-28 15:08 | disposition short-term general hospital (02) ==
LOC: ER 09:08 → CANBEDREQ 15:25
DX: J44.1 Chronic obstructive pulmonary disease with (acute) exacerbation (principal); I10 Essential (primary) hypertension; E11.9 Type 2 diabetes mellitus without complications; Z20.822 Contact with and (suspected) exposure to COVID-19; Z88.0 Allergy status to penicillin; Z88.6 Allergy status to analgesic agent; Z88.2 Allergy status to sulfonamides; Z88.5 Allergy status to narcotic agent; Z79.899 Other long term (current) drug therapy; Z86.59 Personal history of other mental and behavioral disorders; Z86.39 Personal history of other endocrine, nutritional and metabolic disease; Z98.890 Other specified postprocedural states
CPT/HCPCS: 80053; 83880; 85025; 85610; 87804 ×2; 36415; 71045; 94660; 93005; 94644; 96368; 96365; 96366; 96375; 99291; 87426; J3475; J2930; Z7610 ×2; J1956

== ENCOUNTER 2023-09-05 08:39 | Emergency (ER) | payer OTHER ==
[~2023-09-05] VITALS: Ht 172.7 cm; Wt 108.9 kg
[2023-09-05 09:02] VITALS: O2SAT 98
[2023-09-05 10:03] LABS: CLARITY URINE CLEAR (CLEAR); COLOR URINE YELLOW (YELLOW); GLUCOSE URINE NEGATIVE (NEGATIVE); KETONES URINE NEGATIVE (NEGATIVE); LEUKOCYTE ESTERASE URINE TRACE (NEGATIVE); NITRITE URINE NEGATIVE (NEGATIVE); OCCULT BLOOD URINE TRACE (NEGATIVE); PROTEIN URINE NEGATIVE (NEGATIVE); SPECIFIC GRAVITY URINE 1.016 (1.005-1.030); UROBILINOGEN URINE 0.2 E.U./dL (0.2-1.0)
[2023-09-05 10:10] LABS: BASOPHILS % 0.6 % (0.0-2.0); DIFFERENTIAL COMMENT 0; EOSINOPHILS % 1.2 % (0.0-5.0); HEMATOCRIT. 42.6 % (36.0-48.0); HEMOGLOBIN. 14.6 g/dL (12.0-16.0); LYMPHOCYTES % 26.3 % (20.0-50.0); MEAN CORPUSCULAR HEMOGLOBIN 33.3 pg (28.0-32.0); MEAN CORPUSCULAR HGB CONC 34.3 g/dL (31.0-37.0); MEAN CORPUSCULAR VOLUME 97.2 fL (81.0-99.0); MEAN PLATELET VOLUME 7.5 fl (7.4-10.4); MONOCYTES % 8.5 % (2.0-8.0); NEUTROPHILS % 63.4 % (40.0-76.0); PLATELET 237 x1000/uL (130-400); RED BLOOD CELL COUNT 4.39 mill/uL (4.2-5.4); RED CELL DISTRIBUTION WIDTH 13.2 % (11.6-14.6); WHITE BLOOD COUNT 7.7 x1000/uL (4.5-11.0)
[2023-09-05 10:27] LABS: SQUAMOUS EPITHELIAL CELL URINE 1+ /lpf (RARE/1+)
[2023-09-05 10:28] LABS: BACTERIA URINE TRACE
[2023-09-05 10:29] LABS: WBC URINE 0-2 /hpf (0-2)
[2023-09-05 10:30] LABS: RBC URINE NONE SEEN /hpf (0-2)
[2023-09-05 10:40] LABS: ALANINE AMINOTRANSFERASE 28 IU/L (10-49); ALBUMIN 4.6 g/dL (3.2-4.8); ASPARTATE AMINOTRANSFERASE 21 IU/L (<34); BILIRUBIN TOTAL 0.4 mg/dL (0.1-1.0); CALCIUM 9.1 mg/dL (8.7-10.4); CARBON DIOXIDE 31 mEq/L (21-32); CHLORIDE 106 mEq/L (98-107); CREATININE 0.9 mg/dL (0.6-1.0); GLUCOSE 91 mg/dL (70-105); POTASSIUM 3.8 mEq/L (3.5-5.1); PROTEIN TOTAL 7.3 g/dL (6.0-8.3); SODIUM 142 mEq/L (136-145); UREA NITROGEN BLOOD 17 mg/dL (9-23)
[2023-09-05] MEDS: ACETAMINOPHEN 325MG TABLET PO STA (13:55)
[2023-09-05] MEDS ORDERED: DICYCLOMINE 10 MG/5 ML ORAL SYR PO STA (13:55)
[2023-09-05] MEDS: MAGNESIUM/ALUMINUM HYDROXIDE/SIMETHICONE 30ML UDC PO STA (13:55)
[2023-09-05] MEDS: DICYCLOMINE HCL 10MG CAPSULE PO NR (14:15)
[2023-09-05 14:39] VITALS: BP 155/80; PULSE 68; RESP 18; TEMP 98.2
== END 2023-09-05 14:52 | disposition home or self-care (01) ==
LOC: ER 10:53
DX: K42.9 Umbilical hernia without obstruction or gangrene (principal); J44.9 Chronic obstructive pulmonary disease, unspecified; E11.9 Type 2 diabetes mellitus without complications; K21.9 Gastro-esophageal reflux disease without esophagitis; I10 Essential (primary) hypertension; E05.90 Thyrotoxicosis, unspecified without thyrotoxic crisis or storm; Z98.890 Other specified postprocedural states; Z88.0 Allergy status to penicillin; Z88.2 Allergy status to sulfonamides; Z88.5 Allergy status to narcotic agent; Z88.6 Allergy status to analgesic agent; Z88.8 Allergy status to other drugs, medicaments and biological substances
CPT/HCPCS: 36415; 74176; 80053; 81003; 85025; 99284

== ENCOUNTER 2023-12-28 12:32 | Emergency (ER) | payer OTHER ==
[~2023-12-28] VITALS: Ht 172.7 cm; Wt 110.0 kg
[2023-12-28 12:38] VITALS: O2SAT 99
[2023-12-28 13:17] LABS: BASOPHILS % 0.7 % (0.0-2.0); EOSINOPHILS % 4.3 % (0.0-5.0); HEMATOCRIT. 41.6 % (36.0-48.0); HEMOGLOBIN. 13.9 g/dL (12.0-16.0); LYMPHOCYTES % 32.5 % (20.0-50.0); MEAN CORPUSCULAR HEMOGLOBIN 32.6 pg (28.0-32.0); MEAN CORPUSCULAR HGB CONC 33.4 g/dL (31.0-37.0); MEAN CORPUSCULAR VOLUME 97.5 fL (81.0-99.0); MONOCYTES % 8.1 % (2.0-8.0); NEUTROPHILS % 54.4 % (40.0-76.0); PLATELET 234 x1000/uL (130-400); RED BLOOD CELL COUNT 4.27 mill/uL (4.2-5.4); RED CELL DISTRIBUTION WIDTH 12.4 % (11.6-14.6); WHITE BLOOD COUNT 4.9 x1000/uL (4.5-11.0)
[2023-12-28 13:27] LABS: CHLORIDE 107 mEq/L (98-107); POTASSIUM 3.2 mEq/L (3.5-5.1); SODIUM 143 mEq/L (136-145)
[2023-12-28 13:28] LABS: CALCIUM 8.8 mg/dL (8.7-10.4); CARBON DIOXIDE 29 mEq/L (21-32)
[2023-12-28 13:33] LABS: CREATININE 0.8 mg/dL (0.6-1.0); GLUCOSE 81 mg/dL (70-105); UREA NITROGEN BLOOD 9 mg/dL (9-23)
[2023-12-28 13:35] LABS: ALANINE AMINOTRANSFERASE 23 IU/L (10-49); ALBUMIN 4.3 g/dL (3.2-4.8); ASPARTATE AMINOTRANSFERASE 21 IU/L (<34); BILIRUBIN TOTAL 0.3 mg/dL (0.1-1.0); PROTEIN TOTAL 6.6 g/dL (6.0-8.3)
[2023-12-28 13:37] LABS: THYROID STIMULATING HORMONE 0.79 uIU/mL (0.55-4.78)
[2023-12-28 13:38] LABS: T4 FREE 0.92 ng/dL (0.89-1.76)
[2023-12-28 14:46] VITALS: BP 116/87; PULSE 86; RESP 18; TEMP 98.5
== END 2023-12-28 14:49 | disposition home or self-care (01) ==
LOC: ER 12:32
DX: E01.0 Iodine-deficiency related diffuse (endemic) goiter (principal); E11.9 Type 2 diabetes mellitus without complications; I10 Essential (primary) hypertension; Z88.0 Allergy status to penicillin; Z88.6 Allergy status to analgesic agent; Z88.2 Allergy status to sulfonamides; Z88.5 Allergy status to narcotic agent; Z79.899 Other long term (current) drug therapy; Z86.59 Personal history of other mental and behavioral disorders; Z86.39 Personal history of other endocrine, nutritional and metabolic disease
CPT/HCPCS: 36415; 80053; 84439; 84443; 85025; 99283

== ENCOUNTER 2024-01-08 14:11 | Emergency (ER) | payer OTHER ==
[~2024-01-08] VITALS: Ht 177.8 cm; Wt 104.0 kg
[2024-01-08 14:13] VITALS: BP 182/106; PULSE 84; RESP 20; TEMP 98.2; O2SAT 96
[2024-01-08] MEDS: LIDOCAINE 5% PATCH TOP SCH (14:45)
[2024-01-08] MEDS: HYDROCODONE/ACETAMINOPHEN 5/325MG TABLET PO ONE (15:32)
[2024-01-08] MEDS ORDERED: NAPR-1176 MT (15:35)
[2024-01-08] MEDS ORDERED: LIDO700A15 TP (15:35)
== END 2024-01-08 15:57 | disposition home or self-care (01) ==
LOC: ER 15:10
DX: G89.29 Other chronic pain (principal); M54.50 Low back pain, unspecified; M54.6 Pain in thoracic spine; M54.2 Cervicalgia; J44.9 Chronic obstructive pulmonary disease, unspecified; K21.9 Gastro-esophageal reflux disease without esophagitis; I10 Essential (primary) hypertension; E05.90 Thyrotoxicosis, unspecified without thyrotoxic crisis or storm; Z79.899 Other long term (current) drug therapy; Z88.0 Allergy status to penicillin; Z88.2 Allergy status to sulfonamides
CPT/HCPCS: 99283

== ENCOUNTER 2024-01-23 08:21 | Emergency (ER) | payer OTHER ==
[~2024-01-23] VITALS: Ht 180.3 cm; Wt 82.0 kg
[~2024-01-23 08:21] MED LIST changes: +NAPR-1176 MT
[2024-01-23] MEDS: PREDNISONE 20MG TABLET PO SCH (08:54)
[2024-01-23 08:57] LABS: BASOPHILS % 0.5 % (0.0-2.0); EOSINOPHILS % 0.4 % (0.0-5.0); HEMATOCRIT. 44.3 % (36.0-48.0); HEMOGLOBIN. 14.7 g/dL (12.0-16.0); LYMPHOCYTES % 31.8 % (20.0-50.0); MEAN CORPUSCULAR HEMOGLOBIN 32.7 pg (28.0-32.0); MEAN CORPUSCULAR HGB CONC 33.2 g/dL (31.0-37.0); MEAN CORPUSCULAR VOLUME 98.2 fL (81.0-99.0); MEAN PLATELET VOLUME 7.4 fl (7.4-10.4); MONOCYTES % 7.1 % (2.0-8.0); NEUTROPHILS % 60.2 % (40.0-76.0); PLATELET 223 x1000/uL (130-400); RED BLOOD CELL COUNT 4.51 mill/uL (4.2-5.4); RED CELL DISTRIBUTION WIDTH 13.2 % (11.6-14.6); WHITE BLOOD COUNT 9.3 x1000/uL (4.5-11.0)
[2024-01-23 09:03] LABS: CHLORIDE 108 mEq/L (98-107); POTASSIUM 2.9 mEq/L (3.5-5.1); SODIUM 141 mEq/L (136-145)
[2024-01-23 09:04] LABS: CARBON DIOXIDE 28 mEq/L (21-32)
[2024-01-23 09:05] LABS: CALCIUM 9.6 mg/dL (8.7-10.4)
[2024-01-23 09:09] LABS: CREATININE 0.8 mg/dL (0.6-1.0); GLUCOSE 105 mg/dL (70-105)
[2024-01-23 09:10] LABS: TROPONIN I HIGH SENSITIVITY 14 ng/L (3.0-34); UREA NITROGEN BLOOD 13 mg/dL (9-23)
[2024-01-23 09:11] LABS: ALANINE AMINOTRANSFERASE 25 IU/L (10-49); ALBUMIN 4.7 g/dL (3.2-4.8); ASPARTATE AMINOTRANSFERASE 20 IU/L (<34); BILIRUBIN DIRECT 0.2 mg/dL (<=3.0)
[2024-01-23 09:12] LABS: BILIRUBIN TOTAL 0.5 mg/dL (0.1-1.0); PROTEIN TOTAL 7.2 g/dL (6.0-8.3)
[2024-01-23 09:30] VITALS: PULSE 76; RESP 20; O2SAT 98
[2024-01-23] MEDS: IPRATROPIUM BROMIDE (0.02%) 0.5MG/2.5ML NEB HHN SCH (09:58)
[2024-01-23] MEDS: ALBUTEROL (0.083%) 2.5MG/3ML NEB HHN SCH (09:59)
[2024-01-23 10:08] LABS: TROPONIN I HIGH SENSITIVITY 14 ng/L (3.0-34)
[2024-01-23] MEDS: POTASSIUM CHLORIDE 20MEQ/PACKET PO NR (10:22)
[2024-01-23] MEDS ORDERED: P20 MT (12:35)
[2024-01-23 12:44] VITALS: BP 151/98; PULSE 77; RESP 19; TEMP 36.72516; O2SAT 99
== END 2024-01-23 12:47 | disposition home or self-care (01) ==
LOC: ER 08:21
DX: J45.901 Unspecified asthma with (acute) exacerbation (principal); J44.1 Chronic obstructive pulmonary disease with (acute) exacerbation; I10 Essential (primary) hypertension; Z88.0 Allergy status to penicillin; Z88.6 Allergy status to analgesic agent; Z88.2 Allergy status to sulfonamides; Z88.5 Allergy status to narcotic agent; Z79.899 Other long term (current) drug therapy
CPT/HCPCS: 80076; 80048; 83880; 83690; 85025; 84484; 36415; 71045; 94640; 93005; 99291; J7512; Z7610 ×3

== ENCOUNTER 2024-03-07 10:11 | Emergency (ER) | payer OTHER ==
[~2024-03-07] VITALS: Ht 172.7 cm; Wt 109.0 kg
[2024-03-07 10:13] VITALS: O2SAT 100
[2024-03-07] MEDS: LIDOCAINE 5% PATCH TOP SCH (10:39)
[2024-03-07] MEDS: ACETAMINOPHEN 500MG TABLET PO ONE (10:39)
[2024-03-07] MEDS: CYCLOBENZAPRINE 10MG TABLET PO ONE (10:48)
[2024-03-07] MEDS ORDERED: CYCL5TAB MT (10:57)
[2024-03-07 11:05] VITALS: BP 168/101; PULSE 71; RESP 17; TEMP 36.83628; O2SAT 97
== END 2024-03-07 11:11 | disposition home or self-care (01) ==
LOC: ER 10:11
DX: G89.29 Other chronic pain (principal); M54.50 Low back pain, unspecified; I10 Essential (primary) hypertension; Z88.6 Allergy status to analgesic agent; Z88.2 Allergy status to sulfonamides; Z88.5 Allergy status to narcotic agent; Z79.899 Other long term (current) drug therapy; Z88.0 Allergy status to penicillin; Z86.59 Personal history of other mental and behavioral disorders
CPT/HCPCS: 99283; Z7610

== ENCOUNTER 2024-04-08 19:41 | Emergency (ER) | payer MEDICAID, OTHER ==
[~2024-04-08] VITALS: Ht 172.7 cm; Wt 109.0 kg
[~2024-04-08 19:41] MED LIST changes: +CYCL5TAB MT
[2024-04-08 20:51] VITALS: O2SAT 98
[2024-04-08] MEDS ORDERED: HYDR-4001 MT (21:42)
[2024-04-08] MEDS: HYDROCODONE/ACETAMINOPHEN 5/325MG TABLET PO ONE (22:09)
[2024-04-08 22:29] VITALS: BP 131/72; PULSE 74; RESP 16; TEMP 36.78072; O2SAT 98
== END 2024-04-08 22:31 | disposition home or self-care (01) ==
LOC: ER 19:41
DX: S80.02XA Contusion of left knee, initial encounter (principal); I10 Essential (primary) hypertension; E03.9 Hypothyroidism, unspecified; G43.909 Migraine, unspecified, not intractable, without status migrainosus; Z88.0 Allergy status to penicillin; Z88.2 Allergy status to sulfonamides; Z88.5 Allergy status to narcotic agent; Z88.6 Allergy status to analgesic agent; Z79.899 Other long term (current) drug therapy; W01.0XXA Fall on same level from slipping, tripping and stumbling without subsequent striking against object, initial encounter; Y93.89 Activity, other specified; Y92.89 Other specified places as the place of occurrence of the external cause; Y99.8 Other external cause status
CPT/HCPCS: 73562; 73700; 99284

== ENCOUNTER 2024-05-26 08:48 | Emergency (ER) | payer MEDICAID, OTHER ==
[~2024-05-26] VITALS: Ht 170.2 cm; Wt 70.0 kg
[~2024-05-26 08:48] MED LIST changes: -CYCL5TAB MT; +CYCL5TAB3 MT; +HYDR-4001 MT
[2024-05-26] MEDS ORDERED: DEXAMETHASONE 2MG TABLET PO ONE (09:00)
[2024-05-26 09:05] VITALS: PULSE 86; RESP 20; O2SAT 98
[2024-05-26] MEDS: IPRATROPIUM/ALBUTEROL 0.5-3(2.5)MG/3ML NEB HHN STA (09:05)
[2024-05-26 09:19] LABS: BG BASE EXCESS 2.8 mmol/L (-2.0-3.0); BG CARBOXYHEMOGLOBIN 0.1 % (0.5-1.5); BG DEOXYHEMOGLOBIN 0.8 % (0.0-5.0); BG FRACTION INSPIRED OXYGEN 60; BG HCO3 ACT 28.2 mmol/L (21.0-28.0); BG OXYGEN SATURATION 99.2 % (94.0-98.0); BG OXYHEMOGLOBIN 99.1 % (94.0-98.0); BG PCO2 45.8 mmHg (32.0-45.0); BG PH 7.407 (7.350-7.450); BG PO2 171.4 mmHg (83.0-108.0); BG SAMPLE SITE LEFT RADIAL; BG TOTAL HEMOGLOBIN 15.4 g/dL (12.0-16.0); BG VENT MODE MASK - HHN
[2024-05-26] MEDS: DEXAMETHASONE 4MG TABLET PO NR (09:51)
[2024-05-26 11:19] LABS: BASOPHILS % 0.8 % (0.0-2.0); EOSINOPHILS % 1.9 % (0.0-5.0); HEMATOCRIT. 42.7 % (36.0-48.0); HEMOGLOBIN. 14.3 g/dL (12.0-16.0); LYMPHOCYTES % 30.4 % (20.0-50.0); MEAN CORPUSCULAR HEMOGLOBIN 32.3 pg (28.0-32.0); MEAN CORPUSCULAR HGB CONC 33.4 g/dL (31.0-37.0); MEAN CORPUSCULAR VOLUME 96.7 fL (81.0-99.0); MEAN PLATELET VOLUME 7.1 fl (7.4-10.4); MONOCYTES % 10.6 % (2.0-8.0); NEUTROPHILS % 56.3 % (40.0-76.0); PLATELET 220 x1000/uL (130-400); RED BLOOD CELL COUNT 4.42 mill/uL (4.2-5.4); RED CELL DISTRIBUTION WIDTH 12.6 % (11.6-14.6); WHITE BLOOD COUNT 4.2 x1000/uL (4.5-11.0)
[2024-05-26 11:22] LABS: CHLORIDE 108 mEq/L (98-107); SODIUM 145 mEq/L (136-145)
[2024-05-26 11:23] LABS: CALCIUM 9.2 mg/dL (8.7-10.4); CARBON DIOXIDE 29 mEq/L (21-32)
[2024-05-26 11:28] LABS: CREATININE 0.8 mg/dL (0.6-1.0); GLUCOSE 113 mg/dL (70-105); UREA NITROGEN BLOOD 11 mg/dL (9-23)
[2024-05-26 11:29] LABS: TROPONIN I HIGH SENSITIVITY 23 ng/L (3.0-34)
[2024-05-26 11:34] LABS: POTASSIUM 2.7 mEq/L (3.5-5.1)
[2024-05-26] MEDS: POTASSIUM CHLORIDE 20MEQ/PACKET PO NR (12:05)
[2024-05-26 13:51] LABS: CHLORIDE 109 mEq/L (98-107); POTASSIUM 3.3 mEq/L (3.5-5.1); SODIUM 143 mEq/L (136-145)
[2024-05-26 13:52] LABS: CALCIUM 9.1 mg/dL (8.7-10.4); CARBON DIOXIDE 27 mEq/L (21-32)
[2024-05-26 13:57] LABS: CREATININE 0.9 mg/dL (0.6-1.0); GLUCOSE 191 mg/dL (70-105); UREA NITROGEN BLOOD 11 mg/dL (9-23)
[2024-05-26 14:31] VITALS: BP 168/99; PULSE 86; RESP 18; O2SAT 98
== END 2024-05-26 14:32 | disposition home or self-care (01) ==
LOC: ER 09:01
DX: R06.02 Shortness of breath (principal); I10 Essential (primary) hypertension; G40.909 Epilepsy, unspecified, not intractable, without status epilepticus; J44.9 Chronic obstructive pulmonary disease, unspecified; M19.90 Unspecified osteoarthritis, unspecified site; Z79.02 Long term (current) use of antithrombotics/antiplatelets; Z79.1 Long term (current) use of non-steroidal anti-inflammatories (NSAID); Z79.899 Other long term (current) drug therapy; Z88.0 Allergy status to penicillin; Z88.2 Allergy status to sulfonamides; Z88.5 Allergy status to narcotic agent; Z88.6 Allergy status to analgesic agent
CPT/HCPCS: 80048; 83880; 85025; 84484; 36415; 71045; 94640; 82805; 82375; 94070; 99285; 36600; J8540; Z7610 ×4

== ENCOUNTER 2024-06-28 10:31 | Emergency (ER) | payer OTHER ==
[~2024-06-28] VITALS: Ht 172.7 cm; Wt 108.0 kg
[2024-06-28 10:35] VITALS: O2SAT 98
[2024-06-28 10:46] VITALS: TEMP 98.3; O2SAT 99
[2024-06-28 12:45] LABS: BASOPHILS % 0.9 % (0.0-2.0); EOSINOPHILS % 3.3 % (0.0-5.0); HEMATOCRIT. 43.7 % (36.0-48.0); HEMOGLOBIN. 14.8 g/dL (12.0-16.0); LYMPHOCYTES % 38.3 % (20.0-50.0); MEAN CORPUSCULAR HGB CONC 33.8 g/dL (31.0-37.0); MEAN CORPUSCULAR VOLUME 97.7 fL (81.0-99.0); MEAN PLATELET VOLUME 7.1 fl (7.4-10.4); MONOCYTES % 7.4 % (2.0-8.0); NEUTROPHILS % 50.1 % (40.0-76.0); PLATELET 244 x1000/uL (130-400); RED BLOOD CELL COUNT 4.47 mill/uL (4.2-5.4); RED CELL DISTRIBUTION WIDTH 13.5 % (11.6-14.6); WHITE BLOOD COUNT 4.4 x1000/uL (4.5-11.0)
[2024-06-28 12:58] LABS: CHLORIDE 108 mEq/L (98-107); POTASSIUM 3.6 mEq/L (3.5-5.1); SODIUM 143 mEq/L (136-145)
[2024-06-28 12:59] LABS: CARBON DIOXIDE 31 mEq/L (21-32)
[2024-06-28 13:00] LABS: CALCIUM 9.3 mg/dL (8.7-10.4)
[2024-06-28 13:05] LABS: CREATININE 0.8 mg/dL (0.6-1.0); GLUCOSE 96 mg/dL (70-105); UREA NITROGEN BLOOD 13 mg/dL (9-23)
[2024-06-28] MEDS ORDERED: KETO10TA2 MT (13:28)
[2024-06-28 13:43] VITALS: BP 191/120; PULSE 86; RESP 16
[2024-06-28] MEDS: KETOROLAC 30MG/ML VIAL IM ONE (13:43)
== END 2024-06-28 13:44 | disposition home or self-care (01) ==
LOC: ER 10:31
DX: M54.50 Low back pain, unspecified (principal); E11.9 Type 2 diabetes mellitus without complications; I10 Essential (primary) hypertension; J44.9 Chronic obstructive pulmonary disease, unspecified; Z88.6 Allergy status to analgesic agent; Z88.5 Allergy status to narcotic agent; Z88.0 Allergy status to penicillin; Z88.2 Allergy status to sulfonamides; Z79.899 Other long term (current) drug therapy; Z86.39 Personal history of other endocrine, nutritional and metabolic disease; Z86.59 Personal history of other mental and behavioral disorders
CPT/HCPCS: 99283; 80048; 85025; 36415; 96372; J1885

== ENCOUNTER 2024-07-10 08:50 | Emergency (ER) | payer OTHER ==
[~2024-07-10] VITALS: Ht 165.1 cm; Wt 70.0 kg
[~2024-07-10 08:50] MED LIST changes: +KETO10TA2 MT
[2024-07-10] MEDS: METHYLPREDNISOLONE SOD SUCC 125MG/2ML (ACT-O-VIAL) IV NR (09:40)
[2024-07-10 09:58] VITALS: PULSE 87; RESP 20; O2SAT 98
[2024-07-10] MEDS: ALBUTEROL (0.083%) 2.5MG/3ML NEB HHN SCH (09:58)
[2024-07-10] MEDS: IPRATROPIUM BROMIDE (0.02%) 0.5MG/2.5ML NEB HHN NR (09:58)
[2024-07-10] MEDS ORDERED: HYDRALAZINE 20MG/ML VIAL IV SCH (10:00)
[2024-07-10 10:14] LABS: BASOPHILS % 0.7 % (0.0-2.0); EOSINOPHILS % 2.8 % (0.0-5.0); HEMATOCRIT. 42.9 % (36.0-48.0); HEMOGLOBIN. 14.4 g/dL (12.0-16.0); LYMPHOCYTES % 33.5 % (20.0-50.0); MEAN CORPUSCULAR HEMOGLOBIN 32.6 pg (28.0-32.0); MEAN CORPUSCULAR HGB CONC 33.7 g/dL (31.0-37.0); MEAN CORPUSCULAR VOLUME 96.8 fL (81.0-99.0); MEAN PLATELET VOLUME 7.2 fl (7.4-10.4); PLATELET 188 x1000/uL (130-400); RED BLOOD CELL COUNT 4.43 mill/uL (4.2-5.4); RED CELL DISTRIBUTION WIDTH 13.3 % (11.6-14.6)
[2024-07-10 10:23] LABS: LACTIC ACID 2.3 mmol/L (0.4-2.0)
[2024-07-10 10:27] LABS: CHLORIDE 107 mEq/L (98-107); SODIUM 144 mEq/L (136-145)
[2024-07-10 10:28] LABS: CARBON DIOXIDE 29 mEq/L (21-32)
[2024-07-10 10:29] VITALS: PULSE 76; RESP 20; O2SAT 100
[2024-07-10 10:29] LABS: CALCIUM 9.2 mg/dL (8.7-10.4)
[2024-07-10 10:33] LABS: CREATININE 0.9 mg/dL (0.6-1.0); GLUCOSE 105 mg/dL (70-105); TROPONIN I HIGH SENSITIVITY 27 ng/L (3.0-34); UREA NITROGEN BLOOD 11 mg/dL (9-23)
[2024-07-10 10:49] VITALS: PULSE 85; RESP 20; O2SAT 100
[2024-07-10 11:02] LABS: POTASSIUM 2.5 mEq/L (3.5-5.1)
[2024-07-10] MEDS: POTASSIUM CHLORIDE 20MEQ/PACKET PO NR (11:15)
[2024-07-10 12:21] VITALS: BP 162/90; PULSE 78; RESP 20; TEMP 36.6; O2SAT 100
[2024-07-10] MEDS: HYDRALAZINE 20MG/ML VIAL IV NR (12:28)
[2024-07-10] MEDS ORDERED: ACETAMINOPHEN 325MG TABLET PO PRN (13:30)
[2024-07-10] MEDS ORDERED: ONDANSETRON HCL 4MG/2ML INJ IV PRN (13:30)
[2024-07-10] MEDS: POTASSIUM CHLORIDE 20MEQ TABLET SR PO NR (14:17)
[2024-07-10] MEDS: AMLODIPINE 5MG TABLET PO NR (14:17)
[2024-07-10] MEDS: METHYLPREDNISOLONE SOD SUCC 40MG/ML (ACT-O-VIAL) IV SCH (14:17)
[2024-07-10 14:43] LABS: CARBON DIOXIDE 28 mEq/L (21-32); CHLORIDE 108 mEq/L (98-107); POTASSIUM 3.1 mEq/L (3.5-5.1); SODIUM 144 mEq/L (136-145)
[2024-07-10 14:44] LABS: CALCIUM 9.5 mg/dL (8.7-10.4)
[2024-07-10 14:48] LABS: CREATININE 0.8 mg/dL (0.6-1.0)
[2024-07-10 14:49] LABS: GLUCOSE 139 mg/dL (70-105); UREA NITROGEN BLOOD 10 mg/dL (9-23)
[2024-07-10] MEDS ORDERED: IPRATROPIUM/ALBUTEROL 0.5-3(2.5)MG/3ML NEB HHN SCH (18:00)
[2024-07-10] MEDS ORDERED: LEVETIRACETAM 500MG TABLET PO SCH (21:00)
[2024-07-11] MEDS ORDERED: AMLODIPINE 10MG TABLET PO SCH (09:00)
[2024-07-11] MEDS ORDERED: CLOPIDOGREL 75MG TABLET PO SCH (09:00)
== END 2024-07-10 14:26 | disposition admitted as inpatient to this hospital (09) ==
LOC: ER 08:50 → EDBEDREQTM 12:39 → EDBEDREQ 12:39 → CANBEDREQ 12:44 → ER 14:26
DX: R06.02 Shortness of breath (principal); E11.9 Type 2 diabetes mellitus without complications; E78.5 Hyperlipidemia, unspecified; E87.6 Hypokalemia; I10 Essential (primary) hypertension; I69.354 Hemiplegia and hemiparesis following cerebral infarction affecting left non-dominant side; J44.1 Chronic obstructive pulmonary disease with (acute) exacerbation; M19.90 Unspecified osteoarthritis, unspecified site; Z79.02 Long term (current) use of antithrombotics/antiplatelets; Z79.1 Long term (current) use of non-steroidal anti-inflammatories (NSAID); Z79.52 Long term (current) use of systemic steroids; Z79.899 Other long term (current) drug therapy; Z88.0 Allergy status to penicillin; Z88.2 Allergy status to sulfonamides; Z88.5 Allergy status to narcotic agent; Z88.6 Allergy status to analgesic agent
CPT/HCPCS: 80048; 83880; 83605; 85025; 84484; 36415; 71045; 94640; 94664; 93005; 94070; 98960; 96374; 96375; 96376; 99291; J0360; J2920; J2919; Z7610; A4663; A4606

== ENCOUNTER 2024-11-13 02:30 | Emergency (ER) | payer OTHER ==
[~2024-11-13] VITALS: Ht 172.7 cm; Wt 109.0 kg
[~2024-11-13 02:30] MED LIST changes: +LAMO-21 PO; -LAMO25TA9 PO; +LIDO-53 TP; -LIDO700A15 TP
[2024-11-13 02:34] VITALS: O2SAT 99
[2024-11-13 03:04] LABS: BASOPHILS % 0.9 % (0.0-2.0); EOSINOPHILS % 3.6 % (0.0-5.0); HEMATOCRIT. 40.5 % (36.0-48.0); HEMOGLOBIN. 13.7 g/dL (12.0-16.0); LYMPHOCYTES % 41.6 % (20.0-50.0); MEAN CORPUSCULAR HEMOGLOBIN 31.8 pg (28.0-32.0); MEAN CORPUSCULAR HGB CONC 33.8 g/dL (31.0-37.0); MEAN CORPUSCULAR VOLUME 94.2 fL (81.0-99.0); MEAN PLATELET VOLUME 7.5 fl (7.4-10.4); MONOCYTES % 10.5 % (2.0-8.0); NEUTROPHILS % 43.4 % (40.0-76.0); PLATELET 219 x1000/uL (130-400); RED CELL DISTRIBUTION WIDTH 12.9 % (11.6-14.6); WHITE BLOOD COUNT 5.5 x1000/uL (4.5-11.0)
[2024-11-13 03:15] LABS: PROTHROMBIN TIME 10.5 sec (9.6-11.0)
[2024-11-13 03:18] LABS: CHLORIDE 107 mEq/L (98-107); SODIUM 145 mEq/L (136-145)
[2024-11-13 03:19] LABS: CARBON DIOXIDE 31 mEq/L (21-32)
[2024-11-13 03:24] LABS: GLUCOSE 89 mg/dL (70-105); UREA NITROGEN BLOOD 17 mg/dL (9-23)
[2024-11-13 03:26] LABS: ALANINE AMINOTRANSFERASE 19 IU/L (10-49); ALBUMIN 4.2 g/dL (3.2-4.8); ASPARTATE AMINOTRANSFERASE 19 IU/L (<34); BILIRUBIN DIRECT 0.1 mg/dL (<=3.0); BILIRUBIN TOTAL 0.3 mg/dL (0.1-1.0); PROTEIN TOTAL 6.4 g/dL (6.0-8.3)
[2024-11-13] MEDS: SODIUM CHLORIDE 0.9% 1,000 ML IV ONE (03:42)
[2024-11-13] MEDS: ACETAMINOPHEN 1000MG/100ML 100 ML IV ONE (03:42)
[2024-11-13 03:58] LABS: CLARITY URINE CLOUDY (CLEAR); COLOR URINE YELLOW (YELLOW); GLUCOSE URINE NEGATIVE (NEGATIVE); KETONES URINE NEGATIVE (NEGATIVE); LEUKOCYTE ESTERASE URINE 3+ (NEGATIVE); NITRITE URINE NEGATIVE (NEGATIVE); OCCULT BLOOD URINE 1+ (NEGATIVE); PH URINE 6.5 (4.5-8.0); PROTEIN URINE TRACE (NEGATIVE); SPECIFIC GRAVITY URINE 1.017 (1.005-1.030)
[2024-11-13 04:10] LABS: SQUAMOUS EPITHELIAL CELL URINE 3+ /lpf (RARE/1+); WBC URINE 25-50 /hpf (0-2)
[2024-11-13 04:11] LABS: BACTERIA URINE 2+; TRICHOMONAS URINE 1+
[2024-11-13 04:13] LABS: POTASSIUM 2.8 mEq/L (3.5-5.1)
[2024-11-13] MEDS ORDERED: CIPR-264 MT (04:29)
[2024-11-13] MEDS ORDERED: ACET-2708 MT (04:29)
[2024-11-13] MEDS: POTASSIUM CHLORIDE 20MEQ/PACKET PO ONE (04:42)
[2024-11-13 04:51] VITALS: BP 162/98; PULSE 69; RESP 15; TEMP 36.6; O2SAT 100
[2024-11-13] MEDS ORDERED: METR-167 MT (05:25)
== END 2024-11-13 04:58 | disposition home or self-care (01) ==
LOC: ER 02:30
DX: N39.0 Urinary tract infection, site not specified (principal); I10 Essential (primary) hypertension; E87.6 Hypokalemia; A59.9 Trichomoniasis, unspecified; E11.9 Type 2 diabetes mellitus without complications; J44.89 Other specified chronic obstructive pulmonary disease; Z00.00 Encounter for general adult medical examination without abnormal findings; Z91.041 Radiographic dye allergy status; Z88.8 Allergy status to other drugs, medicaments and biological substances; Z88.5 Allergy status to narcotic agent; Z88.2 Allergy status to sulfonamides; Z88.0 Allergy status to penicillin; Z88.6 Allergy status to analgesic agent; Z79.899 Other long term (current) drug therapy; Z86.59 Personal history of other mental and behavioral disorders; Z86.39 Personal history of other endocrine, nutritional and metabolic disease
CPT/HCPCS: 80076; 80048; 81003; 83690; 85025; 85610; 87086; 87077; 36415; 71045; 74176; 93005; 96365; 99285; J7030; Z7610; J0131

== ENCOUNTER 2024-12-21 05:55 | Emergency (ER) | payer OTHER ==
[~2024-12-21] VITALS: Ht 170.2 cm; Wt 109.0 kg
[~2024-12-21 05:55] MED LIST changes: +ACET-2708 MT; +CIPR-264 MT; +METR-167 MT
[2024-12-21 06:20] VITALS: TEMP 36.9
[2024-12-21] MEDS: PREDNISONE 20MG TABLET PO ONE (06:35)
[2024-12-21 08:04] VITALS: PULSE 75; RESP 16; O2SAT 99
[2024-12-21] MEDS: ALBUTEROL (0.083%) 2.5MG/3ML NEB HHN SCH (08:04)
[2024-12-21] MEDS: IPRATROPIUM BROMIDE (0.02%) 0.5MG/2.5ML NEB HHN SCH (08:04)
[2024-12-21] MEDS ORDERED: ALBU90AE INH (08:26)
[2024-12-21] MEDS ORDERED: P50 PO (08:26)
[2024-12-21 09:41] VITALS: BP 160/91; PULSE 81; RESP 13; O2SAT 100
== END 2024-12-21 09:49 | disposition home or self-care (01) ==
LOC: ER 06:26
DX: J45.901 Unspecified asthma with (acute) exacerbation (principal); E78.00 Pure hypercholesterolemia, unspecified; I10 Essential (primary) hypertension; Z88.8 Allergy status to other drugs, medicaments and biological substances; Z88.5 Allergy status to narcotic agent; Z88.6 Allergy status to analgesic agent; Z88.0 Allergy status to penicillin; Z88.2 Allergy status to sulfonamides; Z79.899 Other long term (current) drug therapy; Z86.59 Personal history of other mental and behavioral disorders
CPT/HCPCS: 71045; 93005; 94644; 99285; J7512; Z7610 ×2; 94070; 94640; 94664; 98960; A4606

== ENCOUNTER 2024-12-31 06:56 | Emergency (ER) | payer OTHER ==
[~2024-12-31] VITALS: Ht 172.7 cm; Wt 98.0 kg
[~2024-12-31 06:56] MED LIST changes: +ALBU90AE INH; +AMIT25TA21 MT; -AMIT25TA9 MT; +P50 PO
[2024-12-31 07:44] VITALS: PULSE 91; RESP 12; O2SAT 100
[2024-12-31] MEDS: ALBUTEROL (0.083%) 2.5MG/3ML NEB HHN SCH (07:44)
[2024-12-31] MEDS: IPRATROPIUM BROMIDE (0.02%) 0.5MG/2.5ML NEB HHN SCH (07:44)
[2024-12-31 08:05] VITALS: PULSE 90; RESP 12; O2SAT 100
[2024-12-31 08:26] VITALS: PULSE 90; RESP 14; O2SAT 100
[2024-12-31] MEDS: PREDNISONE 20MG TABLET PO ONE (08:36)
[2024-12-31 08:39] VITALS: BP 173/98; PULSE 90; RESP 15; TEMP 36.8; O2SAT 100
[2024-12-31] MEDS ORDERED: P50 MT (08:39)
== END 2024-12-31 08:52 | disposition home or self-care (01) ==
LOC: ER 06:56
DX: J44.1 Chronic obstructive pulmonary disease with (acute) exacerbation (principal); J45.901 Unspecified asthma with (acute) exacerbation; E11.9 Type 2 diabetes mellitus without complications; E78.00 Pure hypercholesterolemia, unspecified; I10 Essential (primary) hypertension; Z79.899 Other long term (current) drug therapy; Z88.0 Allergy status to penicillin; Z88.2 Allergy status to sulfonamides; Z88.5 Allergy status to narcotic agent; Z88.6 Allergy status to analgesic agent; Z88.8 Allergy status to other drugs, medicaments and biological substances
CPT/HCPCS: 71045; 94640; 93005; 99291; J7512; Z7610 ×3; 94070

== ENCOUNTER 2025-03-13 21:11 | Emergency (ER) | payer OTHER ==
[~2025-03-13] VITALS: Ht 172.7 cm; Wt 105.0 kg
[~2025-03-13 21:11] MED LIST changes: +P50 MT
[2025-03-13 21:24] VITALS: O2SAT 96
[2025-03-13] MEDS: HYDRALAZINE 20MG/ML VIAL IV ONE (22:24)
[2025-03-13 22:27] LABS: BASOPHILS % 0.7 % (0.0-2.0); EOSINOPHILS % 1.0 % (0.0-5.0); HEMATOCRIT. 44.7 % (36.0-48.0); HEMOGLOBIN. 15.1 g/dL (12.0-16.0); LYMPHOCYTES % 26.3 % (20.0-50.0); MEAN PLATELET VOLUME 7.5 fl (7.4-10.4); MONOCYTES % 8.4 % (2.0-8.0); NEUTROPHILS % 63.6 % (40.0-76.0); PLATELET 234 x1000/uL (130-400); RED BLOOD CELL COUNT 4.64 mill/uL (4.2-5.4); RED CELL DISTRIBUTION WIDTH 13.1 % (11.6-14.6)
[2025-03-13 22:30] LABS: CREATININE 1.0 mg/dL (0.6-1.0)
[2025-03-13 22:31] LABS: UREA NITROGEN BLOOD 15 mg/dL (9-23)
[2025-03-13 22:32] LABS: ASPARTATE AMINOTRANSFERASE 18 IU/L (<34); TROPONIN I HIGH SENSITIVITY 23 ng/L (3.0-34)
[2025-03-13 22:33] LABS: BILIRUBIN DIRECT 0.1 mg/dL (<=3.0); BILIRUBIN TOTAL 0.4 mg/dL (0.1-1.0); PROTEIN TOTAL 7.3 g/dL (6.0-8.3)
[2025-03-13 23:12] LABS: CLARITY URINE CLEAR (CLEAR); COLOR URINE YELLOW (YELLOW); GLUCOSE URINE TRACE (NEGATIVE); KETONES URINE NEGATIVE (NEGATIVE); LEUKOCYTE ESTERASE URINE 3+ (NEGATIVE); NITRITE URINE NEGATIVE (NEGATIVE); OCCULT BLOOD URINE 1+ (NEGATIVE); PH URINE 7.0 (4.5-8.0); PROTEIN URINE NEGATIVE (NEGATIVE); SPECIFIC GRAVITY URINE 1.011 (1.005-1.030); UROBILINOGEN URINE 0.2 E.U./dL (0.2-1.0)
[2025-03-13 23:40] LABS: *AMPHETAMINES SCREEN URINE NEGATIVE (NEGATIVE); *BARBITURATES SCREEN URINE NEGATIVE (NEGATIVE); *BENZODIAZEPINES SCREEN URINE NEGATIVE (NEGATIVE); *COCAINE SCREEN URINE NEGATIVE (NEGATIVE); METHADONE URINE SCREEN NEGATIVE (NEGATIVE)
[2025-03-13 23:41] LABS: CANNABINOID URINE SCREEN NEGATIVE (NEGATIVE); ECSTASY MDMA SCREEN URINE NEGATIVE (NEGATIVE); OPIATES URINE SCREEN NEGATIVE (NEGATIVE); PHENCYCLIDINE URINE SCREEN NEGATIVE (NEGATIVE)
[2025-03-13 23:48] LABS: SQUAMOUS EPITHELIAL CELL URINE FEW /lpf (RARE/1+)
[2025-03-13 23:50] LABS: RBC URINE 15-25 /hpf (0-2); WBC URINE 15-25 /hpf (0-2)
[2025-03-13 23:51] LABS: BACTERIA URINE 1+
[2025-03-14] MEDS: HYDRALAZINE 20MG/ML VIAL IV ONE (00:11)
[2025-03-14 00:38] VITALS: BP 162/101; PULSE 87; RESP 12; TEMP 37; O2SAT 95
== END 2025-03-14 00:38 | disposition left against medical advice (07) ==
LOC: ER 21:11 → CMPBEDREQ 03-14 07:18
DX: R07.9 Chest pain, unspecified (principal); I10 Essential (primary) hypertension; E11.9 Type 2 diabetes mellitus without complications; J44.89 Other specified chronic obstructive pulmonary disease; R06.02 Shortness of breath; Z79.899 Other long term (current) drug therapy; Z88.0 Allergy status to penicillin; Z88.2 Allergy status to sulfonamides; Z88.5 Allergy status to narcotic agent; Z88.6 Allergy status to analgesic agent; Z88.8 Allergy status to other drugs, medicaments and biological substances
CPT/HCPCS: 80076; 80305; 80048; 81003; 80320; 83880; 85025; 87086; 84484; 36415; 71045; 93005; 96374; 99285; 96376; J0360 ×2; Z7610 ×3; A4606; G0480

== ENCOUNTER 2025-05-12 17:35 | Inpatient (IN) | payer OTHER ==
[~2025-05-12] VITALS: Ht 170.2 cm; Wt 112.6 kg
[2025-05-12 18:03] LABS: CLARITY URINE CLOUDY (CLEAR); COLOR URINE YELLOW (YELLOW); GLUCOSE URINE NEGATIVE (NEGATIVE); KETONES URINE TRACE (NEGATIVE); LEUKOCYTE ESTERASE URINE 3+ (NEGATIVE); NITRITE URINE NEGATIVE (NEGATIVE); OCCULT BLOOD URINE 2+ (NEGATIVE); PH URINE 5.5 (4.5-8.0); PROTEIN URINE TRACE (NEGATIVE); SPECIFIC GRAVITY URINE 1.023 (1.005-1.030); UROBILINOGEN URINE 1.0 E.U./dL (0.2-1.0)
[2025-05-12 18:54] LABS: SQUAMOUS EPITHELIAL CELL URINE 3+ /lpf (RARE/1+); WBC URINE 50-100 /hpf (0-2)
[2025-05-12 18:55] LABS: BACTERIA URINE TRACE; MUCUS URINE TRACE /lpf (< = 2+); YEAST URINE 1+
[2025-05-12 21:20] LABS: BASOPHILS % 0.9 % (0.0-2.0); EOSINOPHILS % 3.8 % (0.0-5.0); HEMATOCRIT. 40.7 % (36.0-48.0); HEMOGLOBIN. 13.7 g/dL (12.0-16.0); LYMPHOCYTES % 38.0 % (20.0-50.0); MEAN PLATELET VOLUME 8.0 fl (7.4-10.4); MONOCYTES % 8.2 % (2.0-8.0); NEUTROPHILS % 49.1 % (40.0-76.0); PLATELET 224 x1000/uL (130-400); RED BLOOD CELL COUNT 4.28 mill/uL (4.2-5.4); RED CELL DISTRIBUTION WIDTH 12.8 % (11.6-14.6)
[2025-05-12 21:36] LABS: CREATININE 0.9 mg/dL (0.6-1.0); UREA NITROGEN BLOOD 10 mg/dL (9-23)
[2025-05-12 21:37] LABS: PROTEIN TOTAL 6.5 g/dL (6.0-8.3)
[2025-05-12 21:38] LABS: ASPARTATE AMINOTRANSFERASE 22 IU/L (<34); BILIRUBIN DIRECT 0.1 mg/dL (<=3.0); BILIRUBIN TOTAL 0.4 mg/dL (0.1-1.0)
[2025-05-12 22:00] LABS: TROPONIN I HIGH SENSITIVITY 35 ng/L (3.0-34)
[2025-05-12] MEDS: ACETAMINOPHEN 500MG TABLET PO ONE (22:47)
[2025-05-12] MEDS: LIDOCAINE 5% PATCH TOP SCH (22:48)
[2025-05-12] MEDS: KCL 20MEQ/100ML PREMIX 100 ML IV ONE (23:55)
[2025-05-13] MEDS: HYDRALAZINE 20MG/ML VIAL IV PRN (01:11)
[2025-05-13 02:32] VITALS: BP 165/97; PULSE 94; RESP 18; TEMP 36.2512
[2025-05-13] MEDS ORDERED: ACETAMINOPHEN 325MG TABLET PO PRN (02:45)
[2025-05-13] MEDS ORDERED: CLONIDINE 0.1MG TABLET PO PRN (02:45)
[2025-05-13] MEDS ORDERED: IPRATROPIUM/ALBUTEROL 0.5-3(2.5)MG/3ML NEB HHN PRN (02:45)
[2025-05-13] MEDS ORDERED: MAGNESIUM 1 G PREMIX 100 ML IV ONE (02:45)
[2025-05-13] MEDS ORDERED: ACETAMINOPHEN 1000MG/100ML 100 ML IV PRN (02:45)
[2025-05-13] MEDS ORDERED: GUAIFENESIN 200MG/10ML SUGAR FREE UDC PO PRN (02:45)
[2025-05-13] MEDS ORDERED: DOCUSATE SODIUM 100MG CAPSULE PO PRN (02:45)
[2025-05-13] MEDS ORDERED: ONDANSETRON HCL 4MG/2ML INJ IV PRN (02:45)
[2025-05-13] MEDS ORDERED: PANTOPRAZOLE 40MG DR TABLET PO SCH (03:00)
[2025-05-13] MEDS ORDERED: BUDESONIDE 0.5MG/2ML NEB HHN SCH ×2 (03:00→03:45)
[2025-05-13] MEDS ORDERED: FUROSEMIDE 20MG TABLET PO SCH ×2 (03:00→09:00)
[2025-05-13] MEDS ORDERED: AMLODIPINE 5MG TABLET PO SCH ×3 (03:00→09:00)
[2025-05-13 03:13] VITALS: BP 165/97; PULSE 94; RESP 18; TEMP 36.2; O2SAT 99
[2025-05-13] MEDS ORDERED: PHENYTOIN SODIUM EXTENDED 100MG CAPSULE PO SCH (03:15)
[2025-05-13] MEDS ORDERED: HYDROCODONE/ACETAMINOPHEN 5/325MG TABLET PO PRN (03:15)
[2025-05-13] MEDS ORDERED: LEVETIRACETAM 500MG TABLET PO SCH (03:15)
[2025-05-13] MEDS ORDERED: LORAZEPAM 2MG/ML UD SYRINGE IV PRN (03:30)
[2025-05-13] MEDS: POTASSIUM CHLORIDE 20MEQ TABLET SR PO NR (03:54)
[2025-05-13] MEDS: MAGNESIUM 1 G PREMIX 100 ML IV NR (03:56)
[2025-05-13] MEDS: LEVOFLOXACIN 750MG PREMIX 150 ML IV SCH (03:56)
[2025-05-13] MEDS: AMLODIPINE 5MG TABLET PO NR (03:57)
[2025-05-13] MEDS: SODIUM CHLORIDE 0.45% 1,000 ML IV SCH (03:58)
[2025-05-13] MEDS: FUROSEMIDE 20MG TABLET PO SCH (05:45)
[2025-05-13] MEDS: LOSARTAN 50 MG TABLET PO SCH (06:58)
[2025-05-13] MEDS: PANTOPRAZOLE 40MG DR TABLET PO SCH (06:58)
[2025-05-13] MEDS: LIDOCAINE 5% PATCH TOP SCH (06:59)
[2025-05-13 08:44] VITALS: BP 153/85; PULSE 77; RESP 18; TEMP 36.4; O2SAT 99
[2025-05-13] MEDS: PHENYTOIN SODIUM EXTENDED 100MG CAPSULE PO SCH (08:49)
[2025-05-13] MEDS: ENOXAPARIN 30MG/0.3ML SYR SUBCUT SCH (08:49)
[2025-05-13] MEDS: AMLODIPINE 5MG TABLET PO SCH (08:50)
[2025-05-13] MEDS: CLOPIDOGREL 75MG TABLET PO SCH (08:50)
[2025-05-13] MEDS: LEVETIRACETAM 500MG TABLET PO SCH (08:50)
[2025-05-13] MEDS ORDERED: LIDOCAINE 5% PATCH TOP SCH (09:00)
[2025-05-13 09:56] LABS: BASOPHILS % 0.6 % (0.0-2.0); EOSINOPHILS % 5.0 % (0.0-5.0); HEMATOCRIT. 47.0 % (36.0-48.0); HEMOGLOBIN. 15.7 g/dL (12.0-16.0); LYMPHOCYTES % 35.5 % (20.0-50.0); MONOCYTES % 9.0 % (2.0-8.0); NEUTROPHILS % 49.9 % (40.0-76.0); RED BLOOD CELL COUNT 4.90 mill/uL (4.2-5.4); RED CELL DISTRIBUTION WIDTH 13.0 % (11.6-14.6)
[2025-05-13 10:34] LABS: MEAN PLATELET VOLUME 9.7 fl (7.4-10.4); PLATELET 145 x1000/uL (130-400)
[2025-05-13 10:42] LABS: CREATININE 0.8 mg/dL (0.6-1.0); TRIGLYCERIDE 75 mg/dL (0-150); TROPONIN I HIGH SENSITIVITY 47 ng/L (3.0-34)
[2025-05-13 10:43] LABS: LDL CHOLESTEROL 59 mg/dL (5-100); UREA NITROGEN BLOOD 7 mg/dL (9-23)
[2025-05-13 10:55] VITALS: PULSE 70; RESP 18; O2SAT 95
[2025-05-13] MEDS: BUDESONIDE 0.5MG/2ML NEB HHN SCH (10:55)
[2025-05-13] MEDS: POTASSIUM CHLORIDE 20MEQ/PACKET PO NR (11:23)
[2025-05-13 12:00] VITALS: BP 145/75; PULSE 85; RESP 18; TEMP 36.3; O2SAT 100
[2025-05-13] MEDS ORDERED: NON FORMULARY MED XX SCH (12:30)
[2025-05-13] MEDS: ACETAMINOPHEN 325MG TABLET PO PRN (12:39)
[2025-05-13] MEDS ORDERED: FLUCONAZOLE 200MG/100ML PREMIX IV ONE (13:15)
[2025-05-13] MEDS ORDERED: LEVOFLOXACIN 500MG PREMIX 100 ML IV SCH (13:15)
[2025-05-13] MEDS ORDERED: FLUCONAZOLE 200 MG/100ML BAG 100 ML IV SCH (15:00)
[2025-05-13] MEDS ORDERED: AMITRIPTYLINE 25MG TABLET PO SCH (21:00)
[2025-05-13] MEDS ORDERED: LAMOTRIGINE 25MG TABLET PO SCH (21:00)
[2025-05-13] MEDS ORDERED: ATORVASTATIN CALCIUM 20MG TABLET PO SCH (21:00)
[2025-05-14] MEDS ORDERED: LEVOFLOXACIN 750MG PREMIX 150 ML IV SCH (06:00)
[2025-05-14] MEDS ORDERED: SUMATRIPTAN SUCCINATE 25MG TABLET PO SCH (09:00)
== END 2025-05-13 17:53 | disposition left against medical advice (07) | DRG 463 ==
LOC: ER 17:35 → EDBEDREQTM 23:32 → EDBEDREQ 23:32 → ENRESERV 23:36 → 8WST 05-13 00:05 → EDBEDREQDT 05-13 00:15 → EDBEDREQTM 05-13 00:15
PROVIDERS: ADMIT Internal Medicine; ATTEND Internal Medicine
DX: N12 Tubulo-interstitial nephritis, not specified as acute or chronic (principal); I21.4 Non-ST elevation (NSTEMI) myocardial infarction; K76.89 Other specified diseases of liver; Z79.02 Long term (current) use of antithrombotics/antiplatelets; E11.9 Type 2 diabetes mellitus without complications; E66.9 Obesity, unspecified; G40.909 Epilepsy, unspecified, not intractable, without status epilepticus; I10 Essential (primary) hypertension; J44.89 Other specified chronic obstructive pulmonary disease; E03.9 Hypothyroidism, unspecified; I69.354 Hemiplegia and hemiparesis following cerebral infarction affecting left non-dominant side; E05.90 Thyrotoxicosis, unspecified without thyrotoxic crisis or storm; E78.5 Hyperlipidemia, unspecified; E87.6 Hypokalemia; G43.909 Migraine, unspecified, not intractable, without status migrainosus; I89.0 Lymphedema, not elsewhere classified; M54.30 Sciatica, unspecified side; Z68.38 Body mass index [BMI] 38.0-38.9, adult; Z88.0 Allergy status to penicillin; Z88.2 Allergy status to sulfonamides; Z88.6 Allergy status to analgesic agent; Z87.442 Personal history of urinary calculi; Z79.899 Other long term (current) drug therapy; I25.10 Atherosclerotic heart disease of native coronary artery without angina pectoris; I49.3 Ventricular premature depolarization; Z53.29 Procedure and treatment not carried out because of patient's decision for other reasons
CPT/HCPCS: 36415; 74176; 80048; 80061; 80076; 81003; 83036; 83605; 83735; 84145; 84443; 84484; 85025; 87077; 93005; 94070; 94640; 94664; 99285; A4615; J0360; J1450; J1650; J1956; J3475; J3480; J7626

== ENCOUNTER 2025-05-27 06:03 | Inpatient (IN) | payer OTHER ==
[~2025-05-27] VITALS: Ht 172.7 cm; Wt 108.9 kg
[2025-05-27 06:05] VITALS: O2SAT 99
[2025-05-27 07:05] LABS: BASOPHILS % 0.7 % (0.0-2.0); EOSINOPHILS % 4.2 % (0.0-5.0); HEMATOCRIT. 42.0 % (36.0-48.0); HEMOGLOBIN. 14.3 g/dL (12.0-16.0); LYMPHOCYTES % 34.8 % (20.0-50.0); MEAN PLATELET VOLUME 8.0 fl (7.4-10.4); MONOCYTES % 9.4 % (2.0-8.0); NEUTROPHILS % 50.9 % (40.0-76.0); PLATELET 209 x1000/uL (130-400); RED BLOOD CELL COUNT 4.44 mill/uL (4.2-5.4); RED CELL DISTRIBUTION WIDTH 13.1 % (11.6-14.6)
[2025-05-27 07:18] LABS: CREATININE 1.0 mg/dL (0.6-1.0)
[2025-05-27 07:19] LABS: ETHANOL BLOOD < 10 mg/dL (<10); PROTEIN TOTAL 6.6 g/dL (6.0-8.3); UREA NITROGEN BLOOD 12 mg/dL (9-23)
[2025-05-27 07:20] LABS: ASPARTATE AMINOTRANSFERASE 21 IU/L (<34); BILIRUBIN DIRECT 0.1 mg/dL (<=3.0)
[2025-05-27 07:21] LABS: BILIRUBIN TOTAL 0.4 mg/dL (0.1-1.0)
[2025-05-27 07:26] LABS: INR 1.0
[2025-05-27 07:32] LABS: TROPONIN I HIGH SENSITIVITY 38 ng/L (3.0-34)
[2025-05-27] MEDS: MAGNESIUM 2 G PREMIX 50 ML IV NR (07:59)
[2025-05-27] MEDS: KCL 20MEQ/100ML PREMIX 100 ML IV SCH (07:59)
[2025-05-27] MEDS: POTASSIUM CHLORIDE 20MEQ/PACKET PO NR (07:59)
[2025-05-27 09:20] LABS: TROPONIN I HIGH SENSITIVITY 52 ng/L (3.0-34)
[2025-05-27 15:15] VITALS: BP 147/87; PULSE 76; RESP 18; TEMP 36; TEMP 36.0288; O2SAT 100
[2025-05-27] MEDS ORDERED: AMLO-905 PO (15:47)
[2025-05-27] MEDS ORDERED: ONDANSETRON HCL 4MG/2ML INJ IV PRN (17:15)
[2025-05-27] MEDS ORDERED: CLONIDINE 0.1MG TABLET PO PRN (17:15)
[2025-05-27] MEDS ORDERED: DOCUSATE SODIUM 100MG CAPSULE PO PRN (17:15)
[2025-05-27] MEDS ORDERED: ACETAMINOPHEN 325MG TABLET PO PRN ×2 (17:15)
[2025-05-27 18:47] LABS: *AMPHETAMINES SCREEN URINE NEGATIVE (NEGATIVE); *BARBITURATES SCREEN URINE NEGATIVE (NEGATIVE); *BENZODIAZEPINES SCREEN URINE NEGATIVE (NEGATIVE)
[2025-05-27 18:48] LABS: *COCAINE SCREEN URINE NEGATIVE (NEGATIVE); CANNABINOID URINE SCREEN NEGATIVE (NEGATIVE); ECSTASY MDMA SCREEN URINE NEGATIVE (NEGATIVE); METHADONE URINE SCREEN NEGATIVE (NEGATIVE); OPIATES URINE SCREEN NEGATIVE (NEGATIVE); PHENCYCLIDINE URINE SCREEN NEGATIVE (NEGATIVE)
[2025-05-27 19:50] VITALS: BP 145/83; PULSE 70; RESP 18; TEMP 36.3; O2SAT 100
[2025-05-27 22:31] LABS: PHOSPHORUS 3.1 mg/dL (2.5-4.9)
[2025-05-27 22:46] LABS: TROPONIN I HIGH SENSITIVITY 50 ng/L (3.0-34)
== END 2025-05-27 23:38 | disposition left against medical advice (07) | DRG 190 ==
LOC: ER 06:14 → 7WST 09:24 → EDBEDREQ 09:34 → EDBEDREQTM 09:34
PROVIDERS: ADMIT Internal Medicine; ATTEND Internal Medicine
DX: I21.4 Non-ST elevation (NSTEMI) myocardial infarction (principal); E11.9 Type 2 diabetes mellitus without complications; I10 Essential (primary) hypertension; J44.89 Other specified chronic obstructive pulmonary disease; Z53.29 Procedure and treatment not carried out because of patient's decision for other reasons
CPT/HCPCS: 36415; 71045; 80048; 80076; 80305; 80320; 83735; 83880; 84100; 84484; 85025; 93005; 96361; 96365; 99291; J3475; J3480; G0480